=== PATIENT | male | born 1935 | race Caucasian/White ===

== ENCOUNTER → 2018-04-10 08:16 | Outpatient (CLI) | payer MEDICARE, SELFPAY ==
--- NOTE | 2018-04-10 | DI.ECHO.S_ITS ---
[facility] +---------+ : : [address] : : : : [id number] : : : : Phone: [phone] Echocardiogram Report + + :Name: MARLENE KEENAN Study Date: 04/10/2018 Height: 74 in : :[facility] Weight: 241 lb : : Gender: Male BSA: 2.4 m2 : :: 1935 Age: 83 yrs BP: 130/60 mmHg: :Reason For Study: Aortic valve regurgitation : :Ordering Physician: Dr. Estrella : :Brandon Performed By: Raissa Sosa : :Referring: Brian Lundy : + + Interpretation Summary The left ventricle is normal in size. The ejection fraction is estimated to be 55-60%. There has been no significant change in LVEF since the previous study. Assessment of diastolic parameters suggests a pseudonormalization pattern, consistent with elevated filling pressures(Changed from relaxation abnormality to pseudonormalization pattern). The right ventricle is normal size. The right ventricular systolic function is normal. There is mild to moderate mitral regurgitation. Compared to the prior echo study, there has been an increase in the severity of mitral regurgitation. The aortic valve is moderately calcified. Leaflet mobility is mild to moderately reduced. The peak aortic velocity is 2.0 m/sec. The aortic valve mean gradient is 8 mmHg. The peak aortic velocity on the previous exam was 1.4 m/sec. There is no hemodynamically significant valvular aortic stenosis. There is mild to moderate aortic regurgitation. Compared to the prior echo study, there has been no change in the severity of aortic regurgitation. The ascending aorta is moderately enlarged. Asc Aorta Diam: 4.3 cm The aortic arch is mildly enlarged. Ao Arch Diam (Prox Trans): 3.7 cm In June 28, 2017 ascending aorta diameter was about 4.6 cm and aortic arch about 3.7 cm. In May 2013, ascending aorta was about 4.3 cm and aortic arch about 3.6 cm. Procedure: A two-dimensional transthoracic echocardiogram with color flow and Doppler was performed. The study quality was technically adequate. Comparison is made with the echocardiogram of 06-28-17. The patient was in normal sinus rhythm during the exam. Left Ventricle: The left ventricle is normal in size. Left ventricular wall thickness is mildly increased. There is no thrombus. The ejection fraction is estimated to be 55-60%. There has been no significant change since the previous study. There are no focal wall motion abnormalities. Assessment of diastolic parameters suggests a pseudonormalization pattern, consistent with elevated filling pressures. Right Ventricle: The right ventricle is normal size. The right ventricular systolic function is normal. Atria: The left atrium is mildly dilated. The left atrium has mildly decreased in size since the prior echo exam. Right atrial size is normal. The interatrial septum is intact with no evidence for an atrial septal defect. Mitral Valve: The mitral valve leaflets appear mildly thickened, but open well. The mitral valve leaflets are mildly calcified. There is mild to moderate mitral annular calcification. The mitral valve chordae are thickened and/or calcified. There is mild to moderate mitral regurgitation. Compared to the prior echo study, there has been an increase in the severity of mitral regurgitation. The mitral regurgitant jet is eccentrically directed. Aortic Valve: The aortic valve is moderately calcified. The aortic valve is not well visualized. Leaflet mobility is mild to moderately reduced. The calculated aortic valve area is 2.1 cm2. The peak aortic velocity is 2.0 m/sec. The peak aortic velocity on the previous exam was 1.4 m/sec. The aortic valve mean gradient is 8 mmHg. Severity ratio is 0.52. There is no hemodynamically significant valvular aortic stenosis. There is mild to moderate aortic regurgitation. Compared to the prior echo study, there has been no change in the severity of aortic regurgitation. Tricuspid Valve: The tricuspid valve is normal in structure and function. The right ventricular systolic pressure is estimated at 24 mmHg assuming a right atrial pressure of 3 mm Hg. There is trace tricuspid regurgitation. Pulmonic Valve: The pulmonic valve is not well seen, but is grossly normal. There is trace pulmonic regurgitation. Great Vessels: The aortic root is mildly dilated. The ascending aorta is moderately enlarged. The aortic arch is mildly enlarged. The IVC is of normal diameter and collapses greater than 50% with a sniff. This suggests a low right atrial pressure of 3 mm Hg. Pericardium/ Pleura There is no pericardial effusion. There is no pleural effusion. MMode/2D Measurements & Calculations LVIDd: 4.6 cm LVOT diam: 2.3 cm LVIDs: 2.8 cm Ao root diam: 4.0 cm FS: 38.4 % Aortic Jxn: 3.5 cm EPSS: 0.55 cm asc Aorta Diam: 4.3 cm IVSd: 1.2 cm Ao Arch Diam (Prox Trans): 3.7 cm LVPWd: 0.87 cm LV fernandes. diameter/BSA (cm/m^2): 1.9 LV sys. diameter/BSA (cm/m^2): 1.2 LA dimension: 4.2 cm RA long axis: 5.2 cm LA A2 area: 23.7 cm2 RA area: 21.0 cm2 LA A4 area: 24.0 cm2 RA vol: 71.4 ml LA length (vol): 6.0 cm RA : 30.3 ml/m2 LA vol: 80.9 ml IVC diam: 1.6 cm LA vol index: 34.4 ml/m2 RVDd major: 5.1 cm RVD1 (basal): 3.7 cm RVD2 (mid): 3.6 cm Doppler Measurements & Calculations Ao V2 max: 202.7 cm/sec LVOT Max Ector: 103.7 cm/sec Ao V2 mean: 129.5 cm/sec LV V1 max P.3 mmHg Ao max P.4 mmHg LV V1 VTI: 24.6 cm Ao mean P.1 mmHg MYESHA(I,D): 2.2 cm2 Ao V2 VTI: 47.4 cm MYESHA(V,D): 2.1 cm2 sev ratio: 0.52 MYESHA indexed to BSA (cm^2/m^2): 0.92 AI P1/2t: 458.6 msec AI dec slope: 206.1 cm/sec2 MV E max ector: 97.6 cm/sec TR max ector: 230.4 cm/sec MV A max ector: 82.0 cm/sec TR max P.2 mmHg MV E/A: 1.2 PA V2 max: 69.0 cm/sec Med Peak E' Ector: 6.2 cm/sec PA V2 mean: 46.0 cm/sec E/E' med: 15.7 PA mean P.99 mmHg Lat Peak E' Ector: 7.6 cm/sec PA Accel Time: 0.17 sec E/E' lat: 12.9 E/e' average: 14.3 MV dec time: 0.22 sec MV P1/2t: 64.0 msec MR ERO: 0.18 cm2 MV P1/2t max ector: 96.3 cm/sec MR flow rate: 94.9 cm3/sec MVA(P1/2t): 3.4 cm2 MR PISA radius: 0.63 cm Reading Physician:DARREN
== END ==
PROVIDERS: PCP Family Medicine; Visit Provider Family Medicine
DX: I08.0 Rheumatic disorders of both mitral and aortic valves (principal); R53.1 Weakness
CPT/HCPCS: 93306

== ENCOUNTER 2018-06-04 14:32 | Emergency (ER) | payer MEDICARE, SELFPAY ==
[2018-06-04 14:25] VITALS: BP 127/79; PULSE 180; RESP 14; TEMP 36.7; O2SAT 98
--- NOTE | 2018-06-04 14:46 | DI.RAD.S_ITS ---
PROCEDURE: XR CHEST 1V INDICATIONS: chest pain TECHNIQUE: One view of the chest was acquired. COMPARISON: [facility], , CHEST 2 VIEW, 11/07/2015, 11:17. FINDINGS: Surgical changes and devices: None. Lungs and pleura: No pleural effusions or pneumothorax. Lungs are clear. Mediastinum: Mediastinal contours appear normal. Heart size is normal. Bones and chest wall: No suspicious bony lesions. Overlying soft tissues appear unremarkable. IMPRESSION: No acute cardiopulmonary findings. Dictated by: Kat Orta M.D. on 06/04/2018 at 15:06 Approved by: Kat Orta M.D. on 06/04/2018 at 15:06
[2018-06-04 14:53] LABS: Add Manual Diff / Slide Review NO; Basophils Percent Auto 0.9 % (0-2); Eosinophils Percent Auto 3.2 % (2-4); Hemoglobin 15.4 g/dL (13.5-17.5); Mean Corpuscular HGB Conc 34.3 % (30-36); Mean Corpuscular Hemoglobin 32.7 PG (26-34); Mean Corpuscular Volume 95.5 fL (80-100); Monocytes Percent Auto 13.4 % (3-14); Neutrophils Absolute Auto 3700 /uL (3000-5900); Neutrophils Percent Auto 53.5 % (50-75); Platelet Count 137 X10^3/uL (150-400); Red Blood Cell Count 4.71 X10^6/uL (4.5-5.9); Red Cell Distribution Width 12.9 % (11.6-14.8); White Blood Cell Count 6.9 X10^3/uL (4.5-11.0)
[2018-06-04 14:59] VITALS: BP 129/60; PULSE 74; RESP 14
[2018-06-04 15:00] LABS: INR 1.2 (0.9-1.3); Prothrombin Time 13.5 SECONDS (10.1-12.7)
[2018-06-04 15:02] LABS: PTT Partial Thromboplastin Tim 37 SECONDS (26.4-36.2)
[2018-06-04 15:04] LABS: Alanine Aminotransferase 25 IU/L (21-72); Albumin 4.5 g/dL (3.5-5.0); Albumin Globulin Ratio 1.6 (1.0-2.8); Alkaline Phosphatase 80 U/L (38-126); Aspartate Aminotransferase 19 IU/L (17-59); BUN Creatinine Ratio 16.2 (6-22); Bilirubin Total 0.8 mg/dL (0.2-1.3); Blood Urea Nitrogen 21 mg/dL (9-20); Calcium 9.5 mg/dL (8.4-10.2); Carbon Dioxide 30 mmol/L (22-32); Chloride 104 mmol/L (98-107); Creatine Kinase 42 U/L (55-170); Estimated Glomerular Filt Rate 52.9 mL/min (>60); Globulin 2.8 g/dL (1.7-4.1); Glucose 97 mg/dL (80-110); HEMOLYSIS < 15 (0-50); Lipase 80 U/L (23-300); Potassium 4.4 mmol/L (3.4-5.1); Sodium 144 mmol/L (137-145); Total Protein 7.3 g/dL (6.3-8.2)
--- NOTE | 2018-06-04 15:07 | ED_ITS ---
HPI - Arrhythmia/Palpitations General Chief Complaint: Arrhythmia/Palpitations Stated Complaint: Rapid Heart Rate Time Seen by Provider: 06/04/18 14:40 Source: patient and family Mode of arrival: ambulatory Limitations: no limitations History of Present Illness HPI narrative: Patient states that about 1 hr ago he noticed that his heart began to beat very fast. He has a history of atrial fibrillation/flutter, and has required either pharmacological or electrical cardioversion in the past. Patient denies chest pain or shortness of breath; no nausea. Patient states that he had previously been on amiodarone, but this was discontinued a couple of months ago. Patient states that he sees Dr. Gay of Cardiology, and has also seen Dr. Miller of Interventional Cardiology. He states he is scheduled to see Dr. Miller in the near future. He has previously had and a blade turpin for the same problem. Related Data Home Medications Medication Instructions Recorded Confirmed amiodarone 400 mg PO [id number] 06/04/18 06/06/18 apixaban [Eliquis] 5 mg PO BID 06/04/18 06/06/18 losartan 25 mg PO DAILY 06/04/18 06/06/18 metoprolol succinate 100 mg PO DAILY 06/04/18 06/06/18 Allergies Allergy/AdvReac Type Severity Reaction Status Date / Time simvastatin [SIMVASTATIN] AdvReac Severe MUSCLE Unverified 06/06/18 10:33 WEAKNESS Review of Systems Constitutional Denies chills, Denies fever(s), Denies lethargy and Denies weakness Eyes Denies change in vision, Denies eye discharge, Denies irritation and Denies loss of vision ENT Ears, Nose, Mouth, and Throat: Denies change in voice, Denies neck pain and Denies sore throat Cardiovascular Denies chest pain, Reports irregular heart rhythm, Denies lightheadedness, Reports palpitations, Denies dyspnea, Denies dyspnea on exertion and Denies orthopnea Respiratory Denies cough, Denies dyspnea, Denies dyspnea on exertion and Denies wheezing Gastrointestinal Gastrointestinal: Denies abdominal pain, Denies change in bowel habits, Denies diarrhea, Denies nausea and Denies vomiting Genitourinary Denies hematuria, Denies flank pain, Denies urinary incontinence and Denies urinary urgency Musculoskeletal Denies neck pain Integumentary/Breasts Denies pruritus, Denies erythema, Denies rash and Denies wounds Neurologic Denies confusion, Denies loss of vision and Denies weakness Psychiatric Denies anxiety, Denies confusion, Denies depression, Denies homicidal ideation and Denies suicidal ideation Endocrine Reports palpitations Hematologic/Lymphatic Denies easy bruising Allergic/Immunologic Denies wheezing [facility] Medical History Atrial fibrillation (Chronic) Surgical History H/O cardiac radiofrequency ablation (Chronic) Social History Smoking Status: Never smoker Exam Initial Vital Signs Initial Vital Signs: Vital Signs Temperature 98.1 F 06/04/18 14:25 Pulse Rate 180 H 06/04/18 14:25 Respiratory Rate 14 06/04/18 14:25 Blood Pressure 127/79 06/04/18 14:25 Pulse Oximetry 98 06/04/18 14:25 Const General: cooperative and well developed Nutritional Appearance: well nourished Orientation: alert, awake, oriented x3 and not confused [facility] Head: normocephalic and atraumatic Ears: external ears normal Nose: external nose normal and No nasal discharge Face and sinus: sinuses nontender, face symmetric, no sinus tenderness and No dry mucous membranes Mouth: oral mucosae normal and moist mucous membranes Teeth and gingiva: dentition normal Eyes General: appearance normal, both eyes and all related structures Eyelids: eyelids normal Conjunctivae: conjunctivae normal Sclera: sclerae normal Pupils: PERRL EOM: EOM intact bilaterally Neck Neck: normal visual inspection, trachea midline, No lymphadenopathy, No midline deformity and No JVD Lymphatic: No lymphedema Chest Chest: normal inspection of the chest Resp Effort & Inspection: normal respiratory effort, able to speak in complete sentences, no respiratory distress and no use of accessory muscles Auscultation: clear to auscultation bilaterally, no rales, no rhonchi and no wheezes Cardio Rate: tachycardic Rhythm: regular rhythm Heart Sounds: no click, no gallops, no murmurs and no rubs Pulses: normal peripheral pulses GI Inspection: non-distended Palpation: soft, no hepatosplenomegaly, No guarding, No pulsatile mass and No tender Back/Spine/Pelvis Back: No CVA tenderness Cervical Spine: cervical ROM normal and No pain with cervical ROM Thoracic/Lumbar Spine: thoracic and lumbar spine normal to inspection Skin General: no rashes or lesions noted, No jaundice and No petechiae Neuro General: alert, oriented x3, gait normal and no focal motor deficits Speech: speech normal Extrem General: full ROM, no clubbing, cyanosis or edema, no pedal edema and no calf tenderness Psych Appearance: well kempt Mental Status: mental status grossly normal Attitude: cooperative Thought Content: normal and suicidality Judgment: judgment good Course Course Narrative: Patient was evaluated by myself shortly after his arrival in the emergency department. Nursing staff did have the patient perform Valsalva maneuver and this did convert the patient's rhythm back into a normal sinus rhythm. I had initially ordered Cardizem for the patient but given that he converted, this was held. Patient was evaluated with laboratory studies and EKG. In the meantime, Dr. Gay did call the emergency department and we discussed the patient's case. He recommended that the patient be placed back on amiodarone and gave specific dosing instructions for this. He also stated his desire for patient to see Dr. Miller we have discussed the patient will indeed be seeing him shortly. I discussed the plan with the patient. He did briefly go back into atrial fibrillation, but converted spontaneously again. I have discussed the plan for the amiodarone and reiterated doctor Gay's desire for the patient to see Dr. Miller, which the patient is already planning to do. Orders Ordered: Discontinued Medications Amiodarone HCl (Cordarone) 400 mg PO NOW ONE Stop: 06/04/18 15:43 Last Admin: 06/04/18 16:06 Dose: 400 mg Diltiazem HCl (Cardizem) 10 mg IV NOW ONE Stop: 06/04/18 15:43 Last Admin: 06/04/18 16:16 Dose: Vital Signs - 8 hr 06/04/18 14:25 06/04/18 14:59 Temperature 98.1 F Pulse Rate 180 H 74 Respiratory Rate 14 14 Blood Pressure 127/79 Blood Pressure [Left Arm] 129/60 Pulse Oximetry 98 MDM - Arrhythmia/Palpitations Medical Records Attestation: I reviewed the patient's medical records. Lab Data Attestation: I reviewed the patient's lab results. Result diagrams: 06/04/18 14:45 06/04/18 14:45 Lab Results 06/04/18 06/04/18 06/04/18 Range/Units 14:45 14:45 14:45 WBC 6.9 (4.5-11.0) X10^3/uL RBC 4.71 (4.5-5.9) X10^6/uL Hgb 15.4 (13.5-17.5) g/dL Hct 45.0 (41-53) % MCV 95.5 (80-100) fL MCH 32.7 (26-34) PG MCHC 34.3 (30-36) % RDW 12.9 (11.6-14.8) % Plt Count 137 L (150-400) X10^3/uL Neut % (Auto) 53.5 (50-75) % Lymph % (Auto) 29.0 (25-40) % [place] % (Auto) 13.4 (3-14) % Eos % (Auto) 3.2 (2-4) % Baso % (Auto) 0.9 (0-2) % Neut # (Auto) 3700 (0452-6719) /uL PT 13.5 H (10.1-12.7) SECONDS INR 1.2 (0.9-1.3) APTT 37 H (26.4-36.2) SECONDS Sodium 144 (137-145) mmol/L Potassium 4.4 (3.4-5.1) mmol/L Chloride 104 (98-107) mmol/L Carbon Dioxide 30 (22-32) mmol/L BUN 21 H (9-20) mg/dL Creatinine 1.30 H (0.66-1.25) mg/dL Estimated GFR 52.9 L (>60) mL/min BUN/Creatinine Ratio 16.2 (6-22) Glucose 97 (80-110) mg/dL Calcium 9.5 (8.4-10.2) mg/dL Total Bilirubin 0.8 (0.2-1.3) mg/dL AST 19 (17-59) IU/L ALT 25 (21-72) IU/L Alkaline Phosphatase 80 (38-126) U/L Total Creatine Kinase 42 L (55-170) U/L CK-MB (CK-2) TNP CK-MB (CK-2) Rel Index TNP Troponin I < 0.012 (0.01-0.034) ng/mL Total Protein 7.3 (6.3-8.2) g/dL Albumin 4.5 (3.5-5.0) g/dL Globulin 2.8 (1.7-4.1) g/dL Albumin/Globulin Ratio 1.6 (1.0-2.8) Lipase 80 (23-300) U/L ECG Data Attestation: I personally reviewed and interpreted this ECG as follows: Interpretation: Twelve lead EKG performed on June 14, 2018 at 2:40 p.m.: Regular ventricular rhythm with a rate of 175 beats per minute QRS duration 109 milliseconds QTC interval 364 milliseconds Interpretation: Regular, narrow complex tachycardia, as interpreted by the EDMD. EKG #2: Performed June 04, 2018 at 2:49 p.m. Regular ventricular rhythm with a rate of 70 beats per minute TX interval 187 millisecond QRS duration 88 milliseconds QTC interval 378 milliseconds Normal axis Ramsay interpretation: Normal sinus rhythm; left anterior fascicular block; old OR; abnormal EKG as interpreted by ED MD. Discharge Plan Departure Patient Disposition: Home Clinical Impression: Atrial flutter with rapid ventricular response Discharge Date/Time: 06/04/18 16:15 Interventions: ED Discharge Assessment Last Done: 06/04/18 16:15 Instructions: DI for Atrial Flutter Activity Restrictions/Additional Instructions: Your case has been discussed with Dr. Gay. He states you have a history of atrial flutter, which is consistent with your heart findings today. Dr. Gay would like you to restart amiodarone, for which you will be given a prescription. He would like you to take 400 mg twice a day for 1 week, and then change to 200 mg once a day. He would like for you to follow up with Dr. Miller, the cardiac digital imaging technician, as you are scheduled to do. Prescriptions: No Action amiodarone 200 mg tablet 400 mg PO [id number] RF: 0 metoprolol succinate 100 mg tablet extended release 24 hr 100 mg PO DAILY RF: 0 losartan 25 mg tablet 25 mg PO DAILY RF: 0 apixaban [Eliquis] 5 mg tablet 5 mg PO BID RF: 0 Referrals: Marty Taylor MD [Primary Care Provider] -
[2018-06-04 15:16] LABS: Troponin I < 0.012 ng/mL (0.01-0.034)
[2018-06-04 15:40] VITALS: BP 117/97; PULSE 148; RESP 20; O2SAT 98
[2018-06-04 15:50] VITALS: BP 122/59; PULSE 68; RESP 13; O2SAT 97
[2018-06-04] MEDS: AMIODARONE 200 MG TABLET 400 MG PO (16:06)
== END 2018-06-04 16:15 | disposition home or self-care (01) ==
PROVIDERS: Emergency Provider Emergency Medicine; PCP Family Medicine
DX: I48.92 Unspecified atrial flutter (principal)
CPT/HCPCS: 36591; 71045; 80053; 82550; 83690; 84484; 85025; 85610; 85730; 93005; 99283; 99285

== ENCOUNTER 2018-06-06 10:08 | Emergency (ER) | payer MEDICARE, SELFPAY ==
[2018-06-06 10:05] VITALS: BP 126/80; PULSE 125; RESP 20; TEMP 36.5; O2SAT 98
--- NOTE | 2018-06-06 10:28 | DI.RAD.S_ITS ---
PROCEDURE: XR CHEST 1V INDICATIONS: Atrial fibrillation. TECHNIQUE: One view of the chest was acquired. COMPARISON: [facility], CR, XR CHEST 1V, 06/04/2018, 14:49. FINDINGS: Surgical changes and devices: None. Lungs and pleura: No pleural effusions or pneumothorax. Lungs are clear. Mediastinum: Mediastinal contours appear normal. Heart size is normal. Bones and chest wall: No suspicious bony lesions. Overlying soft tissues appear unremarkable. IMPRESSION: No acute cardiopulmonary disease process. Dictated by: Joya Boyce MD, PhD on 06/06/2018 at 11:16 Approved by: Joya Boyce MD, PhD on 06/06/2018 at 11:16
--- NOTE | 2018-06-06 10:31 | ED_ITS ---
HPI - Arrhythmia/Palpitations General Chief Complaint: Arrhythmia/Palpitations Stated Complaint: A-fib Time Seen by Provider: 06/06/18 10:16 Source: patient and EMS Mode of arrival: EMS Limitations: no limitations History of Present Illness HPI narrative: This is an 83-year-old gentleman who comes to the emergency department with complaint of atrial fibrillation. Patient went in about a month ago for a stress test and was noted to be in atrial fibrillation. He had a cardioversion month ago and they started him on and then increase his amiodarone dose. He was here just a couple days ago with similar symptoms also elevated which resolved and then returned within ultimately resolved. Patient has a history of a bleach in in 2012 through [facility]. He sees Dr. gramajo well. He has not been having any chest pain, no shortness of breath. No lightheadedness or dizziness today. He was feeling dizzy a couple days ago when he was here for his atrial fibrillation. He denies any nausea or vomiting , no diaphoresis. No GI or urinary symptoms. No swelling of his lower extremities. He had a AMBER about 3 weeks ago which was negative as well as this continuing to take Eliquis daily. He takes metoprolol extended-release, losartan as well as amiodarone. He has a history of stroke of the left eye. Related Data Home Medications Medication Instructions Recorded Confirmed amiodarone 400 mg PO [id number] 06/04/18 06/06/18 apixaban [Eliquis] 5 mg PO BID 06/04/18 06/06/18 losartan 25 mg PO DAILY 06/04/18 06/06/18 metoprolol succinate 100 mg PO DAILY 06/04/18 06/06/18 Allergies Allergy/AdvReac Type Severity Reaction Status Date / Time simvastatin [SIMVASTATIN] AdvReac Severe MUSCLE Unverified 06/06/18 10:33 WEAKNESS Review of Systems Review of Systems All systems reviewed & are unremarkable except as noted in HPI and below Constitutional Denies lethargy and Denies malaise Cardiovascular Denies chest pain, Denies diaphoresis, Denies syncope, Reports rapid heart rate , Denies pedal edema, Reports irregular heart rhythm, Denies leg edema, Denies lightheadedness, Denies radiating jaw, neck or arm pain, Reports palpitations, Denies dyspnea, Denies dyspnea on exertion and Denies orthopnea Respiratory Denies dyspnea and Denies dyspnea on exertion Gastrointestinal Gastrointestinal: Reports abdominal pain, Denies constipation, Denies diarrhea, Denies nausea and Denies vomiting Genitourinary Denies difficulty urinating Neurologic Denies syncope Endocrine Reports palpitations PFSH Medical History Atrial fibrillation (Chronic) Surgical History H/O cardiac radiofrequency ablation (Chronic) Social History Smoking Status: Never smoker Exam Narrative Exam Narrative: GENERAL: Alert and oriented x three, well-nourished, well- appearing male in no acute distress. HEENT: Head normocephalic, atraumatic, EOMI, pupils reactive, face symmetric, moist mucous membranes NECK: Supple, full range of motion CARDIOVASCULAR: Regular rate and rhythm without murmurs, rubs or gallops. RESPIRATORY: Breath sounds equal bilaterally, no wheezes rales or rhonchi. ABDOMEN: Soft, nontender. Normoactive bowel sounds all 4 quadrants. No guarding or rebound, rigidity, no mass EXTREMITIES: Normal range of motion, no clubbing or edema. Neurovascularly intact NEUROLOGICAL: Cranial nerves II through XII grossly intact. Moving all extremities SKIN: Warm, dry, no petechiae, no rashes or lesions. Initial Vital Signs Initial Vital Signs: Vital Signs Temperature 97.7 F 06/06/18 10:05 Pulse Rate 125 H 06/06/18 10:05 Respiratory Rate 20 06/06/18 10:05 Blood Pressure 126/80 06/06/18 10:05 Pulse Oximetry 98 06/06/18 10:05 Course Orders Ordered: ED Orders 06/06/18 10:00 Basic Metabolic Panel Stat Complete Blood Count AUTO DIFF Stat Magnesium Stat Partial Thromboplastin Time Stat Prothrombin Time INR Stat Thyroid Stimulating Hormone Stat Troponin & CK Cardiac Panel Stat 06/06/18 10:18 EKG-12 Lead Stat EKG-12 Lead Stat 06/06/18 10:28 XR chest 1V Stat Discontinued Medications Sodium Chloride (Normal Saline 0.9%) 1,000 mls @ 150 mls/hr IV CONT TRACEY Last Admin: 06/06/18 10:43 Dose: 150 mls/hr Reevaluation(s) Reevaluation #1: Patient has been asymptomatic since arrival. Continues to be in a sinus rhythm. Discussed findings he feels comfortable returning home. Time: 12:12 Consultations Consultation #1: Spoke with Dr. Lundy and he asks for patient to continue Amiodarone 400mg BID and call office to set up appointment with Dr. Miller for evaluation and possible ablation. Time: 12:11 Vital Signs - 8 hr 06/06/18 10:41 06/06/18 11:00 06/06/18 11:30 Pulse Rate 63 63 62 Respiratory Rate 18 14 19 Blood Pressure [Right Arm] 136/58 L 142/89 H 112/58 L Pulse Oximetry 98 97 98 06/06/18 12:00 Pulse Rate 60 Respiratory Rate 15 Blood Pressure [Right Arm] 129/54 L Pulse Oximetry 98 MDM - Arrhythmia/Palpitations Lab Data Attestation: I reviewed the patient's lab results. Result diagrams: 06/06/18 10:00 06/06/18 10:00 Lab Results 06/06/18 06/06/18 06/06/18 Range/Units 10:00 10:00 10:00 WBC 5.6 (4.5-11.0) X10^3/uL RBC 4.76 (4.5-5.9) X10^6/uL Hgb 15.7 (13.5-17.5) g/dL Hct 45.4 (41-53) % MCV 95.2 (80-100) fL MCH 33.1 (26-34) PG MCHC 34.7 (30-36) % RDW 13.1 (11.6-14.8) % Plt Count 136 L (150-400) X10^3/uL Neut % (Auto) 51.8 (50-75) % Lymph % (Auto) 30.1 (25-40) % Meriwether % (Auto) 13.6 (3-14) % Eos % (Auto) 4.0 (2-4) % Baso % (Auto) 0.5 (0-2) % Neut # (Auto) 2900 L (2016-9804) /uL PT 16.4 H (10.1-12.7) SECONDS INR 1.5 H (0.9-1.3) APTT 40 H D (26.4-36.2) SECONDS Sodium 143 (137-145) mmol/L Potassium 4.1 (3.4-5.1) mmol/L Chloride 104 (98-107) mmol/L Carbon Dioxide 27 (22-32) mmol/L BUN 20 (9-20) mg/dL Creatinine 1.10 (0.66-1.25) mg/dL Estimated GFR > 60.0 (>60) mL/min BUN/Creatinine Ratio 18.2 (6-22) Glucose 97 (80-110) mg/dL Calcium 9.5 (8.4-10.2) mg/dL Magnesium 2.0 (1.6-2.3) mg/dL Total Creatine Kinase 56 (55-170) U/L CK-MB (CK-2) TNP CK-MB (CK-2) Rel Index TNP Troponin I < 0.012 (0.01-0.034) ng/mL TSH (0.47-4.68) uIU/mL 06/06/18 Range/Units 10:00 WBC (4.5-11.0) X10^3/uL RBC (4.5-5.9) X10^6/uL Hgb (13.5-17.5) g/dL Hct (41-53) % MCV (80-100) fL MCH (26-34) PG MCHC (30-36) % RDW (11.6-14.8) % Plt Count (150-400) X10^3/uL Neut % (Auto) (50-75) % Lymph % (Auto) (25-40) % Meriwether % (Auto) (3-14) % Eos % (Auto) (2-4) % Baso % (Auto) (0-2) % Neut # (Auto) (1023-0989) /uL PT (10.1-12.7) SECONDS INR (0.9-1.3) APTT (26.4-36.2) SECONDS Sodium (137-145) mmol/L Potassium (3.4-5.1) mmol/L Chloride (98-107) mmol/L Carbon Dioxide (22-32) mmol/L BUN (9-20) mg/dL Creatinine (0.66-1.25) mg/dL Estimated GFR (>60) mL/min BUN/Creatinine Ratio (6-22) Glucose (80-110) mg/dL Calcium (8.4-10.2) mg/dL Magnesium (1.6-2.3) mg/dL Total Creatine Kinase (55-170) U/L CK-MB (CK-2) CK-MB (CK-2) Rel Index Troponin I (0.01-0.034) ng/mL TSH 1.08 (0.47-4.68) uIU/mL Imaging Data Chest x-ray: Radiologist's impression: [address] [address] XRay Report Signed Patient: Hussein Sheets CMR#: [id number] : 6Acct:[id number] Age/Sex: 83 / MDate of Service: 06/06/18 Loc: ED Accession Number: [id number] Procedure: XR chest 1V Ordering Provider: Carla Benton D.O. PROCEDURE: XR CHEST 1V INDICATIONS: Atrial fibrillation. TECHNIQUE: One view of the chest was acquired. COMPARISON: [facility], , XR CHEST 1V, 06/04/2018, 14:49. FINDINGS: Surgical changes and devices: None. Lungs and pleura: No pleural effusions or pneumothorax. Lungs are clear. Mediastinum: Mediastinal contours appear normal. Heart size is normal. Bones and chest wall: No suspicious bony lesions. Overlying soft tissues appear unremarkable. IMPRESSION: No acute cardiopulmonary disease process. Dictated by: Joya Boyce MD, PhD on 06/06/2018 at 11:16 Approved by: Joya Boyce MD, PhD on 06/06/2018 at 11:16 ECG Data Attestation: I personally reviewed and interpreted this ECG as follows: Interpretation: EKG 1. Shows atrial tachycardia with a rate of 122 and a QRS of 102 and a QTC of 390. No ST elevation or depression is appreciated. Left anterior fascicular block. EKG 2. Shows a sinus rhythm with a rate of 62, P are of 200, QRS of 89 and QTC of 398. Patient's shows again no ST elevation or depression appreciated. Left anterior fascicular block. MDM Narrative Medical decision making narrative: Patient cardioverted almost immediately after arrival and after 1st EKG, second EKG confirms this. Patient is asymptomatic at this time. Lab work shows no major abnormalities. He does have a director of coding and they were contacted. Discharge Plan Departure Patient Disposition: Home Clinical Impression: Atrial fibrillation Discharge Date/Time: 06/06/18 12:42 Interventions: ED Discharge Assessment Last Done: 06/06/18 12:42 Instructions: DI for Atrial Fibrillation Activity Restrictions/Additional Instructions: Call the cardiology office to set up a follow-up appointment with Dr. Miller the exhibit electrician for evaluation and possible cardiac ablation. Continue your amiodarone at 400 mg twice daily until you follow up. Return to the emergency department for recurrent symptoms particularly if they do not respond to Valsalva maneuver at home or if you're feeling lightheaded, passing out coming having chest pain or shortness of breath or other new or concerning symptoms. Prescriptions: No Action amiodarone 200 mg tablet 400 mg PO [id number] RF: 0 metoprolol succinate 100 mg tablet extended release 24 hr 100 mg PO DAILY RF: 0 losartan 25 mg tablet 25 mg PO DAILY RF: 0 apixaban [Eliquis] 5 mg tablet 5 mg PO BID RF: 0 Referrals: Marty Taylor MD [Primary Care Provider] - Hernandez Miller MD [Physician] -
[2018-06-06 10:36] LABS: Add Manual Diff / Slide Review NO; Basophils Percent Auto 0.5 % (0-2); Hematocrit 45.4 % (41-53); Hemoglobin 15.7 g/dL (13.5-17.5); Lymphocytes Percent Auto 30.1 % (25-40); Mean Corpuscular HGB Conc 34.7 % (30-36); Mean Corpuscular Hemoglobin 33.1 PG (26-34); Mean Corpuscular Volume 95.2 fL (80-100); Monocytes Percent Auto 13.6 % (3-14); Neutrophils Absolute Auto 2900 /uL (3000-5900); Neutrophils Percent Auto 51.8 % (50-75); Platelet Count 136 X10^3/uL (150-400); Red Blood Cell Count 4.76 X10^6/uL (4.5-5.9); Red Cell Distribution Width 13.1 % (11.6-14.8); White Blood Cell Count 5.6 X10^3/uL (4.5-11.0)
[2018-06-06 10:37] LABS: INR 1.5 (0.9-1.3); Prothrombin Time 16.4 SECONDS (10.1-12.7)
[2018-06-06 10:40] LABS: PTT Partial Thromboplastin Tim 40 SECONDS (26.4-36.2)
[2018-06-06 10:41] VITALS: BP 136/58; PULSE 63; RESP 18; O2SAT 98
[2018-06-06 10:41] LABS: BUN Creatinine Ratio 18.2 (6-22); Blood Urea Nitrogen 20 mg/dL (9-20); Calcium 9.5 mg/dL (8.4-10.2); Carbon Dioxide 27 mmol/L (22-32); Chloride 104 mmol/L (98-107); Creatine Kinase 56 U/L (55-170); Estimated Glomerular Filt Rate > 60.0 mL/min (>60); Glucose 97 mg/dL (80-110); HEMOLYSIS < 15 (0-50); Potassium 4.1 mmol/L (3.4-5.1); Sodium 143 mmol/L (137-145)
[2018-06-06] MEDS: SODIUM CHLORIDE 0.9% 1,000 ML 150 ML IV (10:43)
[2018-06-06 10:54] LABS: Troponin I < 0.012 ng/mL (0.01-0.034)
[2018-06-06 11:00] VITALS: BP 142/89; PULSE 63; RESP 14; O2SAT 97
[2018-06-06 11:19] LABS: Thyroid Stimulating Hormone 1.08 uIU/mL (0.47-4.68)
[2018-06-06 11:30] VITALS: BP 112/58; PULSE 62; RESP 19; O2SAT 98
[2018-06-06 12:00] VITALS: BP 129/54; PULSE 60; RESP 15; O2SAT 98
--- NOTE | 2018-06-11 20:21 | PC.NURSE ---
pt rec'd 300ml of ns on 06/06/18 ending at 1230.
== END 2018-06-06 12:42 | disposition home or self-care (01) ==
PROVIDERS: Emergency Provider Emergency Medicine; PCP Family Medicine
DX: I48.91 Unspecified atrial fibrillation (principal)
CPT/HCPCS: 71045; 80048; 82550; 83735; 84443; 84484; 85025; 85610; 85730; 93005; 96360; 96361; 99283; 99285

== ENCOUNTER → 2018-12-12 11:16 | Outpatient (CLI) | payer MEDICARE, SELFPAY ==
--- NOTE | 2018-12-12 | DI.CT.S_ITS ---
PROCEDURE: CT CHEST WO CON INDICATIONS: PNEUMONIA TECHNIQUE: Noncontrast 5 mm thick sections acquired from the pulmonary apices to the posterior costophrenic angles. 7 mm thick coronal and sagittal MIP reformats were then acquired. For radiation dose reduction, the following was used: automated exposure control, adjustment of mA and/or kV according to patient size. COMPARISON: None. FINDINGS: Image quality: Excellent. Lungs and pleura: Focal prominent consolidation can be seen involving the posterior left lower lobe, with apparent complete collapse of the left lower lobe. The lungs otherwise are unremarkable. No pneumothorax or pleural effusions are seen. The central airways are patent. Mediastinum: Heart size is normal. No pericardial effusion. No mediastinal adenopathy by size criteria. Thoracic aorta and central pulmonary arteries are normal in size. Esophagus is normal in caliber. There is a small hiatal hernia. Bones and chest wall: No suspicious bony lesions. No vertebral body compression fractures. No axillary or supraclavicular adenopathy by size criteria. Thyroid gland demonstrates no significant noncontrast abnormality. Abdomen: Visualized upper abdominal solid organs and bowel loops appear normal in the absence of contrast. IMPRESSION: Apparent complete collapse of the left lower lobe. Please consider a followup noncontrast CT in 4-6 weeks to assure resolution. Incidental note is made of: Small hiatal hernia Dictated by: Ortega Livingston M.D. on 12/12/2018 at 11:40 Approved by: Ortega Livingston M.D. on 12/12/2018 at 11:42
== END ==
PROVIDERS: PCP Family Medicine; Visit Provider Family Medicine
DX: J18.9 Pneumonia, unspecified organism (principal); J98.19 Other pulmonary collapse
CPT/HCPCS: 71250

== ENCOUNTER → 2019-01-05 14:43 | Outpatient (CLI) | payer MEDICARE, SELFPAY ==
--- NOTE | 2019-01-05 | DI.CT.S_ITS ---
PROCEDURE: CT CHEST WO CON INDICATIONS: FOLLOW UP ABNORMAL CT TECHNIQUE: Noncontrast 5 mm thick sections acquired from the pulmonary apices to the posterior costophrenic angles. 7 mm thick coronal and sagittal MIP reformats were then acquired. For radiation dose reduction, the following was used: automated exposure control, adjustment of mA and/or kV according to patient size. COMPARISON: [facility], CT, CT CHEST WO [facility], 12/12/2018, 11:36. FINDINGS: Image quality: Excellent. Lungs and pleura: Interval reexpansion of collapse in the left lower lobe. No suspicious pulmonary nodules. No acute air space opacities. No pleural effusions or pneumothorax. Central and peripheral airways are patent and normal in caliber. Mediastinum: Heart size is normal. No pericardial effusion. No mediastinal adenopathy by size criteria. Unchanged thoracic aorta, with 4.6 cm diameter of the ascending aorta. is normal in caliber. No hiatal hernia. Bones and chest wall: No suspicious bony lesions. No vertebral body compression fractures. No axillary or supraclavicular adenopathy by size criteria. Thyroid gland is unremarkable. Abdomen: Visualized upper abdominal solid organs and bowel loops appear normal in the absence of contrast. IMPRESSION: 1. Interval reexpansion of left lower lobe atelectasis. No findings suspicious for malignancy. 2. Ascending aortic aneurysm measured 4.6 cm. Dictated by: Rao Herman M.D. on 01/05/2019 at 15:46 Approved by: Rao Herman M.D. on 01/05/2019 at 15:50
== END ==
PROVIDERS: PCP Family Medicine; Visit Provider Family Medicine
DX: R93.89 Abnormal findings on diagnostic imaging of other specified body structures (principal); I71.2 Thoracic aortic aneurysm, without rupture
CPT/HCPCS: 71250

== ENCOUNTER → 2019-09-21 09:24 | Outpatient (CLI) | payer MEDICARE, SELFPAY ==
--- NOTE | 2019-09-21 | DI.RAD.S_ITS ---
PROCEDURE: XR CHEST 2V INDICATIONS: COUGH TECHNIQUE: 2 views of the chest were acquired. COMPARISON: [facility], CR, XR CHEST 1V, 06/06/2018, 11:00. [facility], CR, XR CHEST 1V, 06/04/2018, 14:49. FINDINGS: Surgical changes and devices: None. Lungs and pleura: Lungs are clear. No pleural effusions or pneumothorax. Mediastinum: Mediastinal contours are normal. Heart size is normal. Bones and chest wall: No suspicious bony abnormalities. Soft tissues appear unremarkable. IMPRESSION: Normal for age, source of current cough symptoms is not seen. Dictated by: Anupam Williamson M.D. on 09/21/2019 at 10:29 Approved by: Anupam Williamson M.D. on 09/21/2019 at 10:30
== END ==
PROVIDERS: PCP Family Medicine; Visit Provider Family Medicine
DX: R05 Cough (principal)
CPT/HCPCS: 71046

== ENCOUNTER → 2019-10-09 08:33 | Outpatient (CLI) | payer MEDICARE, SELFPAY ==
--- NOTE | 2019-10-09 | DI.MG.S_ITS ---
MALE BILATERAL DIGITAL DIAGNOSTIC MAMMOGRAM 3D/2D: 10/09/2019 CLINICAL: Right breast pain. No prior exams were available for comparison. There is gynecomastia in the right breast that correlates with clinical concern. No significant masses, calcifications, or other findings are seen in either breast. IMPRESSION: There is no mammographic evidence of malignancy. This exam was interpreted at Station ID: [id number]. NOTE: For mammograms, a report in lay terms will be sent to the patient. Approximately 15% of breast malignancies will not be visualized mammographically. In the management of a palpable breast mass, a negative mammogram must not discourage biopsy of a clinically suspicious lesion. Electronically Signed By: Kat Orta M.D. lk/:10/09/2019 09:14:02 letter sent: Clinical Evaluation ACR BI-RADS Category 2: Benign Finding(s) 3342F
== END ==
PROVIDERS: PCP Family Medicine; Referring Provider Family Medicine; Visit Provider Family Medicine
DX: N64.4 Mastodynia (principal); N62 Hypertrophy of breast
CPT/HCPCS: 77066; G0279

== ENCOUNTER → 2020-11-21 10:17 | Outpatient (CLI) | payer MEDICARE, SELFPAY ==
[2020-11-21 13:01] LABS: COVID19 -Nasal RAPID Negative (Negative)
== END ==
PROVIDERS: PCP Family Medicine; Visit Provider Surgery
DX: Z20.822 Contact with and (suspected) exposure to COVID-19 (principal)
CPT/HCPCS: 87635; C9803

== ENCOUNTER 2020-11-22 11:13 | Day surgery (SDC) | payer MEDICARE, SELFPAY ==
[2020-11-22] VITALS (11 sets, daily range): BP systolic 101–164; BP diastolic 34–71; PULSE 58–73; RESP 10–18; TEMP 36.1–36.7; O2SAT 91–97; BMI 32.3
[2020-11-22] MEDS: ACETAMINOPHEN 325 MG TABLET 975 MG PO (11:38)
[2020-11-22] MEDS: LACTATED RINGERS 1,000 ML 42 ML IV (11:39)
--- NOTE | 2020-11-22 12:01 | PM.PREOP ---
Pre-operative Note Interval Note History & Physical reviewed/Exam performed by Physician: Yes Changes to H&P: No
--- NOTE | 2020-11-22 13:00 | SUR.OPER ---
Supine on padded OR bed, head on pillow, arms secured on padded arm boards at <90 degrees abduction, legs uncrossed, safety belt at thigh, tape over blanket over lower legs.
[2020-11-22] MEDS: CEFAZOLIN 2 GM/100 ML FROZ.PIGGY IV (13:27)
[2020-11-22] MEDS: BUPIVACAINE 0.25% (PF) VIAL 30 ML INJ (13:51)
--- NOTE | 2020-11-22 15:10 | SUR.PHASEI ---
pt. sleeping oa in place, rhythm strip printed and placed in chart, occ. pvc's noted, and occ. goes into a-fib, but generally stays in nsr.
--- NOTE | 2020-11-24 11:01 | PM.OP.1 ---
Operative Date/Time/Diagnoses Date of procedure: 11/22/20 Time of procedure: 11:01 Pre-op diagnosis: Left inguinal hernia Post-op diagnosis: same Procedure & Clinicians Procedure: Open left inguinal hernia repair with mesh Same procedure as scheduled: Yes Indications: 85-year-old man with a reducible left inguinal hernia here for elective repair Surgeon: Justo Alejandro Anesthesia Type: General Operative Notes Findings: Direct floor defect, cord lipoma Specimen(s): none sent Procedure in detail: The patient was placed supine on the table and bilateral lower extremity compression devices were applied. Anesthesia was induced they were intubated with an LMA and received 2g of Ancef. A time-out was performed. They were prepped and draped in sterile fashion. The left external inguinal ring and the anterior superior iliac crest were identified and marked. 1 finger breath above the inguinal ligament the skin was infiltrated with 0.25% bupivacaine. The skin incision was made here and the subcutaneous tissues were divided with electrocautery exposing the external oblique aponeurosis which was then opened along the direction of its fibers. Using blunt dissection the internal oblique aporneurosis was from the external oblique upper leaflet to identify the iliohypogastric nerve. Using a kittner the cord was carefully dissected away from the inguinal canal adjacent to the pubic tubercle. The cord including the vas deferens, testicular bloody supply, ilioguinal and genital nerve were encircled with a Katelyn drain. A direct floor defect was identified and it was reduced into the abdomen and the internal oblique aporneuorsis was approximated to the inguinal ligament with Ethibond suture to reapproximate the floor. The cremasteric fibers surrounding the cord were divided using electrocautery adjacent to the internal ring.. The vas deferens and the testicular vessels were preserved and protected. There was no indirect hernia, there was a cord lipoma which was skeletonized off from the vas deferens and testicular blood supply. I selected a 7x 15 cm lightweight Pro Loop hernia mesh. The inferior medial aspect of the mesh was anchored to insertion of the rectus muscle to the pubic tubercle such that there was approximately 2 cm of tubercle overlap with Ethibond and then was run continuously along the inferior edge of the mesh to the shelving edge of the inguinal ligament. Interrupted 3 0 Vicryl suture was used to anchor the superior aspect of the mesh to the conjoined tendon in several places. The tails were then reapproximated loosely around the spermatic cord. The tails of the mesh were then tucked under the external oblique aponeurosis. The repair was checked for hemostasis. The wound was irrigated with sterile saline. The external oblique aponeurosis was reapproximated in a running fashion using 3 0 Vicryl. The subcutaneous tissues were reapproximated with 3 0 Vicryl skin closed with 4 0 Monocryl followed by the application of Dermabond. At the end of the operation I ensured that both testicles were within the scrotum. The sponge instrument count at the end operation was correct. The patient emerged from anesthesia was extubated and transferred to the postoperative care unit in stable condition. A total of 30 ml of of 0.25% bupivicaine was used to infiltrate the skin. Complications: none Post-operative Condition: stable Disposition: same day surgery
== END 2020-11-22 16:07 | disposition home or self-care (01) ==
PROVIDERS: PCP Family Medicine; Referring Provider Surgery; Visit Provider Surgery
PROC: (CPT 49505; principal; 2020-11-22 12:15)
DX: K40.90 Unilateral inguinal hernia, without obstruction or gangrene, not specified as recurrent (principal); D17.6 Benign lipomatous neoplasm of spermatic cord; I48.91 Unspecified atrial fibrillation; Z79.01 Long term (current) use of anticoagulants; I10 Essential (primary) hypertension
CPT/HCPCS: 49505; 82962; C1781; J0690; J1100; J1885; J2250; J2405; J2704; J3010

== ENCOUNTER → 2021-05-31 08:02 | Outpatient (CLI) | payer MEDICARE, SELFPAY ==
--- NOTE | 2021-05-31 | DI.MRI.S_ITS ---
PROCEDURE: MR STROKE Pre- and post-contrast brain MRI, non-contrast brain MR angiogram, pre- and postcontrast neck MR angiogram INDICATIONS: Unspecified visual disturbance Dizziness TECHNIQUE: Brain: Noncontrast axial T1 spin echo, axial T2 fast spin echo, sagittal and axial FLAIR, coronal T2 fast spin echo, axial gradient echo, axial diffusion and ADC through the brain. After the administration of contrast, axial 3D VIBE of the cranial vasculature and brain. Brain MRA: Non-contrast 3-D time of flight MR angiogram, with multiple tbwhyik-pvvrjmpvv-szmnvhnwxc (MIP) reformats performed. Neck MRA: Axial and sagittal TruFISP through the neck. Coronal dynamic MR angiogram during administration of contrast in the arterial and venous phases, with 3-dimenstional tzhwvzs-fhtskgeom-lrmqmmhapn (MIP) reformats constructed from subtraction images. COMPARISON: None. FINDINGS: BRAIN: CSF spaces: Ventricles are grossly unremarkable. Basal cisterns are patent. No extra-axial fluid collections. Brain: No midline shift. No intracranial bleeds or masses. Benjamin-white matter interface appears intact. No acute ischemia. No abnormal enhancement. Skull and face: Calvarium and facial bones appear intact. Orbits appear normal. Sinuses: Sinuses and mastoids are clear. HEAD MR ANGIOGRAPHY: Anterior circulation: Intracranial internal carotid arteries (ICA): Patent. Anterior cerebral arteries (ROSENDO): Left A1 segment is not well seen likely atretic. Otherwise, the remaining anterior cerebral arteries appear patent. Anterior communicating artery noted. Middle cerebral arteries (MCA): Focal occlusion of the right M1 segment, with distal reconstitution and patent appearance of the trifurcation, and sylvian fissure branches. Other: No aneurysms are seen. Posterior circulation: Visualized portions of the vertebral arteries: Dominant appearance of the right vertebral artery. 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 Basilar artery: Patent. Posterior cerebral arteries (CLINICAL SPECIALTY REP): Patent. Bilateral origin of the visual presentation manager noted. There is a patent appearance of the right P1 segment. At the origin of the left posterior communicating artery, and there is mild irregularity which could be due to tortuous configuration, prominent infundibulum (normal variant) however cannot exclude 1-2 mm aneurysm. NECK MR ANGIOGRAPHY: Carotid system: Common carotid artery (CCA) origins: Patent. Common carotid arteries (CCA): Patent. Internal carotid arteries (ICA): Patent. Posterior circulation: Vertebral artery origins: Not well seen bilaterally. Extracranial portions of both vertebral arteries: Patent. Basilar artery: Patent. Soft tissues: Visualized neck soft tissues demonstrate no suspicious abnormalities. Bones: No suspicious bony lesions. Cervical spondylosis and facet arthropathy. IMPRESSION: BRAIN MRI: No evidence of acute ischemia. BRAIN MR ANGIOGRAM: Possible small 1 mm outpouching seen at the origin of the left posterior communicating artery, which could represent a prominent infundibulum or tortuous vessel although cannot entirely exclude tiny aneurysm, technically indeterminate. As clinically warranted, recommend continued surveillance with CT angiography for further assessment and to document long-term stability, given the absence of prior relevant studies. NECK MR ANGIOGRAM: No hemodynamically significant ICA stenosis. Dictated by: Martín Calvo M.D. on 05/31/2021 at 10:07 Approved by: Martín Calvo M.D. on 05/31/2021 at 10:34
== END ==
PROVIDERS: PCP Family Medicine; Referring Provider Family Medicine; Visit Provider Family Medicine
DX: H53.9 Unspecified visual disturbance (principal); R42 Dizziness and giddiness
CPT/HCPCS: 70548; 70553

== ENCOUNTER → 2021-06-21 10:28 | Outpatient (CLI) | payer MEDICARE, SELFPAY ==
--- NOTE | 2021-07-13 16:50 | PM.CARDMON.1 ---
Computer Information Systems Professor Report Referral & Results Date Patient Seen: 06/21/21 Requesting provider: Hemant Tucker Indication: Dizziness Duration of monitoring (days): 14 Diary information: There were 9 patient triggered events and 8 patient diary entries Patient triggered events were associated with (within 45 seconds) sinus rhythm, PACs and PVCs Patient diary events were associated with sinus rhythm only Data: Minimum heart rate identified was 54 beats per minute at 04:34 on 06/27/2021 Maximum sinus heart rate was 116 beats per minute at 13:03 on 07/02/2021 Maximum overall heart rate was 197 beats per minute at 16:37 on 07/01/2021 during a run of SVT Less than 1% of identified beats were ventricular or supraventricular ectopic in origin, which would classify them as rare. There were 56 runs of SVT the fastest being the 4 beat run noted above the longest lasting 18.8 seconds at a rate of 97 beats per minute which would suggest more atrial tachycardia. 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 Very rare very brief runs of SVT were identified No correlation between patient events and any particular or singular dysrhythmia
== END ==
PROVIDERS: PCP Family Medicine; Referring Provider Family Medicine; Visit Provider Family Medicine
DX: R42 Dizziness and giddiness (principal); I48.91 Unspecified atrial fibrillation
CPT/HCPCS: 93246; 93248

== ENCOUNTER → 2021-11-01 11:53 | Outpatient (CLI) | payer MEDICARE, SELFPAY ==
--- NOTE | 2021-11-01 | DI.CT.S_ITS ---
PROCEDURE: CT ABDOMEN PELVIS WO/W CON INDICATIONS: Gross hematuria TECHNIQUE: Optional 5 mm thick noncontrast images acquired from the diaphragm to the symphysis pubis. After the administration of intravenous contrast, 5 mm thick images acquired from the diaphragm to the symphysis pubis after a 10-minute delay. 2 mm thick coronal and sagittal reformats were then performed of the kidneys and ureters. For radiation dose reduction, the following was used: automated exposure control, adjustment of mA and/or kV according to patient size. COMPARISON: None. FINDINGS: Image quality: Excellent. Lung bases: Lung bases are clear. Heart size is normal. Coronary atherosclerotic vascular calcifications are noted. Small hiatal hernia. Urinary system: Both kidneys are normal in size, without hydronephrosis or nephrolithiasis on pre-contrast images. No perinephric fat stranding. There is normal bilateral renal enhancement. Nonenhancing left renal hypodensities compatible with renal cysts. Renal calyces appear normal in morphology when filled with contrast. Opacified portions of both ureters demonstrate normal caliber. There is mild circumferential, trabeculated thickening of the urinary bladder wall likely related to chronic bladder outlet obstruction given presence of moderate prostatomegaly. No calcified bladder stones. Other solid organs: Liver is normal in size and enhancement. Gallbladder unremarkable . Biliary system is non dilated. Pancreas enhances normally. Spleen is normal in size and enhancement. No adrenal nodules. Peritoneum and bowel: Bowel loops demonstrate normal wall thickness and caliber. No free fluid or air. Extensive colonic diverticulosis without acute diverticulitis. Nodes and vessels: No retroperitoneal or mesenteric adenopathy by size criteria. Scattered atherosclerotic calcifications of the abdominal aorta and iliac vessels without aneurysmal dilatation. The inferior vena cava appears patent. Abdominal wall: No ventral hernias. Pelvis: No pathologic free pelvic fluid. No pelvic adenopathy. Fat containing left inguinal hernia. Bones: No acute vertebral body compression fractures. Multilevel spondylitic changes throughout the imaged spine. No suspicious osseous lesions. IMPRESSION: 1. No evidence for urolithiasis or obstructive uropathy. 2. Mild circumferential, trabeculated thickening of the urinary bladder wall likely related to sequela chronic outlet obstruction given presence of moderate prostatomegaly. Otherwise, no suspicious abnormalities identified to suggest a uroepithelial lesion within the lower or upper urinary collecting system. Consider further evaluation with direct visualization/urologic consultation. 3. Colonic diverticulosis without acute diverticulitis. Other chronic findings as above. Dictated by: Sergio Handy M.D. on 11/01/2021 at 15:30 Approved by: Sergio Handy M.D. on 11/01/2021 at 15:40
== END ==
PROVIDERS: PCP Family Medicine; Referring Provider Family Medicine; Visit Provider Family Medicine
DX: R31.0 Gross hematuria (principal); K57.90 Diverticulosis of intestine, part unspecified, without perforation or abscess without bleeding; I25.10 Atherosclerotic heart disease of native coronary artery without angina pectoris; K44.9 Diaphragmatic hernia without obstruction or gangrene
CPT/HCPCS: 74178; Q9967

== ENCOUNTER 2022-03-03 20:57 | Emergency (ER) | payer MEDICARE, SELFPAY ==
[2022-03-03 21:14] VITALS: BP 234/100; PULSE 89; RESP 18; TEMP 35.5; O2SAT 94; BMI 32.5
[2022-03-03] MEDS: LIDOCAINE 2% (GLYDO) 6 ML GEL TOP (21:15)
--- NOTE | 2022-03-03 21:57 | PC.NURSE ---
Pt reported that he's being treated for prostate CA with radiation, and also UTI. Pt reports only dribbling urine for 3 days and no BM. 18F coude cath placed after bladder scan showed >800ML. Pt reports severe abd pain and distention. Sharp drained 1000ML and still draining. Pt states the pain is improved and he thinks he may be able to defecate now. Pt ambulated to bathroom.
--- NOTE | 2022-03-03 22:21 | DI.RAD.S_ITS ---
PROCEDURE: XR ABDOMEN MIN 2V INDICATIONS: eval constipation TECHNIQUE: 2 views of the abdomen were acquired. COMPARISON: [facility], CT, CT ABDOMEN PELVIS WO/W CON, 11/01/2021, 11:59. FINDINGS: Surgical changes and devices: None. Bowel: No pneumoperitoneum. The bowel gas pattern is nonobstructive. Moderate amount of stool in colon. Paucity of small bowel gas. Soft tissues: No masses; visualized solid organ contours appear normal in size. No suspicious abdominal calcifications. Bones: No suspicious bony abnormalities. IMPRESSION: Non obstructive bowel gas pattern. There is a moderate amount of stool in colon. Dictated by: Christofer Ma M.D. on 03/04/2022 at 0:03 Approved by: Christofer Ma M.D. on 03/04/2022 at 0:04
[2022-03-03 22:34] LABS: Appearance Urine UA Clear; Color Urine UA Orange; Glucose Urine UA NEGATIVE (Negative); Ketones Urine UA NEGATIVE (NEGATIVE); Protein Urine UA Negative (Negative); pH Urine UA 5 (4.5-8.0)
[2022-03-03 22:35] LABS: Bilirubin Urine UA Negative (NEGATIVE); Leukocyte Esterase Urine UA NEGATIVE (NEGATIVE); Occult Blood Urine UA 3+ (Negative); Urobilinogen Urine UA Normal E.U./dL (0.2)
[2022-03-03 22:46] LABS: Bacteria Urine None Seen; Culture Indicated Urine Cult Not Indicated; RBC Urine 1-5/HPF (0-5/HPF); WBC Urine None Seen (0-5/HPF)
--- NOTE | 2022-03-04 00:41 | PC.NURSE ---
Pt has walked to the bathroom multiple times. States he's passing gas, but no BM yet.
--- NOTE | 2022-03-04 00:58 | ED_ITS ---
HPI - General Adult General Chief complaint: Urogenital-Male Stated complaint: UTI, PROSTATE Time Seen by Provider: 03/04/22 00:57 Source: patient Mode of arrival: Ambulatory History of Present Illness HPI narrative: 87-year-old gentleman with a history of prostate cancer currently undergoing radiation treatment with coarse expected to and in mid March presents with 3 days of significantly decreased urinary output and minimal stool output with increasing abdominal pain. Comes in for further evaluation. He denies fever, cough, chills, chest pain, palpitations, lower extremity edema. Related Data Home Medications Medication Instructions Recorded Confirmed apixaban 5 mg tablet 5 mg PO BID 06/04/18 10/02/21 carvedilol 6.25 mg tablet 6.25 mg PO BID 11/16/20 10/02/21 latanoprost 0.005 % eye drops 1 drp EYE-BOTH DAILY 11/16/20 10/02/21 losartan 25 mg tablet 25 mg PO BID 11/16/20 10/02/21 Previous Rx's Medication Instructions Recorded acetaminophen 325 mg capsule 650 mg PO QID PRN pain #60 caps 11/22/20 (Tylenol) docusate sodium 100 mg capsule 100 mg PO BID #30 caps 11/22/20 (Colace) Allergies Allergy/AdvReac Type Severity Reaction Status Date / Time simvastatin [SIMVASTATIN] AdvReac Severe MUSCLE Verified 10/02/21 09:43 WEAKNESS Review of Systems Review of Systems Narrative: Remainder of complete review of systems is otherwise unremarkable except for that included in the HPI. Patient History Medical History Ascending aortic aneurysm Atrial fibrillation Enlarged prostate Hx of echocardiogram Surgical History H/O cardiac radiofrequency ablation History of blepharoplasty History of knee replacement History of tonsillectomy Family History Father Heart disease Mother Breast cancer Social History marital status: household members: spouse Smoking Status: Never smoker substance use type: does not use Smoking Status: Never smoker alcohol intake frequency: a few times a month Substance Use Type: does not use Exam Initial Vital Signs Initial Vital Signs: Vital Signs Temperature 96 F L 03/03/22 21:14 Pulse Rate 89 03/03/22 21:14 Respiratory Rate 18 03/03/22 21:14 Blood Pressure 234/100 H 03/03/22 21:14 Pulse Oximetry 94 03/03/22 21:14 Oxygen Delivery Method 03/03/22 21:14 General: Healthy appearing, in no acute distress. Able to give a complete and coherent history. Well-nourished well-developed HEENT: Moist mucous membranes, normal sclera with reactive pupils, Respiratory: Lungs are clear to auscultation, no wheezing no rales no rhonchi. Full and symmetrical air movement Cardiac: Regular rate and rhythm no murmurs no bruits Abdomen: Exam is after Sharp catheter placement and 1300 cc of urine drained, Soft, nontender, good bowel tones, no flank pain Skin: Warm and dry, no rashes Neurologic: Grossly neurologically intact with no obvious asymmetries or abnormalities Extremities: No trauma, well perfused Psych: Cooperative, appropriate insight and affect Course Orders Ordered: ED Orders 03/03/22 21:35 Urinalysis and Microscopic Stat 03/03/22 22:21 XR abdomen min 2V Stat Discontinued Medications Lidocaine HCl (Lidocaine 2% (Glydo) 6 Ml Gel) 6 ml TOP NOW ONE Stop: 03/03/22 21:12 Last Admin: 03/03/22 21:15 Dose: 6 ml Documented By: [email or web address] Vital Signs Vital signs: Vital Signs - 8 hr 03/03/22 21:14 Temperature 96 F L Pulse Rate 89 Respiratory Rate 18 Blood Pressure 234/100 H Pulse Oximetry 94 Oxygen Delivery Method Room Air Medical Decision Making Lab Data Labs: Lab Results 03/03/22 Range/Units 21:35 Urine Color [place] Urine Appearance Clear Urine pH 5 (4.5-8.0) Ur Specific [place] 1.020 (1.000-1.035) Urine Protein Negative (Negative) Urine Glucose (UA) Negative (Negative) g/dL Urine Ketones Negative (NEGATIVE) Urine Occult Blood 3+ H (Negative) Urine Nitrate Not Reportable Urine Bilirubin Negative (NEGATIVE) Urine Urobilinogen Normal (0.2) E.U./dL Ur Leukocyte Esterase Negative (NEGATIVE) Urine RBC 1-5/hpf (0-5/HPF) Urine WBC None seen (0-5/HPF) Urine Bacteria None seen (None) Ur Culture Indicated? Cult not indicated Imaging Data Abdominal x-ray: Radiologist's Impression: FINDINGS:? Surgical changes and devices:? None.? ? Bowel:? No pneumoperitoneum.? The bowel gas pattern is nonobstructive.? Moderate amount of stool in colon.? Paucity of small bowel gas. ? Soft tissues:? No masses; visualized solid organ contours appear normal in size.? No suspicious abdominal calcifications.? ? Bones:? No suspicious bony abnormalities.? ? IMPRESSION:? Non obstructive bowel gas pattern.? There is a moderate amount of stool in colon. ? ? Dictated by: Christofer Ma M.D. on 03/04/2022 at 0:03 ? ? MDM Narrative Medical decision making narrative: 87-year-old gentleman chcf through radiation treatment for prostate cancer with significantly increasing urinary retention. This evening he has not been able to void at all and is more more comfortable. Sharp catheter is placed without difficulty and 1300 cc of urine returns. X-ray suggests right-sided stool which is consistent with his exam. He is discharged home with magnesium citrate and suggestions to start daily MiraLax to prevent constipation. There is no evidence of acute abdominal infection, obstruction, sepsis or reason to do additional workup or admit to the hospital. His discharged home with Sharp catheter in place and is much more comfortable. Discharge Plan Departure Patient Disposition: Home Clinical Impression: Acute urinary retention Constipation Qualifiers: Constipation type: drug induced constipation Qualified Code(s): K59.03 - Drug induced constipation Instructions: How to Care for Your Sharp Catheter -- Male, DI for Urinary Retention in Men Activity Restrictions/Additional Instructions: Thank you for coming in I believe the radiation therapy has caused enough swelling in your prostate that you are completely unable to pee. When the catheter was placed, you had 1300 cc of urine come out. We have given you a leg bag to use. I would suggest leaving the Sharp catheter in through of the remainder of your radiation therapy and for at least a week beyond that. Please discuss this with your oncologist or urologist. Between the opioids that your taking for pain, the very enlarged bladder and he radiation treatment you are also experiencing some constipation. The x-ray suggests that the majority of the stools on the right side of your colon which means that using medicine that draws water into your stool and helps pushed the stool along will be more helpful than something like a suppository or an enema. I have given you bottle of magnesium citrate. Please drink a bottle when you get home and hopefully this is going to help relieve the constipation symptoms. When you are using chronic narcotics making sure that you are taking a daily stool softener is going to be important. Diet changes such as fruit and extra water are appropriate. Using 1 capful of MiraLax/polyethylene glycol daily can also help keep your stool soft enough to comfortably pass. I wish you the best Prescriptions: No Action carvedilol 6.25 mg tablet 6.25 mg PO BID Rx Instructions: must administer with a meal/food latanoprost 0.005 % drops 1 drp EYE-BOTH DAILY apixaban 5 mg tablet 5 mg PO BID losartan 25 mg tablet 25 mg PO BID docusate sodium [Colace] 100 mg capsule 100 mg PO BID Qty: 30 0RF acetaminophen [Tylenol] 325 mg capsule 650 mg PO QID PRN (Reason: pain) Qty: 60 0RF Referrals: Hemant Tucker MD [Primary Care Provider] -
[2022-03-04] MEDS: MAGNESIUM CITRATE 300 ML SOLUTION PO (01:24)
[2022-03-04 02:06] VITALS: BP 186/86; PULSE 86; RESP 17; O2SAT 95
== END 2022-03-04 01:50 | disposition home or self-care (01) ==
PROVIDERS: Emergency Provider Emergency Medicine; PCP Family Medicine
DX: R33.8 Other retention of urine (principal); K59.03 Drug induced constipation
CPT/HCPCS: 51798; 74019; 81001; 99283; 99284

== ENCOUNTER 2022-06-13 13:10 | Inpatient (IN) | payer MEDICARE, SELFPAY ==
[2022-06-13] VITALS (23 sets, daily range): BP systolic 148–215; BP diastolic 64–98; PULSE 55–78; RESP 11–20; TEMP 35.7–36.8; O2SAT 96–99; BMI 31.8
[2022-06-13 14:54] LABS: Appearance Urine UA SL CLOUDY; Bilirubin Urine UA NEGATIVE (NEGATIVE); Color Urine UA YELLOW; Glucose Urine UA NEGATIVE (Negative); Ketones Urine UA NEGATIVE (NEGATIVE); Leukocyte Esterase Urine UA 3+ (NEGATIVE); Nitrite Urine UA POSITIVE (Negative); Occult Blood Urine UA 3+ (Negative); Protein Urine UA 1+ (Negative); Specific Gravity Urine UA <=1.005 (1.000-1.035); Urobilinogen Urine UA 0.2 E.U./dL (0.2)
[2022-06-13 15:26] LABS: Amorphous Sediment Urine 1+; Bacteria Urine Many (>30); Culture Indicated Urine Specimen Cultured; RBC Urine 10-30/HPF (0-5/HPF); WBC Urine 5-10/HPF (0-5/HPF)
--- NOTE | 2022-06-13 15:48 | ED_ITS ---
HPI - Male Genitourinary <Fabiola Chaney, [facility] - Last Filed: 06/13/22 20:14> General Chief complaint: Urogenital-Male Stated complaint: Prostate problems, Unable to urinate Time Seen by Provider: 06/13/22 15:10 History of Present Illness HPI Narrative: This is a pleasant 87-year-old male with a history of atrial fibrillation on Eliquis but currently held, patient has a history of prostate cancer and had a Sharp catheter removed this morning at 09:00, his urologist is Dr. Hal villa out of [employer], he works at [employer]. Patient had an appointment this morning, had his catheter removed and went home, was going to go to his 345 appointment this afternoon, states that he had ongoing pressure and bladder pain and came into the emergency department for evaluation. A Sharp catheter was placed and he had 600 mL of clear yellow urine. Patient denies any recent illness, denies any significant fatigue, fever, chills, sore throat, chest pain shortness of breath or other symptom. He states that his Eliquis is currently held so that he can take ibuprofen due to his bladder pain. Patient was diagnosed with acute urinary retention and constipation on 03/03/2022, his primary care provider is Dr. Tucker. Patient was found to be hypertensive initially with a systolic blood pressure of 215. His blood pressure later came down to 163/71. Patient endorses dysuria and bladder urgency over the last few days. Related Data Home Medications Medication Instructions Recorded Confirmed apixaban 5 mg tablet 5 mg PO BID 06/04/18 10/02/21 carvedilol 6.25 mg tablet 6.25 mg PO BID 11/16/20 10/02/21 latanoprost 0.005 % eye drops 1 drp EYE-BOTH DAILY 11/16/20 10/02/21 losartan 25 mg tablet 25 mg PO BID 11/16/20 10/02/21 Previous Rx's Medication Instructions Recorded acetaminophen 325 mg capsule 650 mg PO QID PRN pain #60 caps 11/22/20 (Tylenol) docusate sodium 100 mg capsule 100 mg PO BID #30 caps 11/22/20 (Colace) Allergies Allergy/AdvReac Type Severity Reaction Status Date / Time simvastatin [SIMVASTATIN] AdvReac Severe MUSCLE Verified 10/02/21 09:43 WEAKNESS Review of Systems <VERÓNICA Toscano - Last Filed: 06/13/22 20:14> Review of Systems Narrative: Review of systems is negative for acute abnormalities unless otherwise noted in HPI Patient History <VERÓNICA Toscano - Last Filed: 06/13/22 20:14> Medical History Ascending aortic aneurysm Atrial fibrillation Enlarged prostate Hx of echocardiogram Surgical History H/O cardiac radiofrequency ablation History of blepharoplasty History of knee replacement History of tonsillectomy Family History Father Heart disease Mother Breast cancer Social History marital status: household members: spouse Smoking Status: Never smoker substance use type: does not use Smoking Status: Never smoker alcohol intake frequency: a few times a month Substance Use Type: does not use Exam <VERÓNICA Toscano - Last Filed: 06/13/22 20:14> Narrative Exam Narrative: Reviewed vitals signs and nursing notes. General: cooperative, comfortable, in no acute distress, well groomed HEENT: symmetrical facial expressions, moist mucous membranes Cardiovascular: regular rate and rhythm, no peripheral edema, warm extremities Respiratory: normal effort, able to speak in complete sentences, without whe ezing, stridor, or abnormal breath sounds. No retractions or tachypnea. GI: abdomen soft, nontender to palpation, nondistended, without masses, rebound tenderness or exquisite tenderness with exam. MSK: moves all extremities, neurovascularly intact, no weakness, normal tone Skin: brisk capillary refill, without pallor or erythema Neuro: normal speech and cognition, A&O x3, ambulatory, clear speech Psych: mental status is grossly normal, congruent mood, normal affect, pleasant and cooperative Initial Vital Signs Initial Vital Signs: Vital Signs Temperature 96.3 F L 06/13/22 13:28 Pulse Rate 78 06/13/22 13:28 Respiratory Rate 20 06/13/22 13:28 Blood Pressure 215/98 H 06/13/22 13:28 Pulse Oximetry 98 06/13/22 13:28 Oxygen Delivery Method 06/13/22 13:28 <Carla Benton DO - Last Filed: 06/13/22 20:31> Initial Vital Signs Initial Vital Signs: Vital Signs Temperature 96.3 F L 06/13/22 13:28 Pulse Rate 78 06/13/22 13:28 Respiratory Rate 20 06/13/22 13:28 Blood Pressure 215/98 H 06/13/22 13:28 Pulse Oximetry 98 06/13/22 13:28 Oxygen Delivery Method 06/13/22 13:28 Course <VERÓNICA Toscano - Last Filed: 06/13/22 20:14> Course Course Narrative: Consultation with Dr. Lee from [facility] who is partners with patient's urologist who reports that patient has had postvoid residuals between 103 100 mL, prior urine culture grew out Pseudomonas which was pansensitive and staph aureus,, Dr. Mona Martinez recommends Rocephin with cephalexin for the staph aureus. Patient's urine today shows your nitrates, 3+ blood, wbc's, leukocyte esterase and many bacteria, urine culture is pending. Dr. Nesbitt is concerned for patient's altered mental status with septic presentation, patient can call to schedule follow-up appointment with his urologist after he is well for his cystoscopy, no intervention from Urology standpoint is required at this time. Orders Ordered: ED Orders 06/13/22 14:25 UA Complete [Urinalysis and Microscopic] Stat Urine Culture Stat 06/13/22 15:31 EKG-12 Lead Stat 06/13/22 16:30 COVID19 -Nasal RAPID/Pre-Proc Stat 06/13/22 16:31 BNP [NT-proBNP (BNP-Adult 18+)] Stat Blood Culture Stat CBC Auto Diff [Complete Blood Count AUTO DIFF] Stat CMP [Comprehensive Metabolic Panel] Stat CRP [C-Reactive Protein Quant] Stat Lactate (Lactic Acid) Stat Magnesium Stat Prothrombin Time INR Stat Troponin & CK Cardiac Panel Stat Discontinued Medications Cephalexin HCl (Cephalexin 250 Mg Capsule) 500 mg PO NOW ONE Stop: 06/13/22 16:21 Last Admin: 06/13/22 16:45 Dose: 500 mg Documented By: RB Ceftriaxone Sodium 2,000 mg/ (Sodium Chloride) 100 mls @ 200 mls/hr IV NOW ONE Stop: 06/13/22 15:43 Last Infusion: 06/13/22 17:35 Dose: 0 mls/hr Documented By: Admin: 06/13/22 16:44 Dose: 200 mls/hr Documented By: RB Lactated Ringer's (Lactated Ringers) 1,000 mls @ 1,000 mls/hr IV BOLUS ONE Stop: 06/13/22 17:59 Last Infusion: 06/13/22 19:15 Dose: 0 mls/hr Documented By: Admin: 06/13/22 16:58 Dose: 1,000 mls/hr Documented By: RB Ketorolac Tromethamine (Ketorolac 30 Mg/Ml Vial) 15 mg IV NOW ONE Stop: 06/13/22 17:43 Last Admin: 06/13/22 18:18 Dose: 15 mg Documented By: RB Phenazopyridine HCl (Phenazopyridine 100 Mg Tablet) 200 mg PO NOW ONE Stop: 06/13/22 17:15 Last Admin: 06/13/22 18:20 Dose: 200 mg Documented By: RB Reevaluation(s) Reevaluation #1: Orders for urine, fluids, cultures, and antibiotics are all in and pending nursing availability Reevaluation #2: Three attempts at consulting with hospitalist have been attempted, at 17:00, 1730 and 1800, no answers yet, I wish to admit the patient for likely Pseudomonas acute cystitis which has been ongoing with his urinary retention, as well as staph aureus cystitis which grew out of his last urine culture. Patient was altered, appears much better but there are no oral antibiotics for Pseudomonas infections and he would benefit from IV antibiotics at this point. Consultations Consultation #1: Consultation with Dr. Lee from [facility] who is partners with patient's urologist who reports that patient has had postvoid residuals between 103 100 mL, prior urine culture grew out Pseudomonas which was pansensitive and staph aureus,, Dr. Mona Martinez recommends Rocephin with cephalexin for the staph aureus. Patient's urine today shows your nitrates, 3+ blood, wbc's, leukocyte esterase and many bacteria, urine culture is pending. Dr. Nesbitt is concerned for patient's altered mental status with septic presentation, patient can call to schedule follow-up appointment with his urologist after he is well for his cystoscopy, no intervention from Urology standpoint is required at this time. Vital Signs Vital signs: Vital Signs - 8 hr 06/13/22 13:28 06/13/22 16:23 06/13/22 16:24 Temperature 96.3 F L Pulse Rate 78 64 Respiratory Rate 20 Blood Pressure 215/98 H 176/78 H Pulse Oximetry 98 99 Oxygen Delivery Method Room Air 06/13/22 16:24 06/13/22 16:30 06/13/22 16:30 Temperature Pulse Rate 64 60 Respiratory Rate 16 16 Blood Pressure 163/71 H Pulse Oximetry 99 99 Oxygen Delivery Method 06/13/22 17:00 06/13/22 17:01 06/13/22 17:01 Temperature Pulse Rate 59 L 61 Respiratory Rate 15 14 Blood Pressure 148/68 H Pulse Oximetry 99 97 Oxygen Delivery Method 06/13/22 17:30 06/13/22 17:31 06/13/22 17:31 Temperature Pulse Rate 61 61 Respiratory Rate 18 16 Blood Pressure 165/74 H Pulse Oximetry 96 97 Oxygen Delivery Method 06/13/22 18:00 06/13/22 18:01 06/13/22 18:01 Temperature Pulse Rate 57 L 58 L Respiratory Rate 11 L 12 Blood Pressure 156/72 H Pulse Oximetry 98 98 Oxygen Delivery Method 06/13/22 18:18 06/13/22 18:30 06/13/22 18:30 Temperature 98.3 F Pulse Rate 57 L Respiratory Rate 19 Blood Pressure 176/77 H Pulse Oximetry 99 Oxygen Delivery Method 06/13/22 19:00 06/13/22 19:01 06/13/22 19:01 Temperature Pulse Rate 55 L 55 L Respiratory Rate 16 14 Blood Pressure 163/70 H Pulse Oximetry 98 97 Oxygen Delivery Method <Carla Benton, DO - Last Filed: 06/13/22 20:31> Orders Ordered: ED Orders 06/13/22 14:25 UA Complete [Urinalysis and Microscopic] Stat Urine Culture Stat 06/13/22 15:31 EKG-12 Lead Stat 06/13/22 16:30 COVID19 -Nasal RAPID/Pre-Proc Stat 06/13/22 16:31 BNP [NT-proBNP (BNP-Adult 18+)] Stat Blood Culture Stat CBC Auto Diff [Complete Blood Count AUTO DIFF] Stat CMP [Comprehensive Metabolic Panel] Stat CRP [C-Reactive Protein Quant] Stat Lactate (Lactic Acid) Stat Magnesium Stat Prothrombin Time INR Stat Troponin & CK Cardiac Panel Stat Discontinued Medications Cephalexin HCl (Cephalexin 250 Mg Capsule) 500 mg PO NOW ONE Stop: 06/13/22 16:21 Last Admin: 06/13/22 16:45 Dose: 500 mg Documented By: RB Ceftriaxone Sodium 2,000 mg/ (Sodium Chloride) 100 mls @ 200 mls/hr IV NOW ONE Stop: 06/13/22 15:43 Last Infusion: 06/13/22 17:35 Dose: 0 mls/hr Documented By: Admin: 06/13/22 16:44 Dose: 200 mls/hr Documented By: RB Lactated Ringer's (Lactated Ringers) 1,000 mls @ 1,000 mls/hr IV BOLUS ONE Stop: 06/13/22 17:59 Last Infusion: 06/13/22 19:15 Dose: 0 mls/hr Documented By: Admin: 06/13/22 16:58 Dose: 1,000 mls/hr Documented By: RB Ketorolac Tromethamine (Ketorolac 30 Mg/Ml Vial) 15 mg IV NOW ONE Stop: 06/13/22 17:43 Last Admin: 06/13/22 18:18 Dose: 15 mg Documented By: RB Phenazopyridine HCl (Phenazopyridine 100 Mg Tablet) 200 mg PO NOW ONE Stop: 06/13/22 17:15 Last Admin: 06/13/22 18:20 Dose: 200 mg Documented By: RB Vital Signs Vital signs: Vital Signs - 8 hr 06/13/22 13:28 06/13/22 16:23 06/13/22 16:24 Temperature 96.3 F L Pulse Rate 78 64 Respiratory Rate 20 Blood Pressure 215/98 H 176/78 H Pulse Oximetry 98 99 Oxygen Delivery Method Room Air 06/13/22 16:24 06/13/22 16:30 06/13/22 16:30 Temperature Pulse Rate 64 60 Respiratory Rate 16 16 Blood Pressure 163/71 H Pulse Oximetry 99 99 Oxygen Delivery Method 06/13/22 17:00 06/13/22 17:01 06/13/22 17:01 Temperature Pulse Rate 59 L 61 Respiratory Rate 15 14 Blood Pressure 148/68 H Pulse Oximetry 99 97 Oxygen Delivery Method 06/13/22 17:30 06/13/22 17:31 06/13/22 17:31 Temperature Pulse Rate 61 61 Respiratory Rate 18 16 Blood Pressure 165/74 H Pulse Oximetry 96 97 Oxygen Delivery Method 06/13/22 18:00 06/13/22 18:01 06/13/22 18:01 Temperature Pulse Rate 57 L 58 L Respiratory Rate 11 L 12 Blood Pressure 156/72 H Pulse Oximetry 98 98 Oxygen Delivery Method 06/13/22 18:18 06/13/22 18:30 06/13/22 18:30 Temperature 98.3 F Pulse Rate 57 L Respiratory Rate 19 Blood Pressure 176/77 H Pulse Oximetry 99 Oxygen Delivery Method 06/13/22 19:00 06/13/22 19:01 06/13/22 19:01 Temperature Pulse Rate 55 L 55 L Respiratory Rate 16 14 Blood Pressure 163/70 H Pulse Oximetry 98 97 Oxygen Delivery Method MDM - Male Genitourinary <VERÓNICA Toscano - Last Filed: 06/13/22 20:14> Lab Data Result diagrams: 06/13/22 16:31 06/13/22 16:31 Labs: Lab Results 06/13/22 06/13/22 06/13/22 Range/Units 14:25 16:30 16:31 WBC 8.6 (4.5-11.0) X10^3/uL RBC 3.69 L (4.5-5.9) X10^6/uL Hgb 12.0 L (13.5-17.5) g/dL Hct 34.6 L (41-53) % MCV 93.7 (80-100) fL MCH 32.6 (26-34) PG MCHC 34.8 (30-36) % RDW 14.1 (11.6-14.8) % Plt Count 175 (150-400) X10^3/uL Neut % (Auto) 70.7 (50-75) % Lymph % (Auto) 17.4 L (25-40) % Ventura % (Auto) 8.3 (3-14) % Eos % (Auto) 3.1 (2-4) % Baso % (Auto) 0.5 (0-2) % Neut # (Auto) 6100 (3149-8073) /uL Lymph # (Auto) 1500 (7422-3804) /uL Ventura # (Auto) 700 (0-900) /uL Eos # (Auto) 300 (0-450) /uL Baso # (Auto) 0 (0-100) /uL PT (10.1-12.7) SECONDS INR (0.9-1.3) Sodium (137-145) mmol/L Potassium (3.4-5.1) mmol/L Chloride (98-107) mmol/L Carbon Dioxide (22-32) mmol/L BUN (9-20) mg/dL Creatinine (0.66-1.25) mg/dL Estimated GFR (>60) mL/min BUN/Creatinine Ratio (6-22) Glucose (80-110) mg/dL Lactate (0.7-2.1) mmol/L Calcium (8.4-10.2) mg/dL Magnesium (1.6-2.3) mg/dL Total Bilirubin (0.2-1.3) mg/dL AST (17-59) IU/L ALT (<50) IU/L Alkaline Phosphatase (38-126) U/L Total Creatine Kinase (55-170) U/L CK-MB (CK-2) CK-MB (CK-2) Rel Index Troponin I (0.01-0.034) ng/mL C-Reactive Protein (<1.0) mg/dL NT-Pro-B Natriuret Pep (<450) pg/mL Total Protein (6.3-8.2) g/dL Albumin (3.5-5.0) g/dL Globulin (1.7-4.1) g/dL Albumin/Globulin Ratio (1.0-2.8) Urine Color Yellow Urine Appearance Sl cloudy Urine pH 5.0 (4.5-8.0) Ur Specific Jackson <=1.005 (1.000-1.035) Urine Protein 1+ H (Negative) Urine Glucose (UA) Negative (Negative) g/dL Urine Ketones Negative (NEGATIVE) Urine Occult Blood 3+ H (Negative) Urine Nitrate Positive H (Negative) Urine Bilirubin Negative (NEGATIVE) Urine Urobilinogen 0.2 (0.2) E.U./dL Ur Leukocyte Esterase 3+ H (NEGATIVE) Urine RBC 10-30/hpf H (0-5/HPF) Urine WBC 5-10/hpf H (0-5/HPF) Amorphous Sediment 1+ Urine Bacteria Many (>30) H (None) Ur Culture Indicated? Specimen cultured SARS-CoV-2 (PCR) Negative (Negative) 06/13/22 06/13/22 06/13/22 Range/Units 16:31 16:31 16:31 WBC (4.5-11.0) X10^3/uL RBC (4.5-5.9) X10^6/uL Hgb (13.5-17.5) g/dL Hct (41-53) % MCV (80-100) fL MCH (26-34) PG MCHC (30-36) % RDW (11.6-14.8) % Plt Count (150-400) X10^3/uL Neut % (Auto) (50-75) % Lymph % (Auto) (25-40) % Ventura % (Auto) (3-14) % Eos % (Auto) (2-4) % Baso % (Auto) (0-2) % Neut # (Auto) (9837-3765) /uL Lymph # (Auto) (8564-9966) /uL Ventura # (Auto) (0-900) /uL Eos # (Auto) (0-450) /uL Baso # (Auto) (0-100) /uL PT 11.9 (10.1-12.7) SECONDS INR 1.0 (0.9-1.3) Sodium 138 (137-145) mmol/L Potassium 4.3 (3.4-5.1) mmol/L Chloride 104 (98-107) mmol/L Carbon Dioxide 23 (22-32) mmol/L BUN 20 (9-20) mg/dL Creatinine 0.92 (0.66-1.25) mg/dL Estimated GFR > 60 (>60) mL/min BUN/Creatinine Ratio 21.7 (6-22) Glucose 96 (80-110) mg/dL Lactate 1.4 (0.7-2.1) mmol/L Calcium 9.5 (8.4-10.2) mg/dL Magnesium 1.9 (1.6-2.3) mg/dL Total Bilirubin 0.4 (0.2-1.3) mg/dL AST 20 (17-59) IU/L ALT 13 (<50) IU/L Alkaline Phosphatase 93 (38-126) U/L Total Creatine Kinase (55-170) U/L CK-MB (CK-2) CK-MB (CK-2) Rel Index Troponin I (0.01-0.034) ng/mL C-Reactive Protein 0.6 (<1.0) mg/dL NT-Pro-B Natriuret Pep 566 H (<450) pg/mL Total Protein 6.9 (6.3-8.2) g/dL Albumin 4.2 (3.5-5.0) g/dL Globulin 2.7 (1.7-4.1) g/dL Albumin/Globulin Ratio 1.6 (1.0-2.8) Urine Color Urine Appearance Urine pH (4.5-8.0) Ur Specific Jackson (1.000-1.035) Urine Protein (Negative) Urine Glucose (UA) (Negative) g/dL Urine Ketones (NEGATIVE) Urine Occult Blood (Negative) Urine Nitrate (Negative) Urine Bilirubin (NEGATIVE) Urine Urobilinogen (0.2) E.U./dL Ur Leukocyte Esterase (NEGATIVE) Urine RBC (0-5/HPF) Urine WBC (0-5/HPF) Amorphous Sediment Urine Bacteria (None) Ur Culture Indicated? SARS-CoV-2 (PCR) (Negative) 06/13/22 Range/Units 16:31 WBC (4.5-11.0) X10^3/uL RBC (4.5-5.9) X10^6/uL Hgb (13.5-17.5) g/dL Hct (41-53) % MCV (80-100) fL MCH (26-34) PG MCHC (30-36) % RDW (11.6-14.8) % Plt Count (150-400) X10^3/uL Neut % (Auto) (50-75) % Lymph % (Auto) (25-40) % Ventura % (Auto) (3-14) % Eos % (Auto) (2-4) % Baso % (Auto) (0-2) % Neut # (Auto) (4812-9286) /uL Lymph # (Auto) (3118-6425) /uL Ventura # (Auto) (0-900) /uL Eos # (Auto) (0-450) /uL Baso # (Auto) (0-100) /uL PT (10.1-12.7) SECONDS INR (0.9-1.3) Sodium (137-145) mmol/L Potassium (3.4-5.1) mmol/L Chloride (98-107) mmol/L Carbon Dioxide (22-32) mmol/L BUN (9-20) mg/dL Creatinine (0.66-1.25) mg/dL Estimated GFR (>60) mL/min BUN/Creatinine Ratio (6-22) Glucose (80-110) mg/dL Lactate (0.7-2.1) mmol/L Calcium (8.4-10.2) mg/dL Magnesium (1.6-2.3) mg/dL Total Bilirubin (0.2-1.3) mg/dL AST (17-59) IU/L ALT (<50) IU/L Alkaline Phosphatase (38-126) U/L Total Creatine Kinase 60 (55-170) U/L CK-MB (CK-2) TNP CK-MB (CK-2) Rel Index TNP Troponin I < 0.012 (0.01-0.034) ng/mL C-Reactive Protein (<1.0) mg/dL NT-Pro-B Natriuret Pep (<450) pg/mL Total Protein (6.3-8.2) g/dL Albumin (3.5-5.0) g/dL Globulin (1.7-4.1) g/dL Albumin/Globulin Ratio (1.0-2.8) Urine Color Urine Appearance Urine pH (4.5-8.0) Ur Specific Jackson (1.000-1.035) Urine Protein (Negative) Urine Glucose (UA) (Negative) g/dL Urine Ketones (NEGATIVE) Urine Occult Blood (Negative) Urine Nitrate (Negative) Urine Bilirubin (NEGATIVE) Urine Urobilinogen (0.2) E.U./dL Ur Leukocyte Esterase (NEGATIVE) Urine RBC (0-5/HPF) Urine WBC (0-5/HPF) Amorphous Sediment Urine Bacteria (None) Ur Culture Indicated? SARS-CoV-2 (PCR) (Negative) ECG Data Interpretation: EKG independently reviewed by myself at [] reveals normal sinus rhythm at [] bpm with regular axis and intervals. No STEMI, ST segment changes, arrhythmia, or acute ischemic changes. MDM Narrative Medical decision making narrative: This is an 87-year-old male who is brought into the emergency department by a neighbor with concern for altered mentation for the last 3 days, patient is a prostate cancer patient who is seen by Dr. Phan from [facility] in [employer] and patient accidentally had a no-show appointment yesterday. Went in and had his Sharp catheter removed, he has had urinary retention issues since March of 2022 when he received his 1st Sharp catheter for acute urinary retention. During my interview with the patient, he was confused, could not remember dates, when his appointments were, he was stumbling over his words and having long pauses in between. His gaze was conjugate, he is without any weakness or focal neuro deficits other than altered mental status. His glucose was 183, patient's neighbor said that he was worried about him and so he drove him to the emergency department. I consulted with Dr. Lee from [facility] as Dr. Bill mazariegos was not available today, he is concerned about patient's septic presentation and informed me that patient's last urine culture grew out Pseudomonas and staph aureus, Pseudomonas was pansensitive and the staph aureus was as well, he recommended ceftriaxone and cephalexin to cover both and admission for urosepsis. Patient's states that patient has had bladder pressure and dysuria for the last 3 days but did not tell any of these doctors this. He denies any upper respiratory symptoms, fever or chills but was noticeably uncomfortable, afebrile, he was initially hypertensive with a systolic blood pressure of 215, this was later checked and came down to 163/71. His UA is significant for positive nitrates, leukocyte esterase, blood and WBCs, urine is cultured and is pending, blood cultures were also obtained prior to antibiotic and fluid resuscitation. Patient does not have any leukocytosis, hemoglobin is 12.0, hematocrit 34.6, lactate is 1.4. INR is 1.0, creatinine is 0.92 with a GFR over 60, lactate is 1.4 without elevation of liver enzymes or total bilirubin. No electrolyte abnormalities, troponin is negative, CRP 0.6, BNP is 566. Consultation with hospitalist for admission for these reasons, patient is a patient of Dr. Tucker and will attempt to page Dr. Tucker. Patient is anticoagulated on apixaban but not currently taking it so that he could take ibuprofen for inflamed prostate. He states that the Toradol helped him with his pain today. Consultation with Dr. Tucker for admission due to previous Pseudomonas and staph aureus urine culture at [facility]. Patient has had a catheter in and out but primarily in over the last 3 months. His Pseudomonas was pansensitive, his staph aureus was also pansensitive but his urologist recommended double covering with both Rocephin and cephalexin to treat both. Urine culture is pending. Dr. Tucker understands this background after our discussion, will accept the patient for inpatient IV antibiotics until his urine culture grows. <Carla Benton, DO - Last Filed: 06/13/22 20:31> Lab Data Labs: Lab Results 06/13/22 06/13/22 06/13/22 Range/Units 14:25 16:30 16:31 WBC 8.6 (4.5-11.0) X10^3/uL RBC 3.69 L (4.5-5.9) X10^6/uL Hgb 12.0 L (13.5-17.5) g/dL Hct 34.6 L (41-53) % MCV 93.7 (80-100) fL MCH 32.6 (26-34) PG MCHC 34.8 (30-36) % RDW 14.1 (11.6-14.8) % Plt Count 175 (150-400) X10^3/uL Neut % (Auto) 70.7 (50-75) % Lymph % (Auto) 17.4 L (25-40) % Ventura % (Auto) 8.3 (3-14) % Eos % (Auto) 3.1 (2-4) % Baso % (Auto) 0.5 (0-2) % Neut # (Auto) 6100 (7034-6513) /uL Lymph # (Auto) 1500 (5478-3987) /uL Ventura # (Auto) 700 (0-900) /uL Eos # (Auto) 300 (0-450) /uL Baso # (Auto) 0 (0-100) /uL PT (10.1-12.7) SECONDS INR (0.9-1.3) Sodium (137-145) mmol/L Potassium (3.4-5.1) mmol/L Chloride (98-107) mmol/L Carbon Dioxide (22-32) mmol/L BUN (9-20) mg/dL Creatinine (0.66-1.25) mg/dL Estimated GFR (>60) mL/min BUN/Creatinine Ratio (6-22) Glucose (80-110) mg/dL Lactate (0.7-2.1) mmol/L Calcium (8.4-10.2) mg/dL Magnesium (1.6-2.3) mg/dL Total Bilirubin (0.2-1.3) mg/dL AST (17-59) IU/L ALT (<50) IU/L Alkaline Phosphatase (38-126) U/L Total Creatine Kinase (55-170) U/L CK-MB (CK-2) CK-MB (CK-2) Rel Index Troponin I (0.01-0.034) ng/mL C-Reactive Protein (<1.0) mg/dL NT-Pro-B Natriuret Pep (<450) pg/mL Total Protein (6.3-8.2) g/dL Albumin (3.5-5.0) g/dL Globulin (1.7-4.1) g/dL Albumin/Globulin Ratio (1.0-2.8) Urine Color Yellow Urine Appearance Sl cloudy Urine pH 5.0 (4.5-8.0) Ur Specific Jackson <=1.005 (1.000-1.035) Urine Protein 1+ H (Negative) Urine Glucose (UA) Negative (Negative) g/dL Urine Ketones Negative (NEGATIVE) Urine Occult Blood 3+ H (Negative) Urine Nitrate Positive H (Negative) Urine Bilirubin Negative (NEGATIVE) Urine Urobilinogen 0.2 (0.2) E.U./dL Ur Leukocyte Esterase 3+ H (NEGATIVE) Urine RBC 10-30/hpf H (0-5/HPF) Urine WBC 5-10/hpf H (0-5/HPF) Amorphous Sediment 1+ Urine Bacteria Many (>30) H (None) Ur Culture Indicated? Specimen cultured SARS-CoV-2 (PCR) Negative (Negative) 06/13/22 06/13/22 06/13/22 Range/Units 16:31 16:31 16:31 WBC (4.5-11.0) X10^3/uL RBC (4.5-5.9) X10^6/uL Hgb (13.5-17.5) g/dL Hct (41-53) % MCV (80-100) fL MCH (26-34) PG MCHC (30-36) % RDW (11.6-14.8) % Plt Count (150-400) X10^3/uL Neut % (Auto) (50-75) % Lymph % (Auto) (25-40) % Ventura % (Auto) (3-14) % Eos % (Auto) (2-4) % Baso % (Auto) (0-2) % Neut # (Auto) (3507-8927) /uL Lymph # (Auto) (9546-7206) /uL Ventura # (Auto) (0-900) /uL Eos # (Auto) (0-450) /uL Baso # (Auto) (0-100) /uL PT 11.9 (10.1-12.7) SECONDS INR 1.0 (0.9-1.3) Sodium 138 (137-145) mmol/L Potassium 4.3 (3.4-5.1) mmol/L Chloride 104 (98-107) mmol/L Carbon Dioxide 23 (22-32) mmol/L BUN 20 (9-20) mg/dL Creatinine 0.92 (0.66-1.25) mg/dL Estimated GFR > 60 (>60) mL/min BUN/Creatinine Ratio 21.7 (6-22) Glucose 96 (80-110) mg/dL Lactate 1.4 (0.7-2.1) mmol/L Calcium 9.5 (8.4-10.2) mg/dL Magnesium 1.9 (1.6-2.3) mg/dL Total Bilirubin 0.4 (0.2-1.3) mg/dL AST 20 (17-59) IU/L ALT 13 (<50) IU/L Alkaline Phosphatase 93 (38-126) U/L Total Creatine Kinase (55-170) U/L CK-MB (CK-2) CK-MB (CK-2) Rel Index Troponin I (0.01-0.034) ng/mL C-Reactive Protein 0.6 (<1.0) mg/dL NT-Pro-B Natriuret Pep 566 H (<450) pg/mL Total Protein 6.9 (6.3-8.2) g/dL Albumin 4.2 (3.5-5.0) g/dL Globulin 2.7 (1.7-4.1) g/dL Albumin/Globulin Ratio 1.6 (1.0-2.8) Urine Color Urine Appearance Urine pH (4.5-8.0) Ur Specific Jackson (1.000-1.035) Urine Protein (Negative) Urine Glucose (UA) (Negative) g/dL Urine Ketones (NEGATIVE) Urine Occult Blood (Negative) Urine Nitrate (Negative) Urine Bilirubin (NEGATIVE) Urine Urobilinogen (0.2) E.U./dL Ur Leukocyte Esterase (NEGATIVE) Urine RBC (0-5/HPF) Urine WBC (0-5/HPF) Amorphous Sediment Urine Bacteria (None) Ur Culture Indicated? SARS-CoV-2 (PCR) (Negative) 06/13/22 Range/Units 16:31 WBC (4.5-11.0) X10^3/uL RBC (4.5-5.9) X10^6/uL Hgb (13.5-17.5) g/dL Hct (41-53) % MCV (80-100) fL MCH (26-34) PG MCHC (30-36) % RDW (11.6-14.8) % Plt Count (150-400) X10^3/uL Neut % (Auto) (50-75) % Lymph % (Auto) (25-40) % [place] % (Auto) (3-14) % Eos % (Auto) (2-4) % Baso % (Auto) (0-2) % Neut # (Auto) (5612-1750) /uL Lymph # (Auto) (7750-7913) /uL [place] # (Auto) (0-900) /uL Eos # (Auto) (0-450) /uL Baso # (Auto) (0-100) /uL PT (10.1-12.7) SECONDS INR (0.9-1.3) Sodium (137-145) mmol/L Potassium (3.4-5.1) mmol/L Chloride (98-107) mmol/L Carbon Dioxide (22-32) mmol/L BUN (9-20) mg/dL Creatinine (0.66-1.25) mg/dL Estimated GFR (>60) mL/min BUN/Creatinine Ratio (6-22) Glucose (80-110) mg/dL Lactate (0.7-2.1) mmol/L Calcium (8.4-10.2) mg/dL Magnesium (1.6-2.3) mg/dL Total Bilirubin (0.2-1.3) mg/dL AST (17-59) IU/L ALT (<50) IU/L Alkaline Phosphatase (38-126) U/L Total Creatine Kinase 60 (55-170) U/L CK-MB (CK-2) TNP CK-MB (CK-2) Rel Index TNP Troponin I < 0.012 (0.01-0.034) ng/mL C-Reactive Protein (<1.0) mg/dL NT-Pro-B Natriuret Pep (<450) pg/mL Total Protein (6.3-8.2) g/dL Albumin (3.5-5.0) g/dL Globulin (1.7-4.1) g/dL Albumin/Globulin Ratio (1.0-2.8) Urine Color Urine Appearance Urine pH (4.5-8.0) Ur Specific [place] (1.000-1.035) Urine Protein (Negative) Urine Glucose (UA) (Negative) g/dL Urine Ketones (NEGATIVE) Urine Occult Blood (Negative) Urine Nitrate (Negative) Urine Bilirubin (NEGATIVE) Urine Urobilinogen (0.2) E.U./dL Ur Leukocyte Esterase (NEGATIVE) Urine RBC (0-5/HPF) Urine WBC (0-5/HPF) Amorphous Sediment Urine Bacteria (None) Ur Culture Indicated? SARS-CoV-2 (PCR) (Negative) Discharge Plan Departure Patient Disposition: Admitted As Inpatient Admit Date/Time: 06/13/22 19:13 Admit Provider: Hemant Tucker <Carla Benton, - Last Filed: 06/13/22 20:31> Cosign ED Attending Cosignature Attestation: I was immediately available in the department for consultation. Documentation has been reviewed. Case was discussed.
[2022-06-13] MEDS: cefTRIAXone 2,000 MG in SODIUM CHLORIDE 0.9% 100 ML 200 MG IV (16:44)
[2022-06-13] MEDS: cephALEXin 250 MG CAPSULE 500 MG PO (16:45)
[2022-06-13] MEDS: LACTATED RINGERS 1,000 ML 1000 ML IV (16:58)
[2022-06-13 16:59] LABS: Add Manual Diff / Slide Review NO; Basophils Absolute Auto 0 /uL (0-100); Basophils Percent Auto 0.5 % (0-2); Eosinophils Absolute Auto 300 /uL (0-450); Eosinophils Percent Auto 3.1 % (2-4); Hematocrit 34.6 % (41-53); Lymphocytes Absolute Auto 1500 /uL (1100-4500); Lymphocytes Percent Auto 17.4 % (25-40); Mean Corpuscular HGB Conc 34.8 % (30-36); Mean Corpuscular Hemoglobin 32.6 PG (26-34); Mean Corpuscular Volume 93.7 fL (80-100); Monocytes Absolute Auto 700 /uL (0-900); Monocytes Percent Auto 8.3 % (3-14); Neutrophils Absolute Auto 6100 /uL (1500-7000); Neutrophils Percent Auto 70.7 % (50-75); Platelet Count 175 X10^3/uL (150-400); Red Blood Cell Count 3.69 X10^6/uL (4.5-5.9); Red Cell Distribution Width 14.1 % (11.6-14.8); White Blood Cell Count 8.6 X10^3/uL (4.5-11.0)
[2022-06-13 17:09] LABS: Creatine Kinase 60 U/L (55-170); Lactate (Lactic Acid) 1.4 mmol/L (0.7-2.1)
[2022-06-13 17:14] LABS: Alanine Aminotransferase 13 IU/L (<50); Albumin 4.2 g/dL (3.5-5.0); Albumin Globulin Ratio 1.6 (1.0-2.8); Alkaline Phosphatase 93 U/L (38-126); Aspartate Aminotransferase 20 IU/L (17-59); BUN Creatinine Ratio 21.7 (6-22); Bilirubin Total 0.4 mg/dL (0.2-1.3); Blood Urea Nitrogen 20 mg/dL (9-20); C-Reactive Protein Quant 0.6 mg/dL (<1.0); Calcium 9.5 mg/dL (8.4-10.2); Carbon Dioxide 23 mmol/L (22-32); Chloride 104 mmol/L (98-107); Estimated Glomerular Filt Rate > 60 mL/min (>60); Globulin 2.7 g/dL (1.7-4.1); Glucose 96 mg/dL (80-110); HEMOLYSIS < 15 (0-50); Magnesium 1.9 mg/dL (1.6-2.3); Potassium 4.3 mmol/L (3.4-5.1); Sodium 138 mmol/L (137-145); Total Protein 6.9 g/dL (6.3-8.2)
[2022-06-13 17:19] LABS: Prothrombin Time 11.9 SECONDS (10.1-12.7)
[2022-06-13 17:20] LABS: NT-proBNP (BNP-Adult 18+) 566 pg/mL (<450)
[2022-06-13 17:22] LABS: Troponin I < 0.012 ng/mL (0.01-0.034)
[2022-06-13 17:29] LABS: COVID19 -Nasal RAPID Negative (Negative)
[2022-06-13] MEDS: KETOROLAC 30 MG/ML VIAL 15 MG IV (18:18)
[2022-06-13] MEDS: PHENAZOPYRIDINE 100 MG TABLET 200 MG PO (18:20)
[2022-06-13] MEDS: LOSARTAN 25 MG TABLET PO (21:11)
[2022-06-13] MEDS: SODIUM CHLORIDE 0.9% 1,000 ML 100 ML IV (21:11)
[2022-06-13] MEDS: carvediloL 3.125 MG TABLET 6.25 MG PO (21:12)
[2022-06-14] VITALS (8 sets, daily range): BP systolic 139–153; BP diastolic 55–90; PULSE 60–64; RESP 17–18; TEMP 36.2–36.6; O2SAT 95–96
--- NOTE | 2022-06-14 03:45 | PC.NURSE ---
Pt is AxOx4, needs STA due to nugent catheter. Pt is NOORVIK and has bilateral hearing aid. VSS, Pt denies pain so scheduled Tylenon is not given. Nugent is draining well and pt slept well. No skin issues. No problem identified overnight. Will continue monitor.
[2022-06-14 06:47] LABS: Add Manual Diff / Slide Review NO; Basophils Absolute Auto 0 /uL (0-100); Basophils Percent Auto 0.5 % (0-2); Eosinophils Absolute Auto 300 /uL (0-450); Eosinophils Percent Auto 4.2 % (2-4); Hematocrit 33.5 % (41-53); Hemoglobin 11.4 g/dL (13.5-17.5); Lymphocytes Absolute Auto 1300 /uL (1100-4500); Lymphocytes Percent Auto 20.7 % (25-40); Mean Corpuscular Hemoglobin 32.4 PG (26-34); Mean Corpuscular Volume 95.4 fL (80-100); Monocytes Absolute Auto 600 /uL (0-900); Monocytes Percent Auto 9.6 % (3-14); Neutrophils Absolute Auto 4200 /uL (1500-7000); Platelet Count 153 X10^3/uL (150-400); Red Blood Cell Count 3.51 X10^6/uL (4.5-5.9); Red Cell Distribution Width 13.8 % (11.6-14.8); White Blood Cell Count 6.5 X10^3/uL (4.5-11.0)
[2022-06-14 06:53] LABS: Lactate (Lactic Acid) 1.7 mmol/L (0.7-2.1)
[2022-06-14 06:54] LABS: Alanine Aminotransferase 13 IU/L (<50); Albumin 3.7 g/dL (3.5-5.0); Albumin Globulin Ratio 1.3 (1.0-2.8); Alkaline Phosphatase 73 U/L (38-126); Aspartate Aminotransferase 17 IU/L (17-59); BUN Creatinine Ratio 19.1 (6-22); Bilirubin Total 0.6 mg/dL (0.2-1.3); Blood Urea Nitrogen 18 mg/dL (9-20); Calcium 8.8 mg/dL (8.4-10.2); Carbon Dioxide 26 mmol/L (22-32); Chloride 106 mmol/L (98-107); Estimated Glomerular Filt Rate > 60 mL/min (>60); Globulin 2.8 g/dL (1.7-4.1); Glucose 102 mg/dL (80-110); HEMOLYSIS < 15 (0-50); Potassium 4.1 mmol/L (3.4-5.1); Sodium 138 mmol/L (137-145); Total Protein 6.5 g/dL (6.3-8.2)
[2022-06-14] MEDS: carvediloL 3.125 MG TABLET 6.25 MG PO ×2 (08:14→21:10)
[2022-06-14] MEDS: LOSARTAN 25 MG TABLET PO ×2 (08:14→21:10)
[2022-06-14] MEDS: ENOXAPARIN 40 MG/0.4 ML SYRINGE SUBCUT (08:14)
[2022-06-14] MEDS: cefTRIAXone 1,000 MG in SODIUM CHLORIDE 0.9% 100 ML 200 MG IV (08:15)
--- NOTE | 2022-06-14 08:24 | PM.HP.1 ---
History of Present Illness History of Present Illness Date Patient Seen: 06/14/22 Time Patient Seen: 08:24 Chief complaint: Prostate problems, Unable to urinate Narrative: Pleasant 87-year-old male who is a patient of Dr. Irwin who presented to the ER last night with concerns for UTI with altered mental status. Patient has had history of prostate issues and catheter and catheter was removed at his urologist yesterday in [place] and then patient had confusion and inability to urinate. Patient was admitted for IV antibiotic treatment. Last urine culture showed Pseudomonas. Patient with a history of AFib on Eliquis but Eliquis is being held right now while he is being treated for prostate cancer I believe. Patient is having a little bit of shortness of breath today and has been receiving IV fluids overnight Past medical history: 1. AFib/flutter status post cardioversion 10/2012 and ablation 12/2012 2. Idiopathic hypertrophic cardiomyopathy 3. 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 Systolic heart failure 5. Aortic regurgitation 6. Hypertension 7. Hyperlipidemia 8. Degenerative joint disease 9. Hearing loss 10. Prostate cancer 11. 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 Patient has a brother who is healthy Patient has 2 daughters and a son who are reportedly healthy Health related behavior Patient does not smoke Patient does not use alcohol on a regular basis Patient is fairly inactive 12 point review of systems is negative other than above Negative for any fevers or rashes Negative for any unintentional weight loss or weight gain Negative for any cough or shortness of breath or chest pain No worsening peripheral edema No GI symptoms Wears compression stockings so lower extremity edema has been better Patient is having some bladder spasms Patient History Medical History Ascending aortic aneurysm Atrial fibrillation Enlarged prostate Hx of echocardiogram Surgical History H/O cardiac radiofrequency ablation History of blepharoplasty History of knee replacement History of tonsillectomy Family & Social History Family History Father Heart disease Mother Breast cancer Social History: household members spouse Prior Living Arrangements House Safety & Behavioral: Feels Safe in Current Yes Environment Been Physically Hurt or No Threatened By a Person Tobacco & Substance use: Smoking Status Never smoker alcohol intake current alcohol intake frequency a few times a month Substance Use Type does not use Meds Home Medications and Allergies Home Medications Medication Instructions Recorded Confirmed Type carvedilol 6.25 mg tablet 6.25 mg PO BID 11/16/20 06/13/22 History latanoprost 0.005 % eye drops 1 drp EYE-BOTH DAILY 11/16/20 06/13/22 History losartan 25 mg tablet 25 mg PO BID 11/16/20 06/13/22 History acetaminophen 325 mg capsule 650 mg PO QID PRN pain #60 caps 11/22/20 06/13/22 Rx (Tylenol) docusate sodium 100 mg capsule 100 mg PO BID #30 caps 11/22/20 06/13/22 Rx (Colace) apixaban 5 mg tablet (Eliquis) 5 mg PO BID 06/13/22 06/13/22 History finasteride 5 mg tablet 5 mg PO DAILY 06/13/22 06/13/22 History oxybutynin chloride 5 mg tablet 5 mg PO TID 06/13/22 06/13/22 History tamsulosin 0.4 mg capsule 0.4 mg PO BEDTIME 06/13/22 06/13/22 History Allergies Allergy/AdvReac Type Severity Reaction Status Date / Time simvastatin [SIMVASTATIN] AdvReac Severe MUSCLE Verified 10/02/21 09:43 WEAKNESS Review of Systems Review of Systems Narrative: confusion on admit, improved now Exam Vital Signs (past 8 hours): - 06/14/22 04:28 06/14/22 08:14 06/14/22 08:14 Temperature 97.2 F L Pulse Rate 64 63 63 Respiratory Rate 17 Blood Pressure 148/60 H 153/63 H 153/63 H Pulse Oximetry 95 Oxygen Flow Rate 0 Oxygen Delivery Method Room Air Oxygen Flow Rate 0 Narrative Exam Narrative: Afebrile vital signs are stable Patient is alert and oriented. He has some word-finding difficulty but cognitively is improved from yesterday. He knows the date place and person. He is able to give history of his recent medical treatment. 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 HEENT is unremarkable Neck: Supple without adenopathy, thyromegaly, jugular venous distention or bruits Chest: Clear to auscultation with decreased breath sounds in the bases but no wheezes rhonchi or crackles Cor: Regular rate and rhythm without ectopy but 2/6 systolic ejection murmur heard loudest at the right upper sternal border Abdomen: Positive bowel sounds, soft, nontender, nondistended, no hepatosplenomegaly Extremities trace to 1+ pitting edema pretibial Neurologic exam nonfocal Skin no rash Objective Labs Result Diagrams: 06/14/22 06:33 06/14/22 06:33 Labs: Laboratory Results - last 24 hr 06/13/22 06/13/22 06/13/22 14:25 16:30 16:31 WBC 8.6 RBC 3.69 L Hgb 12.0 L Hct 34.6 L MCV 93.7 MCH 32.6 MCHC 34.8 RDW 14.1 Plt Count 175 Neut % (Auto) 70.7 Lymph % (Auto) 17.4 L [place] % (Auto) 8.3 Eos % (Auto) 3.1 Baso % (Auto) 0.5 Neut # (Auto) 6100 Lymph # (Auto) 1500 [place] # (Auto) 700 Eos # (Auto) 300 Baso # (Auto) 0 PT INR Sodium Potassium Chloride Carbon Dioxide BUN Creatinine Estimated GFR BUN/Creatinine Ratio Glucose Lactate Calcium Magnesium Total Bilirubin AST ALT Alkaline Phosphatase Total Creatine Kinase CK-MB (CK-2) CK-MB (CK-2) Rel Index Troponin I C-Reactive Protein NT-Pro-B Natriuret Pep Total Protein Albumin Globulin Albumin/Globulin Ratio Urine Color Yellow Urine Appearance Sl cloudy Urine pH 5.0 Ur Specific [place] <=1.005 Urine Protein 1+ H Urine Glucose (UA) Negative Urine Ketones Negative Urine Occult Blood 3+ H Urine Nitrate Positive H Urine Bilirubin Negative Urine Urobilinogen 0.2 Ur Leukocyte Esterase 3+ H Urine RBC 10-30/hpf H Urine WBC 5-10/hpf H Amorphous Sediment 1+ Urine Bacteria Many (>30) H Ur Culture Indicated? Specimen cultured SARS-CoV-2 (PCR) Negative 06/13/22 06/13/22 06/13/22 16:31 16:31 16:31 WBC RBC Hgb Hct MCV MCH MCHC RDW Plt Count Neut % (Auto) Lymph % (Auto) [place] % (Auto) Eos % (Auto) Baso % (Auto) Neut # (Auto) Lymph # (Auto) [place] # (Auto) Eos # (Auto) Baso # (Auto) PT 11.9 INR 1.0 Sodium 138 Potassium 4.3 Chloride 104 Carbon Dioxide 23 BUN 20 Creatinine 0.92 Estimated GFR > 60 BUN/Creatinine Ratio 21.7 Glucose 96 Lactate 1.4 Calcium 9.5 Magnesium 1.9 Total Bilirubin 0.4 AST 20 ALT 13 Alkaline Phosphatase 93 Total Creatine Kinase CK-MB (CK-2) CK-MB (CK-2) Rel Index Troponin I C-Reactive Protein 0.6 NT-Pro-B Natriuret Pep 566 H Total Protein 6.9 Albumin 4.2 Globulin 2.7 Albumin/Globulin Ratio 1.6 Urine Color Urine Appearance Urine pH Ur Specific [place] Urine Protein Urine Glucose (UA) Urine Ketones Urine Occult Blood Urine Nitrate Urine Bilirubin Urine Urobilinogen Ur Leukocyte Esterase Urine RBC Urine WBC Amorphous Sediment Urine Bacteria Ur Culture Indicated? SARS-CoV-2 (PCR) 06/13/22 06/14/22 06/14/22 16:31 06:33 06:33 WBC 6.5 RBC 3.51 L Hgb 11.4 L Hct 33.5 L MCV 95.4 MCH 32.4 MCHC 34.0 RDW 13.8 Plt Count 153 Neut % (Auto) 65.0 Lymph % (Auto) 20.7 L [place] % (Auto) 9.6 Eos % (Auto) 4.2 H Baso % (Auto) 0.5 Neut # (Auto) 4200 Lymph # (Auto) 1300 [place] # (Auto) 600 Eos # (Auto) 300 Baso # (Auto) 0 PT INR Sodium 138 Potassium 4.1 Chloride 106 Carbon Dioxide 26 BUN 18 Creatinine 0.94 Estimated GFR > 60 BUN/Creatinine Ratio 19.1 Glucose 102 Lactate Calcium 8.8 Magnesium Total Bilirubin 0.6 AST 17 ALT 13 Alkaline Phosphatase 73 Total Creatine Kinase 60 CK-MB (CK-2) TNP CK-MB (CK-2) Rel Index TNP Troponin I < 0.012 C-Reactive Protein NT-Pro-B Natriuret Pep Total Protein 6.5 Albumin 3.7 Globulin 2.8 Albumin/Globulin Ratio 1.3 Urine Color Urine Appearance Urine pH Ur Specific [place] Urine Protein Urine Glucose (UA) Urine Ketones Urine Occult Blood Urine Nitrate Urine Bilirubin Urine Urobilinogen Ur Leukocyte Esterase Urine RBC Urine WBC Amorphous Sediment Urine Bacteria Ur Culture Indicated? SARS-CoV-2 (PCR) 06/14/22 06:33 WBC RBC Hgb Hct MCV MCH MCHC RDW Plt Count Neut % (Auto) Lymph % (Auto) [place] % (Auto) Eos % (Auto) Baso % (Auto) Neut # (Auto) Lymph # (Auto) [place] # (Auto) Eos # (Auto) Baso # (Auto) PT INR Sodium Potassium Chloride Carbon Dioxide BUN Creatinine Estimated GFR BUN/Creatinine Ratio Glucose Lactate 1.7 Calcium Magnesium Total Bilirubin AST ALT Alkaline Phosphatase Total Creatine Kinase CK-MB (CK-2) CK-MB (CK-2) Rel Index Troponin I C-Reactive Protein NT-Pro-B Natriuret Pep Total Protein Albumin Globulin Albumin/Globulin Ratio Urine Color Urine Appearance Urine pH Ur Specific [place] Urine Protein Urine Glucose (UA) Urine Ketones Urine Occult Blood Urine Nitrate Urine Bilirubin Urine Urobilinogen Ur Leukocyte Esterase Urine RBC Urine WBC Amorphous Sediment Urine Bacteria Ur Culture Indicated? SARS-CoV-2 (PCR) Assessment & Plan Assessment & Plan narrative: 87-year-old male with current prostate cancer with radiation treatment and persistent urinary retention with indwelling catheter that was removed yesterday and then patient was unable to avoid and became confused and was diagnosed with UTI with altered mental status and suspected sepsis. Patient is improved today but not back to baseline Assessment 1. UTI. This was discussed with Urology and his last culture showed Pseudomonas. We will continue the ceftriaxone. We will await urine culture and blood cultures. Assessment 2. Prostate cancer Plan: Patient is not happy with Urology and is planning to transfer to [facility]. He has oncologist in [place] as well. He still is having significant obstructive symptoms which seem to be the bigger issue. We will continue his outpatient medications for this and continue with the catheter. We will treat as UTI Assessment 3. Altered mental status suspect acute metabolic encephalopathy presumed due to infection improved today but not back to baseline Plan: Will continue to monitor and workup further if he is not resolving including possible imaging of the head etc. Assessment 4. AFib flutter currently in sinus rhythm. Holding Eliquis due to urologic problems Plan: Continue the same. Continue low-dose losartan as outpatient Assessment 5. Idiopathic hypertrophic cardiomyopathy with history of acute systolic heart failure with possible fluid overload Plan: Will stop IV fluids and monitor and give diuretic if indicated Assessment 6. GI prophylaxis Plan proton pump inhibitor Assessment 7. DVT prophylaxis Lovenox Assessment 8. Hypertension currently slightly elevated Plan continue outpatient medication Code status DNR 65 minute spent with patient in discussing with nursing meeting with patient then his family, reviewing the chart in the clinic and in the hospital and formulating a plan Time Spent With Patient Critical Care time: I spent a total of [] minutes of critical care time on this patient's care today; this time is exclusive of procedural time. Quality VTE Deep Vein Thrombosis/Pulmonary Embolism Present on Admission: No
[2022-06-14] MEDS: LATANOPROST 0.005% OPHTH 2.5 ML 1 DROPS EYE-BOTH (08:27)
--- NOTE | 2022-06-14 11:25 | PT.IIE ---
Surgical History (Last Reviewed 06/14/22 @ 08:25 by Ashlee Vargas MD) H/O cardiac radiofrequency ablation History of blepharoplasty History of knee replacement History of tonsillectomy Medical History (Last Reviewed 06/14/22 @ 08:25 by Ashlee Vargas MD) Ascending aortic aneurysm Atrial fibrillation Enlarged prostate Hx of echocardiogram Physical Therapy Inpatient Evaluation/Re-Eval M1 PT/OT-IP Prior Functional Status Start: 06/14/22 12:16 Freq: NEEDED Status: Active Protocol: Document 06/14/22 11:25 AB (Rec: 06/14/22 12:29 AB [id number]) Medical Review Prior Functional Status Medical History Reviewed Yes Communication able to make needs known Mobility and Gait pt stated that he is independent with all mobilities and ambulation without AD Social History Household Members spouse Living Arrangements House Number of Floors (Floors) Two Floors Number of Stairs To Enter/Railing? pt stays on main level of the house 4 steps B rails to enter Home Environment High Toilet,Walk in Shower Home Equipment Grab Bars Near Toilet M2 PT-IP Current Condition Start: 06/14/22 12:16 Freq: NEEDED Status: Active Protocol: Document 06/14/22 11:25 AB (Rec: 06/14/22 12:29 AB [id number]) Physical Therapy Current Condition Current Condition Evaluation Date 06/14/22 Treatment Diagnosis UTI; difficulty in walking Onset Date 06/13/22 M3 PT-IP Subjective Start: 06/14/22 12:16 Freq: NEEDED Status: Active Protocol: Document 06/14/22 11:25 AB (Rec: 06/14/22 12:29 AB [id number]) Subjective Physical Therapy Visit Type Type Initial Evaluation Visit Start Time 11:25 Visit Stop Time 12:00 Total Visit Minutes 35 Number of LOGISTICS PLANNING ENGINEER Visits 0 Physical Therapy Visit Comments Patient Comments pt is agreeable to do PT Therapy Pain Assessment Pain When Pain Assessed During Mobility Pain Present Pain Present Pain Reported Location bladder Description Spasm Pain Behaviors Guarding Pain Management Techniques Distraction,Modification of Treatment,Re-positioning M4 PT-IP Mobility and Gait Start: 06/14/22 12:16 Freq: NEEDED Status: Active Protocol: Document 06/14/22 11:25 AB (Rec: 06/14/22 12:29 AB [email or web address]) PT-Transfer Assessment Sit to and From Stand Sit to and from Stand Standby Assistance Equipment Transfer Assistive Device Gait Belt Orthotic/Prosthetic Devices or Brace: No Transfers Transfer Destination Chair Transfer Technique ambulation Transfer Ability Level of Assist Standby Assistance,1 Person Assistance,Use of Upper Extremities Comments Mobility Comments pt completed supine to sit SBA . Immediately stood up from seated position with c/o bladder spasm and stated that he has to stand. No LOB. completed ambulation in room using FWW SBA ~ 20 ft. with with previous B knee surgeries and has limited ROM affecting ambulation. Assessed ambulation without AD ~ 30 ft with initial CGA but midway only SBA. presents with waddling gait. pt sat back on chair. agreed to do stair climbing. positioned step stool and pt completed with bilateral supports SBA to CGA. repeated x 2 sets. pt sat back on chair. wanting to wash his hands for lunch and ambulated to the sink SBA and completed handwashing SBA. pt sat on EOB and prefers to sit on EOB and stated the chair is not too comfortable. call light placed next to pt. Gait Assessment Gait Gait Assistance Required: Standby Assistance,Contact Guard Assist Distance (Feet) 30 Able to Maintain Weight Bearing Status Yes During Gait Assistive Devices Assistive Device None,Gait Belt,Front Wheeled Walker Orthotic/Prosthetic Devices or Brace: No Gait Deviations General Gait Pattern Decreased Stride Length, Decreased Feet Clearance,Step- to Gait,Wide Based Gait Factors Limiting Gait Function Factors Limiting Gait Function Decreased Activity Tolerance, Decreased Strength,Limited Range of Motion,Pain,Poor Balance,Poor Safety Awareness Stair Climbing Assessment Evaluation Level of Assist On Stairs Standby Assistance,Contact Guard Assistance Devices Stair Climbing Assistive Devices Left Railing,Right Railing Technique/Endurance Stair Climbing Direction Ascend and Descend Stair Climbing Technique Step to Step Number of Steps Climbed 1 Query Text: Stair Climbing Set # Repetitions (reps) 2 PT-Balance Assessment Sitting Balance and Reactions Static Sitting Balance Ability Normal Dynamic Sitting Balance Ability Normal Standing Balance and Reactions Static Standing Balance Ability Good Dynamic Standing Balance Ability Fair Device Used without AD M5 PT-IP Objective Assessments Start: 06/14/22 12:16 Freq: NEEDED Status: Active Protocol: Document 06/14/22 11:25 AB (Rec: 06/14/22 12:29 AB [id number]) Orientation Orientation/Cognition Level of Alertness Alert Orientation Name,Place,Situation Language Function Ability No Deficits Noted,Hard of Hearing Safety Awareness Decreased Safety Awareness Memory Description No Deficits Noted Gross Range of Motion Lower Extremity ROM Assessment Bilaterally Impaired Impairments limited B knee flexion ~ 50 degrees Strength Lower Extremity Strength Assessment Left Impaired Hip 4-/5 Knee 3+/5 Muscle Tone Muscle Tone WNL Yes M6 PT-IP Treatment Start: 06/14/22 12:16 Freq: NEEDED Status: Active Protocol: Document 06/14/22 11:25 AB (Rec: 06/14/22 12:29 AB [id number]) Physical Therapy Treatment Education Education Provided Safety M7 PT-IP Assessment and Plan Start: 06/14/22 12:16 Freq: NEEDED Status: Active Protocol: Document 06/14/22 11:25 AB (Rec: 06/14/22 12:29 AB [email or web address]) PT Summary Assessment and Plan Potential Rehabilitation Potential Fair Status of Condition at Evaluation Stable Summary Impairments Pain,ROM,Strength,Balance, Coordination,Sensation,Tone, Cognition,Bed Mobility, Transfers,Gait,Activity Tolerance Assessment Summary pt needing SBA to CGA with mobility without AD. pt plans to go home with spouse to assist as needed but spouse is limited to assistance she can provide due to her own medical issues. will continue to assess progress. Goals Bed Mobility Goal Independent Transfer Goal Independent Gait Goal Independent Gait Distance 200 Other Goals up/down 4 steps B rails mod I Days to Meet Goals 3 Frequency of Treatment Frequency Of Treatment Once a Day Treatment Plan Physical Therapy Treatment Plan Bed Mobility Training,Transfer Training,Gait Training, Therapeutic Exercise,Balance Retraining,Discharge Planning, Hot or Cold Pack,Neuromuscular Re-ed,Coordination Retraining ,Manual Therapy Recommendations To Nursing Amount of Assist Needed 1 Person Assist Discharge Recommendations PT Discharge Recommendations Home with Assistance Transportation Needs at Discharge Private Vehicle
--- NOTE | 2022-06-14 11:38 | CM.DANOTE ---
Initial Discharge Assessment Case reviewed, met with patient and spouse. Introduced self and role. Payer: Medicare and [employer] PCP: Dr Hemant Tucker 87 year old male with prostate cancer admitted yesterday with bladder pain and urinary retention. Apparently he had his nugent catheter removed earlier in day at urologists's office and had not urinated since. In the ED a nugent catheter was placed and specimen obtained. Patient lives locally in his own home with spouse. He is A/O and presents as proactive in his care. He is independent in ADLs and drives. Plan: Per hospitalist, the plan is for dc home tomorrow. Follow for needs. WENDY Discharge Planning/Care Management CM Discharge Assessment Start: 06/14/22 11:36 Freq: Status: Active Protocol: Document 06/14/22 11:37 (Rec: 06/14/22 11:38 [id number]) Discharge Planning Assessment Assigned Pattern Generator Operator Tawnya Ellison RN/MICHELLEP Advance Directives? Yes Advance Directives on File No History Provided By Patient,Medical Record Prior Living Arrangements House Household Members spouse Type of transporation used prior to Drives own vehicle admit Independent with ADL's Yes Is patient alert and oriented? Yes Caregiver for Another No Discharge Plan Home Referrals Initiated None needed Whiteboard Updated in Patient Room with Yes name and ext. # of Pattern Generator Operator Review Status In Process Next Review Type Continued Stay Review
[2022-06-14] MEDS: ACETAMINOPHEN 325 MG TABLET 650 MG PO (11:59)
[2022-06-15 02:59] VITALS: BP 134/57; PULSE 60; RESP 16; TEMP 36.4; O2SAT 96
--- NOTE | 2022-06-15 04:48 | PC.NURSE ---
Pt independent in room and cooperative w/ care. Translucent discharge present around urethral opening, pt states this is normal for him. 3+ non pitting edema in bilat LE. Pt says he usually wears compression socks but hasn't the last week which caused the edema.
[2022-06-15 06:41] LABS: Add Manual Diff / Slide Review NO; Basophils Absolute Auto 0 /uL (0-100); Basophils Percent Auto 0.5 % (0-2); Eosinophils Absolute Auto 200 /uL (0-450); Eosinophils Percent Auto 4.7 % (2-4); Hematocrit 30.2 % (41-53); Hemoglobin 10.6 g/dL (13.5-17.5); Lymphocytes Absolute Auto 900 /uL (1100-4500); Lymphocytes Percent Auto 20.5 % (25-40); Mean Corpuscular HGB Conc 34.9 % (30-36); Mean Corpuscular Volume 94.3 fL (80-100); Monocytes Absolute Auto 500 /uL (0-900); Monocytes Percent Auto 11.2 % (3-14); Neutrophils Absolute Auto 2600 /uL (1500-7000); Neutrophils Percent Auto 63.1 % (50-75); Platelet Count 122 X10^3/uL (150-400); White Blood Cell Count 4.2 X10^3/uL (4.5-11.0)
[2022-06-15 06:50] LABS: Alanine Aminotransferase 10 IU/L (<50); Albumin 3.2 g/dL (3.5-5.0); Albumin Globulin Ratio 1.2 (1.0-2.8); Alkaline Phosphatase 64 U/L (38-126); Aspartate Aminotransferase 16 IU/L (17-59); BUN Creatinine Ratio 19.3 (6-22); Bilirubin Total 0.5 mg/dL (0.2-1.3); Blood Urea Nitrogen 17 mg/dL (9-20); Calcium 8.8 mg/dL (8.4-10.2); Carbon Dioxide 28 mmol/L (22-32); Chloride 105 mmol/L (98-107); Estimated Glomerular Filt Rate > 60 mL/min (>60); Globulin 2.7 g/dL (1.7-4.1); Glucose 98 mg/dL (80-110); HEMOLYSIS < 15 (0-50); Potassium 4.1 mmol/L (3.4-5.1); Sodium 138 mmol/L (137-145); Total Protein 5.9 g/dL (6.3-8.2)
[2022-06-15 07:00] VITALS: O2SAT 96
[2022-06-15 08:18] VITALS: BP 134/57; PULSE 60
[2022-06-15] MEDS: ENOXAPARIN 40 MG/0.4 ML SYRINGE SUBCUT (08:18)
[2022-06-15] MEDS: LATANOPROST 0.005% OPHTH 2.5 ML 1 DROPS EYE-BOTH (08:18)
[2022-06-15] MEDS: carvediloL 3.125 MG TABLET 6.25 MG PO (08:18)
[2022-06-15 08:19] VITALS: BP 134/57; PULSE 60
[2022-06-15] MEDS: TAMSULOSIN 0.4 MG CAPSULE PO (08:19)
[2022-06-15] MEDS: LOSARTAN 25 MG TABLET PO (08:19)
[2022-06-15] MEDS: cefTRIAXone 1,000 MG in SODIUM CHLORIDE 0.9% 100 ML 200 MG IV (08:25)
--- NOTE | 2022-06-15 08:39 | P.DS_ITS ---
History of Present Illness History of Present Illness Date Patient Seen: 06/15/22 Time Patient Seen: 08:39 Date of Onset of Symptoms: 06/11/22 Chief complaint: Prostate problems, Unable to urinate Narrative: See history and physical dictated previously Discharge Providers Provider Date of admission: 06/13/22 19:13 Discharge Date: 06/15/22 Primary care physician: Hemant Tucker MD Consults: 06/14/22 09:04 Consult to Physical Therapy Evaluate & Treat Comment: Physician Instructions: Evaluate and Treat Discharge provider: Hemant Tucker MD Summary Hospital Course Discharge Diagnosis: Metabolic encephalopathy UTI Urine retention Dehydration Altered mental status Anemia AFib flutter Hypertension Hospital Course: Altered mental status/metabolic encephalopathy. Patient was admitted and was improved after fluid and hydration. He continued to improve over the next 72 hours was normal on the time of discharge. Was felt to be secondary to his infection and dehydration. He recovered well. Totally normal neurologic exam for him and will follow up as stated. UTI. Probably secondary to his urinary retention. He would 600 cc. Previous cultures had showed Pseudomonas. Patient was placed on IV antibiotics Rocephin over the 1st 48 hours and Citrobacter was cultured and was sensitive to Bactrim. Will switch to Bactrim as outpatient. Patient doing well and will be sent khushi e. No fevers. Urinary retention. Patient had 600 cc and has been dealing with urology since some time. Will continue Sharp and patient would like to switch to ever it. Dehydration. Patient was aggressively hydrated in the emergency room and over the 1st 24 hours was taken fluid well and done well. Pry secondary infection will follow. Anemia. Probably secondary to hydration. Will be followed as an outpatient no evidence of loss. AFib flutter. Patient has been on anti-inflammatories and we will continue that apparently that is to help reduce inflammation. He has been in sinus rhythm and low risk to be off his medicine would probably be back in the next 2 weeks. Hypertension stable. Exam Vital Signs (past 8 hours): - 06/15/22 02:59 06/15/22 08:18 06/15/22 08:19 Temperature 97.5 F L Pulse Rate 60 60 60 Respiratory Rate 16 Blood Pressure 134/57 L 134/57 L 134/57 L Pulse Oximetry 96 Oxygen Flow Rate 0 Oxygen Delivery Method Room Air Oxygen Flow Rate 0 Narrative Exam Narrative: Alert male in no acute distress interactive appropriate mentally. Lungs are clear. Heart regular rate and rhythm. Neurologic exam is normal Objective Labs Result Diagrams: 06/15/22 06:27 06/15/22 06:27 Labs: Laboratory Results - last 24 hr 06/15/22 06/15/22 06:27 06:27 WBC 4.2 L RBC 3.20 L Hgb 10.6 L Hct 30.2 L MCV 94.3 MCH 33.0 MCHC 34.9 RDW 14.0 Plt Count 122 L Neut % (Auto) 63.1 Lymph % (Auto) 20.5 L [place] % (Auto) 11.2 Eos % (Auto) 4.7 H Baso % (Auto) 0.5 Neut # (Auto) 2600 Lymph # (Auto) 900 L [place] # (Auto) 500 Eos # (Auto) 200 Baso # (Auto) 0 Sodium 138 Potassium 4.1 Chloride 105 Carbon Dioxide 28 BUN 17 Creatinine 0.88 Estimated GFR > 60 BUN/Creatinine Ratio 19.3 Glucose 98 Calcium 8.8 Total Bilirubin 0.5 AST 16 L ALT 10 Alkaline Phosphatase 64 Total Protein 5.9 L Albumin 3.2 L Globulin 2.7 Albumin/Globulin Ratio 1.2 PFSH Medical History Ascending aortic aneurysm Atrial fibrillation Enlarged prostate Hx of echocardiogram Surgical History H/O cardiac radiofrequency ablation History of blepharoplasty History of knee replacement History of tonsillectomy Family History Father Heart disease Mother Breast cancer Social History marital status: household members: spouse Smoking Status: Never smoker alcohol intake: current substance use type: does not use Discharge Plan Discharge Plan Patient Disposition: Home Discharge orders & Medications Prescriptions: New sulfamethoxazole-trimethoprim 800-160 mg Tablet 1 tab PO BID Qty: 14 0RF ibuprofen 600 mg Tablet 600 mg PO TID Qty: 30 0RF Continued carvedilol 6.25 mg tablet 6.25 mg PO BID Rx Instructions: must administer with a meal/food latanoprost 0.005 % drops 1 drp EYE-BOTH DAILY losartan 25 mg tablet 25 mg PO BID docusate sodium [Colace] 100 mg capsule 100 mg PO BID Qty: 30 0RF acetaminophen [Tylenol] 325 mg capsule 650 mg PO QID PRN (Reason: pain) Qty: 60 0RF tamsulosin 0.4 mg capsule 0.4 mg PO BEDTIME Label Comments: TAKE ONE CAPSULE BY MOUTH EVERY EVENING oxybutynin chloride 5 mg tablet 5 mg PO TID Label Comments: Take 1 tablet (5 mg total) by mouth 3 (three) times daily as needed finasteride 5 mg tablet 5 mg PO DAILY Label Comments: TAKE ONE TABLET BY MOUTH ONE TIME DAILY Discontinued Eliquis 5 mg tablet 5 mg PO BID Label Comments: Take one tablet by mouth twice daily. Follow up/Referrals: Hemant Tucker MD [Primary Care Provider] - 06/20/22 (please call for appointm ent) Discharge Health Status Multidrug resistant organism: No MDRO Diet/Activity/Treatments Diet: Diet as Tolerated Diet comment: eat with ibuprofen Skin/Wound/Dressing Care Report to your healthcare provider any signs of infection, such as:: chills, fever and increased pain Discharge Data Primary Care Provider: Hemant Tucker Quality VTE Deep Vein Thrombosis/Pulmonary Embolism Present on Admission: No
[2022-06-15] MEDS: TRIMETH/SULFA 160/800 (DS) TABLET 1 TAB PO (09:00)
[2022-06-15] MEDS: IBUPROFEN 600 MG TABLET PO (09:00)
--- NOTE | 2022-06-15 10:43 | CM.DPNOTE ---
Discharge Planning Note: Likely discharge today around 11:00. Plan: Home with spouse, with nugent catheter. Outpatient urology appointment set. Tawnya Ellison RN/DCP
--- NOTE | 2022-06-15 10:55 | PT-IP ANOTE ---
Attempted to see pt at 10:45, pt awaiting d/c home and refused PT stating no further needs.
--- NOTE | 2022-06-15 11:44 | PC.NURSE ---
day shift Pt left floor at 1130 via wheel chair accompanied by spouse. Pt had all personal belongings, hearing aids, cell phone, tablet, all charging cables for all devices. Pt received paperwork and had all questions answered. Pt denied pain or nausea.
== END 2022-06-15 11:49 | disposition home or self-care (01) | DRG 689 ==
LOC: ED 15:10 → AC 19:14
PROVIDERS: Emergency Medicine; Family Medicine; Admitting Provider Family Medicine; Emergency Provider Nurse Practitioner Critical Care Medicine; PCP Family Medicine; Referring Provider Nurse Practitioner Critical Care Medicine; Visit Provider Family Medicine
DX: N39.0 Urinary tract infection, site not specified (principal); G93.41 Metabolic encephalopathy; I42.2 Other hypertrophic cardiomyopathy; I48.92 Unspecified atrial flutter; R33.9 Retention of urine, unspecified; E86.0 Dehydration; B96.89 Other specified bacterial agents as the cause of diseases classified elsewhere; I48.91 Unspecified atrial fibrillation; I10 Essential (primary) hypertension; N40.1 Benign prostatic hyperplasia with lower urinary tract symptoms; C61 Malignant neoplasm of prostate; R33.8 Other retention of urine; Z20.822 Contact with and (suspected) exposure to COVID-19; Z66 Do not resuscitate
CPT/HCPCS: 36415; 51702; 80053; 81001; 82550; 83605; 83735; 83880; 84484; 85025; 85610; 86140; 87040; 87077; 87086; 87186; 87635; 93005; 93010; 96365; 96375; 97161; 99284; C9803; J0696; J1650; J1885

== ENCOUNTER 2022-10-26 21:20 | Inpatient (IN) | payer MEDICARE, SELFPAY ==
[2022-06-13 20:28] VITALS: BMI 31.8
[2022-10-26] VITALS (9 sets, daily range): BP systolic 110–174; BP diastolic 59–74; PULSE 68–75; RESP 13–20; TEMP 36.8; O2SAT 93–98; BMI 208.6
--- NOTE | 2022-10-26 21:33 | DI.RAD.S_ITS ---
PROCEDURE: XR HIP W PEL IF DONE LT 2V INDICATIONS: pain after fall TECHNIQUE: AP pelvis with lateral view of the left hip. COMPARISON: None. FINDINGS: Bones: There is a mildly impacted subcapital fracture of the left femoral neck. Pelvic ring appears intact. No suspicious bony lesions. Soft tissues: The visualized bowel gas pattern is normal. No suspicious soft tissue calcifications. IMPRESSION: 1. Mildly impacted left femoral neck fracture. Dictated by: Chip Santos M.D. on 10/26/2022 at 22:58 Approved by: Chip Santos M.D. on 10/26/2022 at 22:58
--- NOTE | 2022-10-26 21:33 | DI.CT.S_ITS ---
PROCEDURE: CT HEAD/BRAIN WO CON INDICATIONS: head laceration after fall on thinners TECHNIQUE: Noncontrast 4.5 mm thick angled axial sections acquired from the foramen magnum to the vertex, with coronal and sagittal reformats. For radiation dose reduction, the following was used: automated exposure control, adjustment of mA and/or kV according to patient size. COMPARISON: MR, MR STROKE, 05/31/2021, 8:15. [facility], CT, HEAD WITHOUT CONTRAST, 07/06/2011, 11:47. FINDINGS: Image quality: Excellent. CSF spaces: Basal cisterns are patent. No extra-axial fluid collections. There is moderate cerebral volume loss, with resultant ventricular and sulcal prominence. Brain: No intracranial hemorrhage, mass, or mass effect. There are subcortical, periventricular and deep white matter hypodensities consistent with moderate chronic small vessel ischemic changes. The tam-white matter junction appears preserved. There is intracranial internal carotid artery atherosclerosis. Skull and face: There is left parietal scalp soft tissue swelling with a small subcutaneous scalp hematoma. Calvarium and visualized facial bones appear intact, without suspicious lesions. Sinuses: Visualized sinuses and mastoids are clear. IMPRESSION: 1. No acute intracranial abnormality. 2. Left posterior parietal scalp hematoma. 3. Moderate cerebral volume loss and chronic white matter small vessel ischemic changes. Dictated by: Chip Santos M.D. on 10/26/2022 at 22:32 Approved by: Chip Santos M.D. on 10/26/2022 at 22:33
--- NOTE | 2022-10-26 21:37 | ED.FALL ---
HPI - Fall General Chief Complaint: Fall Stated Complaint: Mechanical fall left hip Time Seen by Provider: 10/26/22 21:32 Source: patient and EMS Mode of arrival: EMS History of Present Illness HPI Narrative: Patient is a 87 year male who was brought in by EMS for evaluation of a head injury and left hip pain. He states that approximately 5 hours prior to arrival here in the emergency department he was walking out to the mailbox to get his mail. He stated that he dropped something on the ground. He turned. Is bending over. He lost his balance. Fell onto his left side. Sustained an injury to his left hip and left elbow. He also hit his head. There was no loss of consciousness. He is no neck pain. A bystander helped him up and helped him back into his house. He has taken some steps since the injury but has had progressively worsening left hip pain since then. He is on anticoagulation. Related Data Home Medications Medication Instructions Recorded Confirmed carvedilol 6.25 mg tablet 6.25 mg PO BID 11/16/20 06/13/22 latanoprost 0.005 % eye drops 1 drp EYE-BOTH DAILY 11/16/20 06/13/22 losartan 25 mg tablet 25 mg PO BID 11/16/20 06/13/22 finasteride 5 mg tablet 5 mg PO DAILY 06/13/22 06/13/22 oxybutynin chloride 5 mg tablet 5 mg PO TID 06/13/22 06/13/22 tamsulosin 0.4 mg capsule 0.4 mg PO BEDTIME 06/13/22 06/13/22 Previous Rx's Medication Instructions Recorded acetaminophen 325 mg capsule 650 mg PO QID PRN pain #60 caps 11/22/20 (Tylenol) docusate sodium 100 mg capsule 100 mg PO BID #30 caps 11/22/20 (Colace) ibuprofen 600 mg tablet 600 mg PO TID #30 tabs 06/15/22 sulfamethoxazole 800 1 tab PO BID #14 tabs 06/15/22 mg-trimethoprim 160 mg tablet Allergies Allergy/AdvReac Type Severity Reaction Status Date / Time simvastatin [SIMVASTATIN] AdvReac Severe MUSCLE Verified 10/26/22 21:30 WEAKNESS Review of Systems Constitutional Constitutional: Reports system reviewed and no additional complaints, except as documented Cardiovascular Cardiovascular: Reports system reviewed and no additional complaints, except as documented Respiratory Respiratory: Reports system reviewed and no additional complaints, except as documented Musculoskeletal Musculoskeletal: Reports system reviewed and no additional complaints, except as documented Integumentary/Breasts Skin/Breast: Reports system reviewed and no additional complaints, except as documented Neurologic Neurologic: Reports system reviewed and no additional complaints, except as documented Hematologic/Lymphatic On Anticoagulants: Yes Patient History Medical History Ascending aortic aneurysm Atrial fibrillation Enlarged prostate Hx of echocardiogram Surgical History H/O cardiac radiofrequency ablation History of blepharoplasty History of knee replacement History of tonsillectomy Family History Father Heart disease Mother Breast cancer Social History marital status: household members: spouse Smoking Status: Former smoker alcohol intake: current substance use type: does not use Smoking Status: Former smoker alcohol intake frequency: a few times a month Substance Use Type: does not use Exam Initial Vital Signs Initial Vital Signs: Vital Signs Pulse Rate 75 10/26/22 21:24 Blood Pressure 167/74 H 10/26/22 21:24 Pulse Oximetry 96 10/26/22 21:24 Const General: cooperative, comfortable and No ill appearing HENMT Head: abrasion (Left parietal region) and hematoma (Left parietal region) Face and sinus: normal facial exam Resp Effort & Inspection: normal respiratory effort Auscultation: clear to auscultation bilaterally Cardio Rate: regular rate Rhythm: regular rhythm GI Inspection: normal to inspection Palpation: soft and No tender Back/Spine/Pelvis Cervical Spine: No cervical spinal tenderness Skin Other: Skin abrasion to the left parietal region of the scalp. No active bleeding. There are no lacerations. Neuro General: patient alert, patient awake and patient oriented x3 Speech: speech normal Sensory Exam: no sensory deficits noted Extrem Other: Full range of motion of the left shoulder left elbow left wrist. Patient's left knee and left ankle unremarkable. Has tenderness to palpation of the left hemipelvis. Scores GCS [place] coma scale eye opening: Spontaneous [place] coma scale verbal response: Orientated [place] coma scale motor response: Obey commands [place] coma scale total score: 15 Nexus Score for C-Spine Focal Neurologic deficit present: No Midline spinal tenderness present: No Altered level of conciousness present: No Intoxication present: No Distracting Injury Present: No Nexus Criteria for C-spine: 0 Course Orders Ordered: ED Orders 10/26/22 21:33 CT head/brain wo con Stat XR hip w pel if done LT 2V Stat EKG-12 Lead Stat 10/26/22 23:07 COVID19 -Nasal RAPID/Pre-Proc Stat 10/26/22 23:12 Consult to Orthopedic Surgery Stat 10/26/22 23:18 Basic Metabolic Panel Stat Complete Blood Count AUTO DIFF Stat Hydromorphone HCl (Hydromorphone 0.5 Mg Inj) 0.5 mg IV Q2H PRN PRN Reason: Pain, Severe (7-10) Ondansetron HCl (Ondansetron 4 Mg/2 Ml Inj) 4 mg IV Q4HR PRN PRN Reason: Nausea And Vomiting Discontinued Medications Hydromorphone HCl (Hydromorphone 0.5 Mg Inj) 0.5 mg IV NOW ONE Stop: 10/26/22 22:50 Last Admin: 10/26/22 23:01 Dose: 0.5 mg Documented By: ITALIA Morphine Sulfate (Morphine 4 Mg/Ml Inj) 4 mg IV NOW ONE Stop: 10/26/22 22:09 Last Admin: 10/26/22 22:10 Dose: 4 mg Documented By: ITALIA Vital Signs Vital signs: Vital Signs - 8 hr 10/26/22 21:26 10/26/22 21:24 10/26/22 21:24 Temperature 98.2 F Pulse Rate 72 75 Respiratory Rate 18 Blood Pressure 167/74 H 167/74 H Pulse Oximetry 98 96 Oxygen Delivery Method Room Air 10/26/22 21:30 10/26/22 21:30 10/26/22 22:12 Temperature Pulse Rate 71 73 Respiratory Rate 13 Blood Pressure 142/63 H Pulse Oximetry 95 93 Oxygen Delivery Method 10/26/22 22:14 10/26/22 22:14 10/26/22 22:16 Temperature Pulse Rate 73 Respiratory Rate Blood Pressure 174/72 H 137/63 Pulse Oximetry 95 Oxygen Delivery Method 10/26/22 22:16 Temperature Pulse Rate 71 Respiratory Rate Blood Pressure Pulse Oximetry 94 Oxygen Delivery Method MDM - Fall Lab Data Attestation: I reviewed the patient's lab results. 10/26/22 23:18 10/26/22 23:18 Labs: Lab Results 10/26/22 10/26/22 Range/Units 23:18 23:18 WBC 11.9 H (4.5-11.0) X10^3/uL RBC 4.07 L (4.5-5.9) X10^6/uL Hgb 12.7 L (13.5-17.5) g/dL Hct 37.5 L (41-53) % MCV 92.2 (80-100) fL MCH 31.2 (26-34) PG MCHC 33.9 (30-36) % RDW 15.5 H (11.6-14.8) % Plt Count 177 (150-400) X10^3/uL Neut % (Auto) 84.7 H (50-75) % Lymph % (Auto) 8.5 L (25-40) % [place] % (Auto) 4.3 (3-14) % Eos % (Auto) 2.2 (2-4) % Baso % (Auto) 0.3 (0-2) % Neut # (Auto) 64036 H (4581-4566) /uL Lymph # (Auto) 1000 L (6473-9253) /uL [place] # (Auto) 500 (0-900) /uL Eos # (Auto) 300 (0-450) /uL Baso # (Auto) 0 (0-100) /uL Sodium 138 (137-145) mmol/L Potassium 4.2 (3.4-5.1) mmol/L Chloride 104 (98-107) mmol/L Carbon Dioxide 26 (22-32) mmol/L BUN 18 (9-20) mg/dL Creatinine 1.01 (0.66-1.25) mg/dL Estimated GFR > 60 (>60) mL/min BUN/Creatinine Ratio 17.8 (6-22) Glucose 103 (80-110) mg/dL Calcium 9.8 (8.4-10.2) mg/dL Imaging Data CT scan - head: Radiologist's Impression: PROCEDURE:? CT HEAD/BRAIN WO CON ? INDICATIONS:? head laceration after fall on thinners ? TECHNIQUE:? Noncontrast 4.5 mm thick angled axial sections acquired from the foramen magnum to the vertex, with coronal and sagittal reformats.? For radiation dose reduction, the following was used:? automated exposure control, adjustment of mA and/or kV according to patient size.? ? COMPARISON:? MR, MR STROKE, 05/31/2021, 8:15.? [facility], CT, HEAD WITHOUT CONTRAST, 07/06/2011, 11:47. ? FINDINGS:? Image quality:? Excellent.? ? CSF spaces:? Basal cisterns are patent.? No extra-axial fluid collections.? There is moderate cerebral volume loss, with resultant ventricular and sulcal prominence.? ? Brain:? No intracranial hemorrhage, mass, or mass effect.? There are subcortical, periventricular and deep white matter hypodensities consistent with moderate chronic small vessel ischemic changes.? The tam-white matter junction appears preserved.? There is intracranial internal carotid artery atherosclerosis.? ? Skull and face:? There is left parietal scalp soft tissue swelling with a small subcutaneous scalp hematoma.? Calvarium and visualized facial bones appear intact, without suspicious lesions.? ? Sinuses:? Visualized sinuses and mastoids are clear.? ? IMPRESSION:? ? 1. No acute intracranial abnormality. ? 2. Left posterior parietal scalp hematoma. ? 3. Moderate cerebral volume loss and chronic white matter small vessel ischemic changes.? Extremity x-ray #1: Radiologist's Impression: PROCEDURE:? XR HIP W PEL IF DONE LT 2V ? INDICATIONS:? pain after fall ? TECHNIQUE:? AP pelvis with lateral view of the left hip. ? COMPARISON:? None. ? FINDINGS:? ? Bones:? There is a mildly impacted subcapital fracture of the left femoral neck.? Pelvic ring appears intact.? No suspicious bony lesions.? ? Soft tissues:? The visualized bowel gas pattern is normal.? No suspicious soft tissue calcifications.? ? ? IMPRESSION:? ? 1. Mildly impacted left femoral neck fracture. ECG Data Attestation: I personally reviewed and interpreted this ECG as follows: Interpretation: Sinus rhythm Ventricular rate is 70 Left axis deviation Normal QRS ST T changes MDM Narrative Medical decision making narrative: Head CT is unremarkable. GCS of 15. Cervical spine cleared by nexus criteria. The abrasions on the left parietal region of his scalp were cleaned any new further intervention here in the emergency department. He is no pain to his left elbow. Has a superficial abrasion over this area. He does have tenderness to his left hip. X-ray shows an impacted femoral neck fracture. He reports no other injuries from the event. Discussed the case with Dr. Quezada on-call for Orthopedic surgery who will see the patient tomorrow morning after admission. Then discuss the case with Dr. Little on-call for the patient's primary doctor who will admit for further evaluation and treatment. I did discuss the injuries with the patient and his family at bedside. They were informed of the need for admission. They expressed understanding and agreement. Discharge Plan Departure Patient Disposition: Admitted As Inpatient Clinical Impression: Closed fracture of neck of left femur, Abrasion of scalp Admit Date/Time: 10/26/22 23:26 Admit Provider: Devon Little
[2022-10-26] MEDS: MORPHINE 4 MG/ML INJ IV (22:10)
[2022-10-26] MEDS: HYDROMORPHONE 0.5 MG INJ IV (23:01)
[2022-10-26 23:26] LABS: Add Manual Diff / Slide Review NO; Basophils Absolute Auto 0 /uL (0-100); Basophils Percent Auto 0.3 % (0-2); Eosinophils Absolute Auto 300 /uL (0-450); Eosinophils Percent Auto 2.2 % (2-4); Hematocrit 37.5 % (41-53); Hemoglobin 12.7 g/dL (13.5-17.5); Lymphocytes Absolute Auto 1000 /uL (1100-4500); Lymphocytes Percent Auto 8.5 % (25-40); Mean Corpuscular HGB Conc 33.9 % (30-36); Mean Corpuscular Hemoglobin 31.2 PG (26-34); Mean Corpuscular Volume 92.2 fL (80-100); Monocytes Absolute Auto 500 /uL (0-900); Monocytes Percent Auto 4.3 % (3-14); Neutrophils Absolute Auto 10100 /uL (1500-7000); Neutrophils Percent Auto 84.7 % (50-75); Platelet Count 177 X10^3/uL (150-400); Red Blood Cell Count 4.07 X10^6/uL (4.5-5.9); Red Cell Distribution Width 15.5 % (11.6-14.8); White Blood Cell Count 11.9 X10^3/uL (4.5-11.0)
[2022-10-26 23:27] LABS: BUN Creatinine Ratio 17.8 (6-22); Blood Urea Nitrogen 18 mg/dL (9-20); Calcium 9.8 mg/dL (8.4-10.2); Carbon Dioxide 26 mmol/L (22-32); Chloride 104 mmol/L (98-107); Estimated Glomerular Filt Rate > 60 mL/min (>60); Glucose 103 mg/dL (80-110); HEMOLYSIS 25 (0-50); Potassium 4.2 mmol/L (3.4-5.1); Sodium 138 mmol/L (137-145)
[2022-10-27] VITALS (26 sets, daily range): BP systolic 131–172; BP diastolic 58–72; PULSE 70–87; RESP 15–20; TEMP 36.9; O2SAT 90–96; BMI 204.0
[2022-10-27 00:12] LABS: COVID19 -Nasal RAPID Negative (Negative)
[2022-10-27] MEDS: HYDROMORPHONE 0.5 MG INJ IV ×4 (00:38→14:04)
--- NOTE | 2022-10-27 08:01 | PM.HP.1 ---
History of Present Illness History of Present Illness Date Patient Seen: 10/27/22 Time Patient Seen: 08:01 Chief complaint: Mechanical fall left hip Narrative: 87-year-old male with a history of atrial fibrillation status post ablation procedure cardiomyopathy hypertrophic cerebrovascular accident prostate cancer with with chronic indwelling Sharp catheter ascending aortic aneurysm and osteoarthritis with bilateral knee replacements presents to the emergency department with hip pain. Patient states pain began yesterday after a fall. Patient was in his house. He went out to walk to the mailbox. As he was at the mailbox he twisted to turned back into the house lost his balance and fell. Had acute hip pain and found it difficult to ambulate during the fall he also hit his head and sustained a laceration to the back of his scalp. Before his fall he said he was feeling fine had no chest pain dizziness lightheaded fevers or chills. Been in his normal state of health during that day. Was not complaining any V heart arrhythmias or palpitations. Patient to after he fell required assistance with ambulation and was brought into the emergency department. Patient presents complaining of head and hip pain. Patient in the emergency room had laboratory testing done hip x-ray which showed fracture of the hip and a CT scan of his head due to the laceration. Laceration was appropriately taken care of in the emergency department and orthopedic was consulted due to the hip fracture. I was consulted for medical management This morning patient states he is doing well having hip pain no chest pain dizziness lightheadedness. No shortness of breath he says he ambulates well at home. He is alert and oriented x3. Patient is a good historian. He says he walks a lot at home and active and still drives his car. Patient History Medical History Ascending aortic aneurysm Atrial fibrillation Enlarged prostate Hx of echocardiogram Surgical History H/O cardiac radiofrequency ablation History of blepharoplasty History of knee replacement History of tonsillectomy Family & Social History Family History Father Heart disease Mother Breast cancer Social History: household members spouse Safety & Behavioral: Feels Safe in Current Yes Environment Been Physically Hurt or No Threatened By a Person Tobacco & Substance use: Smoking Status Former smoker alcohol intake current alcohol intake frequency a few times a month Substance Use Type does not use Meds Home Medications and Allergies Home Medications Medication Instructions Recorded Confirmed Type carvedilol 6.25 mg tablet 6.25 mg PO BID 11/16/20 06/13/22 History latanoprost 0.005 % eye drops 1 drp EYE-BOTH DAILY 11/16/20 06/13/22 History losartan 25 mg tablet 25 mg PO BID 11/16/20 06/13/22 History acetaminophen 325 mg capsule 650 mg PO QID PRN pain #60 caps 11/22/20 06/13/22 Rx (Tylenol) docusate sodium 100 mg capsule 100 mg PO BID #30 caps 11/22/20 06/13/22 Rx (Colace) finasteride 5 mg tablet 5 mg PO DAILY 06/13/22 06/13/22 History oxybutynin chloride 5 mg tablet 5 mg PO TID 06/13/22 06/13/22 History tamsulosin 0.4 mg capsule 0.4 mg PO BEDTIME 06/13/22 06/13/22 History ibuprofen 600 mg tablet 600 mg PO TID #30 tabs 06/15/22 Rx sulfamethoxazole 800 1 tab PO BID #14 tabs 06/15/22 Rx mg-trimethoprim 160 mg tablet Allergies Allergy/AdvReac Type Severity Reaction Status Date / Time simvastatin [SIMVASTATIN] AdvReac Severe MUSCLE Verified 10/26/22 21:30 WEAKNESS Exam Vital Signs (past 8 hours): - 10/27/22 00:30 10/27/22 01:00 10/27/22 01:30 Pulse Rate 75 74 79 Respiratory Rate 18 18 16 Blood Pressure Pulse Oximetry 94 93 93 10/27/22 02:00 10/27/22 02:30 10/27/22 03:00 Pulse Rate 76 75 73 Respiratory Rate 16 16 18 Blood Pressure Pulse Oximetry 91 91 90 L 10/27/22 03:30 10/27/22 04:00 10/27/22 04:00 Pulse Rate 71 70 Respiratory Rate 17 18 Blood Pressure 143/63 H Pulse Oximetry 95 95 10/27/22 04:30 Pulse Rate 70 Respiratory Rate 17 Blood Pressure Pulse Oximetry Oxygen Delivery Method Room Air Narrative Exam Narrative: Gen.: Alert and oriented x3 no apparent distress. HEENT: NCAT PERRLA tympanic membranes are clear nares are patent oral mucosa is moist no tonsillar hypertrophy neck is supple without lymphadenopathy no thyroid enlargement. Cardio: S1-S2 regular rate and rhythm no murmurs appreciated. Respiratory: Lungs are clear to auscultation no wheezes or crackles normal respiratory effort. Abdomen: Soft nontender no rebound or guarding no liver spleen enlargement no appreciable hernias Extremities: Some bilateral lower extremity edema worse left than right. Pain in the left hip Neurologic: Grossly intact. Objective Labs 10/26/22 23:18 10/26/22 23:18 Labs: Laboratory Results - last 24 hr 10/26/22 10/26/22 10/26/22 23:18 23:18 23:40 WBC 11.9 H RBC 4.07 L Hgb 12.7 L Hct 37.5 L MCV 92.2 MCH 31.2 MCHC 33.9 RDW 15.5 H Plt Count 177 Neut % (Auto) 84.7 H Lymph % (Auto) 8.5 L [place] % (Auto) 4.3 Eos % (Auto) 2.2 Baso % (Auto) 0.3 Neut # (Auto) 46585 H Lymph # (Auto) 1000 L [place] # (Auto) 500 Eos # (Auto) 300 Baso # (Auto) 0 Sodium 138 Potassium 4.2 Chloride 104 Carbon Dioxide 26 BUN 18 Creatinine 1.01 Estimated GFR > 60 BUN/Creatinine Ratio 17.8 Glucose 103 Calcium 9.8 SARS-CoV-2 (PCR) Negative Assessment & Plan Assessment and plan (1) Closed fracture of neck of left femur: Status: Acute Plan Left hip fracture. Patient has sustained a left hip fracture orthopedic consultation has been obtained I have been asked to evaluate patient for medical management. X-ray was reviewed. Chest x-ray and CT scan were reviewed. Laboratory data reviewed EKG data was reviewed previous surgical history was reviewed. This time patient will be cleared medically for surgery after 48 hours his last dose of anticoagulation was yesterday morning. Earliest surgery date could be Saturday morning. He was on Eliquis and this will be stopped. EKG shows no acute findings chest x-ray is normal CT scan shows abrasion to the scalp but no intracranial pathology. He is previously tolerated surgery without complication. Will be continued on his beta-pamela angiotensin receptor pamela for cardioprotective properties during the perioperative process. He will need physical therapy and occupational therapy and potential [facility] discharge. History of atrial fibrillation atrial flutter. Patient has undergone radiofrequency ablation and cryoablation. He is currently in normal sinus rhythm he is regularly on anticoagulation this will be held he is aware of the risks of stroke because of this. Be continued on his beta-pamela and other blood pressure medication. Will restart his anticoagulation after surgery. We will continue beta-pamela for rate control. History of prostate cancer with current chronic indwelling Sharp catheter. Catheter in place today. Certainly at risk for infection because of his ongoing catheterization and recent hospitalization last year with urinary tract infection with altered mental status. I would not recommend prophylaxis but would recommend good bladder care and hygiene. Continue with finasteride and oxybutynin Idiopathic hypertrophic cardiomyopathy watch carefully fluid status has a history of systolic heart failure and fluid overload at this time appears to be euvolemic Hypertension continue current antihypertension Ascending aortic aneurysm chronic and stable Disposition and plan medically stable for surgery on Saturday can start a diet today. Time Spent With Patient Critical Care time: I spent a total of [] minutes of critical care time on this patient's care today; this time is exclusive of procedural time.
[2022-10-27 08:20] LABS: INR 1.2 (0.9-1.3); Prothrombin Time 13.9 SECONDS (10.1-12.7)
--- NOTE | 2022-10-27 09:32 | DI.CT.S_ITS ---
PROCEDURE: CT PEL WO CON INDICATIONS: left femoral neck TECHNIQUE: After the administration of oral contrast, 5 mm thick sections acquired from the iliac crests to the symphysis. 5 mm coronal and sagittal reformats were then performed. For radiation dose reduction, the following was used: automated exposure control, adjustment of mA and/or kV according to patient size. COMPARISON: None. FINDINGS: Image quality: Excellent. Peritoneum and bowel: Bowel loops demonstrate normal wall thickness and caliber. No free fluid or air. Genitourinary: Bladder wall thickness is normal. Nodes and vessels: No iliac, pelvic, or inguinal adenopathy by size criteria. Iliac vessels demonstrate normal size. Bones: Nondisplaced fracture through the proximal left femoral neck with slight impaction. Pelvic ring intact. Miscellaneous: No inguinal hernias. Atherosclerotic calcification in the abdominal aorta noted without evidence of aneurysm.. Sharp catheter in the bladder. Multiple diverticula arise from the sigmoid colon. Degenerative changes noted in the lower lumbar spine IMPRESSION: Left impacted subcapital femoral neck fracture Approved by: En Huizar M.D. on 10/27/2022 at 9:30
--- NOTE | 2022-10-27 09:34 | PM.CN ---
History of Present Illness Consult details Date Patient Seen: 10/27/22 Time Patient Seen: 09:00 Chief complaint: Mechanical fall left hip Narrative: 87-year-old gentleman who fell yesterday landing on his left side. Patient states he was going out to check the mail and when he turned back around to go back into the house tripped and fell landing on his left side and also hit his head. Patient denies any loss of consciousness. Denies any syncopal episodes. Feels like he just misstepped causing him to fall. A neighbor saw him fall and helped him into the house. He was able to ambulate with some assistance back into the house. Due to the pain and discomfort and difficulty weight-bearing on the left leg he was brought into the emergency room where x-ray showed a possible impacted femoral neck fracture. Meds Home Medications and Allergies Home Medications Medication Instructions Recorded Confirmed Type carvedilol 6.25 mg tablet 6.25 mg PO BID 11/16/20 06/13/22 History latanoprost 0.005 % eye drops 1 drp EYE-BOTH DAILY 11/16/20 06/13/22 History losartan 25 mg tablet 25 mg PO BID 11/16/20 06/13/22 History acetaminophen 325 mg capsule 650 mg PO QID PRN pain #60 caps 11/22/20 06/13/22 Rx (Tylenol) docusate sodium 100 mg capsule 100 mg PO BID #30 caps 11/22/20 06/13/22 Rx (Colace) finasteride 5 mg tablet 5 mg PO DAILY 06/13/22 06/13/22 History oxybutynin chloride 5 mg tablet 5 mg PO TID 06/13/22 06/13/22 History tamsulosin 0.4 mg capsule 0.4 mg PO BEDTIME 06/13/22 06/13/22 History ibuprofen 600 mg tablet 600 mg PO TID #30 tabs 06/15/22 Rx sulfamethoxazole 800 1 tab PO BID #14 tabs 06/15/22 Rx mg-trimethoprim 160 mg tablet Allergies Allergy/AdvReac Type Severity Reaction Status Date / Time simvastatin [SIMVASTATIN] AdvReac Severe MUSCLE Verified 10/26/22 21:30 WEAKNESS Exam Vital Signs (past 8 hours): - 10/27/22 02:00 10/27/22 02:30 10/27/22 03:00 Pulse Rate 76 75 73 Respiratory Rate 16 16 18 Blood Pressure Pulse Oximetry 91 91 90 L 10/27/22 03:30 10/27/22 04:00 10/27/22 04:00 Pulse Rate 71 70 Respiratory Rate 17 18 Blood Pressure 143/63 H Pulse Oximetry 95 95 10/27/22 04:30 Pulse Rate 70 Respiratory Rate 17 Blood Pressure Pulse Oximetry Oxygen Delivery Method Room Air Narrative Exam Narrative: Elderly gentleman that is alert and oriented x3 in no apparent distress. Does have a laceration to the scalp but no signs of any other injury involving the head or neck. Full range of motion of bilateral upper extremities. No pain or difficulty moving bilateral shoulders, elbow, wrist, and fingers. Nontender to palpation to the bilateral upper extremities. Compartments are soft. On evaluation of bilateral lower extremities no sign of any significant shortening or rotational deformity to the left leg. Does have pain with some range of motion of the left hip. Signs previous total knee replacements but no sign of any swelling or instability. Positive dorsiflexion and plantar flexion bilaterally. Nontender to palpation throughout bilateral lower extremities. Palpable pedal pulses. Compartments are soft. Objective Labs 10/26/22 23:18 10/26/22 23:18 Labs: Laboratory Results - last 24 hr 10/26/22 10/26/22 10/26/22 23:18 23:18 23:40 WBC 11.9 H RBC 4.07 L Hgb 12.7 L Hct 37.5 L MCV 92.2 MCH 31.2 MCHC 33.9 RDW 15.5 H Plt Count 177 Neut % (Auto) 84.7 H Lymph % (Auto) 8.5 L [place] % (Auto) 4.3 Eos % (Auto) 2.2 Baso % (Auto) 0.3 Neut # (Auto) 93479 H Lymph # (Auto) 1000 L [place] # (Auto) 500 Eos # (Auto) 300 Baso # (Auto) 0 PT INR Sodium 138 Potassium 4.2 Chloride 104 Carbon Dioxide 26 BUN 18 Creatinine 1.01 Estimated GFR > 60 BUN/Creatinine Ratio 17.8 Glucose 103 Calcium 9.8 SARS-CoV-2 (PCR) Negative 10/27/22 00:00 WBC RBC Hgb Hct MCV MCH MCHC RDW Plt Count Neut % (Auto) Lymph % (Auto) [place] % (Auto) Eos % (Auto) Baso % (Auto) Neut # (Auto) Lymph # (Auto) [place] # (Auto) Eos # (Auto) Baso # (Auto) PT 13.9 H INR 1.2 Sodium Potassium Chloride Carbon Dioxide BUN Creatinine Estimated GFR BUN/Creatinine Ratio Glucose Calcium SARS-CoV-2 (PCR) PFSH Medical History Ascending aortic aneurysm Atrial fibrillation Enlarged prostate Hx of echocardiogram Surgical History H/O cardiac radiofrequency ablation History of blepharoplasty History of knee replacement History of tonsillectomy Family History Father Heart disease Mother Breast cancer Social History marital status: household members: spouse Tobacco & Substance Use Smoking Status: Former smoker alcohol intake: current substance use type: does not use Assessment & Plan Assessment & Plan narrative: Patient with signs of a possible left femoral neck fracture. Would recommend a CT scan of pelvis better evaluation to see if this is something that would require surgical intervention or if can be treated nonoperatively with protected weight-bearing. If it does require surgery patient has been on a blood thinner and patient is not cleared for surgery until tomorrow. Patient can eat today and will make him NPO after midnight. Once the CT scan is done that will be reviewed and then will determine if surgical intervention is truly needed. Time Spent With Patient Critical Care time: I spent a total of [] minutes of critical care time on this patient's care today; this time is exclusive of procedural time.
[2022-10-27] MEDS: carvediloL 3.125 MG TABLET 6.25 MG PO ×2 (10:05→21:19)
[2022-10-27] MEDS: TAMSULOSIN 0.4 MG CAPSULE PO (10:06)
[2022-10-27] MEDS: LOSARTAN 25 MG TABLET PO (10:06)
[2022-10-27] MEDS: FINASTERIDE 5 MG TABLET PO (10:07)
[2022-10-27] MEDS: OXYCODONE IR 5 MG TABLET PO ×2 (10:15→21:20)
--- NOTE | 2022-10-27 10:21 | PC.NURSE ---
Patient reports slight increase in chest pain 6-03/11. Dr Benton aware. Patient diaphoretic temp down to 99.1 oral.
--- NOTE | 2022-10-27 12:51 | CM.DANOTE ---
Patient is an 87 yo male who was admitted on 10/26/22 for GLF/hip pain. Pt has Medicare and [employer] and his PCP: Dr Hemant Tucker. EMR was reviewed. Per MD, pt with hx of AFIB, CVA, prostate CA and indwelling nugent cath at baseline and admitted after GLF with hip fx. Per Ortho Consult, awaiting CT to confirm if surgical intervention needed. If pt needs surgery, will need to wait until tomorrow due to his home anticoagulation meds. SW met bedside with pt in the ED while awaiting Acute Care bed and explained role and patient confirms he lives locally in his own home with spouse. He is A/O and presents as proactive in his care. He is independent in ADLs and drives. Pt denies any hx of HH or SNF but states that his spouse was recently diagnosed with ALS about 6 months ago and has received infusion tx at [facility] that seemed quite helpful and she has another round of treatment coming up soon. Pt states spouse does not currently need a lot of assist but she no longer drives and pt assists spouse as needed. Pt denies any local family but states they have a very close group of very supportive friends. SW discussed possible options of HH vs SNF pending eventual PT/OT eval after Ortho determines in surgery needed. Pt acknowledges understanding and is hopeful to d/c home but aware it will depend on his mobility at d/c. Plan: SW to follow closely for CT scan to determine if surgical intervention needed vs conservative tx for pt's hip fx and then eventual PT/OT eval to determine HH vs SNF pending progress. OLIVIER Odom Discharge Planning/Care Management CM Discharge Assessment Start: 10/27/22 11:44 Freq: Status: Active Protocol: Document 10/27/22 12:49 BF (Rec: 10/27/22 12:49 BF [id number]) Discharge Planning Assessment Assigned Farrowing Worker OLIVIER Coello DPOA/Assigned Designee Name spouse Gabby Contact Information [phone] Advance Directives? Yes Advance Directives on File No History Provided By Patient,Medical Record Has Patient been admitted in last 30 No days? Comment last admission was in Jun 2022 last year and discharged home Prior Living Arrangements House Household Members spouse Type of transporation used prior to Drives own vehicle admit Independent with ADL's Yes Is patient alert and oriented? Yes Caregiver for Another Yes: spouse just dx with ALS 6 mo ago and doesnt drive Patient/Family Preference Residential Facility,Home with Home Health Comment SNF vs HH pending surgery and PT/OT eval Barriers to Discharge No Discharge Plan Residential Facility Transportation Arrangement Facility van if SNF vs friend POV if home Additional Comment Pending surgery tomorrow and PT/OT eval Medicare Choice List Provided Yes Medicare choice list reviewed on patient electronic tablet with Whiteboard Updated in Patient Room with Yes name and ext. # of Farrowing Worker Review Status In Process Please Provide Date Initial DC 10/27/22 Assessment Was Performed Next Review Type Continued Stay Review
[2022-10-27] MEDS: OXYCODONE IR 10 MG TABLET PO ×2 (14:04→17:19)
[2022-10-27] MEDS: ACETAMINOPHEN 325 MG TABLET 650 MG PO (21:22)
[2022-10-28] VITALS (18 sets, daily range): BP systolic 99–134; BP diastolic 44–61; PULSE 65–96; RESP 10–24; TEMP 35.8–37; O2SAT 91–97
--- NOTE | 2022-10-28 | DI.RAD.S_ITS ---
PROCEDURE: XR HIP W PEL IF DONE LT 2V INDICATIONS: LT HIP SURGERY TECHNIQUE: 2 intraoperative low resolution fluoroscopic spot films of the left hip COMPARISON: [facility], CR, XR HIP W PEL IF DONE LT 2V, 10/26/2022, 21:35. FINDINGS: Low resolution intraoperative fluoroscopic spot films show 3 cannulated screws transfixing a subcapital femoral neck fracture IMPRESSION: Fluoroscopic guidance Approved by: En Huizar M.D. on 10/28/2022 at 9:43
[2022-10-28] MEDS: ACETAMINOPHEN 325 MG TABLET 650 MG PO ×3 (03:41→21:15)
[2022-10-28] MEDS: OXYCODONE IR 5 MG TABLET PO ×2 (03:43→10:28)
[2022-10-28 06:47] LABS: Add Manual Diff / Slide Review NO; Basophils Absolute Auto 0 /uL (0-100); Basophils Percent Auto 0.4 % (0-2); Eosinophils Absolute Auto 300 /uL (0-450); Eosinophils Percent Auto 3.7 % (2-4); Hematocrit 31.9 % (41-53); Lymphocytes Absolute Auto 700 /uL (1100-4500); Lymphocytes Percent Auto 9.1 % (25-40); Mean Corpuscular HGB Conc 34.6 % (30-36); Mean Corpuscular Hemoglobin 31.6 PG (26-34); Mean Corpuscular Volume 91.4 fL (80-100); Monocytes Absolute Auto 700 /uL (0-900); Monocytes Percent Auto 9.2 % (3-14); Neutrophils Absolute Auto 5800 /uL (1500-7000); Neutrophils Percent Auto 77.6 % (50-75); Platelet Count 120 X10^3/uL (150-400); Red Blood Cell Count 3.49 X10^6/uL (4.5-5.9); Red Cell Distribution Width 15.7 % (11.6-14.8); White Blood Cell Count 7.4 X10^3/uL (4.5-11.0)
[2022-10-28 06:48] LABS: INR 1.4 (0.9-1.3); Prothrombin Time 16.1 SECONDS (10.1-12.7)
[2022-10-28 07:00] LABS: Alanine Aminotransferase 16 IU/L (<50); Albumin 3.4 g/dL (3.5-5.0); Albumin Globulin Ratio 1.2 (1.0-2.8); Alkaline Phosphatase 66 U/L (38-126); Aspartate Aminotransferase 31 IU/L (17-59); BUN Creatinine Ratio 16.7 (6-22); Blood Urea Nitrogen 16 mg/dL (9-20); Calcium 8.8 mg/dL (8.4-10.2); Carbon Dioxide 28 mmol/L (22-32); Chloride 98 mmol/L (98-107); Estimated Glomerular Filt Rate > 60 mL/min (>60); Globulin 2.9 g/dL (1.7-4.1); Glucose 107 mg/dL (80-110); HEMOLYSIS < 15 (0-50); Potassium 3.9 mmol/L (3.4-5.1); Sodium 132 mmol/L (137-145); Total Protein 6.3 g/dL (6.3-8.2)
[2022-10-28 07:04] LABS: NT-proBNP (BNP-Adult 18+) 1500 pg/mL (<450)
--- NOTE | 2022-10-28 08:31 | PM.PN.1 ---
Subjective Subjective Date Patient Seen: 10/28/22 Time Patient Seen: 08:31 Interval history: Patient seen and evaluated this morning patient is doing well. 's at bedside. Reviewed laboratory tests from yesterday some mild anemia mild hyponatremia otherwise stable. Anticoagulation has been on hold for 48 hours. Orthopedic consultation appreciated. No nursing staff concerns overnight NPO. Exam Vital Signs (past 8 hours): - 10/28/22 03:40 10/28/22 08:18 Temperature 98.6 F 97.6 F Pulse Rate 77 71 Respiratory Rate 16 16 Blood Pressure 126/57 L 112/52 L Pulse Oximetry 94 94 Oxygen Flow Rate 0 Oxygen Delivery Method Room Air Oxygen Flow Rate 0 Narrative Exam Narrative: Gen.: Alert good historian HEENT: Pupils equal round and reactive or mucosa is moist neck is supple Cardio: Regular rate and rhythm systolic murmur present Respiratory: Lungs are clear to auscultation no wheezes or crackles normal respiratory effort. Abdomen: Soft nontender no rebound or guarding no liver spleen enlargement no appreciable hernias Extremities: Lower extremity edema worse on the left than the right Neurologic: No focal neurological deficits Objective Labs 10/28/22 05:48 10/28/22 05:48 Labs: Laboratory Results - last 24 hr 10/28/22 10/28/22 10/28/22 05:48 05:48 05:48 WBC 7.4 RBC 3.49 L Hgb 11.0 L Hct 31.9 L MCV 91.4 MCH 31.6 MCHC 34.6 RDW 15.7 H Plt Count 120 L Neut % (Auto) 77.6 H Lymph % (Auto) 9.1 L [place] % (Auto) 9.2 Eos % (Auto) 3.7 Baso % (Auto) 0.4 Neut # (Auto) 5800 Lymph # (Auto) 700 L [place] # (Auto) 700 Eos # (Auto) 300 Baso # (Auto) 0 PT 16.1 H INR 1.4 H Sodium 132 L Potassium 3.9 Chloride 98 Carbon Dioxide 28 BUN 16 Creatinine 0.96 Estimated GFR > 60 BUN/Creatinine Ratio 16.7 Glucose 107 Calcium 8.8 Total Bilirubin 1.0 AST 31 ALT 16 Alkaline Phosphatase 66 NT-Pro-B Natriuret Pep 1500 H Total Protein 6.3 Albumin 3.4 L Globulin 2.9 Albumin/Globulin Ratio 1.2 [facility] History Ascending aortic aneurysm Atrial fibrillation Enlarged prostate Hx of echocardiogram Surgical History H/O cardiac radiofrequency ablation History of blepharoplasty History of knee replacement History of tonsillectomy Family History Father Heart disease Mother Breast cancer Social History marital status: household members: spouse Smoking Status: Former smoker alcohol intake: current substance use type: does not use Assessment & Plan Assessment & Plan narrative: [address] [id number] History & Physical Report Patient: Hussein Sheets MR#: [id number] : 1935 Acct:[id number] Age/Sex: 87 / M ? Date of Service: 10/26/22 Provider:?Devon Little MD History of Present Illness History of Present Illness Date Patient Seen: 10/27/22 Time Patient Seen: 08:01 Chief complaint: Mechanical fall left hip Narrative: 87-year-old male with a history of atrial fibrillation status post ablation procedure cardiomyopathy hypertrophic cerebrovascular accident prostate cancer with with chronic indwelling Sharp catheter ascending aortic aneurysm and osteoarthritis with bilateral knee replacements presents to the emergency department with hip pain.? Patient states pain began yesterday after a fall.? Patient was in his house.? He went out to walk to the mailbox.? As he was at the mailbox he twisted to turned back into the house lost his balance and fell.? Had acute hip pain and found it difficult to ambulate during the fall he also hit his head and sustained a laceration to the back of his scalp.? Before his fall he said he was feeling fine had no chest pain dizziness lightheaded fevers or chills.? Been in his normal state of health during that day.? Was not complaining any V heart arrhythmias or palpitations.? Patient to after he fell required assistance with ambulation and was brought into the emergency department.? Patient presents complaining of head and hip pain.? Patient in the emergency room had laboratory testing done hip x-ray which showed fracture of the hip and a CT scan of his head due to the laceration.? Laceration was appropriately taken care of in the emergency department and orthopedic was consulted due to the hip fracture.? I was consulted for medical management This morning patient states he is doing well having hip pain no chest pain dizziness lightheadedness.? No shortness of breath he says he ambulates well at home.? He is alert and oriented x3.? Patient is a good historian.? He says he walks a lot at home and active and still drives his car. Patient History Medical History? Ascending aortic aneurysm Atrial fibrillation Enlarged prostate Hx of echocardiogram Surgical History? H/O cardiac radiofrequency ablation History of blepharoplasty History of knee replacement History of tonsillectomy Family & Social History Family History? Father Heart diseaseMother Breast cancer Social History: household members ? spouse? Safety & Behavioral: Feels Safe in Current ? Yes ? Environment ? Been Physically Hurt or ? No? Threatened By a Person? Tobacco & Substance use: Smoking Status? Former smoker ? alcohol intake? current ? alcohol intake frequency? a few times a month ? Substance Use Type? does not use? Meds Home Medications and Allergies Home Medications ?Medication ?Instructions ?Recorded ?Confirmed ?Type carvedilol 6.25 mg tablet 6.25 mg PO BID 11/16/20 06/13/22 History latanoprost 0.005 % eye drops 1 drp EYE-BOTH DAILY 11/16/20 06/13/22 History losartan 25 mg tablet 25 mg PO BID 11/16/20 06/13/22 History acetaminophen 325 mg capsule 650 mg PO QID PRN pain #60 caps 11/22/20 06/13/22 Rx (Tylenol) ? docusate sodium 100 mg capsule 100 mg PO BID #30 caps 11/22/20 06/13/22 Rx (Colace) ? finasteride 5 mg tablet 5 mg PO DAILY 06/13/22 06/13/22 History oxybutynin chloride 5 mg tablet 5 mg PO TID 06/13/22 06/13/22 History tamsulosin 0.4 mg capsule 0.4 mg PO BEDTIME 06/13/22 06/13/22 History ibuprofen 600 mg tablet 600 mg PO TID #30 tabs 06/15/22 ? Rx sulfamethoxazole 800 1 tab PO BID #14 tabs 06/15/22 ? Rx mg-trimethoprim 160 mg tablet ? Allergies Allergy/AdvReac Type Severity Reaction Status Date / Time simvastatin [SIMVASTATIN] AdvReac Severe MUSCLE Verified 10/26/22 21:30 ? ? ? WEAKNESS ? ? Exam Vital Signs (past 8 hours): - ? 10/27/22 00:30 10/27/22 01:00 10/27/22 01:30 Pulse Rate 75 74 79 Respiratory Rate 18 18 16 Blood Pressure ? ? ? Pulse Oximetry 94 93 93 ? 10/27/22 02:00 10/27/22 02:30 10/27/22 03:00 Pulse Rate 76 75 73 Respiratory Rate 16 16 18 Blood Pressure ? ? ? Pulse Oximetry 91 91 90 L ? 10/27/22 03:30 10/27/22 04:00 10/27/22 04:00 Pulse Rate 71 ? 70 Respiratory Rate 17 ? 18 Blood Pressure ? 143/63 H ? Pulse Oximetry 95 ? 95 ? 10/27/22 04:30 Pulse Rate 70 Respiratory Rate 17 Blood Pressure ? Pulse Oximetry ? Oxygen Delivery Method? Room Air? Narrative Exam Narrative: Gen.: Alert and oriented x3 no apparent distress. HEENT: NCAT PERRLA tympanic membranes are clear nares are patent oral mucosa is moist no tonsillar hypertrophy neck is supple without lymphadenopathy no thyroid enlargement. Cardio: S1-S2 regular rate and rhythm no murmurs appreciated. Respiratory: Lungs are clear to auscultation no wheezes or crackles normal respiratory effort. Abdomen: Soft nontender no rebound or guarding no liver spleen enlargement no appreciable hernias Extremities:? Some bilateral lower extremity edema worse left than right.? Pain in the left hip Neurologic: Grossly intact. Objective Labs 10/26/22 23:18? 10/26/22 23:18? Labs: Laboratory Results - last 24 hr ? 10/26/22 10/26/22 10/26/22 ? 23:18 23:18 23:40 WBC ? ?11.9 H ? RBC ? ?4.07 L ? Hgb ? ?12.7 L ? Hct ? ?37.5 L ? MCV ? ?92.2 ? MCH ? ?31.2 ? MCHC ? ?33.9 ? RDW ? ?15.5 H ? Plt Count ? ?177 ? Neut % (Auto) ? ?84.7 H ? Lymph % (Auto) ? ?8.5 L ? [place] % (Auto) ? ?4.3 ? Eos % (Auto) ? ?2.2 ? Baso % (Auto) ? ?0.3 ? Neut # (Auto) ? ?87103 H ? Lymph # (Auto) ? ?1000 L ? [place] # (Auto) ? ?500 ? Eos # (Auto) ? ?300 ? Baso # (Auto) ? ?0 ? Sodium ?138 ? ? Potassium ?4.2 ? ? Chloride ?104 ? ? Carbon Dioxide ?26 ? ? BUN ?18 ? ? Creatinine ?1.01 ? ? Estimated GFR ?> 60 ? ? BUN/Creatinine Ratio ?17.8 ? ? Glucose ?103 ? ? Calcium ?9.8 ? ? SARS-CoV-2 (PCR) ? ? ?Negative Assessment & Plan Assessment and plan (1) Closed fracture of neck of left femur: ?Status:?Acute Plan Left hip fracture.? Surgery today. Medically optimized for surgical procedure. History of atrial fibrillation atrial flutter.? Patient has undergone radiofrequency ablation and cryoablation.? He is maintained in normal sinus rhythm anticoagulation has been held for 48 hours certainly at risk for complications because of stopping his anticoagulation and being on it preoperatively. Will reintroduce anticoagulation postoperatively when cleared by surgery. History of prostate cancer with current chronic indwelling Sharp catheter.? Catheter in place today.? Change the catheter. Monitor closely for signs and symptoms of systemic infection. Idiopathic hypertrophic cardiomyopathy watch carefully fluid status has a history of systolic heart failure and fluid overload at this time appears to be euvolemic continue with beta-pamela Hypertension continue current antihypertension continue with beta-pamela and angiotensin receptor pamela Ascending aortic aneurysm chronic and stable Disposition and plan medically optimized for surgery. Surgery today Time Spent With Patient Critical Care time: I spent a total of [] minutes of critical care time on this patient's care today; this time is exclusive of procedural time. Quality VTE Deep Vein Thrombosis/Pulmonary Embolism Present on Admission: No
[2022-10-28] MEDS: LACTATED RINGERS 1,000 ML 42 ML IV (09:00)
[2022-10-28] MEDS: carvediloL 3.125 MG TABLET 6.25 MG PO ×2 (09:01→20:28)
--- NOTE | 2022-10-28 09:07 | PM.PREOP ---
Pre-operative Note Interval Note History & Physical reviewed/Exam performed by Physician: Yes Changes to H&P: No
[2022-10-28] MEDS: CEFAZOLIN 2 GM/100 ML PREMIX 100 ML IV ×2 (09:35→18:22)
--- NOTE | 2022-10-28 09:52 | SUR.OPER ---
Supine on padded [place] table with bilateral legs secured in padded positioning boots and suspended in positioning spars, operative leg in traction per surgeon. Head on one pillow. Arm on non-operative side secured on padded armboard <90 degrees abduction. Arm on operative side padded and resting across chest then secured with tape over sheet. Padded perineal post in place per surgeon.
[2022-10-28] MEDS: BUPIVACAINE 0.5% W/ EPI (PF) 30 ML VIAL INJ (09:56)
--- NOTE | 2022-10-28 10:16 | P.OP_ITS ---
Operative Date/Time/Diagnoses Date of procedure: 10/28/22 Time of procedure: 09:00 Pre-op diagnosis: Left femoral neck fracture Post-op diagnosis: same Procedure & Clinicians Procedure: Closed reduction percutaneous pinning left femoral neck fracture Same procedure as scheduled: Yes Indications: Left femoral neck fracture Surgeon: Robert Quezada Click Yes if Unassisted: Yes Anesthesia Type: General Operative Notes Findings: Nondisplaced impacted femoral neck fracture Closure Type: primary Applied: implant(s) (3 7.3 Synthes partially threaded cannulated screws) Estimated Blood Loss (mL): 10 Procedure in detail: On date of service, patient was met in the holding area where his operative site was signed and witnessed by the OR staff. Surgeries once again discussed with the patient and any remaining questions or concerns he had were answered fully. Patient received 2 g of Ancef preoperatively. Patient was taken back to the operating theater where general anesthesia was admitted. Patient was then transferred to the fracture table. Both feet were well padded and placed into fracture boot. A well-padded perineal post was placed. The left leg was slightly elevated and internally rotated was some distraction. The right leg was placed in scissor position on a lowered position. X-ray was brought in and AP and lateral views were obtained showing maintenance of a nondisplaced femoral neck fracture. Time-out had previously been formed verifying patient's name, procedure, and operative site. The leg was then prepped and draped in the normal sterile fashion. Ten blade was used to make a small incision on the lateral aspect of thigh. Purvis elevator was then used to elevate off a small area of the muscular tissue so we could get to the shaft of the femur. Guidewire was placed up into the femoral head in a center center position. This was verified on x-ray. Once we were satisfied with the position of the guidewire 2 additional guidewires were placed using the targeting guide. These were also verified with AP and lateral views with the C- arm. Once we were satisfied with the positioning and of the 3 guidewires they were measured and the appropriate screws were placed. Final x-rays were obtained verifying screw positioning and maintenance of reduction of the femoral neck fracture. The wound was then copiously irrigated and then closed in a layered fashion. The wound was cleaned, dried, and dressed. Patient was taken to the PACU in stable condition. Complications: none Post-operative Condition: stable Disposition: Acute Care Plan for aftercare: Patient can be weight-bearing as tolerated
--- NOTE | 2022-10-28 10:25 | SUR.OPER ---
Late entry- Hearing aids to bilateral ears and wedding band (taped) to Pacu with patient. Watch removed and left in patient room
--- NOTE | 2022-10-28 10:41 | SUR.PHASEI ---
Report called to SUKHJINDER Yanes
--- NOTE | 2022-10-28 10:48 | CM.DPC ---
DCP Cont: Per Ortho, pt to have surgery on his hip fx today and will then have PT/OT orders to determine needs. Pt currently off the floor for surgical intervention right now and will likely return to floor early afternoon pending progress. Plan: SW to follow closely once pt returns to the floor after surgery and then PT/OT orders to eval d/c needs. OLIVIER Odom
--- NOTE | 2022-10-28 10:59 | SUR.PHASEI ---
Patient transferred to the floor with his hearing aids in place. Report given to Farzana. Dressing CDI. IV patent. Sharp patent and secured. Condition stable.
[2022-10-28] MEDS: OXYCODONE IR 10 MG TABLET PO ×2 (12:05→20:26)
[2022-10-28] MEDS: TAMSULOSIN 0.4 MG CAPSULE PO (12:45)
[2022-10-28] MEDS: FINASTERIDE 5 MG TABLET PO (12:45)
[2022-10-28] MEDS: LACTATED RINGERS 1,000 ML 125 ML IV ×2 (12:53→21:14)
--- NOTE | 2022-10-28 13:51 | PC.NURSE ---
Addendum entered by Farzana George R.N. 10/28/22 18:36: Patient just up to have a bowel movement and only passed gas. He is now back to bed and resting comfortably. Addendum entered by Farzana George R.N. 10/28/22 16:01: Patient up with physical therapy. He ambulated to the bathroom and did well. Back in bed and patient is napping. He denies pain and is resting comfortably. Original Note: Patient states that he fell off of a curb at his house when going outside. He is alert and oriented x4. Patient had a few screws put in his hip. Dressing to hip is cdi, patient given 5mg of oxycodone and helpful for discomfort. His blood pressure was low with dyastolic in the 40s. Patient is on a 1L of o2 to keep sats up above 92% when napping. He has lr at 125cc/hr infusing and his and friend are in the room. He voices no complaints at this time.
[2022-10-28] MEDS: OXYBUTYNIN 5 MG TABLET PO ×2 (16:12→21:15)
--- NOTE | 2022-10-28 16:21 | PT.IIE ---
Current Diagnoses Fracture of unspecified part of neck of left femur, initial encounter for closed fracture (10/26/22) Surgery Performed Operation Date: 10/28/22 09:45 Actual Procedures p ORIF Hip/Cannulated Screws(Left) - Robert Quezada MD Surgical History (Last Reviewed 10/27/22 @ 09:35 by Robert Quezada MD) H/O cardiac radiofrequency ablation History of blepharoplasty History of knee replacement History of tonsillectomy Medical History (Last Reviewed 10/27/22 @ 09:35 by Robert Quezada MD) Ascending aortic aneurysm Atrial fibrillation Enlarged prostate Hx of echocardiogram Physical Therapy Inpatient Evaluation/Re-Eval M1 PT/OT-IP Prior Functional Status Start: 10/28/22 12:39 Freq: NEEDED Status: Active Protocol: Document 10/28/22 15:30 AMB (Rec: 10/28/22 16:21 AMB [id number]) Medical Review Prior Functional Status Mobility and Gait Pt was ambulating in the community without assistive device. 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 She uses a walker/w/c combo and still lives at home. They have a friend from [employer] staying with them for the next couple days. Social History Household Members spouse Living Arrangements House Number of Floors (Floors) Two Floors Number of Stairs To Enter/Railing? no stairs to enter, does have a flight of stairs, but has a stair lift Employment Status Retired Additional Social History Comment Pt's has walkers but he will need to get one for himself, pt is aware of [facility] and thinks he would like to get one there. M2 PT-IP Current Condition Start: 10/28/22 12:39 Freq: NEEDED Status: Active Protocol: Document 10/28/22 15:30 AMB (Rec: 10/28/22 16:21 AMB [id number]) Physical Therapy Current Condition Current Condition Evaluation Date 10/28/22 Treatment Diagnosis L femoral neck fx s/p closed reduction percutaneous pinning Onset Date 10/27/22 M3 PT-IP Subjective Start: 10/28/22 12:39 Freq: NEEDED Status: Active Protocol: Document 10/28/22 15:30 AMB (Rec: 10/28/22 16:21 AMB [id number]) Subjective Physical Therapy Visit Type Type Initial Evaluation Visit Start Time 14:00 Visit Stop Time 14:45 Total Visit Minutes 45 Physical Therapy Visit Comments Patient Comments Pt wants to go home when medically stable Therapy Pain Assessment Pain When Pain Assessed At Rest Location Left Hip Intensity 2 Scale Used Numeric (0 - 10) M4 PT-IP Mobility and Gait Start: 10/28/22 12:39 Freq: NEEDED Status: Active Protocol: Document 10/28/22 15:30 AMB (Rec: 10/28/22 16:21 AMB [id number]) PT-Bed Mobility Assessment Rolling Type of Rolling Roll to Left Level of Assist Minimal Assistance Supine to Sit Supine to Sit Minimal Assistance Scooting Scooting to Edge of Bed Contact Guard Assistance PT-Transfer Assessment Sit to and From Stand Sit to and from Stand Minimal Assistance Equipment Transfer Assistive Device Bed Rail,Front Wheeled Walker Transfers Transfer Destination Bed,Toilet Transfer Technique Stand Step Pivot Transfer Ability Level of Assist Contact Guard Assistance Comments Mobility Comments Hussein was lying in bed with and family friend in the room. Needed Cristino for bed mobility. Did have quad lag. Cued to put more weight through the right leg for comfort with sit to stand. Supine blood pressure 113/49. Sitting blood pressure 110/48 . Gait Assessment Gait Gait Assistance Required: Contact Guard Assist Distance (Feet) 15 Able to Maintain Weight Bearing Status Yes During Gait Assistive Devices Assistive Device Gait Belt,Front Wheeled Walker Gait Deviations General Gait Pattern Antalgic,Decreased Stride Length,Wide Based Gait Factors Limiting Gait Function Factors Limiting Gait Function Decreased Activity Tolerance, Decreased Strength,Pain Comments Gait Comments Hussein was able to ambulate in his room with FWW and CGA. Left pt with WAITER/WAITRESS INFORMAL as he needed to have a bowel movement but he did walk to the toilet with CGA and FWW. M5 PT-IP Objective Assessments Start: 10/28/22 12:39 Freq: NEEDED Status: Active Protocol: Document 10/28/22 15:30 AMB (Rec: 10/28/22 16:21 AMB [id number]) Orientation Orientation/Cognition Level of Alertness Alert Strength Upper Extremity Strength Assessment Within Functional Limits Lower Extremity Strength Assessment Left Impaired Hip 2 Knee 3 Ankle 4 Sensation Assessment Sensation Light Touch Intact M6 PT-IP Treatment Start: 10/28/22 12:39 Freq: NEEDED Status: Active Protocol: Document 10/28/22 15:30 AMB (Rec: 10/28/22 16:21 AMB [id number]) Physical Therapy Treatment Exercises Exercises Ankle Pumps Education Education Provided Weight Bearing Status,Safety M7 PT-IP Assessment and Plan Start: 10/28/22 12:39 Freq: NEEDED Status: Active Protocol: Document 10/28/22 15:30 AMB (Rec: 10/28/22 16:21 AMB [id number]) PT Summary Assessment and Plan Potential Rehabilitation Potential Good Status of Condition at Evaluation Stable Summary Impairments Pain,Strength,Bed Mobility, Transfers,Gait Assessment Summary Hussein fractured his L femoral neck in a ground level fall at his mailbox. He had the hip pinned this morning he is WBAT. He was able to perform bed mobility with Cristino and once up more CGA for gait in his room with a FWW. 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 They do have a friend who can stay a few days, but she is really taking care of his more than able to care for him. Pt will likely be able to return home with home health, would recommend they look into home aides to help his in the oysterman while he is healing. If he continues to need physical assistance for bed mobility he would need to go to SNF but hopefully will improve over the next couple of days to the point he can go home. Goals Bed Mobility Goal Standby Assistance Transfer Goal Standby Assistance Gait Goal Standby Assistance,Front Wheel Walker Gait Distance 100 Days to Meet Goals 7 Frequency of Treatment Frequency Of Treatment Twice a Day Treatment Plan Physical Therapy Treatment Plan Bed Mobility Training,Transfer Training,Gait Training, Therapeutic Exercise,Balance Retraining Weight Bearing Status Weight Bearing Status Weight Bear as Tolerated Recommendations To Nursing Amount of Assist Needed 1 Person Assist Discharge Recommendations PT Discharge Recommendations Home with Assistance,Home Health Equipment Needed for Home Before FWW- discussed with pt they [facility] Needs at Discharge Private Vehicle
[2022-10-28] MEDS: DOCUSATE 100 MG CAPSULE PO (20:30)
[2022-10-28] MEDS: MAG HYDROX/ALUM/SIMETH 30 ML UDC PO (21:14)
[2022-10-28] MEDS: LOSARTAN 25 MG TABLET PO (21:21)
[2022-10-29] MEDS: CEFAZOLIN 2 GM/100 ML PREMIX 100 ML IV (02:15)
[2022-10-29 05:26] VITALS: BP 128/56; PULSE 61; RESP 18; TEMP 35.8; O2SAT 96
[2022-10-29 06:18] LABS: Hematocrit 32.2 % (41-53); Mean Corpuscular HGB Conc 34.2 % (30-36); Mean Corpuscular Hemoglobin 31.2 PG (26-34); Mean Corpuscular Volume 91.4 fL (80-100); Platelet Count 121 X10^3/uL (150-400); Red Blood Cell Count 3.52 X10^6/uL (4.5-5.9); Red Cell Distribution Width 15.4 % (11.6-14.8); White Blood Cell Count 7.6 X10^3/uL (4.5-11.0)
[2022-10-29 06:47] LABS: BUN Creatinine Ratio 21.7 (6-22); Blood Urea Nitrogen 18 mg/dL (9-20); Calcium 9.2 mg/dL (8.4-10.2); Carbon Dioxide 26 mmol/L (22-32); Chloride 103 mmol/L (98-107); Estimated Glomerular Filt Rate > 60 mL/min (>60); Glucose 134 mg/dL (80-110); HEMOLYSIS < 15 (0-50); Potassium 4.3 mmol/L (3.4-5.1); Sodium 137 mmol/L (137-145)
--- NOTE | 2022-10-29 08:39 | PM.PN.1 ---
Subjective Subjective Date Patient Seen: 10/29/22 Time Patient Seen: 08:40 Interval history: Patient seen in follow-up of hip fracture. Overall doing well. Pain was well controlled. No other changes. Exam Vital Signs (past 8 hours): - 10/29/22 05:26 Temperature 96.4 F L Pulse Rate 61 Respiratory Rate 18 Blood Pressure 128/56 L Pulse Oximetry 96 Oxygen Flow Rate 0 Oxygen Delivery Method Room Air Oxygen Flow Rate 0 Narrative Exam Narrative: Alert male in no acute distress Lungs are clear heart regular rate and rhythm Objective Labs 10/29/22 05:59 10/29/22 05:59 Labs: Laboratory Results - last 24 hr 10/29/22 10/29/22 05:59 05:59 WBC 7.6 RBC 3.52 L Hgb 11.0 L Hct 32.2 L MCV 91.4 MCH 31.2 MCHC 34.2 RDW 15.4 H Plt Count 121 L Sodium 137 Potassium 4.3 Chloride 103 Carbon Dioxide 26 BUN 18 Creatinine 0.83 Estimated GFR > 60 BUN/Creatinine Ratio 21.7 Glucose 134 H Calcium 9.2 PFSH Medical History Ascending aortic aneurysm Atrial fibrillation Enlarged prostate Hx of echocardiogram Surgical History H/O cardiac radiofrequency ablation History of blepharoplasty History of knee replacement History of tonsillectomy Family History Father Heart disease Mother Breast cancer Social History marital status: household members: spouse Smoking Status: Former smoker alcohol intake: current substance use type: does not use Assessment & Plan Assessment & Plan narrative: Atrial fibrillation. Will discontinue ibuprofen and restart anticoagulation as long as okay with orthopedist. No other changes. Seems to be stable. History of prostate cancer with indwelling chronic Sharp. Stable. Urology is currently working on. No other change. No evidence of infection History of left hip fracture. As per orthopedist. Idiopathic hyper trophic cardiomyopathy. Stable at this time. No evidence of failure. Hypertension. Well controlled. Disposition. Overall doing well. Patient is going to need help at home plan is to go home. Will set up home health given 1 more day to strengthen and get set up at home and discharge tomorrow. Time Spent With Patient Critical Care time: I spent a total of [] minutes of critical care time on this patient's care today; this time is exclusive of procedural time. Quality VTE Deep Vein Thrombosis/Pulmonary Embolism Present on Admission: No
--- NOTE | 2022-10-29 09:35 | PC.NURSE ---
Assess- Patient is sitting up at the side of the bed. He is visiting with his and her friend. Dressing to l.hip is cdi, patient cms wnl and ppx1. He is in good spirits, he is heplocked and was into see patient, he will discharge home tomorrow. We will start his eloquis today as soon as we talk to ortho.
[2022-10-29] MEDS: OXYBUTYNIN 5 MG TABLET PO ×3 (09:42→20:32)
[2022-10-29] MEDS: DOCUSATE 100 MG CAPSULE PO (09:42)
[2022-10-29] MEDS: FINASTERIDE 5 MG TABLET PO (09:42)
[2022-10-29 09:44] VITALS: BP 118/52; PULSE 60; RESP 17; TEMP 36.5; O2SAT 95
[2022-10-29] MEDS: ACETAMINOPHEN 325 MG TABLET 650 MG PO ×3 (09:44→21:44)
--- NOTE | 2022-10-29 10:48 | PT.IPTN ---
Current Diagnoses Fracture of unspecified part of neck of left femur, initial encounter for closed fracture (10/26/22) Surgery Performed Operation Date: 10/28/22 09:45 Actual Procedures p ORIF Hip/Cannulated Screws(Left) - Robert Quezada MD Physical Therapy Treatment Note M2 PT-IP Current Condition Start: 10/28/22 12:39 Freq: NEEDED Status: Active Protocol: Document 10/28/22 15:30 AMB (Rec: 10/28/22 16:21 AMB [id number]) Physical Therapy Current Condition Current Condition Evaluation Date 10/28/22 Treatment Diagnosis L femoral neck fx s/p closed reduction percutaneous pinning Onset Date 10/27/22 M3 PT-IP Subjective Start: 10/28/22 12:39 Freq: NEEDED Status: Active Protocol: Document 10/29/22 10:48 AW (Rec: 10/29/22 12:09 AW [id number]) Subjective Physical Therapy Visit Type Type Treatment Note Visit Start Time 10:25 Visit Stop Time 10:48 Total Visit Minutes 23 Notes Pt's spouse was present througout Number of PUBLIC HEALTH TEACHER Visits 0 Physical Therapy Visit Comments Patient Comments Pt is willing to participate with PT Patient Goals Return home - preferably with caregiver support for his . Therapy Pain Assessment Pain When Pain Assessed During Weight Bearing Pain Present Pain Present Pain Reported Location Left Hip Intensity 5 Scale Used Numeric (0 - 10) M4 PT-IP Mobility and Gait Start: 10/28/22 12:39 Freq: NEEDED Status: Active Protocol: Document 10/29/22 10:48 AW (Rec: 10/29/22 12:09 AW [id number]) PT-Transfer Assessment Sit to and From Stand Sit to and from Stand Contact Guard Assistance Equipment Transfer Assistive Device Gait Belt,Front Wheeled Walker Orthotic/Prosthetic Devices or Brace: No Transfers Transfer Destination Bed Transfer Technique Stand Step Pivot Transfer Ability Level of Assist Contact Guard Assistance Comments Mobility Comments Hussein was walking around the bed with IRON MOLDER HELPER as PT arrived. He was willing to continue walking with PT. He ambulated ~75 feet with FWW SBA. PT cued pt for equal step length but he was unable to coordinate. Even so, he did not need more than SBA. On return to the room, he sat EOB, reaching awkwardly for the bed with LUE while maintaining contact with the walker using RUE. He stood again CGA, needing extra time, and returned to sitting EOB. Pt was left sitting up and visiting with his spouse. Gait Assessment Gait Gait Assistance Required: Standby Assistance Distance (Feet) 75 Able to Maintain Weight Bearing Status Yes During Gait Assistive Devices Assistive Device Gait Belt,Front Wheeled Walker Gait Deviations General Gait Pattern Antalgic,Decreased Stride Length,Step-to Gait,Wide Based Gait Factors Limiting Gait Function Factors Limiting Gait Function Decreased Activity Tolerance, Decreased Strength,Pain Comments Gait Comments Pt tends to walk with step-to pattern and heavy UE weightbearing. He will need a walker to go home. M5 PT-IP Objective Assessments Start: 10/28/22 12:39 Freq: NEEDED Status: Active Protocol: Document 10/28/22 15:30 AMB (Rec: 10/28/22 16:21 AMB [id number]) Orientation Orientation/Cognition Level of Alertness Alert Strength Upper Extremity Strength Assessment Within Functional Limits Lower Extremity Strength Assessment Left Impaired Hip 2 Knee 3 Ankle 4 Sensation Assessment Sensation Light Touch Intact M6 PT-IP Treatment Start: 10/28/22 12:39 Freq: NEEDED Status: Active Protocol: Document 10/29/22 10:48 AW (Rec: 10/29/22 12:09 AW [id number]) Physical Therapy Treatment Exercises Exercises Ankle Pumps,Gluteal Sets,Quad Sets Education Education Provided Weight Bearing Status,Safety M7 PT-IP Assessment and Plan Start: 10/28/22 12:39 Freq: NEEDED Status: Active Protocol: Document 10/29/22 10:48 AW (Rec: 10/29/22 12:09 AW [id number]) PT Summary Assessment and Plan Summary Impairments Pain,Strength,Bed Mobility, Transfers,Gait Progress Towards Goals Progressing Toward Goals Assessment Summary Hussein improved his gait distance to 75' with FWW SBA. He is still needing CGA support for transfers but is making good progress. He is highly motivated and should be able to return home when stable. Main barrier is that his spouse has ALS and he is primary caregiver. They will need caregiver support at home for pt to return safely. In addition, pt will need PT to progress his strength, improve his mobility independence, and assess his home environment for safety. Goals Bed Mobility Goal Standby Assistance Transfer Goal Standby Assistance Gait Goal Standby Assistance,Front Wheel Walker Gait Distance 100 Days to Meet Goals 7 Frequency of Treatment Frequency Of Treatment Twice a Day Treatment Plan Physical Therapy Treatment Plan Bed Mobility Training,Transfer Training,Gait Training, Therapeutic Exercise,Balance Retraining Other Recommendations and Next Treatment assess bed mobility. standing Focus ther ex with FWW Weight Bearing Status Weight Bearing Status Weight Bear as Tolerated Recommendations To Nursing Amount of Assist Needed 1 Person Assist Discharge Recommendations PT Discharge Recommendations Home with Assistance,Home Health Equipment Needed for Home Before FWW- discussed with pt they Discharge will get one from [employer] Transportation Needs at Discharge Private Vehicle
--- NOTE | 2022-10-29 14:22 | CM.DPC ---
DCP HH Planning Per MD, pt tolerated surgery well and worked with PT and pt likely may be stable for d/c home with HH tomorrow Tu pending progress. Per PT, recommending home with assist and HH. SW met bedside with pt, spouse, and supportive local friend and explained role again and discussed recommendation of HH. Pt and spouse very agreeable with HH and no hx of HH and reviewed HH Choice list via paper and ipad and no preference other than one that can start the day after discharge. SW also provided the Senior Resource Guidebook and earmarked CG agencies to review and other resources as spouse has ALS and currently mostly independent but has difficult days and they may need increased assist at home at some point. Pt confirms they have LTC insurance and SW encouraged them to contact their LTC plan and also CG agencies to determine what coverage they have for in-home help as they will likely need it in the future. Pt and spouse very appreciative. SW called [facility], they can open two days after d/c on . Jessica GREENE, left msg. [facility], have an opening day after d/c on Sat and can accept pt and saved Sat slot. SW faxed clinicals to review along with F2F and HH orders. Discharge summary just needs to be faxed at d/c. Plan: SW to follow for plan of d/c to home likely tomorrow with new [facility] referral made. SW to fax d/c summary to [facility] at discharge and local friend to provide transport home. Oumou Rowley, AIR SHOVEL OPERATOR
--- NOTE | 2022-10-29 14:28 | PT.IPTN ---
Current Diagnoses Fracture of unspecified part of neck of left femur, initial encounter for closed fracture (10/26/22) Surgery Performed Operation Date: 10/28/22 09:45 Actual Procedures p ORIF Hip/Cannulated Screws(Left) - Robert Quezada MD Physical Therapy Treatment Note M2 PT-IP Current Condition Start: 10/28/22 12:39 Freq: NEEDED Status: Active Protocol: Document 10/28/22 15:30 AMB (Rec: 10/28/22 16:21 AMB [id number]) Physical Therapy Current Condition Current Condition Evaluation Date 10/28/22 Treatment Diagnosis L femoral neck fx s/p closed reduction percutaneous pinning Onset Date 10/27/22 M3 PT-IP Subjective Start: 10/28/22 12:39 Freq: NEEDED Status: Active Protocol: Document 10/29/22 14:28 AW (Rec: 10/29/22 14:47 AW [id number]) Subjective Physical Therapy Visit Type Type Treatment Note Visit Start Time 14:03 Visit Stop Time 14:28 Total Visit Minutes 25 Number of CODING COMPLIANCE MANAGER Visits 0 Physical Therapy Visit Comments Patient Comments Pt is willing to participate with PT Therapy Pain Assessment Pain When Pain Assessed During Weight Bearing Pain Present Pain Present Pain Reported Location Left Hip Intensity 4 Scale Used Numeric (0 - 10) M4 PT-IP Mobility and Gait Start: 10/28/22 12:39 Freq: NEEDED Status: Active Protocol: Document 10/29/22 14:28 AW (Rec: 10/29/22 14:47 AW [id number]) PT-Bed Mobility Assessment Sit to Supine Sit to Supine Minimal Assistance,1 Person Assistance PT-Transfer Assessment Sit to and From Stand Sit to and from Stand Standby Assistance Equipment Transfer Assistive Device Gait Belt,Front Wheeled Walker Orthotic/Prosthetic Devices or Brace: No Transfers Transfer Destination Bed Transfer Technique Stand Step Pivot Transfer Ability Level of Assist Standby Assistance Comments Mobility Comments Hussein was sitting EOB as PT arrived. He stood SBA and used FWW to walk in the halls a total of 80 feet. Gait pattern is step-to and pt tends to lift the walker in between strides and then heavily bear weight on UE's during LE advancement. Gait was slow overall and pt took frequent standing rest breaks - not necessarily due to pain but rather due to distractibility. Pt had no LOB and was generally steady. On return to the room, he refused the bed, stating he wanted to lie down for a while. He transitioned to supine with min A to elevate his legs. Pt was left with call light in reach. Gait Assessment Gait Gait Assistance Required: Standby Assistance Distance (Feet) 80 Able to Maintain Weight Bearing Status Yes During Gait Assistive Devices Assistive Device Gait Belt,Front Wheeled Walker Gait Deviations General Gait Pattern Antalgic,Decreased Stride Length,Step-to Gait,Wide Based Gait Factors Limiting Gait Function Factors Limiting Gait Function Decreased Activity Tolerance, Decreased Strength,Pain Comments Gait Comments See mobility comments for details. 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 Educated pt to continue using FWW to maintain WBAT safely. M5 PT-IP Objective Assessments Start: 10/28/22 12:39 Freq: NEEDED Status: Active Protocol: Document 10/28/22 15:30 AMB (Rec: 10/28/22 16:21 AMB [id number]) Orientation Orientation/Cognition Level of Alertness Alert Strength Upper Extremity Strength Assessment Within Functional Limits Lower Extremity Strength Assessment Left Impaired Hip 2 Knee 3 Ankle 4 Sensation Assessment Sensation Light Touch Intact M6 PT-IP Treatment Start: 10/28/22 12:39 Freq: NEEDED Status: Active Protocol: Document 10/29/22 14:28 AW (Rec: 10/29/22 14:47 AW [id number]) Physical Therapy Treatment Education Education Provided Weight Bearing Status,Safety Other Treatments Other Treatment Performed Discussed need for FWW with DCP who agreed to place order in case pt unable to procure one before discharge. M7 PT-IP Assessment and Plan Start: 10/28/22 12:39 Freq: NEEDED Status: Active Protocol: Document 10/29/22 14:28 AW (Rec: 10/29/22 14:47 AW [id number]) PT Summary Assessment and Plan Summary Impairments Pain,Strength,Bed Mobility, Transfers,Gait Progress Towards Goals Progressing Toward Goals Assessment Summary Hussein is highly motivated to participate with therapy and return home. He improved his transfers to SBA with FWW this PM. His spouse will need caregiver support at home but no other barriers to return home are identified. Pt understands he will need a FWW to return home. PT will continue to work with pt to progress gait distance and quality. Goals Bed Mobility Goal Standby Assistance Transfer Goal Standby Assistance Gait Goal Standby Assistance,Front Wheel Walker Gait Distance 100 Days to Meet Goals 7 Frequency of Treatment Frequency Of Treatment Twice a Day Treatment Plan Physical Therapy Treatment Plan Bed Mobility Training,Transfer Training,Gait Training, Therapeutic Exercise,Balance Retraining Other Recommendations and Next Treatment review bed mobility, progress Focus gait Weight Bearing Status Weight Bearing Status Weight Bear as Tolerated Recommendations To Nursing Amount of Assist Needed Standby Assistance,1 Person Assist Discharge Recommendations PT Discharge Recommendations Home with Assistance,Home Health Equipment Needed for Home Before FWW - may need one from Discharge hospital supply Transportation Needs at Discharge Private Vehicle
[2022-10-29 17:00] VITALS: BP 129/43; PULSE 71; RESP 17; TEMP 36.7; O2SAT 98
--- NOTE | 2022-10-29 18:03 | PC.NURSE ---
stated that he would like patient to start his eloquis today but to ask ortho. Called Rick Barajas, and left a message with him regarding patient and this medication. He did not call back thus far. Will follow up in the am. Patient is in bed now and resting comfortably with ice.
[2022-10-29 20:00] VITALS: BP 131/53; PULSE 63; RESP 20; TEMP 37.1; O2SAT 95
[2022-10-29 20:31] VITALS: BP 131/53
[2022-10-29] MEDS: LATANOPROST 0.005% OPHTH 2.5 ML 1 DROPS EYE-BOTH (20:32)
[2022-10-29] MEDS: TAMSULOSIN 0.4 MG CAPSULE PO (20:33)
[2022-10-29] MEDS: OXYCODONE IR 10 MG TABLET PO (23:47)
[2022-10-30] VITALS: BP 114/50; PULSE 68; TEMP 36.9; O2SAT 94
[2022-10-30 04:00] VITALS: BP 117/57; PULSE 62; RESP 16; TEMP 36.6; O2SAT 96
[2022-10-30 08:00] VITALS: BP 112/49; PULSE 74; RESP 17; TEMP 36.2; O2SAT 97
[2022-10-30] MEDS: ACETAMINOPHEN 325 MG TABLET 650 MG PO ×2 (08:25→14:08)
[2022-10-30] MEDS: APIXABAN 5 MG TABLET PO (08:25)
[2022-10-30 08:26] VITALS: BP 112/49
[2022-10-30] MEDS: DOCUSATE 100 MG CAPSULE PO (08:26)
[2022-10-30] MEDS: OXYBUTYNIN 5 MG TABLET PO ×2 (08:26→14:08)
--- NOTE | 2022-10-30 08:31 | PM.DS.1 ---
History of Present Illness History of Present Illness Date Patient Seen: 10/30/22 Time Patient Seen: 08:31 Date of Onset of Symptoms: 10/27/22 Chief complaint: Mechanical fall left hip Narrative: 87-year-old male with a history of atrial fibrillation status post ablation procedure cardiomyopathy hypertrophic cerebrovascular accident prostate cancer with with chronic indwelling Sharp catheter ascending aortic aneurysm and osteoarthritis with bilateral knee replacements presents to the emergency department with hip pain.? Patient states pain began yesterday after a fall.? Patient was in his house.? He went out to walk to the mailbox.? As he was at the mailbox he twisted to turned back into the house lost his balance and fell.? Had acute hip pain and found it difficult to ambulate during the fall he also hit his head and sustained a laceration to the back of his scalp.? Before his fall he said he was feeling fine had no chest pain dizziness lightheaded fevers or chills.? Been in his normal state of health during that day.? Was not complaining any V heart arrhythmias or palpitations.? Patient to after he fell required assistance with ambulation and was brought into the emergency department.? Patient presents complaining of head and hip pain.? Patient in the emergency room had laboratory testing done hip x-ray which showed fracture of the hip and a CT scan of his head due to the laceration.? Laceration was appropriately taken care of in the emergency department and orthopedic was consulted due to the hip fracture.? I was consulted for medical management This morning patient states he is doing well having hip pain no chest pain dizziness lightheadedness.? No shortness of breath he says he ambulates well at home.? He is alert and oriented x3.? Patient is a good historian.? He says he walks a lot at home and active and still drives his car. Discharge Providers Provider Date of admission: 10/26/22 23:26 Discharge Date: 10/30/22 Primary care physician: Hemant Tucker MD Consults: 10/28/22 10:08 Consult to Discharge Planning Routine Comment: Consult to Physical Therapy Evaluate & Treat Comment: Physician Instructions: Evaluate and Treat 10/29/22 08:38 Consult to Home Health Routine Comment: Reason For Exam: hip fracture 10/29/22 08:39 Consult to Home Health Routine Comment: Reason For Exam: hip fracture 10/29/22 12:10 Consult to Home Health Routine Comment: Reason For Exam: FWW for home use Discharge provider: Hemant Tucker MD Summary Hospital Course Discharge Diagnosis: Left femoral neck fracture Atrial fibrillation prostate cancer idiopathic hypertrophic cardiomyopathy Hypertension Hospital Course: Left femoral neck fracture. Patient was admitted and taken to surgery. Repaired by orthopedist. No complications. Hematocrit stayed stable. Pain control is excellent. Patient will be discharged as per orthopedic protocol to home and follow-up as Orthopedics team appropriate Atrial fibrillation. Eliquis was discontinued during 1st 2 days and 2 days after surgery was restarted and did well. No evidence of atrial fibrillation complications. Hypertension. Patient had some lower blood pressures. And was held usual blood pressure medicine for a while but stable otherwise and be discharged on usual medicines. History of cardiomyopathy. Stable. Greater than 35 minutes spent with discharge nurse patient orders dictation Status at Discharge Cognitive/behavioral status at discharge: oriented Functional status at discharge: uses cane/walker Overall status at discharge: patient is progressing back to baseline Exam Vital Signs (past 8 hours): - 10/30/22 04:00 10/30/22 08:26 10/30/22 08:26 Temperature 97.8 F Pulse Rate 62 Respiratory Rate 16 Blood Pressure 117/57 L 112/49 L 112/49 L Pulse Oximetry 96 Oxygen Flow Rate 0 Oxygen Delivery Method Room Air Oxygen Flow Rate 0 Narrative Exam Narrative: Alert male no acute distress Lungs are clear heart regular rate and rhythm extremities incision appears clean Objective Labs 10/29/22 05:59 10/29/22 05:59 PFSH Medical History Ascending aortic aneurysm Atrial fibrillation Enlarged prostate Hx of echocardiogram Surgical History H/O cardiac radiofrequency ablation History of blepharoplasty History of knee replacement History of tonsillectomy Family History Father Heart disease Mother Breast cancer Social History marital status: household members: spouse Smoking Status: Former smoker alcohol intake: current substance use type: does not use Discharge Assessment & Plan Assessment and Plan Assessment: Status post left hip fracture. Care as per orthopedist follow-up with me in 2 weeks Plan of Treatment: Discharge home Discharge Plan Discharge Plan Patient Disposition: Home Discharge orders & Medications Prescriptions: New Eliquis 5 mg Tablet 5 mg PO BID Qty: 30 0RF Continued carvedilol 6.25 mg tablet 6.25 mg PO BID Rx Instructions: must administer with a meal/food latanoprost 0.005 % drops 1 drp EYE-BOTH DAILY losartan 25 mg tablet 25 mg PO BID docusate sodium [Colace] 100 mg capsule 100 mg PO BID Qty: 30 0RF acetaminophen [Tylenol] 325 mg capsule 650 mg PO QID PRN (Reason: pain) Qty: 60 0RF tamsulosin 0.4 mg capsule 0.4 mg PO BEDTIME Label Comments: TAKE ONE CAPSULE BY MOUTH EVERY EVENING oxybutynin chloride 5 mg tablet 5 mg PO TID Label Comments: Take 1 tablet (5 mg total) by mouth 3 (three) times daily as needed finasteride 5 mg tablet 5 mg PO DAILY Label Comments: TAKE ONE TABLET BY MOUTH ONE TIME DAILY Discontinued ibuprofen 600 mg Tablet 600 mg PO TID Qty: 30 0RF Follow up/Referrals: Hemant Tucker MD [Primary Care Provider] - 11/13/22 3:45 pm (Appt:11/13 @ 3:45 w/Dr Tucker please set up appointment with ortho as per their protocol) Discharge Health Status Multidrug resistant organism: No MDRO Diet/Activity/Treatments Diet: Diet as Tolerated Activity: as per orthopedics Skin/Wound/Dressing Care Report to your healthcare provider any signs of infection, such as:: chills, fever Dressing: as per ortho Visit Report/Discharge Packet Stand Alone Forms: Patient Portal/API, Stroke Signs & Symptoms Discharge Data Primary Care Provider: Hemant Tucker Quality VTE Deep Vein Thrombosis/Pulmonary Embolism Present on Admission: No
--- NOTE | 2022-10-30 09:13 | PT.IPTN ---
Current Diagnoses Fracture of unspecified part of neck of left femur, initial encounter for closed fracture (10/26/22) Surgery Performed Operation Date: 10/28/22 09:45 Actual Procedures p ORIF Hip/Cannulated Screws(Left) - Robert Quezada MD Physical Therapy Treatment Note M2 PT-IP Current Condition Start: 10/28/22 12:39 Freq: NEEDED Status: Active Protocol: Document 10/28/22 15:30 AMB (Rec: 10/28/22 16:21 AMB [id number]) Physical Therapy Current Condition Current Condition Evaluation Date 10/28/22 Treatment Diagnosis L femoral neck fx s/p closed reduction percutaneous pinning Onset Date 10/27/22 M3 PT-IP Subjective Start: 10/28/22 12:39 Freq: NEEDED Status: Active Protocol: Document 10/30/22 09:13 DLM (Rec: 10/30/22 11:54 DLM [id number]) Subjective Physical Therapy Visit Type Type Treatment Note Visit Start Time 08:30 Visit Stop Time 09:13 Total Visit Minutes 43 Number of [employer] Visits 0 Physical Therapy Visit Comments Patient Comments He feels ready to go home today. He reports he has friends and family lined up to help his at home. He reports he will need a FWW for home use since his family has not been able to get [facility]. Patient Goals discharge home Therapy Pain Assessment Pain When Pain Assessed During Mobility Pain Present Pain Present Pain Reported Location Left Hip Intensity 3 Scale Used Numeric (0 - 10) Description Aching,With Movement Pain Management Techniques Re-positioning,Timing of Activity with Medications M4 PT-IP Mobility and Gait Start: 10/28/22 12:39 Freq: NEEDED Status: Active Protocol: Document 10/30/22 09:13 DLM (Rec: 10/30/22 11:54 DLM [id number]) PT-Bed Mobility Assessment Supine to Sit Supine to Sit Independent Sit to Supine Sit to Supine Independent Scooting Scooting to Edge of Bed Independent Scooting Up and Down in Bed Independent PT-Transfer Assessment Sit to and From Stand Sit to and from Stand Independent,Use of Upper Extremities Equipment Transfer Assistive Device Gait Belt,Front Wheeled Walker Transfers Transfer Destination Bed,Chair,Toilet Transfer Technique Stand Step Pivot Transfer Ability Level of Assist Independent,Use of Upper Extremities Comments Mobility Comments Pt up to recliner and up to toilet this visit Gait Assessment Gait Gait Assistance Required: Independent Distance (Feet) 150 Able to Maintain Weight Bearing Status Yes During Gait Assistive Devices Assistive Device Gait Belt,Front Wheeled Walker Factors Limiting Gait Function Factors Limiting Gait Function Decreased Activity Tolerance, Decreased Strength,Limited Range of Motion,Pain,Poor Balance Comments Gait Comments He demonstrates safe use of FWW, he is now scooting FWW along the floor, still needs significant UE support on FWW to manage pain with weight bearing on left LE Stair Climbing Assessment Comments Stair Climbing Comments no stairs he has to use at home, can use stair lift to get to second floor PT-Balance Assessment Sitting Balance and Reactions Static Sitting Balance Ability Normal Dynamic Sitting Balance Ability Normal Standing Balance and Reactions Static Standing Balance Ability Good Dynamic Standing Balance Ability Good Device Used FWW M5 PT-IP Objective Assessments Start: 10/28/22 12:39 Freq: NEEDED Status: Active Protocol: Document 10/28/22 15:30 AMB (Rec: 10/28/22 16:21 AMB [id number]) Orientation Orientation/Cognition Level of Alertness Alert Strength Upper Extremity Strength Assessment Within Functional Limits Lower Extremity Strength Assessment Left Impaired Hip 2 Knee 3 Ankle 4 Sensation Assessment Sensation Light Touch Intact M6 PT-IP Treatment Start: 10/28/22 12:39 Freq: NEEDED Status: Active Protocol: Document 10/30/22 09:13 DLM (Rec: 10/30/22 11:54 DLM [id number]) Physical Therapy Treatment Exercises Exercises Ankle Pumps,Gluteal Sets,Quad Sets,Heel Slides,Supine Hip Abduction,Short Arc Quads, Seated Knee Flexion/Extension Education Education Provided Weight Bearing Status,Post-Op Packet,Safety Equipment Issued Equipment Type and Company FWW with 5 in wheels provided from [employer], set-up and adjustments made M7 PT-IP Assessment and Plan Start: 10/28/22 12:39 Freq: NEEDED Status: Active Protocol: Document 10/30/22 09:13 DLM (Rec: 10/30/22 11:54 DLM [id number]) PT Summary Assessment and Plan Summary Impairments Pain,Strength,Bed Mobility, Transfers,Gait Progress Towards Goals Safe For Discharge Assessment Summary Hussein is progressing well after ORIF left femur. He demonstrates safe use of FWW for gait. He is now able to get in/out of bed on his own. FWW provided from [facility] for home use per pt request. He demonstrates safe mobility/gait to discharge home when he is cleared medically. Goal met.His Nurse was notified that he is cleared by physical therapy for discharge home. Goals Bed Mobility Goal Standby Assistance Transfer Goal Standby Assistance Gait Goal Standby Assistance,Front Wheel Walker Gait Distance 100 Days to Meet Goals 7 Weight Bearing Status Weight Bearing Status Weight Bear as Tolerated Recommendations To Nursing Amount of Assist Needed Standby Assistance Discharge Recommendations PT Discharge Recommendations Home with Assistance,Home Health Equipment Needed for Home Before FWW from [facility] Discharge provided for home use Transportation Needs at Discharge Private Vehicle
[2022-10-30] MEDS: OXYCODONE IR 10 MG TABLET PO ×2 (10:42→15:33)
[2022-10-30 11:49] VITALS: BP 121/48; PULSE 67; RESP 17; TEMP 36.2; O2SAT 96
== END 2022-10-30 17:04 | disposition home health service (06) | DRG 481 ==
LOC: ED 23:10 → AC 23:27
PROVIDERS: Orthopaedic Surgery; Admitting Provider Family Medicine; Emergency Provider Emergency Medicine; PCP Family Medicine; Referring Provider Emergency Medicine; Visit Provider Family Medicine
PROC: 0QS734Z Reposition Left Upper Femur with Internal Fixation Device, Percutaneous Approach (ICD-10-PCS; principal; 2022-10-28 09:45)
DX: S72.002A Fracture of unspecified part of neck of left femur, initial encounter for closed fracture (principal); E87.1 Hypo-osmolality and hyponatremia; I10 Essential (primary) hypertension; I71.21 Aneurysm of the ascending aorta, without rupture; N40.0 Benign prostatic hyperplasia without lower urinary tract symptoms; S00.01XA Abrasion of scalp, initial encounter; W18.30XA Fall on same level, unspecified, initial encounter; Z86.79 Personal history of other diseases of the circulatory system; Z20.822 Contact with and (suspected) exposure to COVID-19; Z79.01 Long term (current) use of anticoagulants; Z87.891 Personal history of nicotine dependence; Z85.46 Personal history of malignant neoplasm of prostate
CPT/HCPCS: 36415; 70450; 72192; 73502; 76000; 80048; 80053; 83880; 85025; 85027; 85610; 87635; 93005; 96374; 96375; 97110; 97116; 97161; 97530; 99284; C9803; J0690; J1100; J1170; J2270; J2405; J2704; J3010

== ENCOUNTER → 2022-11-07 16:15 | Outpatient (CLI) | payer MEDICARE, SELFPAY ==
[2022-10-27 13:47] VITALS: BMI 204.0
--- NOTE | 2022-11-07 16:17 | DI.US.S_ITS ---
PROCEDURE: US PERIPH VENOUS LOW EXTREM LT INDICATIONS: SWELLING. HIP SURGERY 10/28/22. TECHNIQUE: Real-time imaging, as well as color and pulse Doppler interrogation, were performed of the lower extremity deep veins from the inguinal ligament to the popliteal fossa. COMPARISON: None. FINDINGS: The common femoral, femoral and popliteal veins are normally compressible, and free of intraluminal thrombus. Color and pulse Doppler demonstrate normal phasic intraluminal flow. There is normal augmentation response to distal compression maneuver. IMPRESSION: No deep venous thrombosis. Dictated by: India Cuenca M.D. on 11/07/2022 at 17:23 Approved by: India Cuenca M.D. on 11/07/2022 at 17:23
== END ==
PROVIDERS: PCP Family Medicine; Referring Provider Physician Assistant Medical; Visit Provider Physician Assistant Medical
DX: M79.89 Other specified soft tissue disorders (principal)
CPT/HCPCS: 93971

== ENCOUNTER → 2022-12-06 10:12 | Outpatient (RCR) | payer MEDICARE, SELFPAY ==
[2022-10-27 13:47] VITALS: BMI 204.0
--- NOTE | 2022-12-06 10:47 | PT-OP ANOTE ---
Pt came to [facility] and PT discussed w/pt his phone call w/ortho [place] last night. 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 He was told not to do PT until he hears back from testing. Educated pt that we will not do eval d/t this as MD does not want him at PT. Pt educated to call to reschedule once ortho clears him to start PT. Hold PT until then.
== END ==
LOC: PHYS 10:12
PROVIDERS: Family Provider Family Medicine; PCP Family Medicine; Referring Provider Family Medicine; Visit Provider Family Medicine
DX: S72.002D Fracture of unspecified part of neck of left femur, subsequent encounter for closed fracture with routine healing (principal); M25.562 Pain in left knee

== ENCOUNTER 2023-01-16 16:17 | Emergency (ER) | payer MEDICARE, SELFPAY ==
[2022-10-27 13:47] VITALS: BMI 204.0
[2023-01-16 16:22] VITALS: BP 207/91; PULSE 79; RESP 17; TEMP 36.7; O2SAT 97; BMI 29.5
--- NOTE | 2023-01-16 16:33 | ED_ITS ---
HPI - Male Genitourinary <Fabiola Chaney, [facility] - Last Filed: 01/16/23 19:10> General Chief complaint: Urogenital-Male Stated complaint: Urinary Retention Time Seen by Provider: 01/16/23 16:23 Source: patient Mode of arrival: Wheelchair History of Present Illness HPI Narrative: This is a 87-year-old gentleman who presents emergency department with history of prostate surgery 1 week ago, was scheduled to take his urinary catheter out today, states that the catheter came out at 10:30 in he had some blood in the tubing, states that he was not able to void afterwards. Comes in by ambulance now with severe pain in his suprapubic region concerning for bladder distention and urinary retention due to obstruction. Patient is anticoagulated on Eliquis for history of atrial fibrillation, left femur fracture and reports his pain a 12/10, can not communicate about any other history items at this moment due to his discomfort. He denies nausea, vomiting or chills. Had a stool softener suppository thinking this could be causing him to be unable to void and he was still unable to void or have a bowel movement after this. He states he has been taking MiraLax at home, stool softeners, but it has been only 24 hours since he had his last bowel movement. He denies any groin paresthesia, denies any low back pain, flank pain, nausea or chills. Related Data Home Medications Medication Instructions Recorded Confirmed carvedilol 6.25 mg tablet 6.25 mg PO BID 11/16/20 10/27/22 latanoprost 0.005 % eye drops 1 drp EYE-BOTH DAILY 11/16/20 10/27/22 losartan 25 mg tablet 25 mg PO BID 11/16/20 10/27/22 finasteride 5 mg tablet 5 mg PO DAILY 06/13/22 10/27/22 oxybutynin chloride 5 mg tablet 5 mg PO TID 06/13/22 10/27/22 tamsulosin 0.4 mg capsule 0.4 mg PO BEDTIME 06/13/22 10/27/22 Previous Rx's Medication Instructions Recorded acetaminophen 325 mg capsule 650 mg PO QID PRN pain #60 caps 11/22/20 (Tylenol) docusate sodium 100 mg capsule 100 mg PO BID #30 caps 11/22/20 (Colace) acetaminophen 325 mg tablet 650 mg PO Q6H #120 tabs 10/30/22 apixaban 5 mg tablet (Eliquis) 5 mg PO BID #30 tabs 10/30/22 oxycodone 10 mg tablet 5 mg PO Q4-6H PRN Pain, Severe 10/30/22 (7-10) #40 tabs bisacodyl 10 mg rectal suppository 10 mg ND DAILY PRN constipation 01/16/23 #12 ea hydrocodone 5 mg-acetaminophen 325 1 tab PO BID PRN pain #14 tabs 01/16/23 mg tablet methocarbamol 500 mg tablet 500 mg PO BEDTIME PRN Muscle 01/16/23 spasms #20 tabs nitrofurantoin macrocrystal 100 mg 100 mg PO BID 7 days #14 caps 01/16/23 capsule Allergies Allergy/AdvReac Type Severity Reaction Status Date / Time simvastatin [SIMVASTATIN] AdvReac Severe MUSCLE Verified 10/26/22 21:30 WEAKNESS Review of Systems <VERÓNICA Toscano - Last Filed: 01/16/23 19:10> Review of Systems ROS Unobtainable: All systems reviewed & are unremarkable except as noted in HPI and below Patient History <VERÓNICA Toscano - Last Filed: 01/16/23 19:10> Medical History Ascending aortic aneurysm Atrial fibrillation Enlarged prostate Hx of echocardiogram Surgical History H/O cardiac radiofrequency ablation History of blepharoplasty History of knee replacement History of tonsillectomy Family History Father Heart disease Mother Breast cancer Social History marital status: household members: spouse Smoking Status: Former smoker alcohol intake: current substance use type: does not use Smoking Status: Former smoker alcohol intake frequency: a few times a month Substance Use Type: does not use Exam <VERÓNICA Toscano - Last Filed: 01/16/23 19:10> Narrative Exam Narrative: Reviewed vitals signs and nursing notes. General: Pleasant, currently distress lying on gurney from the ambulance complaining of pain related to bladder distention, well groomed, afebrile HEENT: symmetrical facial expressions, moist mucous membranes, neck is supple CV: regular rate and rhythm, warm extremities, hypertensive initially without symptoms Respiratory: normal work of breathing, without tachypnea or hypoxia. GI: abdomen soft, nondistended, without CVA tenderness bilaterally., suprapubic fullness and tenderness initially, urinary catheter placed, clear yellow urine is draining, small amount of blood at the meatus Patient is having left leg spasms in his upper thigh, states he has a recent femur neck fracture MSK: moves all extremities, no weakness, normal tone, ambulatory without deficit Skin: brisk capillary refill, without rash or wound Neuro: clear speech and normal cognition, A&O x3, GCS 15, no focal motor or sensation deficits Initial Vital Signs Initial Vital Signs: Vital Signs Temperature 98.0 F 01/16/23 16:22 Pulse Rate 79 01/16/23 16:22 Respiratory Rate 17 01/16/23 16:22 Blood Pressure 207/91 H 01/16/23 16:22 Pulse Oximetry 97 01/16/23 16:22 Oxygen Delivery Method Room Air 01/16/23 16:22 <Ishmael Beltran DO - Last Filed: 01/16/23 18:28> Initial Vital Signs Initial Vital Signs: Vital Signs Temperature 98.0 F 01/16/23 16:22 Pulse Rate 79 01/16/23 16:22 Respiratory Rate 17 01/16/23 16:22 Blood Pressure 207/91 H 01/16/23 16:22 Pulse Oximetry 97 01/16/23 16:22 Oxygen Delivery Method Room Air 01/16/23 16:22 Course <VERÓNICA Toscano - Last Filed: 01/16/23 19:10> Orders Ordered: ED Orders 01/16/23 16:43 UA Complete [Urinalysis and Microscopic] Stat Urine Culture Stat Discontinued Medications Hydrocodone Bitart/Acetaminophen (Hydrocodone/Acet 5/325 Tablet) 1 tab PO NOW ONE Stop: 01/16/23 16:42 Last Admin: 01/16/23 17:50 Dose: 1 tab Documented By: LENIN Diazepam (Diazepam 10 Mg/2 Ml Syringe) 2 mg IV NOW ONE Stop: 01/16/23 16:50 Last Admin: 01/16/23 17:03 Dose: 2 mg Documented By: LENIN Hydromorphone HCl (Hydromorphone 0.5 Mg Inj) 0.3 mg IV NOW ONE Stop: 01/16/23 16:42 Last Admin: 01/16/23 17:03 Dose: 0.3 mg Documented By: LENIN Ceftriaxone Sodium 1,000 mg/ (Sodium Chloride) 100 mls @ 200 mls/hr IV NOW ONE Stop: 01/16/23 17:05 Last Infusion: 01/16/23 18:14 Dose: 0 mls/hr Documented By: Admin: 01/16/23 17:38 Dose: 200 mls/hr Documented By: LENIN Lidocaine HCl (Lidocaine 2% (Glydo) 6 Ml Gel) 6 ml TOP NOW ONE Stop: 01/16/23 16:24 Last Admin: 01/16/23 17:03 Dose: 6 ml Documented By: LENIN Methocarbamol (Methocarbamol 500 Mg Tablet) 500 mg PO NOW ONE Stop: 01/16/23 17:45 Last Admin: 01/16/23 17:50 Dose: 500 mg Documented By: LENIN Polyethylene Glycol (Polyethylene Glycol 3350 17 Gm Powd.Pack) 17 gm PO NOW ONE Stop: 01/16/23 16:50 Last Admin: 01/16/23 17:14 Dose: 17 gm Documented By: LENIN Vital Signs Vital signs: Vital Signs - 8 hr 01/16/23 16:22 01/16/23 17:09 01/16/23 17:09 Temperature 98.0 F Pulse Rate 79 67 Respiratory Rate 17 Blood Pressure 207/91 H 138/63 Pulse Oximetry 97 95 Oxygen Delivery Method Room Air 01/16/23 17:30 01/16/23 17:30 01/16/23 18:00 Temperature Pulse Rate 63 Respiratory Rate Blood Pressure 127/60 145/65 H Pulse Oximetry 99 Oxygen Delivery Method 01/16/23 18:00 01/16/23 18:30 01/16/23 18:30 Temperature Pulse Rate 64 68 Respiratory Rate Blood Pressure 131/63 Pulse Oximetry 98 98 Oxygen Delivery Method <Ishmael Beltran DO - Last Filed: 01/16/23 18:28> Orders Ordered: ED Orders 01/16/23 16:43 UA Complete [Urinalysis and Microscopic] Stat Urine Culture Stat Discontinued Medications Hydrocodone Bitart/Acetaminophen (Hydrocodone/Acet 5/325 Tablet) 1 tab PO NOW ONE Stop: 01/16/23 16:42 Last Admin: 01/16/23 17:50 Dose: 1 tab Documented By: LENIN Diazepam (Diazepam 10 Mg/2 Ml Syringe) 2 mg IV NOW ONE Stop: 01/16/23 16:50 Last Admin: 01/16/23 17:03 Dose: 2 mg Documented By: LENIN Hydromorphone HCl (Hydromorphone 0.5 Mg Inj) 0.3 mg IV NOW ONE Stop: 01/16/23 16:42 Last Admin: 01/16/23 17:03 Dose: 0.3 mg Documented By: LENIN Ceftriaxone Sodium 1,000 mg/ (Sodium Chloride) 100 mls @ 200 mls/hr IV NOW ONE Stop: 01/16/23 17:05 Last Infusion: 01/16/23 18:14 Dose: 0 mls/hr Documented By: Admin: 01/16/23 17:38 Dose: 200 mls/hr Documented By: LENIN Lidocaine HCl (Lidocaine 2% (Glydo) 6 Ml Gel) 6 ml TOP NOW ONE Stop: 01/16/23 16:24 Last Admin: 01/16/23 17:03 Dose: 6 ml Documented By: LENIN Methocarbamol (Methocarbamol 500 Mg Tablet) 500 mg PO NOW ONE Stop: 01/16/23 17:45 Last Admin: 01/16/23 17:50 Dose: 500 mg Documented By: LENIN Polyethylene Glycol (Polyethylene Glycol 3350 17 Gm Powd.Pack) 17 gm PO NOW ONE Stop: 01/16/23 16:50 Last Admin: 01/16/23 17:14 Dose: 17 gm Documented By: LENIN Vital Signs Vital signs: Vital Signs - 8 hr 01/16/23 16:22 01/16/23 17:09 01/16/23 17:09 Temperature 98.0 F Pulse Rate 79 67 Respiratory Rate 17 Blood Pressure 207/91 H 138/63 Pulse Oximetry 97 95 Oxygen Delivery Method Room Air 01/16/23 17:30 01/16/23 17:30 01/16/23 18:00 Temperature Pulse Rate 63 Respiratory Rate Blood Pressure 127/60 145/65 H Pulse Oximetry 99 Oxygen Delivery Method 01/16/23 18:00 01/16/23 18:30 01/16/23 18:30 Temperature Pulse Rate 64 68 Respiratory Rate Blood Pressure 131/63 Pulse Oximetry 98 98 Oxygen Delivery Method MDM - Male Genitourinary <NIKOLAS ToscanoP - Last Filed: 01/16/23 19:10> Lab Data Labs: Lab Results 01/16/23 Range/Units 16:43 Urine Color Yellow Urine Appearance Clear Urine pH 6.0 (4.5-8.0) Ur Specific [place] <=1.005 (1.000-1.035) Urine Protein Trace H (Negative) Urine Glucose (UA) Negative (Negative) g/dL Urine Ketones Negative (NEGATIVE) Urine Occult Blood 3+ H (Negative) Urine Nitrate Positive H (Negative) Urine Bilirubin Negative (NEGATIVE) Urine Urobilinogen 0.2 (0.2) E.U./dL Ur Leukocyte Esterase 1+ H (NEGATIVE) Urine RBC 5-10/hpf H (0-5/HPF) Urine WBC 5-10/hpf H (0-5/HPF) Ur Squamous Epith Cells None seen (0-5/HPF) Urine Bacteria Moderate (10-30) H (None) Ur Culture Indicated? Specimen cultured Urine Dip Bedside Urine Glucose Negative Bedside Urine Bilirubin - Negative Bedside Urine Ketone - Negative Urine Specific [place] 1.010 Bedside Urine Occult Blood +++ Bedside Urine pH 6.0 Bedside Urine Protein +/- 15 Bedside Urine Urobilinogen - Negative Bedside Urine Nitrite - Negative Bedside Urine Leukocytes - Negative Esterase [facility] Narrative Medical decision making narrative: Chief Complaint: Urinary retention Independent historian: Patient and EMS Multiple etiologies for patient's symptoms considered including, but not limited to: Blood clot, BPH, malignancy, prostatitis, colitis, pyelonephritis, acute cystitis, constipation induced urinary retention, intra-abdominal mass, urolithiasis, cauda equina. I have reviewed the patient's vital signs and nursing notes as well as prior records if available. I have independently reviewed the patient's vital signs and nursing notes as well as prior records if available. Consultations: Patient will follow up with his urologist Dr. Forrester from [place], he was cc'd this note. Course of care: Patient 600 mL of urine output via Sharp catheter, other output measured in catheter was irrigation drainage. Patient's initial UA shows nitrites, WBCs, blood, leukocyte esterase and he was given 1 g of ceftriaxone IV. He is p.o. tolerant, his pain was improved with 0.3 mg of hydromorphone, he has a recent history of femoral neck fracture in his left leg and is having muscle spasms in his left thigh complaining of pain here so he was given 2 mg of IV Valium, this gave him good relief but wore off quickly, later in his visit he was given methocarbamol and hydrocodone which achieved denies pain tolerance for him which he was comfortable to ambulate out of the department afterwards. A Sharp catheter was placed, a 3 way so that irrigation could be completed due to reported blood clots in the previous Sharp catheter. No blood clots in tubing or urine output, urine is draining freely, initial sediment and was irrigated but has been draining and patient feels marked relief at this point. I prescribed for him nitrofurantoin b.i.d. x7 days and MiraLax for constipation, he was also given bisacodyl suppositories to help him have a bowel movement as needed. He is encouraged to stay on his regular medications for his BPH and Eliquis of course. He follow-up with his urologist tomorrow and let him know of this course and he was cc on this note. Social considerations that may affect disposition: none Questions are addressed and there is agreement with the plan and for follow-up. I consulted with the ED attending physician Dr. Beltran as needed for higher level of care considerations and they were available for discussion and recommendations regarding plan of care and diagnostic testing. Patient is appropriate for outpatient management. <Ishmael Beltran, DO - Last Filed: 01/16/23 18:28> Lab Data Labs: Lab Results 01/16/23 Range/Units 16:43 Urine Color Yellow Urine Appearance Clear Urine pH 6.0 (4.5-8.0) Ur Specific [place] <=1.005 (1.000-1.035) Urine Protein Trace H (Negative) Urine Glucose (UA) Negative (Negative) g/dL Urine Ketones Negative (NEGATIVE) Urine Occult Blood 3+ H (Negative) Urine Nitrate Positive H (Negative) Urine Bilirubin Negative (NEGATIVE) Urine Urobilinogen 0.2 (0.2) E.U./dL Ur Leukocyte Esterase 1+ H (NEGATIVE) Urine RBC 5-10/hpf H (0-5/HPF) Urine WBC 5-10/hpf H (0-5/HPF) Ur Squamous Epith Cells None seen (0-5/HPF) Urine Bacteria Moderate (10-30) H (None) Ur Culture Indicated? Specimen cultured Urine Dip Bedside Urine Glucose Negative Bedside Urine Bilirubin - Negative Bedside Urine Ketone - Negative Urine Specific [place] 1.010 Bedside Urine Occult Blood +++ Bedside Urine pH 6.0 Bedside Urine Protein +/- 15 Bedside Urine Urobilinogen - Negative Bedside Urine Nitrite - Negative Bedside Urine Leukocytes - Negative Esterase Discharge Plan Departure Patient Disposition: Home Clinical Impression: Acute urinary retention, Acute UTI Instructions: DI for Urinary Retention in Men Activity Restrictions/Additional Instructions: *You have been diagnosed with urinary retention likely related to your prostate however your urine showed signs of infection so start taking this new antibiotic after you get home. Today he received ceftriaxone, this is a 1 time dose medication that will hopefully get the bacteria down so that you start feeling better from bladder spasms standpoint. I think your constipation has made this worse for you, sorry for this. Please use MiraLax morning and night for the next few days until you have bowel movement. Okay to use suppositories daily until you have this bowel movement as well this can help your stool be soft enough to pass. Please come back if you develop a fever, vomiting, worsening pain or your having bleeding in your Shapr catheter. Okay to use topical lidocaine jelly at the urethral meatus to help with your pain control. I am sorry for your symptoms, it was a pleasure to meet you, I hope that you start feeling better soon, please stay on your blood thinner and did not change any of those medications. I have given you pain pills to use every 4-6 hours as needed, please ensure your using MiraLax daily while taking these. Muscle relaxers every 6-8 hours as needed for muscle spasms, okay to take just before bed to help you sleep as well. Please schedule follow-up with Dr. Forrester in 1 week or less, I have sent him a copy of this note today. Please stay on your Flomax and other medications as indicated and do not make any changes unless instructed to by your other providers. *What to do: *Please continue to take your regular medications as directed. [ x] New medication prescriptions sent to your pharmacy: [[facility] ] [ ] New medication written as a paper prescription [ ] No new medications given *Please call and schedule follow up with your primary care provider in 2-3 days, at least for an update. Let them know you were seen in the Emergency Department for the above problem. We will electronically transmit a record of today's note if your PCP or specialist is in our system. *If you do not have a primary care provider please contact [phone] to establish care with one of the [facility] primary care providers. *Return to the Emergency Department for worsening symptoms, inability to keep liquids down, fever greater than 101F, chills, or other concerning symptom. Prescriptions: New nitrofurantoin macrocrystal 100 mg capsule 100 mg PO BID 7 Days Qty: 14 0RF Rx Instructions: must administer with a meal/food methocarbamol 500 mg tablet 500 mg PO BEDTIME PRN (Reason: Muscle spasms) Qty: 20 0RF Rx Instructions: May take 2-3 times per day as needed for muscle spasms for your leg, this will make you very sleepy so please use caution. hydrocodone-acetaminophen 5-325 mg tablet 1 tab PO BID PRN (Reason: pain) Qty: 14 0RF bisacodyl 10 mg suppository 10 mg ND DAILY PRN (Reason: constipation) Qty: 12 0RF No Action carvedilol 6.25 mg tablet 6.25 mg PO BID Rx Instructions: must administer with a meal/food latanoprost 0.005 % drops 1 drp EYE-BOTH DAILY losartan 25 mg tablet 25 mg PO BID docusate sodium [Colace] 100 mg capsule 100 mg PO BID Qty: 30 0RF acetaminophen [Tylenol] 325 mg capsule 650 mg PO QID PRN (Reason: pain) Qty: 60 0RF tamsulosin 0.4 mg capsule 0.4 mg PO BEDTIME Patient Comments: TAKE ONE CAPSULE BY MOUTH EVERY EVENING oxybutynin chloride 5 mg tablet 5 mg PO TID Patient Comments: Take 1 tablet (5 mg total) by mouth 3 (three) times daily as needed finasteride 5 mg tablet 5 mg PO DAILY Patient Comments: TAKE ONE TABLET BY MOUTH ONE TIME DAILY Eliquis 5 mg Tablet 5 mg PO BID Qty: 30 0RF acetaminophen 325 mg Tablet 650 mg PO Q6H Qty: 120 0RF oxycodone 10 mg Tablet 5 mg PO Q4-6H PRN (Reason: Pain, Severe (7-10)) Qty: 40 0RF Referrals: Ted Forrester MD [Non-Staff] - Hemant Tucker MD [Primary Care Provider] - Stand Alone Forms: Patient Portal/API <Ishmael Beltran DO - Last Filed: 01/16/23 18:28> Cosign ED Attending Cosignature Attestation: Dr Beltran Co-Sign Statement: I was available for consultation during this patient's emergency department visit. This chart is signed by myself for administrative purposes only. I did not have direct contact with this patient during this visit. They were seen independently by the APC.
[2023-01-16 16:51] LABS: Appearance Urine UA CLEAR; Bilirubin Urine UA NEGATIVE (NEGATIVE); Color Urine UA YELLOW; Glucose Urine UA NEGATIVE (Negative); Ketones Urine UA NEGATIVE (NEGATIVE); Leukocyte Esterase Urine UA 1+ (NEGATIVE); Nitrite Urine UA POSITIVE (Negative); Occult Blood Urine UA 3+ (Negative); Protein Urine UA TRACE (Negative); Specific Gravity Urine UA <=1.005 (1.000-1.035); Urobilinogen Urine UA 0.2 E.U./dL (0.2)
[2023-01-16 17:03] LABS: RBC Urine 5-10/HPF (0-5/HPF); Squamous Epithelial Cell Urine None Seen (0-5/HPF); WBC Urine 5-10/HPF (0-5/HPF)
[2023-01-16] MEDS: HYDROMORPHONE 0.5 MG INJ 0.3 MG IV (17:03)
[2023-01-16] MEDS: LIDOCAINE 2% (GLYDO) 6 ML GEL TOP (17:03)
[2023-01-16] MEDS: diazePAM 10 MG/2 ML SYRINGE 2 MG IV (17:03)
[2023-01-16 17:04] LABS: Bacteria Urine Moderate (10-30); Culture Indicated Urine Specimen Cultured
[2023-01-16 17:09] VITALS: BP 138/63; PULSE 67; O2SAT 95
[2023-01-16] MEDS: polyethylene glycoL 3350 17 GM POWD.PACK PO (17:14)
[2023-01-16 17:30] VITALS: BP 127/60; PULSE 63; O2SAT 99
[2023-01-16] MEDS: cefTRIAXone 1,000 MG in SODIUM CHLORIDE 0.9% 100 ML 200 MG IV (17:38)
[2023-01-16] MEDS: HYDROCODONE/ACET 5/325 TABLET 1 TAB PO (17:50)
[2023-01-16] MEDS: methocarbamoL 500 MG TABLET PO (17:50)
[2023-01-16 18:00] VITALS: BP 145/65; PULSE 64; O2SAT 98
[2023-01-16 18:30] VITALS: BP 131/63; PULSE 68; O2SAT 98
== END 2023-01-16 18:48 | disposition home or self-care (01) ==
PROVIDERS: Emergency Provider Nurse Practitioner Critical Care Medicine; Family Provider Family Medicine; PCP Family Medicine
DX: N39.0 Urinary tract infection, site not specified (principal); R33.8 Other retention of urine
CPT/HCPCS: 81001; 81003; 87077; 87086; 87186; 96365; 96375; 99284; J0696; J1170; J3360

== ENCOUNTER 2023-01-31 10:56 | Emergency (ER) | payer MEDICARE, SELFPAY ==
[2022-10-27 13:47] VITALS: BMI 204.0
--- NOTE | 2023-01-31 11:08 | DI.US.S_ITS ---
PROCEDURE: US RENAL COMPLETE INDICATIONS: had bladder lift, UTIs, incontinence TECHNIQUE: Real-time scanning was performed of the kidneys, with image documentation. COMPARISON: None. FINDINGS: Kidneys: Kidneys are normal in size. Right kidney measures 9.2 cm long; left kidney measures 3.4 cm long. Right renal cortical thickness is 2 cm; left renal cortical thickness is 1.4 cm. Renal cortical echotexture is mildly increased. No hydronephrosis or nephrolithiasis. No suspicious solid mass lesions. No complex renal cystic lesions which require follow-up. Miscellaneous: No free pelvic fluid. IMPRESSION: Slightly increased renal parenchymal echogenicity, which may indicate acute or chronic kidney disease. Dictated by: Evan Evangelista M.D. on 01/31/2023 at 14:26 Approved by: Evan Evangelista M.D. on 01/31/2023 at 14:28
[2023-01-31 11:11] VITALS: BP 191/84; PULSE 68; RESP 18; TEMP 36.9; O2SAT 98; BMI 30.4
[2023-01-31 11:46] LABS: Add Manual Diff / Slide Review NO; Basophils Absolute Auto 0 /uL (0-100); Basophils Percent Auto 0.9 % (0-2); Eosinophils Absolute Auto 200 /uL (0-450); Eosinophils Percent Auto 5.1 % (2-4); Hematocrit 31.8 % (41-53); Hemoglobin 10.9 g/dL (13.5-17.5); Lymphocytes Absolute Auto 1100 /uL (1100-4500); Lymphocytes Percent Auto 22.6 % (25-40); Mean Corpuscular HGB Conc 34.3 % (30-36); Mean Corpuscular Hemoglobin 30.7 PG (26-34); Mean Corpuscular Volume 89.4 fL (80-100); Monocytes Absolute Auto 500 /uL (0-900); Monocytes Percent Auto 9.8 % (3-14); Neutrophils Absolute Auto 3000 /uL (1500-7000); Neutrophils Percent Auto 61.6 % (50-75); Platelet Count 176 X10^3/uL (150-400); Red Blood Cell Count 3.56 X10^6/uL (4.5-5.9); Red Cell Distribution Width 15.3 % (11.6-14.8); White Blood Cell Count 4.8 X10^3/uL (4.5-11.0)
[2023-01-31 11:56] LABS: Appearance Urine UA CLEAR; Bilirubin Urine UA NEGATIVE (NEGATIVE); Color Urine UA YELLOW; Glucose Urine UA NEGATIVE (Negative); Ketones Urine UA NEGATIVE (NEGATIVE); Leukocyte Esterase Urine UA NEGATIVE (NEGATIVE); Nitrite Urine UA NEGATIVE (Negative); Occult Blood Urine UA NEGATIVE (Negative); Protein Urine UA NEGATIVE (Negative); Urobilinogen Urine UA 0.2 E.U./dL (0.2); pH Urine UA 6.5 (4.5-8.0)
[2023-01-31 11:56] LABS: Alanine Aminotransferase 18 IU/L (<50); Albumin 4.1 g/dL (3.5-5.0); Albumin Globulin Ratio 1.4 (1.0-2.8); Alkaline Phosphatase 71 U/L (38-126); Aspartate Aminotransferase 19 IU/L (17-59); BUN Creatinine Ratio 22.1 (6-22); Bilirubin Total 0.5 mg/dL (0.2-1.3); Blood Urea Nitrogen 17 mg/dL (9-20); Carbon Dioxide 29 mmol/L (22-32); Chloride 102 mmol/L (98-107); Estimated Glomerular Filt Rate > 60 mL/min (>60); Glucose 103 mg/dL (80-110); HEMOLYSIS < 15 (0-50); Lipase 106 U/L (23-300); Sodium 138 mmol/L (137-145); Total Protein 7.1 g/dL (6.3-8.2)
[2023-01-31 12:05] LABS: Bacteria Urine None Seen; Culture Indicated Urine Cult Not Indicated; RBC Urine None Seen (0-5/HPF); Urine Comments Microscopic Normal; WBC Urine None Seen (0-5/HPF)
[2023-01-31 15:19] VITALS: BP 151/71; PULSE 71; O2SAT 99
[2023-01-31 15:20] VITALS: RESP 12; O2SAT 99
--- NOTE | 2023-01-31 15:27 | ED.MALEGU ---
HPI - Male Genitourinary General Chief complaint: Urogenital-Male Stated complaint: Needs catheter, Urine problems Time Seen by Provider: 01/31/23 11:06 Source: patient Mode of arrival: EMS Limitations: no limitations History of Present Illness HPI Narrative: This is an 87-year-old male who presents with urinary catheter issues. Patient states he had a urinary catheter placed March 05 last summer, he had multiple voiding trials which were also unsuccessful, he had a UroLift done 3 weeks ago with urology in [place]. Patient states afterwards had catheter removed developed urinary retention possibly hematuria and was had a Sharp catheter placed with irrigation. Patient was diagnosed with a UTI started antibiotics. Sharp was removed yesterday, patient has had urinary incontinence since then. He states that is different. He tried to reach his Urology team but the power was out and he could not reach them. He spoke with Dr. Tucker who sent him to the ER for urine sample and catheter placement. Patient denies fevers or chills, no cold cough or congestion, no abdominal back or flank pain. He states he just has a dribble of urine that continues to come out. Patient denies any diarrhea constipation. No dysuria urgency or frequency sensation. Patient is still taking the antibiotics that were prescribed he states they were changed based on his most recent urine culture which showed resistance. Related Data Home Medications Medication Instructions Recorded Confirmed carvedilol 6.25 mg tablet 6.25 mg PO BID 11/16/20 10/27/22 latanoprost 0.005 % eye drops 1 drp EYE-BOTH DAILY 11/16/20 10/27/22 losartan 25 mg tablet 25 mg PO BID 11/16/20 10/27/22 finasteride 5 mg tablet 5 mg PO DAILY 06/13/22 10/27/22 oxybutynin chloride 5 mg tablet 5 mg PO TID 06/13/22 10/27/22 tamsulosin 0.4 mg capsule 0.4 mg PO BEDTIME 06/13/22 10/27/22 Previous Rx's Medication Instructions Recorded acetaminophen 325 mg capsule 650 mg PO QID PRN pain #60 caps 11/22/20 (Tylenol) docusate sodium 100 mg capsule 100 mg PO BID #30 caps 11/22/20 (Colace) acetaminophen 325 mg tablet 650 mg PO Q6H #120 tabs 10/30/22 apixaban 5 mg tablet (Eliquis) 5 mg PO BID #30 tabs 10/30/22 oxycodone 10 mg tablet 5 mg PO Q4-6H PRN Pain, Severe 10/30/22 (7-10) #40 tabs bisacodyl 10 mg rectal suppository 10 mg [place] DAILY PRN constipation 01/16/23 #12 ea hydrocodone 5 mg-acetaminophen 325 1 tab PO BID PRN pain #14 tabs 01/16/23 mg tablet methocarbamol 500 mg tablet 500 mg PO BEDTIME PRN Muscle 01/16/23 spasms #20 tabs amoxicillin 875 mg-potassium 1 tab PO Q12H #20 tabs 01/19/23 clavulanate 125 mg tablet Allergies Allergy/AdvReac Type Severity Reaction Status Date / Time simvastatin [SIMVASTATIN] AdvReac Severe MUSCLE Verified 01/31/23 11:11 WEAKNESS Review of Systems Review of Systems ROS Unobtainable: All systems reviewed & are unremarkable except as noted in HPI and below Patient History Medical History Ascending aortic aneurysm Atrial fibrillation Enlarged prostate Hx of echocardiogram Surgical History H/O cardiac radiofrequency ablation History of blepharoplasty History of knee replacement History of tonsillectomy Family History Father Heart disease Mother Breast cancer Social History marital status: household members: spouse Smoking Status: Former smoker alcohol intake: current substance use type: does not use Smoking Status: Former smoker alcohol intake frequency: a few times a month Substance Use Type: does not use Exam Narrative Exam Narrative: GENERAL: Alert and oriented x three, well-appearing elderly male in mild distress. HEENT: Head normocephalic, atraumatic, EOMI, pupils reactive, face symmetric, moist mucous membranes NECK: Supple, full range of motion CARDIOVASCULAR: Regular rate and rhythm without murmurs, rubs or gallops. RESPIRATORY: Breath sounds equal bilaterally, no wheezes rales or rhonchi. ABDOMEN: Soft, nontender. Normoactive bowel sounds all 4 quadrants. No guarding or rebound, rigidity, no mass : No CVA tenderness, Sharp catheter in place placed by nursing. Draining yellow urine. EXTREMITIES: Normal range of motion, no clubbing or edema. Neurovascularly intact NEUROLOGICAL: Cranial nerves II through XII grossly intact. Moving all extremities SKIN: Warm, dry, no petechiae, no rashes or lesions. Initial Vital Signs Initial Vital Signs: Vital Signs Temperature 98.4 F 01/31/23 11:11 Pulse Rate 68 01/31/23 11:11 Respiratory Rate 18 01/31/23 11:11 Blood Pressure 191/84 H 01/31/23 11:11 Pulse Oximetry 98 01/31/23 11:11 Oxygen Delivery Method Room Air 01/31/23 11:11 Course Orders Ordered: ED Orders 01/31/23 11:00 Urine Culture Stat 01/31/23 11:08 US renal complete Stat 01/31/23 11:32 CBC Auto Diff [Complete Blood Count AUTO DIFF] Stat CMP [Comprehensive Metabolic Panel] Stat Lipase Stat 01/31/23 11:46 UA Complete [Urinalysis and Microscopic] Stat Vital Signs Vital signs: Vital Signs - 8 hr 01/31/23 11:11 01/31/23 15:19 01/31/23 15:20 Temperature 98.4 F Pulse Rate 68 71 Respiratory Rate 18 12 Blood Pressure 191/84 H 151/71 H Pulse Oximetry 98 99 99 Oxygen Delivery Method Room Air Room Air Room Air MDM - Male Genitourinary Lab Data 01/31/23 11:32 01/31/23 11:32 Labs: Lab Results 01/31/23 01/31/23 01/31/23 Range/Units 11:32 11:32 11:46 WBC 4.8 (4.5-11.0) X10^3/uL RBC 3.56 L (4.5-5.9) X10^6/uL Hgb 10.9 L (13.5-17.5) g/dL Hct 31.8 L (41-53) % MCV 89.4 (80-100) fL MCH 30.7 (26-34) PG MCHC 34.3 (30-36) % RDW 15.3 H (11.6-14.8) % Plt Count 176 (150-400) X10^3/uL Neut % (Auto) 61.6 (50-75) % Lymph % (Auto) 22.6 L (25-40) % [place] % (Auto) 9.8 (3-14) % Eos % (Auto) 5.1 H (2-4) % Baso % (Auto) 0.9 (0-2) % Neut # (Auto) 3000 (7524-7647) /uL Lymph # (Auto) 1100 (9479-0485) /uL [place] # (Auto) 500 (0-900) /uL Eos # (Auto) 200 (0-450) /uL Baso # (Auto) 0 (0-100) /uL Sodium 138 (137-145) mmol/L Potassium 4.0 (3.4-5.1) mmol/L Chloride 102 (98-107) mmol/L Carbon Dioxide 29 (22-32) mmol/L BUN 17 (9-20) mg/dL Creatinine 0.77 (0.66-1.25) mg/dL Estimated GFR > 60 (>60) mL/min BUN/Creatinine Ratio 22.1 H (6-22) Glucose 103 (80-110) mg/dL Calcium 10.0 (8.4-10.2) mg/dL Total Bilirubin 0.5 (0.2-1.3) mg/dL AST 19 (17-59) IU/L ALT 18 (<50) IU/L Alkaline Phosphatase 71 (38-126) U/L Total Protein 7.1 (6.3-8.2) g/dL Albumin 4.1 (3.5-5.0) g/dL Globulin 3.0 (1.7-4.1) g/dL Albumin/Globulin Ratio 1.4 (1.0-2.8) Lipase 106 (23-300) U/L Urine Color Yellow Urine Appearance Clear Urine pH 6.5 (4.5-8.0) Ur Specific [place] 1.010 (1.000-1.035) Urine Protein Negative (Negative) Urine Glucose (UA) Negative (Negative) g/dL Urine Ketones Negative (NEGATIVE) Urine Occult Blood Negative (Negative) Urine Nitrate Negative (Negative) Urine Bilirubin Negative (NEGATIVE) Urine Urobilinogen 0.2 (0.2) E.U./dL Ur Leukocyte Esterase Negative (NEGATIVE) Urine RBC None seen (0-5/HPF) Urine WBC None seen (0-5/HPF) Urine Bacteria None seen (None) Ur Culture Indicated? Cult not indicated Micro UA Comment Microscopic normal MDM Narrative Medical decision making narrative: 87-year-old male presents with complaint of urinary incontinence which is new he is had chronic urinary retention, had a UroLift and developed retention afterwards again. Patient does have Urology follow-up. Today's CBC, CMP including renal function were negative. Urine does not show infection today encouraged him to finish his antibiotic course. We will send today's urine to make sure culture is negative. He is got follow-up on February 03 and 3 days with his Urology team. All questions answered. Patient did have ultrasound showed possible acute versus chronic renal disease. Copies patient's labs, imaging and urine is included. Discharge Plan Departure Patient Disposition: Home Clinical Impression: Urinary incontinence Activity Restrictions/Additional Instructions: Follow-up with your urology team in [place]. Please complete your current course of antibiotics. Your labs are overall reassuring. Your ultrasound showed some slightly increased renal echogenicity this could indicate some chronic kidney disease but may also be related to her recent procedure, discussed with your urologist. Please return for fevers, new or worsening abdominal back or flank pain, hematuria or blockage of your catheter, vomiting or other new or concerning changes. Prescriptions: No Action carvedilol 6.25 mg tablet 6.25 mg PO BID Rx Instructions: must administer with a meal/food latanoprost 0.005 % drops 1 drp EYE-BOTH DAILY methocarbamol 500 mg tablet 500 mg PO BEDTIME PRN (Reason: Muscle spasms) Qty: 20 0RF Rx Instructions: May take 2-3 times per day as needed for muscle spasms for your leg, this will make you very sleepy so please use caution. hydrocodone-acetaminophen 5-325 mg tablet 1 tab PO BID PRN (Reason: pain) Qty: 14 0RF bisacodyl 10 mg suppository 10 mg [place] DAILY PRN (Reason: constipation) Qty: 12 0RF amoxicillin-pot clavulanate 875-125 mg tablet 1 tab PO Q12H Qty: 20 0RF losartan 25 mg tablet 25 mg PO BID docusate sodium [Colace] 100 mg capsule 100 mg PO BID Qty: 30 0RF acetaminophen [Tylenol] 325 mg capsule 650 mg PO QID PRN (Reason: pain) Qty: 60 0RF tamsulosin 0.4 mg capsule 0.4 mg PO BEDTIME Patient Comments: TAKE ONE CAPSULE BY MOUTH EVERY EVENING oxybutynin chloride 5 mg tablet 5 mg PO TID Patient Comments: Take 1 tablet (5 mg total) by mouth 3 (three) times daily as needed finasteride 5 mg tablet 5 mg PO DAILY Patient Comments: TAKE ONE TABLET BY MOUTH ONE TIME DAILY Eliquis 5 mg Tablet 5 mg PO BID Qty: 30 0RF acetaminophen 325 mg Tablet 650 mg PO Q6H Qty: 120 0RF oxycodone 10 mg Tablet 5 mg PO Q4-6H PRN (Reason: Pain, Severe (7-10)) Qty: 40 0RF Referrals: Hemant Tucker MD [Primary Care Provider] - Stand Alone Forms: Patient Portal/API
--- NOTE | 2023-01-31 16:34 | PC.NURSE ---
nugent bag emptied. changed to a leg bag. large bag given to pt to go home with. Pt reports he has has a cath since last march and declines additional education regarding changing bags. helped into and wheeled to outside vehicle
== END 2023-01-31 15:50 | disposition home or self-care (01) ==
PROVIDERS: Emergency Provider Emergency Medicine; Family Provider Family Medicine; PCP Family Medicine
DX: R32 Unspecified urinary incontinence (principal)
CPT/HCPCS: 36415; 51702; 76770; 80053; 81001; 83690; 85025; 87086; 99283; 99284

== ENCOUNTER 2023-02-26 22:00 | Emergency (ER) | payer MEDICARE, SELFPAY ==
[2022-10-27 13:47] VITALS: BMI 204.0
[2023-02-26 21:57] VITALS: PULSE 83; O2SAT 97
[2023-02-26 22:00] VITALS: BP 158/69; PULSE 82; O2SAT 96
[2023-02-26 22:05] VITALS: BP 158/69; PULSE 82; RESP 22; TEMP 37; O2SAT 96; BMI 30.4
[2023-02-26 22:24] VITALS: BP 156/74
[2023-02-26 22:31] VITALS: BP 176/79; PULSE 84; O2SAT 99
--- NOTE | 2023-02-26 23:54 | ED_ITS ---
HPI - Male Genitourinary General Chief complaint: Urogenital-Male Stated complaint: Cath plugged Time Seen by Provider: 02/26/23 22:22 Source: patient and EMS Mode of arrival: EMS History of Present Illness HPI Narrative: 88-year-old male with ongoing urinary issues frequently requiring urinary catheter since the 05 of March last year. He recently had a urologic procedure and actually removed his catheter earlier this morning but over the course of the day developed increasing difficulty with producing urine and subsequently developed suprapubic tenderness. He denies any nausea or vomiting. He has no fever or chills. His pain is worse when he moves and improves with rest. He states he has had frequent urinary tract infections and his most recent course of antibiotics was about 5 weeks ago Related Data Home Medications Medication Instructions Recorded Confirmed carvedilol 6.25 mg tablet 6.25 mg PO BID 11/16/20 10/27/22 latanoprost 0.005 % eye drops 1 drp EYE-BOTH DAILY 11/16/20 10/27/22 losartan 25 mg tablet 25 mg PO BID 11/16/20 10/27/22 finasteride 5 mg tablet 5 mg PO DAILY 06/13/22 10/27/22 oxybutynin chloride 5 mg tablet 5 mg PO TID 06/13/22 10/27/22 tamsulosin 0.4 mg capsule 0.4 mg PO BEDTIME 06/13/22 10/27/22 Previous Rx's Medication Instructions Recorded acetaminophen 325 mg capsule 650 mg PO QID PRN pain #60 caps 11/22/20 (Tylenol) docusate sodium 100 mg capsule 100 mg PO BID #30 caps 11/22/20 (Colace) acetaminophen 325 mg tablet 650 mg PO Q6H #120 tabs 10/30/22 apixaban 5 mg tablet (Eliquis) 5 mg PO BID #30 tabs 10/30/22 oxycodone 10 mg tablet 5 mg PO Q4-6H PRN Pain, Severe 10/30/22 (7-10) #40 tabs bisacodyl 10 mg rectal suppository 10 mg ND DAILY PRN constipation 01/16/23 #12 ea hydrocodone 5 mg-acetaminophen 325 1 tab PO BID PRN pain #14 tabs 01/16/23 mg tablet methocarbamol 500 mg tablet 500 mg PO BEDTIME PRN Muscle 01/16/23 spasms #20 tabs amoxicillin 875 mg-potassium 1 tab PO Q12H #20 tabs 01/19/23 clavulanate 125 mg tablet Allergies Allergy/AdvReac Type Severity Reaction Status Date / Time simvastatin [SIMVASTATIN] AdvReac Severe MUSCLE Verified 01/31/23 11:11 WEAKNESS Review of Systems Review of Systems Narrative: GENERAL: Denies chills, fatigue, malaise, fever, sweats. HEENT: Denies sinus pain, ear pain, sore throat, difficulty swallowing, dizziness. RESPIRATORY: Denies dyspnea, cough, wheezing, hemoptysis, sputum. CARDIOVASCULAR: Denies chest pain, palpitations, orthopnea, edema, GASTROINTESTINAL: See HPI : See HPI MUSCULOSKELETAL: denies weakness, joint pain, or bony pain SKIN: Denies rash, skin lesions, or other NEUROLOGIC: Denies weakness, headache, numbness, change in speech, confusion, seizures, incoordination. PSYCHIATRIC: No concerning psychosocial issues. 12 point review of systems is negative except for those stated above Patient History Medical History Ascending aortic aneurysm Atrial fibrillation Enlarged prostate Hx of echocardiogram Surgical History H/O cardiac radiofrequency ablation History of blepharoplasty History of knee replacement History of tonsillectomy Family History Father Heart disease Mother Breast cancer Social History marital status: household members: spouse Smoking Status: Former smoker alcohol intake: current substance use type: does not use Smoking Status: Former smoker alcohol intake frequency: a few times a month Substance Use Type: does not use Exam Narrative Exam Narrative: GEN: AOx3 and in mild distress EYES: Pupils are equal, round, and reactive to light and accommodation. Extraoccular muscles are intact bilaterally. There is no subconjunctival hemorrhage or exudate. CHEST: Lungs are clear to auscultation bilaterally and free of wheezes, rales, or rhonchi. Heart rate is regular rhythm, there are no murmurs, clicks, rubs, or gallops. There is no chest wall tenderness. ABD: Abdomen is soft and nontender. There is no guarding or rebound. Bowel sounds are normal in all 4 quadrants. There is no mass or organomegaly. EXT: Full painless ROM of all extremities with no loss of sensation or strength. SKIN: Warm, pink, and dry. No erythema or rash Initial Vital Signs Initial Vital Signs: Vital Signs Pulse Rate 83 02/26/23 21:57 Pulse Oximetry 97 02/26/23 21:57 Oxygen Delivery Method Room Air 02/26/23 21:57 Course Orders Ordered: ED Orders 02/26/23 22:45 Urine Culture Stat 02/27/23 00:00 UA Complete [Urinalysis and Microscopic] Stat Reevaluation(s) Reevaluation #1: Patient had bladder scan performed by nursing which noticed nearly 300 cc of urine in the bladder after attempt to void. At this point Sharp catheter was placed by nursing patient then experienced a rapid and complete resolution of symptoms. Vital Signs Vital signs: Vital Signs - 8 hr 02/26/23 22:05 02/26/23 21:57 02/26/23 22:00 Temperature 98.6 F Pulse Rate 82 83 Respiratory Rate 22 Blood Pressure 158/69 H 158/69 H Pulse Oximetry 96 97 Oxygen Delivery Method Room Air Room Air 02/26/23 22:00 02/26/23 22:24 02/26/23 22:31 Temperature Pulse Rate 82 Respiratory Rate Blood Pressure 156/74 H 176/79 H Pulse Oximetry 96 Oxygen Delivery Method Room Air 02/26/23 22:31 02/27/23 00:11 Temperature Pulse Rate 84 71 Respiratory Rate 20 Blood Pressure 131/63 Pulse Oximetry 99 97 Oxygen Delivery Method Room Air Room Air MDM - Male Genitourinary Lab Data Labs: Lab Results 02/26/23 Range/Units 22:45 Urine Color Yellow Urine Appearance Clear Urine pH 5.0 (4.5-8.0) Ur Specific [place] 1.015 (1.000-1.035) Urine Protein Negative (Negative) Urine Glucose (UA) Negative (Negative) g/dL Urine Ketones Negative (NEGATIVE) Urine Occult Blood Trace-intact (Negative) Urine Nitrate Negative (Negative) Urine Bilirubin Negative (NEGATIVE) Urine Urobilinogen 0.2 (0.2) E.U./dL Ur Leukocyte Esterase Trace H (NEGATIVE) Urine RBC 1-5/hpf (0-5/HPF) Urine WBC 1-5/hpf (0-5/HPF) Ur Squamous Epith Cells 1-5 /hpf (0-5/HPF) Urine Bacteria Few (2-10) H (None) Ur Culture Indicated? Specimen cultured MDM Narrative Medical decision making narrative: [88] year old patient presents with difficulty urinating and suprapubic tenderness Multiple etiologies for patient's symptoms considered including, but not limited to: [Urinary retention versus urinary tract infection versus other] Prior Charts reviewed in our EMR Primary Historian: patient Labs reviewed and interpreted by myself: Urine with no obvious infection Imaging reviewed: Bedside bladder scan Patient's history and physical exam are very reassuring. He developed urinary retention again after removing his catheter at home. He had at least 300 cc postvoid residual and a rapid and complete resolution symptoms with placement of Sharp catheter by nursing. He is otherwise well and without any other complaints. Urine shows no sign of infection. Patient is appropriate for discharge and no further workup is necessary at this time Findings and discharge diagnosis discussed with patient/family followed by verbalization of understanding Return precautions discussed with patient/family whom verbalize understanding of diagnosis and plan Discharge Plan Departure Patient Disposition: Home Clinical Impression: Acute retention of urine Instructions: DI for Urinary Retention in Men Activity Restrictions/Additional Instructions: *You have been diagnosed with [urinary retention] *What to do: *Please continue to take your regular medications as directed. [ ] New medication prescriptions sent to your pharmacy: [ ] [ ] New medication written as a paper prescription [ ] No new medications given *Please follow up with your primary care provider in 2-3 days, call for an appointment. Let them know you were seen in the Emergency Department and that we ask that you be seen in follow up. We will electronically transmit a record of today's note if your PCP is in our system *Return to Emergency Department if you should have any new, worsening or concerning symptoms, such as [fever greater than 101 F, shaking chills, worsening pain, persistent vomiting or other bothersome symptoms] Prescriptions: No Action carvedilol 6.25 mg tablet 6.25 mg PO BID Rx Instructions: must administer with a meal/food latanoprost 0.005 % drops 1 drp EYE-BOTH DAILY methocarbamol 500 mg tablet 500 mg PO BEDTIME PRN (Reason: Muscle spasms) Qty: 20 0RF Rx Instructions: May take 2-3 times per day as needed for muscle spasms for your leg, this will make you very sleepy so please use caution. hydrocodone-acetaminophen 5-325 mg tablet 1 tab PO BID PRN (Reason: pain) Qty: 14 0RF bisacodyl 10 mg suppository 10 mg ND DAILY PRN (Reason: constipation) Qty: 12 0RF amoxicillin-pot clavulanate 875-125 mg tablet 1 tab PO Q12H Qty: 20 0RF losartan 25 mg tablet 25 mg PO BID docusate sodium [Colace] 100 mg capsule 100 mg PO BID Qty: 30 0RF acetaminophen [Tylenol] 325 mg capsule 650 mg PO QID PRN (Reason: pain) Qty: 60 0RF tamsulosin 0.4 mg capsule 0.4 mg PO BEDTIME Patient Comments: TAKE ONE CAPSULE BY MOUTH EVERY EVENING oxybutynin chloride 5 mg tablet 5 mg PO TID Patient Comments: Take 1 tablet (5 mg total) by mouth 3 (three) times daily as needed finasteride 5 mg tablet 5 mg PO DAILY Patient Comments: TAKE ONE TABLET BY MOUTH ONE TIME DAILY Eliquis 5 mg Tablet 5 mg PO BID Qty: 30 0RF acetaminophen 325 mg Tablet 650 mg PO Q6H Qty: 120 0RF oxycodone 10 mg Tablet 5 mg PO Q4-6H PRN (Reason: Pain, Severe (7-10)) Qty: 40 0RF Referrals: Hemant Tucker MD [Primary Care Provider] - Stand Alone Forms: Patient Portal/API
[2023-02-27 00:11] VITALS: BP 131/63; PULSE 71; RESP 20; O2SAT 97
[2023-02-27 00:23] LABS: Appearance Urine UA CLEAR; Bilirubin Urine UA NEGATIVE (NEGATIVE); Color Urine UA YELLOW; Glucose Urine UA NEGATIVE (Negative); Ketones Urine UA NEGATIVE (NEGATIVE); Leukocyte Esterase Urine UA TRACE (NEGATIVE); Nitrite Urine UA NEGATIVE (Negative); Occult Blood Urine UA TRACE-INTACT (Negative); Protein Urine UA NEGATIVE (Negative); Specific Gravity Urine UA 1.015 (1.000-1.035); Urobilinogen Urine UA 0.2 E.U./dL (0.2)
[2023-02-27 00:28] LABS: Bacteria Urine Few (2-10); RBC Urine 1-5/HPF (0-5/HPF); Squamous Epithelial Cell Urine 1-5 /HPF (0-5/HPF); WBC Urine 1-5/HPF (0-5/HPF)
[2023-02-27 00:29] LABS: Culture Indicated Urine Specimen Cultured
== END 2023-02-27 00:20 | disposition home or self-care (01) ==
PROVIDERS: Emergency Provider Emergency Medicine; Family Provider Family Medicine; PCP Family Medicine
DX: R33.9 Retention of urine, unspecified (principal)
CPT/HCPCS: 51702; 51798; 81001; 87077; 87086; 99282; 99283

== ENCOUNTER 2023-04-29 08:49 | Emergency (ER) | payer MEDICARE, SELFPAY ==
[2022-10-27 13:47] VITALS: BMI 204.0
[2023-04-29 09:12] VITALS: BP 185/83; PULSE 78; RESP 16; TEMP 36.4; O2SAT 97; BMI 30.4
--- NOTE | 2023-04-29 09:26 | ED_ITS ---
HPI - General Adult General Chief complaint: Urogenital-Male Stated complaint: T-5 cath removed/UTI/ no longer voiding Time Seen by Provider: 04/29/23 09:20 Source: patient Mode of arrival: Ambulatory Limitations: no limitations History of Present Illness HPI narrative: Patient has a history of prostate cancer. Had a Sharp catheter in place for approximately 14 months. He is had multiple procedures. The catheter was removed 5 days ago. Since that time he has been having some problems urinating and then really over the past 24 hours has been unable to urinate. Had subjective fevers at home. States he feels like he has a urinary tract infection. Does have lower abdominal pain. Related Data Home Medications Medication Instructions Recorded Confirmed carvedilol 6.25 mg tablet 6.25 mg PO BID 11/16/20 10/27/22 latanoprost 0.005 % eye drops 1 drp EYE-BOTH DAILY 11/16/20 10/27/22 losartan 25 mg tablet 25 mg PO BID 11/16/20 10/27/22 finasteride 5 mg tablet 5 mg PO DAILY 06/13/22 10/27/22 oxybutynin chloride 5 mg tablet 5 mg PO TID 06/13/22 10/27/22 tamsulosin 0.4 mg capsule 0.4 mg PO BEDTIME 06/13/22 10/27/22 Previous Rx's Medication Instructions Recorded acetaminophen 325 mg capsule 650 mg PO QID PRN pain #60 caps 11/22/20 (Tylenol) docusate sodium 100 mg capsule 100 mg PO BID #30 caps 11/22/20 (Colace) acetaminophen 325 mg tablet 650 mg PO Q6H #120 tabs 10/30/22 apixaban 5 mg tablet (Eliquis) 5 mg PO BID #30 tabs 10/30/22 oxycodone 10 mg tablet 5 mg PO Q4-6H PRN Pain, Severe 10/30/22 (7-10) #40 tabs bisacodyl 10 mg rectal suppository 10 mg NH DAILY PRN constipation 01/16/23 #12 ea hydrocodone 5 mg-acetaminophen 325 1 tab PO BID PRN pain #14 tabs 01/16/23 mg tablet methocarbamol 500 mg tablet 500 mg PO BEDTIME PRN Muscle 01/16/23 spasms #20 tabs amoxicillin 875 mg-potassium 1 tab PO Q12H #20 tabs 01/19/23 clavulanate 125 mg tablet levofloxacin 750 mg tablet 750 mg PO DAILY 5 days #5 tabs 04/29/23 Allergies Allergy/AdvReac Type Severity Reaction Status Date / Time simvastatin [SIMVASTATIN] AdvReac Severe MUSCLE Verified 01/31/23 11:11 WEAKNESS Review of Systems Constitutional Constitutional: Reports system reviewed and no additional complaints, except as documented Gastrointestinal Gastrointestinal: Reports system reviewed and no additional complaints, except as documented Genitourinary Genitourinary: Reports system reviewed and no additional complaints, except as documented Integumentary/Breasts Skin/Breast: Reports system reviewed and no additional complaints, except as documented Patient History Medical History Ascending aortic aneurysm Atrial fibrillation Enlarged prostate Hx of echocardiogram Surgical History H/O cardiac radiofrequency ablation History of blepharoplasty History of knee replacement History of tonsillectomy Family History Father Heart disease Mother Breast cancer Social History marital status: household members: spouse Smoking Status: Former smoker alcohol intake: current substance use type: does not use Smoking Status: Former smoker alcohol intake frequency: a few times a month Substance Use Type: does not use Exam Initial Vital Signs Initial Vital Signs: Vital Signs Temperature 97.5 F L 04/29/23 09:12 Pulse Rate 78 04/29/23 09:12 Respiratory Rate 16 04/29/23 09:12 Blood Pressure 185/83 H 04/29/23 09:12 Pulse Oximetry 97 04/29/23 09:12 Oxygen Delivery Method Room Air 04/29/23 09:12 Const General: cooperative and No ill appearing HENMT Head: normal to inspection and normocephalic GI Inspection: normal to inspection Palpation: soft and tender (Lower abdomen) Skin General: no rashes or lesions noted Neuro General: patient alert and patient awake Course Orders Ordered: ED Orders 04/29/23 09:46 Urinalysis and Microscopic Stat Urine Culture Stat Discontinued Medications Lidocaine HCl (Lidocaine 2% (Glydo) 6 Ml Gel) 6 ml TOP NOW ONE Stop: 04/29/23 09:26 Vital Signs Vital signs: Vital Signs - 8 hr 04/29/23 09:12 Temperature 97.5 F L Pulse Rate 78 Respiratory Rate 16 Blood Pressure 185/83 H Pulse Oximetry 97 Oxygen Delivery Method Room Air Medical Decision Making Medical Records Medical records reviewed: Yes I reviewed the patient's medical records. Lab Data Lab results reviewed: Yes I reviewed the patient's lab results. Labs: Lab Results 04/29/23 Range/Units 09:46 Urine Color Yellow Urine Appearance Sl cloudy Urine pH 5.0 (4.5-8.0) Ur Specific [place] <=1.005 (1.000-1.035) Urine Protein Negative (Negative) Urine Glucose (UA) Negative (Negative) g/dL Urine Ketones Negative (NEGATIVE) Urine Occult Blood 3+ H (Negative) Urine Nitrate Positive H (Negative) Urine Bilirubin Negative (NEGATIVE) Urine Urobilinogen 0.2 (0.2) E.U./dL Ur Leukocyte Esterase 1+ H (NEGATIVE) Urine RBC 5-10/hpf H (0-5/HPF) Urine WBC 1-5/hpf (0-5/HPF) Ur Squamous Epith Cells None seen (0-5/HPF) Urine Bacteria Many (>30) H (None) Ur Culture Indicated? Specimen cultured MDM Narrative Medical decision making narrative: Patient was retaining urine. A Sharp catheter was placed with return of approximately 1 L. He states he feels much better. He is afebrile not tachycardic. He does have nitrite positive urine. Review of his medical record shows that he has had a couple different bacteria in the past. He has had a E coli that was resistant to quite a few antibiotics however his last urine culture is positive for pantoea for which he was given Levaquin and this did seem to improve his symptoms. A urine culture was pending today. We will use Levaquin once again. Will have him follow-up with his urologist Discharge Plan Departure Patient Disposition: Home Clinical Impression: Acute UTI, Acute on chronic urinary retention Instructions: How to Care for Your Sharp Catheter -- Male, DI for Urinary Tract Infection (UTI), DI for Urinary Retention in Men Activity Restrictions/Additional Instructions: A urine culture was pending at the time of her discharge today and we will contact you if we need to change any antibiotics. I do recommend you contact your urologist for a follow-up. Return to the emergency department for new symptoms. Prescriptions: New levofloxacin 750 mg tablet 750 mg PO DAILY 5 Days Qty: 5 0RF No Action carvedilol 6.25 mg tablet 6.25 mg PO BID Rx Instructions: must administer with a meal/food latanoprost 0.005 % drops 1 drp EYE-BOTH DAILY methocarbamol 500 mg tablet 500 mg PO BEDTIME PRN (Reason: Muscle spasms) Qty: 20 0RF Rx Instructions: May take 2-3 times per day as needed for muscle spasms for your leg, this will make you very sleepy so please use caution. hydrocodone-acetaminophen 5-325 mg tablet 1 tab PO BID PRN (Reason: pain) Qty: 14 0RF bisacodyl 10 mg suppository 10 mg NH DAILY PRN (Reason: constipation) Qty: 12 0RF amoxicillin-pot clavulanate 875-125 mg tablet 1 tab PO Q12H Qty: 20 0RF losartan 25 mg tablet 25 mg PO BID docusate sodium [Colace] 100 mg capsule 100 mg PO BID Qty: 30 0RF acetaminophen [Tylenol] 325 mg capsule 650 mg PO QID PRN (Reason: pain) Qty: 60 0RF tamsulosin 0.4 mg capsule 0.4 mg PO BEDTIME Patient Comments: TAKE ONE CAPSULE BY MOUTH EVERY EVENING oxybutynin chloride 5 mg tablet 5 mg PO TID Patient Comments: Take 1 tablet (5 mg total) by mouth 3 (three) times daily as needed finasteride 5 mg tablet 5 mg PO DAILY Patient Comments: TAKE ONE TABLET BY MOUTH ONE TIME DAILY Eliquis 5 mg Tablet 5 mg PO BID Qty: 30 0RF acetaminophen 325 mg Tablet 650 mg PO Q6H Qty: 120 0RF oxycodone 10 mg Tablet 5 mg PO Q4-6H PRN (Reason: Pain, Severe (7-10)) Qty: 40 0RF Referrals: Hemant Tucker MD [Primary Care Provider] - Stand Alone Forms: Patient Portal/API
[2023-04-29 09:30] VITALS: PULSE 72; O2SAT 98
[2023-04-29 09:54] LABS: Appearance Urine UA SL CLOUDY; Bilirubin Urine UA NEGATIVE (NEGATIVE); Color Urine UA YELLOW; Glucose Urine UA NEGATIVE (Negative); Ketones Urine UA NEGATIVE (NEGATIVE); Leukocyte Esterase Urine UA 1+ (NEGATIVE); Nitrite Urine UA POSITIVE (Negative); Occult Blood Urine UA 3+ (Negative); Protein Urine UA NEGATIVE (Negative); Specific Gravity Urine UA <=1.005 (1.000-1.035); Urobilinogen Urine UA 0.2 E.U./dL (0.2)
[2023-04-29 09:59] LABS: Bacteria Urine Many (>30); Culture Indicated Urine Specimen Cultured; RBC Urine 5-10/HPF (0-5/HPF); Squamous Epithelial Cell Urine None Seen (0-5/HPF); WBC Urine 1-5/HPF (0-5/HPF)
[2023-04-29 10:28] VITALS: PULSE 64; O2SAT 93
[2023-04-29 10:30] VITALS: BP 149/65; PULSE 64; RESP 14; O2SAT 98
== END 2023-04-29 10:35 | disposition home or self-care (01) ==
PROVIDERS: Emergency Provider Emergency Medicine; Family Provider Family Medicine; PCP Family Medicine
DX: N39.0 Urinary tract infection, site not specified (principal); R33.8 Other retention of urine
CPT/HCPCS: 51702; 81001; 87077; 87086; 87186; 99283

== ENCOUNTER → 2023-05-02 13:07 | Outpatient (CLI) | payer MEDICARE, SELFPAY ==
[2022-10-27 13:47] VITALS: BMI 204.0
== END ==
PROVIDERS: Family Provider Family Medicine; PCP Family Medicine; Referring Provider Family Medicine; Visit Provider Family Medicine
DX: M79.641 Pain in right hand (principal)
CPT/HCPCS: 95885; 95886; 95912

== ENCOUNTER → 2023-07-11 14:24 | Outpatient (CLI) | payer MEDICARE, SELFPAY ==
[2022-10-27 13:47] VITALS: BMI 204.0
[2023-05-10 08:38] VITALS: BMI 204.0
== END ==
PROVIDERS: Family Provider Family Medicine; PCP Family Medicine; Referring Provider Family Medicine; Visit Provider Family Medicine
DX: R20.2 Paresthesia of skin (principal)
CPT/HCPCS: 95886; 95910

== ENCOUNTER → 2023-07-15 14:42 | Outpatient (CLI) | payer MEDICARE, SELFPAY ==
[2023-05-10 08:38] VITALS: BMI 204.0
== END ==
PROVIDERS: Family Provider Family Medicine; PCP Family Medicine; Visit Provider Urology
DX: N39.0 Urinary tract infection, site not specified (principal)
CPT/HCPCS: 87086

== ENCOUNTER → 2023-07-15 15:52 | Outpatient (CLI) | payer MEDICARE, SELFPAY ==
[2023-05-10 08:38] VITALS: BMI 204.0
[2023-07-15 18:26] LABS: Prostate Specific Antigen 0.136 ng/mL (0.10-4.00)
== END ==
PROVIDERS: Family Provider Family Medicine; PCP Family Medicine; Referring Provider Urology; Visit Provider Urology
DX: C61 Malignant neoplasm of prostate (principal); N39.0 Urinary tract infection, site not specified; N39.44 Nocturnal enuresis; Z79.818 Long term (current) use of other agents affecting estrogen receptors and estrogen levels; Z98.890 Other specified postprocedural states; Z92.3 Personal history of irradiation; Z87.442 Personal history of urinary calculi
CPT/HCPCS: 36415; 51798; 81002; 84153; 87077; 87086; 87186; 99215

== ENCOUNTER → 2023-07-19 08:03 | Outpatient (CLI) | payer MEDICARE, SELFPAY ==
[2023-05-10 08:38] VITALS: BMI 204.0
--- NOTE | 2023-07-19 | DI.MRI.S_ITS ---
PROCEDURE: MR LUMBAR SPINE WO CON INDICATIONS: Radiculopathy, lumbar region TECHNIQUE: Noncontrast sagittal T1 spin echo and T2 fast echo, sagittal STIR, and T2 fast spin echo through the lumbar spine. In cases with scoliosis, additional coronal T2 fast spin echo may be performed. COMPARISON: [facility], MR, L-SPINE WITHOUT CONTRAST, 08/15/2009, 15:35. FINDINGS: Image quality: Excellent. Alignment and Curvature: Straightening of the normal lumbar lordosis. Minimal anterolisthesis of L4 on L5. Bone Marrow: Multilevel Modic type 2 degenerative endplate changes, most pronounced L2-L3. Marrow is of normal overall signal. No acute vertebral body compression fractures. Spinal Cord: Conus medullaris terminates at the L1-L2 level. Visualized cord demonstrates normal signal and size. Paraspinous Soft Tissues: No paravertebral masses. T12-L1: Disc desiccation and mild disc bulge. No central canal or neural foraminal stenosis. L1-L2: Disc desiccation and height loss with a posterior disc bulge. Facet arthropathy and thickening of ligamentum flavum. Mild epidural lipomatosis. No central canal stenosis. Mild right neural foraminal stenosis. No left neural foraminal stenosis. L2-L3: Disc desiccation height loss. Posterior disc bulge. Facet arthropathy and thickening of the ligamentum flavum. Mild spinal canal stenosis is similar to prior. Mild bilateral neural foraminal stenosis is similar to prior. L3-L4: Disc desiccation height loss. Posterior disc bulge. Facet arthropathy and thickening of ligamentum flavum. Epidural lipomatosis. Mild central canal stenosis is similar to prior. Moderate bilateral neural foraminal stenosis is similar to prior. L4-L5: Disc desiccation and height loss. Posterior disc bulge. Facet arthropathy and thickened ligamentum flavum. Mild spinal canal stenosis is mildly progressed compared to prior. Moderate to severe bilateral neural foraminal stenosis is stable. L5-S1: Disc desiccation height loss. Posterior disc bulge. Facet arthropathy. No central canal stenosis. Mild bilateral neural foraminal stenosis is mildly progressed compared to prior. IMPRESSION: 1. Multilevel degenerative changes of the lumbar spine as described above. There is worsening of disc height loss and degenerative endplate changes when compared to prior. 2. There is mild progression of spinal canal stenosis at L4-5, with mild spinal canal stenosis. Mild progression of neural foraminal stenosis at L5-S1 with mild bilateral neural foraminal stenosis. 3. Degenerative changes at other levels are not significantly changed compared to prior, as described above. Stable moderate to severe bilateral neural foraminal stenosis at L4-5. Dictated by: Ted Feliciano M.D. on 07/19/2023 at 10:40 Approved by: Ted Feliciano M.D. on 07/19/2023 at 10:47
== END ==
PROVIDERS: Family Provider Family Medicine; PCP Family Medicine; Referring Provider Family Medicine; Visit Provider Family Medicine
DX: M47.26 Other spondylosis with radiculopathy, lumbar region (principal); M47.27 Other spondylosis with radiculopathy, lumbosacral region; M48.061 Spinal stenosis, lumbar region without neurogenic claudication; M48.07 Spinal stenosis, lumbosacral region
CPT/HCPCS: 72148

== ENCOUNTER → 2023-07-24 10:15 | Outpatient (CLI) | payer MEDICARE, SELFPAY ==
[2023-05-10 08:38] VITALS: BMI 204.0
--- NOTE | 2023-07-24 10:16 | DI.RAD.S_ITS ---
Bone Density Report Name: MARLENE KEENAN Age: 88 Sex: Male Ethnicity: White Date of : 1935 Indication: screening for osteoporosis; prior fracture; Referring Provider: ISRAEL FULLER Study: Bone densitometry was performed. Exam Date: July 24, 2023 Accession number: [id number] Bone Density: Region BMD T-score Z-score Classification AP Spine(L2, L3) 1.438 3.5 4.4 Normal Femoral Neck (Right) 0.740 -1.0 0.3 Normal Total Hip (Right) 0.953 0.1 0.7 Normal Total Forearm (Left) 0.759 3.3 Normal 1/3 Forearm (Left) 0.847 2.5 Normal UD Forearm (Left) 0.594 2.6 Normal World Health Organization criteria for BMD impression classify patients as: Normal (T-score at or above -1.0), Osteopenia (T-score between -1.0 and -2.5), or Osteoporosis (T-score at or below -2.5). 10-year Fracture Risk: FRAX not reported because: All T-scores for Spine Total, Hip Total, Femoral Neck at or above -1.0 Prior hip or vertebral fracture Impression: The patient has normal bone mass. The patient has risk factors, including: previous fracture. Discussion: INCREASED RISK OF FRACTURE DUE TO HISTORY OF LOW TRAUMA FRACTURE. The patient's previous fracture puts the patient at high risk of a future fracture. In untreated patients, the risk of osteoporotic fracture increases approximately two-fold for each 1.0 SD decrease in T-score. Low bone density is not the only risk factor for fracture; also consider factors such as patient's age, frailty or poor health, risk of falling, risk of injury, previous osteoporotic fracture, family history of osteoporosis, cigarette smoking, low body weight, etc. Not everyone with a low trauma fracture has osteoporosis; osteomalacia and other metabolic bone disorders should also be considered. Patients who have osteoporosis should be evaluated for specific diseases and conditions (secondary causes) that may cause or contribute to bone loss and fracture risk. National Osteoporosis Foundation (NOF) recommends pharmacologic intervention for patients with a prior low trauma hip or vertebral fracture regardless of BMD T-score. The patient should follow a healthful lifestyle (good nutrition with adequate calcium and vitamin D, and appropriate weight-bearing exercise). Follow-Up: Consider a repeat BMD and Vertebral Fracture Assessment (VFA) exam in 2 years or sooner if medically necessary, to reassess this patient's status. Reported by: CARL IQBAL M.D. on 07/24/2023 10:54:00 AM.
== END ==
PROVIDERS: Family Provider Family Medicine; PCP Family Medicine; Referring Provider Urology; Visit Provider Urology
DX: C61 Malignant neoplasm of prostate (principal); Z79.818 Long term (current) use of other agents affecting estrogen receptors and estrogen levels
CPT/HCPCS: 77080; 77081

== ENCOUNTER → 2023-09-30 14:07 | Outpatient (ROUT) | payer MEDICARE, SELFPAY ==
[2023-09-05 12:15] VITALS: BMI 204.0
[2023-09-30 14:14] LABS: Add Manual Diff / Slide Review NO; Basophils Absolute Auto 0 /uL (0-100); Basophils Percent Auto 0.6 % (0-2); Eosinophils Absolute Auto 300 /uL (0-450); Eosinophils Percent Auto 4.6 % (2-4); Hematocrit 34.5 % (41-53); Hemoglobin 11.8 g/dL (13.5-17.5); Lymphocytes Absolute Auto 1500 /uL (1100-4500); Lymphocytes Percent Auto 23.3 % (25-40); Mean Corpuscular HGB Conc 34.3 % (30-36); Mean Corpuscular Volume 93.4 fL (80-100); Monocytes Absolute Auto 700 /uL (0-900); Monocytes Percent Auto 10.2 % (3-14); Neutrophils Absolute Auto 3900 /uL (1500-7000); Neutrophils Percent Auto 61.3 % (50-75); Platelet Count 164 X10^3/uL (150-400); Red Blood Cell Count 3.69 X10^6/uL (4.5-5.9); Red Cell Distribution Width 16.2 % (11.6-14.8); White Blood Cell Count 6.4 X10^3/uL (4.5-11.0)
== END ==
PROVIDERS: Family Provider Family Medicine; PCP Family Medicine; Visit Provider Family Medicine
DX: K62.5 Hemorrhage of anus and rectum (principal)
CPT/HCPCS: 85025

== ENCOUNTER → 2023-10-02 11:27 | Outpatient (CLI) | payer MEDICARE, SELFPAY ==
[2023-10-01 08:38] VITALS: BMI 204.0
[2023-10-02 12:12] LABS: Appearance Urine UA CLEAR; Bilirubin Urine UA NEGATIVE (NEGATIVE); Color Urine UA YELLOW; Glucose Urine UA NEGATIVE (Negative); Ketones Urine UA NEGATIVE (NEGATIVE); Leukocyte Esterase Urine UA 1+ (NEGATIVE); Nitrite Urine UA NEGATIVE (Negative); Occult Blood Urine UA TRACE-INTACT (Negative); Protein Urine UA NEGATIVE (Negative); Specific Gravity Urine UA 1.025 (1.000-1.035); Urobilinogen Urine UA 0.2 E.U./dL (0.2)
[2023-10-02 12:14] LABS: Urine Volume 10mL (spun)
[2023-10-02 12:16] LABS: RBC Urine 0-1/HPF (0-5/HPF)
[2023-10-02 12:17] LABS: Bacteria Urine None Seen; Culture Indicated Urine Specimen Cultured; Squamous Epithelial Cell Urine 0-1 /HPF (0-5/HPF); WBC Urine 5-10/HPF (0-5/HPF)
[2023-10-31 09:23] LABS: Misc. to WA State Lab SCANNED
== END ==
PROVIDERS: Family Provider Family Medicine; PCP Family Medicine; Referring Provider Urology; Visit Provider Urology
DX: N39.0 Urinary tract infection, site not specified (principal)
CPT/HCPCS: 81001; 87077; 87086

== ENCOUNTER → 2023-11-01 13:04 | Outpatient (CLI) | payer MEDICARE, SELFPAY ==
[2023-10-01 08:38] VITALS: BMI 204.0
--- NOTE | 2023-11-01 13:06 | DI.RAD.S_ITS ---
PROCEDURE: XR LUMBAR SPINE MIN 4V INDICATIONS: BACK PAIN TECHNIQUE: 5 views of the lumbar spine were acquired, including bilateral oblique views. COMPARISON: [facility], , L-SPINE 4V PLUS BENDING, 08/22/2009, 10:45. FINDINGS: Bones: 5 nonrib-bearing vertebrae are present. There is normal bony alignment. No vertebral body compression fractures. No suspicious bony lesions. Note is again made of moderately severe to severe degenerative disc disease and facet osteoarthritis from L 2 3 through L5-S1. This has moderately worsened from the comparison study from August 2009. A previously present slight grade 1 anterolisthesis of L4 on L5 is again seen. Spinal and foraminal stenosis likely has worsened significantly from the prior study at L3-4, L4-5 and L5-S1. Soft tissues: Overlying bowel gas pattern is normal. No suspicious soft tissue calcifications. Oblique images: No pars defects. IMPRESSION: No acute bony abnormality. Worsening degenerative disc disease and facet osteoarthritis over the lower 4 disc spaces of the lumbosacral spine. No compression fracture found. No worsening in mild grade 1 anterolisthesis of L4 on L5. Dictated by: Anupam Williamson M.D. on 11/01/2023 at 14:15 Approved by: Anupam Williamson M.D. on 11/01/2023 at 14:17
== END ==
LOC: RAD 13:06
PROVIDERS: Family Provider Family Medicine; PCP Family Medicine; Referring Provider Physical Medicine & Rehabilitation; Visit Provider Physical Medicine & Rehabilitation
DX: M51.36 Other intervertebral disc degeneration, lumbar region (principal); M51.37 Other intervertebral disc degeneration, lumbosacral region; M47.816 Spondylosis without myelopathy or radiculopathy, lumbar region; M47.817 Spondylosis without myelopathy or radiculopathy, lumbosacral region; M48.061 Spinal stenosis, lumbar region without neurogenic claudication; M48.07 Spinal stenosis, lumbosacral region; M54.9 Dorsalgia, unspecified
CPT/HCPCS: 72110

== ENCOUNTER 2023-11-26 12:08 | Outpatient (CLI) | payer MEDICARE, SELFPAY ==
[2023-10-01 08:38] VITALS: BMI 204.0
[2023-11-26] VITALS (7 sets, daily range): BP systolic 110–137; BP diastolic 55–66; PULSE 58–73; RESP 14–16; TEMP 36.2; O2SAT 96–98
--- NOTE | 2023-11-26 13:00 | DI.RAD.S_ITS ---
PROCEDURE: PAIN L/S TRANSFORAMINAL INJECT INDICATIONS: SPONDYLOSIS COMPARISON: None. FINDINGS: Fluoroscopic spot filming was performed to verify placement of spinal needles at the L4-5 level(s), as labeled on the films. Appropriate location(s) of the needle tip(s) was confirmed by injection of iodinated contrast. IMPRESSION: L4-5 contrast and needle placement. Dictated by: India Cuenca M.D. on 11/26/2023 at 17:00 Approved by: India Cuenca M.D. on 11/26/2023 at 17:00
--- NOTE | 2023-11-26 13:26 | PC.NURSE ---
Patient had outpatient carpel tunnel surgery with Dr Quezada on 11/21/23. Denies any s/sx of infection. aware and ok to proceed with injection
[2023-11-26] MEDS: MIDAZOLAM 2 MG/2 ML VIAL IV (13:36)
[2023-11-26] MEDS: iopamidoL 15 ML VIAL 3 ML INJ (13:41)
[2023-11-26] MEDS: BUPIVACAINE 0.25% (PF) VIAL 2 ML INJ (13:42)
[2023-11-26] MEDS: BETAMETHASONE 30 MG/5 ML MDV 6 MG INJ (13:42)
[2023-11-26] MEDS: DEXAMETHASONE 10 MG/ML VIAL INJ (13:42)
--- NOTE | 2023-11-26 13:51 | P.PCN_ITS ---
Date/Time/Diagnoses Date of procedure: 11/26/23 Time of procedure: 13:51 Pre-procedure diagnosis: 1. FORAMINAL STENOSIS WITH LE SYMPTOMS Post-procedure diagnosis: same Procedure Notes Procedure: 1. FLUOROSCOPICALLY GUIDED CONTRAST CONTROLLED TRANSFORAMINAL EPIDURAL STEROID INJECTION - LEFT L4/5 Indications: Hussein is referred by Dr. Tucker for treatment of Foraminal Stenosis with Left LE Symptoms Physician: Hemant Brar Total Fluoroscopy time (seconds): 15 Total sedation minutes: 10 Complications: none Procedure in detail & Post-procedure care: FINDINGS Foraminal Nerve Root Compression secondary to disc disease and facet hypertrophy DESCRIPTION OF PROCEDURE Following review of allergy and review of potential side effects and complications, including, but not necessarily limited to, infection, allergic reaction, local tissue breakdown, stroke, temporary or permanent nerve injury, paralysis, and possible , the patient indicated that the patient understood and agreed to proceed. An informed consent document was signed by the patient, witnessed by a nurse, and placed in the patient's chart. Additionally, other treatment options including medications, modalities, and physical therapy were reviewed with the patient. After review of previous anaesthesic history and IV conscious sedation the patient was deemed safe to proceed with today?s procedure with IV conscious sedation as ASA class II designation. Safety time-out was performed to confirm patient ID, procedure to be performed and site of procedure. IV sedation was accomplished with a combination of 2mg of Versed administered by the RN after DO order, titrated to patient comfort during the course of the procedure while the patient remained responsive to all verbal commands In the prone position following sterile prep and drape of the lumbar region, the left L4/5 posterior neuroforamen was identified fluoroscopically. The skin was anesthetized via a 25-gauge 1.5-inch needle with 1% lidocaine solution. At this point, a 25-gauge 3.5-inch spinal needle was atraumatically introduced and advanced under fluoroscopic guidance through the posterior left L4/5 neuroforamen to approximately the anterior aspect of the canal. Depth was confirmed on lateral view. Following negative aspiration, injection of approximately 1.5 cc of Isovue 200 under live fluoroscopy in the AP view confirmed excellent flow along the nerve root, into the epidural space without vascular or intrathecal uptake observed Radiological data, including multiple fluoroscopic views of the lumbosacral spine, reveal a spinal needle at the left L4/5 posterior neuroforamen. Subsequent views show flow of contrast material flowing superiorly and inferiorly along the nerve root confirming epidural flow. Subsequently, a test dose of 1.5 cc of 1% lidocaine solution was administered and patient was observed for two minutes for signs or symptoms of complications, including abdominal pain, shortness of breath, bilateral upper or lower extremity weakness, nausea and vomiting, prior to steroid injection. At this point, a total of 2cc or 10mg of dexamethasone and 6mg of betamethasone was injected without incident. The procedure tolerated the procedure well without signs or symptoms of complications prior to transfer to the recovery area continued monitoring without incident. The patient was then transferred to the recovery area where they were observed for an appropriate time after the injection. The patient reported a VAS score of 7 prior to the procedure and a post- procedure VAS of 0. POST OP INSTRUCTIONS The patient was provided a Pain Log to continue to record their response to the target-specific procedure prior to follow-up visit with their referring physician. Additionally, specific post-injection care instructions and a contact number to our office were provided if concerns arise regarding possible complications associated with the procedure are suspected.
== END 2023-11-26 14:20 | disposition home or self-care (01) ==
PROVIDERS: Family Provider Family Medicine; PCP Family Medicine; Referring Provider Physical Medicine & Rehabilitation; Visit Provider Physical Medicine & Rehabilitation
DX: M48.061 Spinal stenosis, lumbar region without neurogenic claudication (principal); M51.16 Intervertebral disc disorders with radiculopathy, lumbar region; M47.26 Other spondylosis with radiculopathy, lumbar region; C61 Malignant neoplasm of prostate; Z79.818 Long term (current) use of other agents affecting estrogen receptors and estrogen levels
CPT/HCPCS: 36415; 64483; 84153; 99152; J0702; J1100; J2250; J3490

== ENCOUNTER → 2023-11-26 14:25 | Outpatient (CLI) | payer MEDICARE, SELFPAY ==
[2023-10-01 08:38] VITALS: BMI 204.0
[2023-11-26 15:45] LABS: Prostate Specific Antigen 0.128 ng/mL (0.10-4.00)
== END ==
LOC: LAB 14:26
PROVIDERS: Family Provider Family Medicine; PCP Family Medicine; Referring Provider Urology; Visit Provider Urology
DX: C61 Malignant neoplasm of prostate (principal); Z79.818 Long term (current) use of other agents affecting estrogen receptors and estrogen levels
CPT/HCPCS: 36415; 84153

== ENCOUNTER → 2023-12-27 08:21 | Outpatient (CLI) | payer MEDICARE, SELFPAY ==
[2023-10-01 08:38] VITALS: BMI 204.0
[2023-12-27 10:38] LABS: Appearance Urine UA CLEAR; Bilirubin Urine UA NEGATIVE (NEGATIVE); Color Urine UA YELLOW; Glucose Urine UA NEGATIVE (Negative); Ketones Urine UA NEGATIVE (NEGATIVE); Leukocyte Esterase Urine UA 2+ (NEGATIVE); Nitrite Urine UA NEGATIVE (Negative); Occult Blood Urine UA NEGATIVE (Negative); Protein Urine UA NEGATIVE (Negative); Specific Gravity Urine UA 1.025 (1.000-1.035); Urobilinogen Urine UA 0.2 E.U./dL (0.2)
[2023-12-27 10:46] LABS: Bacteria Urine Occasional (0-1); Culture Indicated Urine Specimen Cultured; RBC Urine None Seen (0-5/HPF); Squamous Epithelial Cell Urine 0-1 /HPF (0-5/HPF); Urine Volume 10mL (spun); WBC Urine 30-100/HPF (0-5/HPF)
== END ==
PROVIDERS: Family Provider Family Medicine; PCP Family Medicine; Referring Provider Urology; Visit Provider Urology
DX: R35.0 Frequency of micturition (principal)
CPT/HCPCS: 81001; 87086

== ENCOUNTER → 2024-02-21 10:15 | Outpatient (CLI) | payer MEDICARE, SELFPAY ==
[2023-10-01 08:38] VITALS: BMI 204.0
[2024-02-21 12:29] LABS: Prostate Specific Antigen 0.303 ng/mL (0.10-4.00)
== END ==
LOC: LAB 10:21
PROVIDERS: Family Provider Family Medicine; PCP Family Medicine; Referring Provider Urology; Visit Provider Urology
DX: C61 Malignant neoplasm of prostate (principal)
CPT/HCPCS: 36415; 84153

== ENCOUNTER 2024-03-03 14:41 | Outpatient (CLI) | payer MEDICARE, SELFPAY ==
[2023-10-01 08:38] VITALS: BMI 204.0
[2024-03-03] VITALS (8 sets, daily range): BP systolic 111–152; BP diastolic 56–68; PULSE 64–75; RESP 14–20; TEMP 36.2; O2SAT 95–98
--- NOTE | 2024-03-03 15:15 | DI.RAD.S_ITS ---
PROCEDURE: PAIN L/S TRANSFORAMINAL INJECT INDICATIONS: Left L5-S1 transforaminal SAY COMPARISON: [facility], , PAIN L/S TRANSFORAMINAL INJECT, 11/26/2023, 13:36. FINDINGS: Fluoroscopic spot filming was performed to verify placement of spinal needles at the L5-S1 level(s), as labeled on the films. Appropriate location(s) of the needle tip(s) was confirmed by injection of iodinated contrast. IMPRESSION: Contrast and needle placement overlying L5-S1. Dictated by: India Cuenca M.D. on 03/03/2024 at 16:34 Approved by: India Cuenca M.D. on 03/03/2024 at 16:35
[2024-03-03] MEDS: MIDAZOLAM 2 MG/2 ML VIAL IV (15:27)
[2024-03-03] MEDS: BUPIVACAINE 0.25% (PF) VIAL 2 ML INJ (15:31)
[2024-03-03] MEDS: DEXAMETHASONE 10 MG/ML VIAL INJ (15:32)
[2024-03-03] MEDS: iopamidoL 15 ML VIAL 3 ML INJ (15:32)
[2024-03-03] MEDS: BETAMETHASONE 30 MG/5 ML MDV 6 MG INJ (15:32)
--- NOTE | 2024-03-03 15:34 | PC.NURSE ---
Patient states I have been on an antibiotic for the last week and have 2 days left. Unsure what abx he is taking. States that he had symptoms of frequency and burning with urination, currently has no symptoms at this time. Uses a external cath at night time. Dr Brar aware.
--- NOTE | 2024-03-03 15:45 | P.PCN_ITS ---
Date/Time/Diagnoses Date of procedure: 03/03/24 Time of procedure: 15:46 Pre-procedure diagnosis: 1. FORAMINAL STENOSIS WITH LE SYMPTOMS Post-procedure diagnosis: same Procedure Notes Procedure: 1. FLUOROSCOPICALLY GUIDED CONTRAST CONTROLLED TRANSFORAMINAL EPIDURAL STEROID INJECTION - Left L5/S1 Indications: Hussein is referred by Dr. Tucker for treatment of Foraminal Stenosis with Left LE Symptoms Physician: Hemant Brar Total Fluoroscopy time (seconds): 7 Total sedation minutes: 11 Complications: none Procedure in detail & Post-procedure care: FINDINGS Foraminal Nerve Root Compression secondary to disc disease and facet hypertrophy DESCRIPTION OF PROCEDURE Following review of allergy and review of potential side effects and complications, including, but not necessarily limited to, infection, allergic reaction, local tissue breakdown, stroke, temporary or permanent nerve injury, paralysis, and possible , the patient indicated that the patient understood and agreed to proceed. An informed consent document was signed by the patient, witnessed by a nurse, and placed in the patient's chart. Additionally, other treatment options including medications, modalities, and physical therapy were reviewed with the patient. After review of previous anaesthesic history and IV conscious sedation the patient was deemed safe to proceed with today?s procedure with IV conscious sedation as ASA class II designation. Safety time-out was performed to confirm patient ID, procedure to be performed and site of procedure. IV sedation was accomplished with a combination of 2mg of Versed was administered by the RN after DO order, titrated to patient comfort during the course of the procedure while the patient remained responsive to all verbal commands In the prone position following sterile prep and drape of the lumbar region, the Left L5/S1 posterior neuroforamen was identified fluoroscopically. The skin was anesthetized via a 25-gauge 1.5-inch needle with 1% lidocaine solution. At this point, a 25-gauge 3.5-inch spinal needle was atraumatically introduced and advanced under fluoroscopic guidance through the posterior Left L5/S1 neuroforamen to approximately the anterior aspect of the canal. Depth was confirmed on lateral view. Following negative aspiration, injection of approximately 1.5 cc of Isovue 200 under live fluoroscopy in the AP view confirmed excellent flow along the nerve root, into the epidural space without vascular or intrathecal uptake observed Radiological data, including multiple fluoroscopic views of the lumbosacral spine, reveal a spinal needle at the Left L5/S1 posterior neuroforamen. Subsequent views show flow of contrast material flowing superiorly and inferiorly along the nerve root confirming epidural flow. Subsequently, a test dose of 1.5 cc of 1% lidocaine solution was administered and patient was observed for two minutes for signs or symptoms of complications, including abdominal pain, shortness of breath, bilateral upper or lower extremity weakness, nausea and vomiting, prior to steroid injection. At this point, a total of 2cc or 10mg of dexamethasone and 6mg of betamethasone was injected without incident. The procedure tolerated the procedure well without signs or symptoms of complications prior to transfer to the recovery area continued monitoring without incident. The patient was then transferred to the recovery area where they were observed for an appropriate time after the injection. The patient reported a VAS score of 7 prior to the procedure and a post-procedure VAS of 0. POST OP INSTRUCTIONS The patient was provided a Pain Log to continue to record their response to the target-specific procedure prior to follow-up visit with their referring physi shira. Additionally, specific post-injection care instructions and a contact number to our office were provided if concerns arise regarding possible complications associated with the procedure are suspected.
== END 2024-03-03 16:22 | disposition home or self-care (01) ==
PROVIDERS: Family Provider Family Medicine; PCP Family Medicine; Referring Provider Physical Medicine & Rehabilitation; Visit Provider Physical Medicine & Rehabilitation
DX: M48.07 Spinal stenosis, lumbosacral region (principal); M51.17 Intervertebral disc disorders with radiculopathy, lumbosacral region; M47.27 Other spondylosis with radiculopathy, lumbosacral region
CPT/HCPCS: 64483; 99152; J0702; J1100; J2250; J3490

== ENCOUNTER → 2024-03-18 08:20 | Outpatient (CLI) | payer MEDICARE, SELFPAY ==
[2023-10-01 08:38] VITALS: BMI 204.0
[2024-03-18 08:40] LABS: Appearance Urine UA SL CLOUDY; Bilirubin Urine UA NEGATIVE (NEGATIVE); Color Urine UA YELLOW; Glucose Urine UA NEGATIVE (Negative); Ketones Urine UA NEGATIVE (NEGATIVE); Leukocyte Esterase Urine UA 2+ (NEGATIVE); Nitrite Urine UA NEGATIVE (Negative); Occult Blood Urine UA TRACE-INTACT (Negative); Protein Urine UA 1+ (Negative); Specific Gravity Urine UA >=1.030 (1.000-1.035); Urobilinogen Urine UA 0.2 E.U./dL (0.2); pH Urine UA 5.5 (4.5-8.0)
[2024-03-18 08:49] LABS: Bacteria Urine Occasional (0-1); RBC Urine 0-1/HPF (0-5/HPF); Squamous Epithelial Cell Urine 0-1 /HPF (0-5/HPF); Urine Volume 10mL (spun); WBC Urine 30-100/HPF (0-5/HPF)
[2024-03-18 08:50] LABS: Culture Indicated Urine Specimen Cultured
[2024-04-03 09:23] LABS: Misc. to WA State Lab SEE SCANNED RESULTS
== END ==
PROVIDERS: Family Provider Family Medicine; PCP Family Medicine; Visit Provider Urology
DX: C61 Malignant neoplasm of prostate (principal); N39.0 Urinary tract infection, site not specified; N39.44 Nocturnal enuresis; Z78.9 Other specified health status; Z98.890 Other specified postprocedural states; Z79.818 Long term (current) use of other agents affecting estrogen receptors and estrogen levels; Z92.3 Personal history of irradiation; Z87.442 Personal history of urinary calculi
CPT/HCPCS: 81001; 81002; 87086; 99213

== ENCOUNTER 2024-04-08 09:45 | Outpatient (RCR) | payer MEDICARE, SELFPAY ==
[2023-10-01 08:38] VITALS: BMI 204.0
--- NOTE | 2024-01-16 16:39 | PT.OIE ---
Current Diagnoses Low back pain, unspecified (01/16/24) Pain in left leg (01/16/24) Difficulty in walking, not elsewhere classified (01/16/24) Weakness (01/16/24) Past Medical History (Last Updated 11/06/23 @ 08:53 by Hemant Brar DO) Androgen deprivation therapy Ascending aortic aneurysm Atrial fibrillation CHF (congestive heart failure) Enlarged prostate History of kidney stones History of radiation therapy Hx of echocardiogram Lumbar radiculopathy Nocturnal enuresis Prostate cancer Spondylolisthesis at L4-L5 level Past Surgical History (Last Reviewed 11/06/23 @ 08:34 by Hemant Brar DO) H/O cardiac radiofrequency ablation H/O hernia repair H/O prostate biopsy History of blepharoplasty History of circumcision History of knee replacement History of prostate surgery History of tonsillectomy Visit Care Team Role Provider Type Hemant Tucker MD Attending Provider Physician Family Provider Primary Care Provider Referring Provider Specialty: [facility] Practice Address: [address] [place] [address], [facility] Email: [email or web address] Initial Evaluation PT-OP-A Visit Information Start: 01/12/24 08:26 Freq: Status: Active Protocol: Document 01/16/24 08:15 SAK (Rec: 01/16/24 09:06 [facility] [id number]) Out-Patient Physical Therapy Visit Information Visit Information Visit Type Initial Evaluation Visit Start Time 08:15 Visit Stop Time 09:10 Visit Number 1 Evaluation Information Evaluation Date 01/16/24 Precautions Precautions history: atrial fibrillation status post ablation procedure , cardiomyopathy, cerebrovascular accident, prostate cancer, aortic aneurysm PT-OP-B Current Condition Start: 01/12/24 08:26 Freq: Status: Active Protocol: Document 01/16/24 08:15 SAK (Rec: 01/16/24 09:06 SAK [id number]) Current Condition History of Current Condition Onset Date 1 year Current Complaints left hip pain History of Current Condition fell and broke neck of left femur, s/p ORIF with 3 screws. Had PT with some improvement , PT stopped due to prostate cancer. At this time has persistent pain low back and lateral left LE. Dr. 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 He states it has been hard to determine whether hip or nerve compression is the issue. has ALS; patient does all cooking but has caregivers 7 days per week. Not sleeping well due to pain. Uses quad cane but I know I still limp . Has My Single Pointer exercise machine but hasn't been able to use for a long time. Pain increases with walking, pressure on hip with sitting, tends to sit with lean to the right, dec temporarily with Tylenol, Icy Hot. At times requires use of walker. N/T arnie feet. Has stair lift initially bought for and now he uses all the time. No pain supine with legs elevated. Hasn't used heat or ice recently. Also reports history of arnie TKA with poor outcome of ROM due to quick scarring. Prior Treatments and Tests cortisone injection lumbar spine 2 months ago. Future Testing and Treatments Planned Plans to go see Dr. Brar. Treatment Goals Patient/Caregiver Goals decrease pain walk more easily , preferably without the cane Prior Functional Status Baseline Function- ADL's Independent Baseline Function- Mobility Independent Baseline Function- Gait indep Current Functional Impairments (Reported) Functional Limitations- ADL's indep but painful Functional Limitations- Mobility/Gait indep short distances, unable to go for walks anymore. Uses stair lift Personal Factors Other Personal Factors That May Effect in end stages of ALS Therapy/Recovery PT-OP-C Subjective Start: 01/12/24 08:26 Freq: Status: Active Protocol: Document 01/16/24 08:15 [facility] (Rec: 01/16/24 09:06 [facility] [id number]) Patient Questionnaires Lower Extremity Functional Scale LEFS Score 46 OP-PT Pain Assessment Location Left Hip Pain Location Details see pain chart; LB and left lateral hip Intensity 8 Scale Used Numeric (0 - 10) Description Aching,Burning,Shooting,Tender Frequency Constant Pain Aggravating Factors Activity,Walking PT-OP-D Balance Start: 01/12/24 08:26 Freq: Status: Active Protocol: Document 01/16/24 08:15 [facility] (Rec: 01/16/24 16:39 [facility] [id number]) Balance Tests Other Other Balance Tests Performed unable to assess due to pain PT-OP-F Manual Assessment Start: 01/12/24 08:26 Freq: Status: Active Protocol: Document 01/16/24 08:15 SAK (Rec: 01/16/24 16:39 SAK [id number]) Manual Assessments Joint Mobility Assessment Joint Mobility Assessment decreased joint mobility left hip with c/o pain PT-OP-G Mobility & Gait Start: 01/12/24 08:26 Freq: Status: Active Protocol: Document 01/16/24 08:15 SAK (Rec: 01/16/24 15:33 [facility] [id number]) OP Mobility Evaluation Bed Mobility Rolling painful but indep Supine to and from Sit painful but ind Transfers Sit to Stand requires use of UE's, dec use left LE OP Gait Assessment Gait Gait Assistance Required: Independent Distance (Feet) 50 Assistive Devices Assistive Device Small Based Quad Cane Orthotic/Prosthetic Devices or Brace: No Gait Deviations General Gait Pattern Antalgic,Decreased Stride Length,Decreased Feet Clearance Factors Limiting Gait Function Factors Limiting Gait Function Pain Comments Gait Comments patient reports wears heel lift left. PT-OP-J Posture/Palpation/Skin Start: 01/12/24 08:26 Freq: Status: Active Protocol: Document 01/16/24 08:15 [facility] (Rec: 01/16/24 15:33 [facility] [id number]) Posture Evaluation Position Standing T-Spine Posture Increased Kyphosis L-Spine Posture Flattened Weight Distribution Weight Shifted Right Palpation Assessment Location l/s Palpation Location left L45 Palpation Findings Tenderness gr trochanter Palpation Findings Tenderness PT-OP-K Range of Motion Start: 01/12/24 08:26 Freq: Status: Active Protocol: Document 01/16/24 08:15 [facility]AK (Rec: 01/16/24 15:33 [facility] [id number]) Lumbar Spine Range of Motion Lumbar Spine Active Comments mod decrease in all motions due to c/o pain, worst with left sidebending with radiation into left LE Hip Goniometric Range of Motion Hip Left Flexion w/Knee Flexed 90 Straight Leg Raise 55 Extension 0 Internal Rotation 10 External Rotation 15 Right Flexion w/Knee Flexed 90 Straight Leg Raise 65 Extension 0 Abduction 30 Internal Rotation 15 External Rotation 20 Knee Goniometric Range of Motion Knee arnie Knee ROM WFL No Flexion Active (degrees) 90 Extension Active (degrees) 0 Knee ROM Limitations Knee ROM Limitations Soft Tissue Tightness,Bony Restriction,Pain Ankle and Foot Goniometric Range of Motion Ankle and Foot ARNIE Dorsiflexion with Knee Flexed 5 Dorsiflexion with Knee Extended 0 Ankle and Foot ROM Limitations ROM Limitations Soft Tissue Tightness,Swelling PT-OP-L Special Tests Start: 01/12/24 08:26 Freq: Status: Active Protocol: Document 01/16/24 08:15 [facility] (Rec: 01/16/24 16:39 [facility] [id number]) Special Tests Lumbar Spine Special Tests Compression Test Results inc pain PT-OP-M Strength Start: 01/12/24 08:26 Freq: Status: Active Protocol: Document 01/16/24 08:15 [facility] (Rec: 01/16/24 16:39 [facility] [id number]) Hip Strength Hip Manual Muscle Testing Left Flexion (L2) 3- Fair- Extension (S1) 3- Fair- Abduction 4- Good- Adduction 4- Good- External Rotation 3+ Fair+ Internal Rotation 3+ Fair+ Right Flexion (L2) 3+ Fair+ Extension (S1) 3- Fair- Abduction 4- Good- Adduction 4 Good External Rotation 3+ Fair+ Internal Rotation 4- Good- Knee Strength Knee Manual Muscle Testing Left Flexion (S2) 4 Good Extension (L3) 4 Good Right Flexion (S2) 5 Normal Extension (L3) 5 Normal Ankle/Foot Strength Ankle and Foot Manual Muscle Testing Left Dorsiflexion (L4) 4 Good Plantarflexion (S1) 4 Good Right Dorsiflexion (L4) 4+ Good+ Plantarflexion (S1) 4+ Good+ PT-OP-Q Treatments Start: 01/12/24 08:26 Freq: Status: Active Protocol: Document 01/16/24 08:15 [facility] (Rec: 01/16/24 16:39 [facility] [id number]) Therapeutic Exercises Supine Exercises pillow squeeze Supine Exercise Name next session ankle pumps Supine Exercise Name next session quad set Supine Exercise Name next session gluteal set Supine Exercise Name next session abdominal corseting Supine Exercise Name next session Self-Care/Home Management Treatment Education Patient Education Home Exercise Program,Pain Management Other Education issued written HO for HEP, encouraged trial ice, importance of dec limp as able PT-OP-R Modalities Start: 01/12/24 08:26 Freq: Status: Active Protocol: Document 01/16/24 08:15 [facility] (Rec: 01/16/24 16:39 [facility] [id number]) Hot Pack/Cold Pack Treatment Hot Pack Location left hip Patient Position Hooklying Patient Tolerance Good PT-OP-T Assessment and Plan Start: 01/12/24 08:26 Freq: Status: Active Protocol: Document 01/16/24 08:15 [facility] (Rec: 01/16/24 16:39 [facility] [id number]) Physical Therapy Assessment Rehab Potential Rehabilitation Potential Good Evaluation Complexity Number of Personal Factors/Comorbidities 1-2 Number of Body Systems Impaired 3 Clinical Presentation at Evaluation Evolving Impairments Impairments Activity Tolerance,Gait,ROM, Strength Goals Three Impairment strength and ROM impairment Short Term Goal (STG) Patient to be instsructed in progressive individualized home exercise program to address ROM and strength impairments in core and left LE. STG Duration 03/01/24 Mcc Goal (LTG) Patient will be independent and compliant with HEP and demonstrate improvement in ROM to WFL and strength to at least 4+/5 all hip muscle groups to allow him to return to prior level of function LTG Duration 04/17/24 Two Impairment gait dysfunction Impairment antalgic gait, requires use of cane Short Term Goal (STG) Patient will be able to ambulate on level surfaces with least restrictive device with minimal to no limp STG Duration 03/01/24 Mcc Goal (LTG) Patient will be able to walk for 30 minutes without an increase in pain and with minimal to no limp using least restrictive device LTG Duration 04/17/24 One Impairment activity tolerance Impairment lower extremity functional scale 46% Short Term Goal (STG) Improve LEFS score to at least 56% as measure of improved activity tolerance and function STG Duration 03/01/24 Mcc Goal (LTG) Improve LEFS score to at least 70% as measure of improved activity tolerance, function, and quality of life. LTG Duration 04/17/24 Assessment Summary Assessment Patient presents to PT with function-limiting pain left hip and lateral leg as well as central low back pain which likely occurred as a result of his antalgic gait following femoral neck fracture and ORIF . REcovery complicated by prostate cancer. Patient also has cardiac history and a history of CVA. Feel he would benefit from PT to decrease his pain, improve his ROM and strength, and normalize his gait pattern to decrease abnormal stressors on his hip and low back. POC was discussed and patient was in agreement. Physical Therapy Plan Frequency and Duration Frequency of Treatment 2x/Week Duration of treatment (weeks) 12 Plan of Care Start Date 01/16/24 Plan of Care End Date 04/17/24 Therapeutic Interventions Therapeutic Interventions Gait Training,Home Exercise Program,Manual Therapy, Neuromuscular Re-education, Patient/Caregiver Education, Self-Care/Home Management,Soft Tissue Mobilization,Taping, Therapeutic Activities, Therapeutic Exercises Modalities Cold Pack/Ice Massage,Electric Stimulation,Hot Packs, Infrared Therapy,Iontophoresis ,Ultrasound Next Visit Focus/Plan Next Note Type Treatment Note Next Visit Plan Start with recumbant elliptical for gentle ROM and strengthening LE's, review HEP . Gait training with cane, walker to determine best device for patient gait at this time. Consider KT tape. Modalities and manual therapy PRN.
--- NOTE | 2024-01-16 16:39 | PT.OPPOC ---
Physical, Occupational & Speech Therapy At [facility] Current Diagnoses Low back pain, unspecified (01/16/24) Pain in left leg (01/16/24) Difficulty in walking, not elsewhere classified (01/16/24) Weakness (01/16/24) Visit Care Team Role Provider Type Hemant Tucker MD Attending Provider Physician Family Provider Primary Care Provider Referring Provider Specialty: Family Practice Address: [address] [place] [address], [facility] [place] [place], [facility] Email: [email or web address] Plan Of Care PT-OP-T Assessment and Plan Start: 01/12/24 08:26 Freq: Status: Active Protocol: Document 01/16/24 08:15 SAK (Rec: 01/16/24 16:39 SAK [id number]) Physical Therapy Assessment Rehab Potential Rehabilitation Potential Good Evaluation Complexity Number of Personal Factors/Comorbidities 1-2 Number of Body Systems Impaired 3 Clinical Presentation at Evaluation Evolving Impairments Impairments Activity Tolerance,Gait,ROM, Strength Goals Three Impairment strength and ROM impairment Short Term Goal (STG) Patient to be instsructed in progressive individualized home exercise program to address ROM and strength impairments in core and left LE. STG Duration 03/01/24 Contract Loader Goal (LTG) Patient will be independent and compliant with HEP and demonstrate improvement in ROM to WFL and strength to at least 4+/5 all hip muscle groups to allow him to return to prior level of function LTG Duration 04/17/24 Two Impairment gait dysfunction Impairment antalgic gait, requires use of cane Short Term Goal (STG) Patient will be able to ambulate on level surfaces with least restrictive device with minimal to no limp STG Duration 03/01/24 Correction Goal (LTG) Patient will be able to walk for 30 minutes without an increase in pain and with minimal to no limp using least restrictive device LTG Duration 04/17/24 One Impairment activity tolerance Impairment lower extremity functional scale 46% Short Term Goal (STG) Improve LEFS score to at least 56% as measure of improved activity tolerance and function STG Duration 03/01/24 Contract Loader Goal (LTG) Improve LEFS score to at least 70% as measure of improved activity tolerance, function, and quality of life. LTG Duration 04/17/24 Assessment Summary Assessment Patient presents to PT with function-limiting pain left hip and lateral leg as well as central low back pain which likely occurred as a result of his antalgic gait following femoral neck fracture and ORIF . REcovery complicated by prostate cancer. Patient also has cardiac history and a history of CVA. Feel he would benefit from PT to decrease his pain, improve his ROM and strength, and normalize his gait pattern to decrease abnormal stressors on his hip and low back. POC was discussed and patient was in agreement. Physical Therapy Plan Frequency and Duration Frequency of Treatment 2x/Week Duration of treatment (weeks) 12 Plan of Care Start Date 01/16/24 Plan of Care End Date 04/17/24 Therapeutic Interventions Therapeutic Interventions Gait Training,Home Exercise Program,Manual Therapy, Neuromuscular Re-education, Patient/Caregiver Education, Self-Care/Home Management,Soft Tissue Mobilization,Taping, Therapeutic Activities, Therapeutic Exercises Modalities Cold Pack/Ice Massage,Electric Stimulation,Hot Packs, Infrared Therapy,Iontophoresis ,Ultrasound Next Visit Focus/Plan Next Note Type Treatment Note Next Visit Plan Start with recumbant elliptical for gentle ROM and strengthening LE's, review HEP . Gait training with cane, walker to determine best device for patient gait at this time. Consider KT tape. Modalities and manual therapy PRN. Plan of Care Dates Plan of Care Start Date 01/16/24 Plan of Care End Date 04/17/24 Electronically Signed by: Maria L Combs, PT 01/16/24 [id number] If you are in agreement with this Plan of Care, please return a signed and dated copy. I have reviewed this Plan of Care and certify that the skilled therapy services above are required to meet the patient?s needs. Physician Signature Date Printed Name and Credentials Clinical Instructor Signature Printed Name and Credentials
--- NOTE | 2024-01-21 11:18 | PT.OTN ---
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 Had PT with some improvement , PT stopped due to prostate cancer. At this time has persistent pain low back and lateral left LE. Dr. 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 He states it has been hard to determine whether hip or nerve compression is the issue. has ALS; patient does all cooking but has caregivers 7 days per week. Not sleeping well due to pain. Uses quad cane but I know I still limp . Has [employer] exercise machine but hasn't been able to use for a long time. Pain increases with walking, pressure on hip with sitting, tends to sit with lean to the right, dec temporarily with Tylenol, Icy Hot. At times requires use of walker. N/T arnie feet. Has stair lift initially bought for and now he uses all the time. No pain supine with legs elevated. Hasn't used heat or ice recently. Also reports history of arnie TKA with poor outcome of ROM due to quick scarring. Prior Treatments and Tests cortisone injection lumbar spine 2 months ago. Future Testing and Treatments Planned Plans to go see Dr. Brar. Treatment Goals Patient/Caregiver Goals decrease pain walk more easily , preferably without the cane Prior Functional Status Baseline Function- ADL's Independent Baseline Function- Mobility Independent Baseline Function- Gait indep Current Functional Impairments (Reported) Functional Limitations- ADL's indep but painful Functional Limitations- Mobility/Gait indep short distances, unable to go for walks anymore. Uses stair lift Personal Factors Other Personal Factors That May Effect in end stages of ALS Therapy/Recovery PT-OP-C Subjective Start: 01/12/24 08:26 Freq: Status: Active Protocol: Document 01/21/24 10:38 SP (Rec: 01/21/24 11:21 SP [id number]) OP-PT Subjective Patient Comments Patient Comments Pt reports ice pack helped initially for swelling but finds using MHP helps with pain control and circulation. He believes the injection in L leg is still helping for pain during mobility. PT-OP-D Balance Start: 01/12/24 08:26 Freq: Status: Active Protocol: Document 01/16/24 08:15 SAK (Rec: 01/16/24 16:39 SAK [id number]) Balance Tests Other Other Balance Tests Performed unable to assess due to pain PT-OP-F Manual Assessment Start: 01/12/24 08:26 Freq: Status: Active Protocol: Document 01/16/24 08:15 SAK (Rec: 01/16/24 16:39 SAK [id number]) Manual Assessments Joint Mobility Assessment Joint Mobility Assessment decreased joint mobility left hip with c/o pain PT-OP-G Mobility & Gait Start: 01/12/24 08:26 Freq: Status: Active Protocol: Document 01/16/24 08:15 SAK (Rec: 01/16/24 15:33 SAK [id number]) OP Mobility Evaluation Bed Mobility Rolling painful but indep Supine to and from Sit painful but ind Transfers Sit to Stand requires use of UE's, dec use left LE OP Gait Assessment Gait Gait Assistance Required: Independent Distance (Feet) 50 Assistive Devices Assistive Device Small Based Quad Cane Orthotic/Prosthetic Devices or Brace: No Gait Deviations General Gait Pattern Antalgic,Decreased Stride Length,Decreased Feet Clearance Factors Limiting Gait Function Factors Limiting Gait Function Pain Comments Gait Comments patient reports wears heel lift left. PT-OP-J Posture/Palpation/Skin Start: 01/12/24 08:26 Freq: Status: Active Protocol: Document 01/16/24 08:15 SAK (Rec: 01/16/24 15:33 [facility] [id number]) Posture Evaluation Position Standing T-Spine Posture Increased Kyphosis L-Spine Posture Flattened Weight Distribution Weight Shifted Right Palpation Assessment Location l/s Palpation Location left L45 Palpation Findings Tenderness gr trochanter Palpation Findings Tenderness PT-OP-K Range of Motion Start: 01/12/24 08:26 Freq: Status: Active Protocol: Document 01/16/24 08:15 SAK (Rec: 01/16/24 15:33 [facility] [id number]) Lumbar Spine Range of Motion Lumbar Spine Active Comments mod decrease in all motions due to c/o pain, worst with left sidebending with radiation into left LE Hip Goniometric Range of Motion Hip Left Flexion w/Knee Flexed 90 Straight Leg Raise 55 Extension 0 Internal Rotation 10 External Rotation 15 Right Flexion w/Knee Flexed 90 Straight Leg Raise 65 Extension 0 Abduction 30 Internal Rotation 15 External Rotation 20 Knee Goniometric Range of Motion Knee arnie Knee ROM WFL No Flexion Active (degrees) 90 Extension Active (degrees) 0 Knee ROM Limitations Knee ROM Limitations Soft Tissue Tightness,Bony Restriction,Pain Ankle and Foot Goniometric Range of Motion Ankle and Foot ARNIE Dorsiflexion with Knee Flexed 5 Dorsiflexion with Knee Extended 0 Ankle and Foot ROM Limitations ROM Limitations Soft Tissue Tightness,Swelling PT-OP-L Special Tests Start: 01/12/24 08:26 Freq: Status: Active Protocol: Document 01/16/24 08:15 SAK (Rec: 01/16/24 16:39 [facility] [id number]) Special Tests Lumbar Spine Special Tests Compression Test Results inc pain PT-OP-M Strength Start: 01/12/24 08:26 Freq: Status: Active Protocol: Document 01/16/24 08:15 SAK (Rec: 01/16/24 16:39 [facility] [id number]) Hip Strength Hip Manual Muscle Testing Left Flexion (L2) 3- Fair- Extension (S1) 3- Fair- Abduction 4- Good- Adduction 4- Good- External Rotation 3+ Fair+ Internal Rotation 3+ Fair+ Right Flexion (L2) 3+ Fair+ Extension (S1) 3- Fair- Abduction 4- Good- Adduction 4 Good External Rotation 3+ Fair+ Internal Rotation 4- Good- Knee Strength Knee Manual Muscle Testing Left Flexion (S2) 4 Good Extension (L3) 4 Good Right Flexion (S2) 5 Normal Extension (L3) 5 Normal Ankle/Foot Strength Ankle and Foot Manual Muscle Testing Left Dorsiflexion (L4) 4 Good Plantarflexion (S1) 4 Good Right Dorsiflexion (L4) 4+ Good+ Plantarflexion (S1) 4+ Good+ PT-OP-Q Treatments Start: 01/12/24 08:26 Freq: Status: Active Protocol: Document 01/21/24 10:38 SP (Rec: 01/21/24 11:21 SP [id number]) Cardio Equipment Recumbent Elliptical ([employer]) Duration (Minutes) 6 Resistance 1 Seat Position see 10 Other LEs only AROM tolerance Gym Equipment Shuttle Recovery heel raises/ DF stretch Details future tx unilateral squat Details future tx Bilateral Squats Details future tx Therapeutic Exercises Supine Exercises TA KFO Supine Exercise Name added to HEP Side bilateral Reps/Minutes 10 Comments pnfree range L more limiting, cued TA level pelvis pillow squeeze Supine Exercise Name added to HEP Side bilateral Equipment Used small ball Reps/Minutes 10 Sh x10 ankle pumps Supine Exercise Name ankle ABCs for ROM multidirectional & circulation : added to HEP Side bilateral Equipment Used LEs elevated on wedge Reps/Minutes A-Z Comments good form, pnfree- tiring as well quad set Supine Exercise Name added to HEP Side bilateral Equipment Used pillow under thighs Reps/Minutes 10 SH Comments pillow under thighs support limited L knee but improve HS/ calf stretch gluteal set Supine Exercise Name added to HEP Side bilateral Reps/Minutes 10 SH x10 Comments good response, limited L knee but not hurt abdominal corseting Supine Exercise Name occ cues for belly draw in and bracing Reps/Minutes 5 SH between exercises Sitting Exercises STS Sitting Exercise Name added to HEP Reps/Minutes 5 reps 3x/day Comments need use of 1 hand, cued scoot fwd, feet back what knee range has Self-Care/Home Management Treatment Education Patient Education Home Exercise Program,Pain Management Other Education Ed for floating heels inbed and loose sheet for decrease PF and calf tightness. Added ankle ABCs for circulation and ROM pre mobility. PT-OP-R Modalities Start: 01/12/24 08:26 Freq: Status: Active Protocol: Document 01/16/24 08:15 [facility] (Rec: 01/16/24 16:39 SAK [id number]) Hot Pack/Cold Pack Treatment Hot Pack Location left hip Patient Position Hooklying Patient Tolerance Good PT-OP-T Assessment and Plan Start: 01/12/24 08:26 Freq: Status: Active Protocol: Document 01/21/24 10:38 SP (Rec: 01/21/24 11:21 SP [id number]) Physical Therapy Assessment Goals Three Impairment strength and ROM impairment Short Term Goal (STG) Patient to be instsructed in progressive individualized home exercise program to address ROM and strength impairments in core and left LE. STG Duration 03/01/24 Nursing Home Goal (LTG) Patient will be independent and compliant with HEP and demonstrate improvement in ROM to WFL and strength to at least 4+/5 all hip muscle groups to allow him to return to prior level of function LTG Duration 04/17/24 Two Impairment gait dysfunction Impairment antalgic gait, requires use of cane Short Term Goal (STG) Patient will be able to ambulate on level surfaces with least restrictive device with minimal to no limp STG Duration 03/01/24 Nursing Home Goal (LTG) Patient will be able to walk for 30 minutes without an increase in pain and with minimal to no limp using least restrictive device LTG Duration 04/17/24 One Impairment activity tolerance Impairment lower extremity functional scale 46% Short Term Goal (STG) Improve LEFS score to at least 56% as measure of improved activity tolerance and function STG Duration 03/01/24 Nursing Home Goal (LTG) Improve LEFS score to at least 70% as measure of improved activity tolerance, function, and quality of life. LTG Duration 04/17/24 Assessment Summary Assessment Pt responded well to baseline muscle isometrics for knee and hip engagement to allow carryover support standing and walking with education such. Improved ankle mobility with initiated ABCs for ROM and circulation support with continued education for elevation and modality with good carryover does 1-2x/day. Cues for hip hinge and what need for support with 1 UE STS up 3x/day for functional strengthening. Pt stated felt good activity end tx, provided HOs for assist reminder home. Noted less UE WB pressure on SPC in RUE leaving. Physical Therapy Plan Frequency and Duration Frequency of Treatment 2x/Week Duration of treatment (weeks) 12 Plan of Care Start Date 01/16/24 Plan of Care End Date 04/17/24 Therapeutic Interventions Therapeutic Interventions Gait Training,Home Exercise Program,Manual Therapy, Neuromuscular Re-education, Patient/Caregiver Education, Self-Care/Home Management,Soft Tissue Mobilization,Taping, Therapeutic Activities, Therapeutic Exercises Modalities Cold Pack/Ice Massage,Electric Stimulation,Hot Packs, Infrared Therapy,Iontophoresis ,Ultrasound Next Visit Focus/Plan Next Note Type Treatment Note Next Visit Plan Continue warm up recumbant elliptical for gentle ROM and strengthening LE's. Review HEP , continue TA corset. Next: Gait training with cane, walker to determine best device for patient gait at this time. Consider KT tape. Modalities and manual therapy PRN.
--- NOTE | 2024-01-24 11:18 | PT.OTN ---
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 Had PT with some improvement , PT stopped due to prostate cancer. At this time has persistent pain low back and lateral left LE. Dr. 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 He states it has been hard to determine whether hip or nerve compression is the issue. has ALS; patient does all cooking but has caregivers 7 days per week. Not sleeping well due to pain. Uses quad cane but I know I still limp . Has [employer] exercise machine but hasn't been able to use for a long time. Pain increases with walking, pressure on hip with sitting, tends to sit with lean to the right, dec temporarily with Tylenol, Icy Hot. At times requires use of walker. N/T arnie feet. Has stair lift initially bought for and now he uses all the time. No pain supine with legs elevated. Hasn't used heat or ice recently. Also reports history of arnie TKA with poor outcome of ROM due to quick scarring. Prior Treatments and Tests cortisone injection lumbar spine 2 months ago. Future Testing and Treatments Planned Plans to go see Dr. Brar. Treatment Goals Patient/Caregiver Goals decrease pain walk more easily , preferably without the cane Prior Functional Status Baseline Function- ADL's Independent Baseline Function- Mobility Independent Baseline Function- Gait indep Current Functional Impairments (Reported) Functional Limitations- ADL's indep but painful Functional Limitations- Mobility/Gait indep short distances, unable to go for walks anymore. Uses stair lift Personal Factors Other Personal Factors That May Effect in end stages of ALS Therapy/Recovery PT-OP-C Subjective Start: 01/12/24 08:26 Freq: Status: Active Protocol: Document 01/24/24 10:36 SP (Rec: 01/24/24 11:20 SP [id number]) OP-PT Subjective Patient Comments Patient Comments Pt reports was little stiff after last tx but compliant with HEP and said don't run out of ink during ankle ABCs. :) PT-OP-D Balance Start: 01/12/24 08:26 Freq: Status: Active Protocol: Document 01/16/24 08:15 SAK (Rec: 01/16/24 16:39 SAK [id number]) Balance Tests Other Other Balance Tests Performed unable to assess due to pain PT-OP-F Manual Assessment Start: 01/12/24 08:26 Freq: Status: Active Protocol: Document 01/16/24 08:15 SAK (Rec: 01/16/24 16:39 SAK [id number]) Manual Assessments Joint Mobility Assessment Joint Mobility Assessment decreased joint mobility left hip with c/o pain PT-OP-G Mobility & Gait Start: 01/12/24 08:26 Freq: Status: Active Protocol: Document 01/16/24 08:15 SAK (Rec: 01/16/24 15:33 SAK [id number]) OP Mobility Evaluation Bed Mobility Rolling painful but indep Supine to and from Sit painful but ind Transfers Sit to Stand requires use of UE's, dec use left LE OP Gait Assessment Gait Gait Assistance Required: Independent Distance (Feet) 50 Assistive Devices Assistive Device Small Based Quad Cane Orthotic/Prosthetic Devices or Brace: No Gait Deviations General Gait Pattern Antalgic,Decreased Stride Length,Decreased Feet Clearance Factors Limiting Gait Function Factors Limiting Gait Function Pain Comments Gait Comments patient reports wears heel lift left. PT-OP-J Posture/Palpation/Skin Start: 01/12/24 08:26 Freq: Status: Active Protocol: Document 01/16/24 08:15 SAK (Rec: 01/16/24 15:33 SAK [id number]) Posture Evaluation Position Standing T-Spine Posture Increased Kyphosis L-Spine Posture Flattened Weight Distribution Weight Shifted Right Palpation Assessment Location l/s Palpation Location left L45 Palpation Findings Tenderness gr trochanter Palpation Findings Tenderness PT-OP-K Range of Motion Start: 01/12/24 08:26 Freq: Status: Active Protocol: Document 01/16/24 08:15 SAK (Rec: 01/16/24 15:33 SAK [id number]) Lumbar Spine Range of Motion Lumbar Spine Active Comments mod decrease in all motions due to c/o pain, worst with left sidebending with radiation into left LE Hip Goniometric Range of Motion Hip Left Flexion w/Knee Flexed 90 Straight Leg Raise 55 Extension 0 Internal Rotation 10 External Rotation 15 Right Flexion w/Knee Flexed 90 Straight Leg Raise 65 Extension 0 Abduction 30 Internal Rotation 15 External Rotation 20 Knee Goniometric Range of Motion Knee arnie Knee ROM WFL No Flexion Active (degrees) 90 Extension Active (degrees) 0 Knee ROM Limitations Knee ROM Limitations Soft Tissue Tightness,Bony Restriction,Pain Ankle and Foot Goniometric Range of Motion Ankle and Foot ARNIE Dorsiflexion with Knee Flexed 5 Dorsiflexion with Knee Extended 0 Ankle and Foot ROM Limitations ROM Limitations Soft Tissue Tightness,Swelling PT-OP-L Special Tests Start: 01/12/24 08:26 Freq: Status: Active Protocol: Document 01/16/24 08:15 SAK (Rec: 01/16/24 16:39 [facility] [id number]) Special Tests Lumbar Spine Special Tests Compression Test Results inc pain PT-OP-M Strength Start: 01/12/24 08:26 Freq: Status: Active Protocol: Document 01/16/24 08:15 SAK (Rec: 01/16/24 16:39 SAK [id number]) Hip Strength Hip Manual Muscle Testing Left Flexion (L2) 3- Fair- Extension (S1) 3- Fair- Abduction 4- Good- Adduction 4- Good- External Rotation 3+ Fair+ Internal Rotation 3+ Fair+ Right Flexion (L2) 3+ Fair+ Extension (S1) 3- Fair- Abduction 4- Good- Adduction 4 Good External Rotation 3+ Fair+ Internal Rotation 4- Good- Knee Strength Knee Manual Muscle Testing Left Flexion (S2) 4 Good Extension (L3) 4 Good Right Flexion (S2) 5 Normal Extension (L3) 5 Normal Ankle/Foot Strength Ankle and Foot Manual Muscle Testing Left Dorsiflexion (L4) 4 Good Plantarflexion (S1) 4 Good Right Dorsiflexion (L4) 4+ Good+ Plantarflexion (S1) 4+ Good+ PT-OP-Q Treatments Start: 01/12/24 08:26 Freq: Status: Active Protocol: Document 01/24/24 10:36 SP (Rec: 01/24/24 11:20 SP [id number]) Cardio Equipment Recumbent Elliptical ([employer]) Duration (Minutes) 8 Resistance 1>3 Seat Position see 10 Other LEs only Gym Equipment Shuttle Recovery unilateral squat Details slow eccentric control range tolerated, not lock knee Resistance 37# (1 [employer]) Reps/Time 2 x15 alternating each LE Bilateral Squats Details knees // with feet see inside ankles Resistance 50# (2 [employer]) Reps/Time 2x15 reps- range able (less flexion L) Therapeutic Exercises Supine Exercises hip abd Supine Exercise Name added toHEP Side bilateral Resistance AROM Equipment Used opp LE bent Reps/Minutes x10 each side TA KFO Supine Exercise Name REVDIEW HEP Side bilateral Reps/Minutes 10 Comments pnfree range L more limiting, cued TA level pelvis Sitting Exercises STS Sitting Exercise Name reviewed Reps/Minutes 5 reps Comments need use of 1 (2 OK) hand, cued scoot fwd, feet back what knee range has Standing Exercises step taps Standing Exercise Name for AROM Side bilateral Resistance AROM Equipment Used L HR, R QC Reps/Minutes x15 Comments cued hip/knee flexion up/down alternating Gait Training Gait Activity SPC Device Used QC Comments good patterning in RUE with LLE, cued x1 place all 4 feet at time, taller posture, increase DF stride. IMproved end tx post manual and ther ex . STAIRS Description 6 L HR, R SPC asc Manual Therapy Treatment Soft Tissue Mobilization L hip Body Location piriformis, TFL Mobilization Type Rolling,Strumming Intensity/Depth MOd Body Position R SL Comments improved muscle releases. IMproved KFO and able add hip abd PT-OP-R Modalities Start: 01/12/24 08:26 Freq: Status: Active Protocol: Document 01/16/24 08:15 SAK (Rec: 01/16/24 16:39 SAK [id number]) Hot Pack/Cold Pack Treatment Hot Pack Location left hip Patient Position Hooklying Patient Tolerance Good PT-OP-T Assessment and Plan Start: 01/12/24 08:26 Freq: Status: Active Protocol: Document 01/24/24 10:36 SP (Rec: 01/24/24 11:20 SP [id number]) Physical Therapy Assessment Goals Three Impairment strength and ROM impairment Short Term Goal (STG) Patient to be instsructed in progressive individualized home exercise program to address ROM and strength impairments in core and left LE. STG Duration 03/01/24 Long-Term Goal (LTG) Patient will be independent and compliant with HEP and demonstrate improvement in ROM to WFL and strength to at least 4+/5 all hip muscle groups to allow him to return to prior level of function LTG Duration 04/17/24 Two Impairment gait dysfunction Impairment antalgic gait, requires use of cane Short Term Goal (STG) Patient will be able to ambulate on level surfaces with least restrictive device with minimal to no limp STG Duration 03/01/24 Long-Term Goal (LTG) Patient will be able to walk for 30 minutes without an increase in pain and with minimal to no limp using least restrictive device LTG Duration 04/17/24 One Impairment activity tolerance Impairment lower extremity functional scale 46% Short Term Goal (STG) Improve LEFS score to at least 56% as measure of improved activity tolerance and function STG Duration 03/01/24 Long-Term Goal (LTG) Improve LEFS score to at least 70% as measure of improved activity tolerance, function, and quality of life. LTG Duration 04/17/24 Assessment Summary Assessment Pt tolerated tx focus on ROM biodex, standing knee/hip flexion step taps /c UE supported for self confidence for eventually return to stair mgt and hip abd supine for femural mobility in bed improved KFO. Pt requested assess use of shuttle recovery for eventually return to [facility] at home. DIscussed continue in PT at this time until increased hip and knee ROM. Support needed to get BLEs on/off platform dueto lack of ROM, tight hip flexor and decreased knee flexion, improved on biodex. Physical Therapy Plan Frequency and Duration Frequency of Treatment 2x/Week Duration of treatment (weeks) 12 Plan of Care Start Date 01/16/24 Plan of Care End Date 04/17/24 Therapeutic Interventions Therapeutic Interventions Gait Training,Home Exercise Program,Manual Therapy, Neuromuscular Re-education, Patient/Caregiver Education, Self-Care/Home Management,Soft Tissue Mobilization,Taping, Therapeutic Activities, Therapeutic Exercises Modalities Cold Pack/Ice Massage,Electric Stimulation,Hot Packs, Infrared Therapy,Iontophoresis ,Ultrasound Next Visit Focus/Plan Next Note Type Treatment Note Next Visit Plan Continue warm up recumbant elliptical for gentle ROM and strengthening LE's, shuttle recovery, standing step taps AROM, try hurdles next. Review HEP, continue TA corset. Continue Gait training with cane. Consider KT tape. Modalities and manual therapy PRN.
--- NOTE | 2024-01-31 12:06 | PT.OTN ---
Current Diagnoses Low back pain, unspecified (01/31/24) Pain in left leg (01/31/24) Difficulty in walking, not elsewhere classified (01/31/24) Weakness (01/31/24) Physical Therapy Treatment Note PT-OP-A Visit Information Start: 01/12/24 08:26 Freq: Status: Active Protocol: Document 01/31/24 11:20 SP (Rec: 01/31/24 12:17 SP [id number]) Out-Patient Physical Therapy Visit Information Visit Information Visit Type Treatment Note Visit Start Time 11:20 Visit Stop Time 12:06 Visit Number 4 Number of BASKET HAND BRAIDER Visits 3 Evaluation Information Evaluation Date 01/16/24 Precautions Precautions history: atrial fibrillation status post ablation procedure , cardiomyopathy, cerebrovascular accident, prostate cancer, aortic aneurysm PT-OP-B Current Condition Start: 01/12/24 08:26 Freq: Status: Active Protocol: Document 01/16/24 08:15 SAK (Rec: 01/16/24 09:06 SAK [id number]) Current Condition History of Current Condition Onset Date 1 year Current Complaints left hip pain History of Current Condition fell and broke neck of left femur, s/p ORIF with 3 screws. Had PT with some improvement , PT stopped due to prostate cancer. At this time has persistent pain low back and lateral left LE. Dr. 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 He states it has been hard to determine whether hip or nerve compression is the issue. has ALS; patient does all cooking but has caregivers 7 days per week. Not sleeping well due to pain. Uses quad cane but I know I still limp . Has kinkoner exercise machine but hasn't been able to use for a long time. Pain increases with walking, pressure on hip with sitting, tends to sit with lean to the right, dec temporarily with Tylenol, Icy Hot. At times requires use of walker. N/T arnie feet. Has stair lift initially bought for and now he uses all the time. No pain supine with legs elevated. Hasn't used heat or ice recently. Also reports history of arnie TKA with poor outcome of ROM due to quick scarring. Prior Treatments and Tests cortisone injection lumbar spine 2 months ago. Future Testing and Treatments Planned Plans to go see Dr. Brar. Treatment Goals Patient/Caregiver Goals decrease pain walk more easily , preferably without the cane Prior Functional Status Baseline Function- ADL's Independent Baseline Function- Mobility Independent Baseline Function- Gait indep Current Functional Impairments (Reported) Functional Limitations- ADL's indep but painful Functional Limitations- Mobility/Gait indep short distances, unable to go for walks anymore. Uses stair lift Personal Factors Other Personal Factors That May Effect in end stages of ALS Therapy/Recovery PT-OP-C Subjective Start: 01/12/24 08:26 Freq: Status: Active Protocol: Document 01/31/24 11:20 SP (Rec: 01/31/24 12:17 SP [id number]) OP-PT Subjective Patient Comments Patient Comments Pt reports very stiff today. Missed last appt due to caregiver hadn't shown to assist while gone. He trialed his reformer since last tx and used 1 band but found to close getting legs on , pretty sore arrival thinks might have used L hip to much . Pt reports tried walking up 14 stairs since last tx and was very tired once at top. He has follow up appt with ortho 3rd week January. PT-OP-D Balance Start: 01/12/24 08:26 Freq: Status: Active Protocol: Document 01/16/24 08:15 SAK (Rec: 01/16/24 16:39 [facility] [id number]) Balance Tests Other Other Balance Tests Performed unable to assess due to pain PT-OP-F Manual Assessment Start: 01/12/24 08:26 Freq: Status: Active Protocol: Document 01/16/24 08:15 SAK (Rec: 01/16/24 16:39 [facility] [id number]) Manual Assessments Joint Mobility Assessment Joint Mobility Assessment decreased joint mobility left hip with c/o pain PT-OP-G Mobility & Gait Start: 01/12/24 08:26 Freq: Status: Active Protocol: Document 01/16/24 08:15 SAK (Rec: 01/16/24 15:33 [facility] [id number]) OP Mobility Evaluation Bed Mobility Rolling painful but indep Supine to and from Sit painful but ind Transfers Sit to Stand requires use of UE's, dec use left LE OP Gait Assessment Gait Gait Assistance Required: Independent Distance (Feet) 50 Assistive Devices Assistive Device Small Based Quad Cane Orthotic/Prosthetic Devices or Brace: No Gait Deviations General Gait Pattern Antalgic,Decreased Stride Length,Decreased Feet Clearance Factors Limiting Gait Function Factors Limiting Gait Function Pain Comments Gait Comments patient reports wears heel lift left. PT-OP-J Posture/Palpation/Skin Start: 01/12/24 08:26 Freq: Status: Active Protocol: Document 01/16/24 08:15 SAK (Rec: 01/16/24 15:33 [facility] [id number]) Posture Evaluation Position Standing T-Spine Posture Increased Kyphosis L-Spine Posture Flattened Weight Distribution Weight Shifted Right Palpation Assessment Location l/s Palpation Location left L45 Palpation Findings Tenderness gr trochanter Palpation Findings Tenderness PT-OP-K Range of Motion Start: 01/12/24 08:26 Freq: Status: Active Protocol: Document 01/16/24 08:15 SAK (Rec: 01/16/24 15:33 [facility] [id number]) Lumbar Spine Range of Motion Lumbar Spine Active Comments mod decrease in all motions due to c/o pain, worst with left sidebending with radiation into left LE Hip Goniometric Range of Motion Hip Left Flexion w/Knee Flexed 90 Straight Leg Raise 55 Extension 0 Internal Rotation 10 External Rotation 15 Right Flexion w/Knee Flexed 90 Straight Leg Raise 65 Extension 0 Abduction 30 Internal Rotation 15 External Rotation 20 Knee Goniometric Range of Motion Knee arnie Knee ROM WFL No Flexion Active (degrees) 90 Extension Active (degrees) 0 Knee ROM Limitations Knee ROM Limitations Soft Tissue Tightness,Bony Restriction,Pain Ankle and Foot Goniometric Range of Motion Ankle and Foot ARNIE Dorsiflexion with Knee Flexed 5 Dorsiflexion with Knee Extended 0 Ankle and Foot ROM Limitations ROM Limitations Soft Tissue Tightness,Swelling PT-OP-L Special Tests Start: 01/12/24 08:26 Freq: Status: Active Protocol: Document 01/16/24 08:15 SAK (Rec: 01/16/24 16:39 [facility] [id number]) Special Tests Lumbar Spine Special Tests Compression Test Results inc pain PT-OP-M Strength Start: 01/12/24 08:26 Freq: Status: Active Protocol: Document 01/16/24 08:15 SAK (Rec: 01/16/24 16:39 [facility] [id number]) Hip Strength Hip Manual Muscle Testing Left Flexion (L2) 3- Fair- Extension (S1) 3- Fair- Abduction 4- Good- Adduction 4- Good- External Rotation 3+ Fair+ Internal Rotation 3+ Fair+ Right Flexion (L2) 3+ Fair+ Extension (S1) 3- Fair- Abduction 4- Good- Adduction 4 Good External Rotation 3+ Fair+ Internal Rotation 4- Good- Knee Strength Knee Manual Muscle Testing Left Flexion (S2) 4 Good Extension (L3) 4 Good Right Flexion (S2) 5 Normal Extension (L3) 5 Normal Ankle/Foot Strength Ankle and Foot Manual Muscle Testing Left Dorsiflexion (L4) 4 Good Plantarflexion (S1) 4 Good Right Dorsiflexion (L4) 4+ Good+ Plantarflexion (S1) 4+ Good+ PT-OP-Q Treatments Start: 01/12/24 08:26 Freq: Status: Active Protocol: Document 01/31/24 11:20 SP (Rec: 01/31/24 12:17 SP [id number]) Cardio Equipment Recumbent Elliptical ([employer]) Duration (Minutes) 8 Resistance 3 Seat Position see 9 Other LEs only Gym Equipment Shuttle Balance blue Details future Therapeutic Exercises Supine Exercises TA KFO Supine Exercise Name reviewed HEP Side bilateral Reps/Minutes 10 Comments pnfree range L more limiting, cued TA level pelvis Sitting Exercises STS Sitting Exercise Name reviewed Reps/Minutes 5 reps Comments need use of 1 (2 OK) hand, cued scoot fwd, feet back what knee range has Standing Exercises ankle/knee mobility Standing Exercise Name trialed Side bilateral Resistance L>R foot on 2nd step, rail support Reps/Minutes 5 reps Comments cued wt shift into foot onstep - hip/knee/ankle ROM- good stretch HS, hip fl step ups Side bilateral Resistance R HR Reps/Minutes 8 reps each LE Comments SBA- alternating, challenging L hip step taps Standing Exercise Name for AROM Side bilateral Resistance AROM Equipment Used L HR, R QC Reps/Minutes x15 Comments cued hip/knee flexion up/down alternating Manual Therapy Treatment Soft Tissue Mobilization L hip Body Location L piriformis, glut max, TFL Mobilization Type Rolling,Strumming Intensity/Depth MOd Body Position R SL Comments improved muscle releases. IMproved KFO Neuro Re-Education Treatment Balance Activities hurdles Details future Self-Care/Home Management Treatment Education Patient Education Home Exercise Program,Pain Management,Safety Other Education Disucussed hold off full flight stairs and Reformer until progress in PT and increased L hip ROM. Continue supine and seated ex given. Proper use of full 4 pt QC in RUe during gait, tends to use 1-2 points and be unsteady support. PT-OP-R Modalities Start: 01/12/24 08:26 Freq: Status: Active Protocol: Document 01/31/24 11:20 SP (Rec: 01/31/24 12:17 SP [id number]) Electric Stimulation Electric Stimulation L hip Body Location ant/post greater trochanter Intensity 30 Ramp 2.0 Patient Position Sidelying Combined With Heat/Cold Hot Pack Comments good feedback, L hip muscle more relaxed and pain reduction once in standing but still some at lateral joint. PT-OP-T Assessment and Plan Start: 01/12/24 08:26 Freq: Status: Active Protocol: Document 01/31/24 11:20 SP (Rec: 01/31/24 12:17 SP [id number]) Physical Therapy Assessment Goals Three Impairment strength and ROM impairment Short Term Goal (STG) Patient to be instsructed in progressive individualized home exercise program to address ROM and strength impairments in core and left LE. STG Duration 03/01/24 Usp Goal (LTG) Patient will be independent and compliant with HEP and demonstrate improvement in ROM to WFL and strength to at least 4+/5 all hip muscle groups to allow him to return to prior level of function LTG Duration 04/17/24 Two Impairment gait dysfunction Impairment antalgic gait, requires use of cane Short Term Goal (STG) Patient will be able to ambulate on level surfaces with least restrictive device with minimal to no limp STG Duration 03/01/24 Satellite Technician Goal (LTG) Patient will be able to walk for 30 minutes without an increase in pain and with minimal to no limp using least restrictive device LTG Duration 04/17/24 One Impairment activity tolerance Impairment lower extremity functional scale 46% Short Term Goal (STG) Improve LEFS score to at least 56% as measure of improved activity tolerance and function STG Duration 03/01/24 Satellite Technician Goal (LTG) Improve LEFS score to at least 70% as measure of improved activity tolerance, function, and quality of life. LTG Duration 04/17/24 Assessment Summary Assessment Pt sensitive over greater trochanter, lessened muscular tension with Manual STMs, estim and MHP. Discussed hold off on Reformer and continue HEP TA KFO, hip abd more consistantly before return to reformer. DIscussed think did to many resisted activities at once: reformer, 14 stairs and L hip could be residual. Pt improved LLE hip flexion during hip advancement at end of appt. Physical Therapy Plan Frequency and Duration Frequency of Treatment 2x/Week Duration of treatment (weeks) 12 Plan of Care Start Date 01/16/24 Plan of Care End Date 04/17/24 Therapeutic Interventions Therapeutic Interventions Gait Training,Home Exercise Program,Manual Therapy, Neuromuscular Re-education, Patient/Caregiver Education, Self-Care/Home Management,Soft Tissue Mobilization,Taping, Therapeutic Activities, Therapeutic Exercises Modalities Cold Pack/Ice Massage,Electric Stimulation,Hot Packs, Infrared Therapy,Iontophoresis ,Ultrasound Next Visit Focus/Plan Next Note Type Treatment Note Next Visit Plan Check response to manual, HEP home. Updated 1 appt to see PT in 2 weeks. POC: Continue warm up recumbant elliptical for gentle ROM and strengthening LE's, shuttle recovery, standing step taps AROM, try hurdles next. Review HEP, continue TA corset. Continue Gait training with cane. Consider KT tape. Modalities and manual therapy PRN.
--- NOTE | 2024-02-05 08:20 | PT.OTN ---
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 Had PT with some improvement , PT stopped due to prostate cancer. At this time has persistent pain low back and lateral left LE. Dr. 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 He states it has been hard to determine whether hip or nerve compression is the issue. has ALS; patient does all cooking but has caregivers 7 days per week. Not sleeping well due to pain. Uses quad cane but I know I still limp . Has [employer] exercise machine but hasn't been able to use for a long time. Pain increases with walking, pressure on hip with sitting, tends to sit with lean to the right, dec temporarily with Tylenol, Icy Hot. At times requires use of walker. N/T arnie feet. Has stair lift initially bought for and now he uses all the time. No pain supine with legs elevated. Hasn't used heat or ice recently. Also reports history of arnie TKA with poor outcome of ROM due to quick scarring. Prior Treatments and Tests cortisone injection lumbar spine 2 months ago. Future Testing and Treatments Planned Plans to go see Dr. Brar. Treatment Goals Patient/Caregiver Goals decrease pain walk more easily , preferably without the cane Prior Functional Status Baseline Function- ADL's Independent Baseline Function- Mobility Independent Baseline Function- Gait indep Current Functional Impairments (Reported) Functional Limitations- ADL's indep but painful Functional Limitations- Mobility/Gait indep short distances, unable to go for walks anymore. Uses stair lift Personal Factors Other Personal Factors That May Effect in end stages of ALS Therapy/Recovery PT-OP-C Subjective Start: 01/12/24 08:26 Freq: Status: Active Protocol: Document 02/05/24 07:32 SP (Rec: 02/05/24 08:21 SP [id number]) OP-PT Subjective Patient Comments Patient Comments Pt reports his L hip felt better after tx and trying incorporated reformer home, unable to adduction stretch due to hip ER limited. He arrives is really sore L hip arrival and wonder if needed to be reseen by ortho or 2nd opinion when see Dr Amaro home visiting today. Wants to know if L hip is proper healing since his hip surgery. Pt reports the step ups have helped with lifing foot walking, is holding off as recommended on full flight due to not having strength and endurance. PT-OP-D Balance Start: 01/12/24 08:26 Freq: Status: Active Protocol: Document 01/16/24 08:15 SAK (Rec: 01/16/24 16:39 SAK [id number]) Balance Tests Other Other Balance Tests Performed unable to assess due to pain PT-OP-F Manual Assessment Start: 01/12/24 08:26 Freq: Status: Active Protocol: Document 01/16/24 08:15 SAK (Rec: 01/16/24 16:39 SAK [id number]) Manual Assessments Joint Mobility Assessment Joint Mobility Assessment decreased joint mobility left hip with c/o pain PT-OP-G Mobility & Gait Start: 01/12/24 08:26 Freq: Status: Active Protocol: Document 01/16/24 08:15 SAK (Rec: 01/16/24 15:33 SAK [id number]) OP Mobility Evaluation Bed Mobility Rolling painful but indep Supine to and from Sit painful but ind Transfers Sit to Stand requires use of UE's, dec use left LE OP Gait Assessment Gait Gait Assistance Required: Independent Distance (Feet) 50 Assistive Devices Assistive Device Small Based Quad Cane Orthotic/Prosthetic Devices or Brace: No Gait Deviations General Gait Pattern Antalgic,Decreased Stride Length,Decreased Feet Clearance Factors Limiting Gait Function Factors Limiting Gait Function Pain Comments Gait Comments patient reports wears heel lift left. PT-OP-J Posture/Palpation/Skin Start: 01/12/24 08:26 Freq: Status: Active Protocol: Document 01/16/24 08:15 [facility] (Rec: 01/16/24 15:33 [facility] [id number]) Posture Evaluation Position Standing T-Spine Posture Increased Kyphosis L-Spine Posture Flattened Weight Distribution Weight Shifted Right Palpation Assessment Location l/s Palpation Location left L45 Palpation Findings Tenderness gr trochanter Palpation Findings Tenderness PT-OP-K Range of Motion Start: 01/12/24 08:26 Freq: Status: Active Protocol: Document 01/16/24 08:15 SAK (Rec: 01/16/24 15:33 [facility] [id number]) Lumbar Spine Range of Motion Lumbar Spine Active Comments mod decrease in all motions due to c/o pain, worst with left sidebending with radiation into left LE Hip Goniometric Range of Motion Hip Left Flexion w/Knee Flexed 90 Straight Leg Raise 55 Extension 0 Internal Rotation 10 External Rotation 15 Right Flexion w/Knee Flexed 90 Straight Leg Raise 65 Extension 0 Abduction 30 Internal Rotation 15 External Rotation 20 Knee Goniometric Range of Motion Knee arnie Knee ROM WFL No Flexion Active (degrees) 90 Extension Active (degrees) 0 Knee ROM Limitations Knee ROM Limitations Soft Tissue Tightness,Bony Restriction,Pain Ankle and Foot Goniometric Range of Motion Ankle and Foot ARNIE Dorsiflexion with Knee Flexed 5 Dorsiflexion with Knee Extended 0 Ankle and Foot ROM Limitations ROM Limitations Soft Tissue Tightness,Swelling PT-OP-L Special Tests Start: 01/12/24 08:26 Freq: Status: Active Protocol: Document 01/16/24 08:15 SAK (Rec: 01/16/24 16:39 [facility] [id number]) Special Tests Lumbar Spine Special Tests Compression Test Results inc pain PT-OP-M Strength Start: 01/12/24 08:26 Freq: Status: Active Protocol: Document 01/16/24 08:15 SAK (Rec: 01/16/24 16:39 [facility] [id number]) Hip Strength Hip Manual Muscle Testing Left Flexion (L2) 3- Fair- Extension (S1) 3- Fair- Abduction 4- Good- Adduction 4- Good- External Rotation 3+ Fair+ Internal Rotation 3+ Fair+ Right Flexion (L2) 3+ Fair+ Extension (S1) 3- Fair- Abduction 4- Good- Adduction 4 Good External Rotation 3+ Fair+ Internal Rotation 4- Good- Knee Strength Knee Manual Muscle Testing Left Flexion (S2) 4 Good Extension (L3) 4 Good Right Flexion (S2) 5 Normal Extension (L3) 5 Normal Ankle/Foot Strength Ankle and Foot Manual Muscle Testing Left Dorsiflexion (L4) 4 Good Plantarflexion (S1) 4 Good Right Dorsiflexion (L4) 4+ Good+ Plantarflexion (S1) 4+ Good+ PT-OP-Q Treatments Start: 01/12/24 08:26 Freq: Status: Active Protocol: Document 02/05/24 07:32 SP (Rec: 02/05/24 08:21 SP [id number]) Cardio Equipment Recumbent Stepper (Sci-Fit) Duration (Minutes) 6 Resistance 3.5 Seat Position 12 Other LEs Only Gym Equipment Shuttle Recovery unilateral squat Details L slow eccentric control range tolerated, not lock knee Resistance 37# (1 navy) Reps/Time 2x15 Bilateral Squats Details knees // with feet see inside ankles Resistance 50#>62# (2 navy) Reps/Time 2x15 reps (feet higher allow hip flexion, ximena knee) Therapeutic Exercises Supine Exercises stretching Supine Exercise Name HS (fwd,med,lat rot), adductor (limted range ximena) initiated for self review Side left Equipment Used strap, opposite leg bent Reps/Minutes 20SH each position Comments ed use on bed vs reformer- not flexible return use band on reformer TA KFO Supine Exercise Name reviewed HEP- for hip ER ROM Side bilateral Reps/Minutes 10 Comments pnfree range L post manual, cued TA draw in and level pelvis abdominal corseting Supine Exercise Name occ cues for belly draw in and bracing Reps/Minutes prep 5 SH x10 Comments prep then /c mobility draw in during KFO exercise, reduction ab protrusion Sitting Exercises STS Sitting Exercise Name reviewed Reps/Minutes 5 reps Comments need use of 1 (2 OK) hand, cued scoot fwd, feet back what knee range has Other Exercises STMs Other Exercise Name L distal glut max & TFL Side left Equipment Used tennis ball wall rolling Comments good feedback decrease muscular tension Gait Training Gait Activity SPC Device Used QC in RUE Distance/Duration 100 ft x2 Comments good patterning in RUE with LLE, cued x1 place all 4 feet at time, taller posture, increase DF stride. IMproved end tx post manual and ther ex . Manual Therapy Treatment Soft Tissue Mobilization L hip Body Location L piriformis, glut max, TFL Mobilization Type Rolling,Strumming Intensity/Depth MOd Body Position R SL Comments improved muscle releases. IMproved KFO Joint Mobilizations L hip Grade II Body Position Supine Comments anteromedial glide with MWM hip ER /c strap- improved abd KFO PT-OP-R Modalities Start: 01/12/24 08:26 Freq: Status: Active Protocol: Document 01/31/24 11:20 SP (Rec: 01/31/24 12:17 SP [id number]) Electric Stimulation Electric Stimulation L hip Body Location ant/post greater trochanter Intensity 30 Ramp 2.0 Patient Position Sidelying Combined With Heat/Cold Hot Pack Comments good feedback, L hip muscle more relaxed and pain reduction once in standing but still some at lateral joint. PT-OP-T Assessment and Plan Start: 01/12/24 08:26 Freq: Status: Active Protocol: Document 02/05/24 07:32 SP (Rec: 02/05/24 08:21 SP [id number]) Physical Therapy Assessment Goals Three Impairment strength and ROM impairment Short Term Goal (STG) Patient to be instsructed in progressive individualized home exercise program to address ROM and strength impairments in core and left LE. STG Duration 03/01/24 Operations Supervisor Goal (LTG) Patient will be independent and compliant with HEP and demonstrate improvement in ROM to WFL and strength to at least 4+/5 all hip muscle groups to allow him to return to prior level of function LTG Duration 04/17/24 Two Impairment gait dysfunction Impairment antalgic gait, requires use of cane Short Term Goal (STG) Patient will be able to ambulate on level surfaces with least restrictive device with minimal to no limp STG Duration 03/01/24 Operations Supervisor Goal (LTG) Patient will be able to walk for 30 minutes without an increase in pain and with minimal to no limp using least restrictive device LTG Duration 04/17/24 One Impairment activity tolerance Impairment lower extremity functional scale 46% Short Term Goal (STG) Improve LEFS score to at least 56% as measure of improved activity tolerance and function STG Duration 03/01/24 Mcc Goal (LTG) Improve LEFS score to at least 70% as measure of improved activity tolerance, function, and quality of life. LTG Duration 04/17/24 Assessment Summary Assessment Pt initially sensitive over L greater trochanter, lessened muscular tension post manual to L hip with ability to increase segmental L Hip ER KFO and noted increase L hip flexion and knee flexion foot clearance leaving. Ed feet higher up on shuttle platform to decreased knee bend limitation and increase hip flexion ROM and inclusion resistance for hip strengthening, is performing on reformer home. Physical Therapy Plan Frequency and Duration Frequency of Treatment 2x/Week Duration of treatment (weeks) 12 Plan of Care Start Date 01/16/24 Plan of Care End Date 04/17/24 Therapeutic Interventions Therapeutic Interventions Gait Training,Home Exercise Program,Manual Therapy, Neuromuscular Re-education, Patient/Caregiver Education, Self-Care/Home Management,Soft Tissue Mobilization,Taping, Therapeutic Activities, Therapeutic Exercises Modalities Cold Pack/Ice Massage,Electric Stimulation,Hot Packs, Infrared Therapy,Iontophoresis ,Ultrasound Next Visit Focus/Plan Next Note Type Treatment Note Next Visit Plan Review HEP including L hip ROM , continue TA corset. Check incorporated self STMs. POC: Continue warm up recumbant elliptical for gentle ROM and strengthening LE's, shuttle recovery, standing step taps AROM, try hurdles next. Continue Gait training with cane. Consider KT tape. Modalities and manual therapy PRN.
--- NOTE | 2024-02-12 16:31 | PT.OTN ---
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 Had PT with some improvement , PT stopped due to prostate cancer. At this time has persistent pain low back and lateral left LE. Dr. 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 He states it has been hard to determine whether hip or nerve compression is the issue. has ALS; patient does all cooking but has caregivers 7 days per week. Not sleeping well due to pain. Uses quad cane but I know I still limp . Has [employer] exercise machine but hasn't been able to use for a long time. Pain increases with walking, pressure on hip with sitting, tends to sit with lean to the right, dec temporarily with Tylenol, Icy Hot. At times requires use of walker. N/T arnie feet. Has stair lift initially bought for and now he uses all the time. No pain supine with legs elevated. Hasn't used heat or ice recently. Also reports history of arnie TKA with poor outcome of ROM due to quick scarring. Prior Treatments and Tests cortisone injection lumbar spine 2 months ago. Future Testing and Treatments Planned Plans to go see Dr. Brar. Treatment Goals Patient/Caregiver Goals decrease pain walk more easily , preferably without the cane Prior Functional Status Baseline Function- ADL's Independent Baseline Function- Mobility Independent Baseline Function- Gait indep Current Functional Impairments (Reported) Functional Limitations- ADL's indep but painful Functional Limitations- Mobility/Gait indep short distances, unable to go for walks anymore. Uses stair lift Personal Factors Other Personal Factors That May Effect in end stages of ALS Therapy/Recovery PT-OP-C Subjective Start: 01/12/24 08:26 Freq: Status: Active Protocol: Document 02/12/24 10:35 SAK (Rec: 02/12/24 11:20 SAK [id number]) OP-PT Subjective Patient Comments Patient Comments Liked use of tennis ball on hip against the wall, though hurt like crazy the next day. States it helps him identify things that are problems Pain persists, having MRI for back and hip ordered. Going back to see Dr Shawna Brar. Feels he is getting stronger but pain persists and is very debilitating. PT-OP-D Balance Start: 01/12/24 08:26 Freq: Status: Active Protocol: Document 01/16/24 08:15 SAK (Rec: 01/16/24 16:39 [facility] [id number]) Balance Tests Other Other Balance Tests Performed unable to assess due to pain PT-OP-F Manual Assessment Start: 01/12/24 08:26 Freq: Status: Active Protocol: Document 01/16/24 08:15 SAK (Rec: 01/16/24 16:39 [facility] [id number]) Manual Assessments Joint Mobility Assessment Joint Mobility Assessment decreased joint mobility left hip with c/o pain PT-OP-G Mobility & Gait Start: 01/12/24 08:26 Freq: Status: Active Protocol: Document 01/16/24 08:15 SAK (Rec: 01/16/24 15:33 SAK [id number]) OP Mobility Evaluation Bed Mobility Rolling painful but indep Supine to and from Sit painful but ind Transfers Sit to Stand requires use of UE's, dec use left LE OP Gait Assessment Gait Gait Assistance Required: Independent Distance (Feet) 50 Assistive Devices Assistive Device Small Based Quad Cane Orthotic/Prosthetic Devices or Brace: No Gait Deviations General Gait Pattern Antalgic,Decreased Stride Length,Decreased Feet Clearance Factors Limiting Gait Function Factors Limiting Gait Function Pain Comments Gait Comments patient reports wears heel lift left. PT-OP-J Posture/Palpation/Skin Start: 01/12/24 08:26 Freq: Status: Active Protocol: Document 01/16/24 08:15 SAK (Rec: 01/16/24 15:33 [facility] [id number]) Posture Evaluation Position Standing T-Spine Posture Increased Kyphosis L-Spine Posture Flattened Weight Distribution Weight Shifted Right Palpation Assessment Location l/s Palpation Location left L45 Palpation Findings Tenderness gr trochanter Palpation Findings Tenderness PT-OP-K Range of Motion Start: 01/12/24 08:26 Freq: Status: Active Protocol: Document 01/16/24 08:15 SAK (Rec: 01/16/24 15:33 [facility] [id number]) Lumbar Spine Range of Motion Lumbar Spine Active Comments mod decrease in all motions due to c/o pain, worst with left sidebending with radiation into left LE Hip Goniometric Range of Motion Hip Left Flexion w/Knee Flexed 90 Straight Leg Raise 55 Extension 0 Internal Rotation 10 External Rotation 15 Right Flexion w/Knee Flexed 90 Straight Leg Raise 65 Extension 0 Abduction 30 Internal Rotation 15 External Rotation 20 Knee Goniometric Range of Motion Knee arnie Knee ROM WFL No Flexion Active (degrees) 90 Extension Active (degrees) 0 Knee ROM Limitations Knee ROM Limitations Soft Tissue Tightness,Bony Restriction,Pain Ankle and Foot Goniometric Range of Motion Ankle and Foot ARNIE Dorsiflexion with Knee Flexed 5 Dorsiflexion with Knee Extended 0 Ankle and Foot ROM Limitations ROM Limitations Soft Tissue Tightness,Swelling PT-OP-L Special Tests Start: 01/12/24 08:26 Freq: Status: Active Protocol: Document 01/16/24 08:15 [facility] (Rec: 01/16/24 16:39 [facility] [id number]) Special Tests Lumbar Spine Special Tests Compression Test Results inc pain PT-OP-M Strength Start: 01/12/24 08:26 Freq: Status: Active Protocol: Document 01/16/24 08:15 SAK (Rec: 01/16/24 16:39 [facility] [id number]) Hip Strength Hip Manual Muscle Testing Left Flexion (L2) 3- Fair- Extension (S1) 3- Fair- Abduction 4- Good- Adduction 4- Good- External Rotation 3+ Fair+ Internal Rotation 3+ Fair+ Right Flexion (L2) 3+ Fair+ Extension (S1) 3- Fair- Abduction 4- Good- Adduction 4 Good External Rotation 3+ Fair+ Internal Rotation 4- Good- Knee Strength Knee Manual Muscle Testing Left Flexion (S2) 4 Good Extension (L3) 4 Good Right Flexion (S2) 5 Normal Extension (L3) 5 Normal Ankle/Foot Strength Ankle and Foot Manual Muscle Testing Left Dorsiflexion (L4) 4 Good Plantarflexion (S1) 4 Good Right Dorsiflexion (L4) 4+ Good+ Plantarflexion (S1) 4+ Good+ PT-OP-Q Treatments Start: 01/12/24 08:26 Freq: Status: Active Protocol: Document 02/12/24 10:35 SAK (Rec: 02/12/24 11:20 [facility] [id number]) Cardio Equipment Recumbent Stepper (Sci-Fit) Duration (Minutes) 7 Resistance 3.5 Seat Position 12 Other LEs Only Gym Equipment Shuttle Recovery unilateral squat Details L slow eccentric control range tolerated, not lock knee Resistance 37# (1 navy) Reps/Time 2x15 Bilateral Squats Details knees // with feet see inside ankles Resistance 50#>62# (2 navy) Reps/Time 2x15 reps (feet higher allow hip flexion, ximena knee) Therapeutic Exercises Supine Exercises ball squeeze Comments next session abdominal corseting Supine Exercise Name occ cues for belly draw in and bracing Reps/Minutes prep 5 SH x10 Comments prep then /c mobility draw in during KFO exercise, reduction ab protrusion Sidelying Exercises clamshell Comments consider next session Standing Exercises hip ext Side left Reps/Minutes 10x hip ab Side left Reps/Minutes 10x Other Exercises STMs Other Exercise Name reviewe Manual Therapy Treatment Soft Tissue Mobilization L hip Body Location L piriformis, glut max, TFL Mobilization Type Rolling,Strumming Intensity/Depth MOd Body Position R SL Comments dec pain after treatment PT-OP-R Modalities Start: 01/12/24 08:26 Freq: Status: Active Protocol: Document 02/12/24 10:35 SAK (Rec: 02/13/24 16:29 [facility] [id number]) Hot Pack/Cold Pack Treatment Hot Pack Location left hip Patient Position Sidelying Patient Tolerance Good PT-OP-T Assessment and Plan Start: 01/12/24 08:26 Freq: Status: Active Protocol: Document 02/12/24 10:35 [facility] (Rec: 02/12/24 11:20 [facility] [id number]) Physical Therapy Assessment Goals Three Impairment strength and ROM impairment Short Term Goal (STG) Patient to be instsructed in progressive individualized home exercise program to address ROM and strength impairments in core and left LE. STG Duration 03/01/24 Care Home Goal (LTG) Patient will be independent and compliant with HEP and demonstrate improvement in ROM to WFL and strength to at least 4+/5 all hip muscle groups to allow him to return to prior level of function LTG Duration 04/17/24 Two Impairment gait dysfunction Impairment antalgic gait, requires use of cane Short Term Goal (STG) Patient will be able to ambulate on level surfaces with least restrictive device with minimal to no limp STG Duration 03/01/24 Care Home Goal (LTG) Patient will be able to walk for 30 minutes without an increase in pain and with minimal to no limp using least restrictive device LTG Duration 04/17/24 One Impairment activity tolerance Impairment lower extremity functional scale 46% Short Term Goal (STG) Improve LEFS score to at least 56% as measure of improved activity tolerance and function STG Duration 03/01/24 Senior Data Architect Goal (LTG) Improve LEFS score to at least 70% as measure of improved activity tolerance, function, and quality of life. LTG Duration 04/17/24 Assessment Summary Assessment Pain persisting, trial ultrasound left hip, continue manual treatment and trial moist heat to end. Patient gait antalgic, having MRI ordered. Will benefit from continued ther ex, manual therapy, modalities PRN, patient education HEP. Physical Therapy Plan Frequency and Duration Frequency of Treatment 2x/Week Duration of treatment (weeks) 12 Plan of Care Start Date 01/16/24 Plan of Care End Date 04/17/24 Therapeutic Interventions Therapeutic Interventions Gait Training,Home Exercise Program,Manual Therapy, Neuromuscular Re-education, Patient/Caregiver Education, Self-Care/Home Management,Soft Tissue Mobilization,Taping, Therapeutic Activities, Therapeutic Exercises Modalities Cold Pack/Ice Massage,Electric Stimulation,Hot Packs, Infrared Therapy,Iontophoresis ,Ultrasound Next Visit Focus/Plan Next Note Type Treatment Note Next Visit Plan Assess respnse to today's treatment. POC: Continue warm up recumbant elliptical for gentle ROM and strengthening LE's, shuttle recovery, standing step taps AROM, try hurdles next. Continue Gait training with cane. Consider KT tape. Modalities and manual therapy PRN.
--- NOTE | 2024-02-18 17:12 | PT.OTN ---
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 Fractured hip s/p ORIF. PT-OP-B Current Condition Start: 01/12/24 08:26 Freq: Status: Active Protocol: Document 01/16/24 08:15 SAK (Rec: 01/16/24 09:06 [facility] [id number]) Current Condition History of Current Condition Onset Date 1 year Current Complaints left hip pain History of Current Condition fell and broke neck of left femur, s/p ORIF with 3 screws. Had PT with some improvement , PT stopped due to prostate cancer. At this time has persistent pain low back and lateral left LE. Dr. 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 He states it has been hard to determine whether hip or nerve compression is the issue. has ALS; patient does all cooking but has caregivers 7 days per week. Not sleeping well due to pain. Uses quad cane but I know I still limp . Has Reformer exercise machine but hasn't been able to use for a long time. Pain increases with walking, pressure on hip with sitting, tends to sit with lean to the right, dec temporarily with Tylenol, Icy Hot. At times requires use of walker. N/T arnie feet. Has stair lift initially bought for and now he uses all the time. No pain supine with legs elevated. Hasn't used heat or ice recently. Also reports history of arnie TKA with poor outcome of ROM due to quick scarring. Prior Treatments and Tests cortisone injection lumbar spine 2 months ago. Future Testing and Treatments Planned Plans to go see Dr. Brar. Treatment Goals Patient/Caregiver Goals decrease pain walk more easily , preferably without the cane Prior Functional Status Baseline Function- ADL's Independent Baseline Function- Mobility Independent Baseline Function- Gait indep Current Functional Impairments (Reported) Functional Limitations- ADL's indep but painful Functional Limitations- Mobility/Gait indep short distances, unable to go for walks anymore. Uses stair lift Personal Factors Other Personal Factors That May Effect in end stages of ALS Therapy/Recovery PT-OP-C Subjective Start: 01/12/24 08:26 Freq: Status: Active Protocol: Document 02/18/24 09:45 SAK (Rec: 02/18/24 10:32 [facility] [id number]) OP-PT Subjective Patient Comments Patient Comments No MRI yet. Had appt with Dr. Brar, looked at x-rays. States Dr. Brar told him his hip wasn't repaired correctly , now needs DAMION. Is going to go for a second opinion, Dr. Win Calvo in [place]. Dr. Brar is going to contact 2 other surgeons at [facility]. Timing of doing a DAMION is not good with not doing well with ALS. Needs to be able to assist his during the night hours. Going to do another injection of hip. Has stopped using the tennis ball PT-OP-D Balance Start: 01/12/24 08:26 Freq: Status: Active Protocol: Document 01/16/24 08:15 SAK (Rec: 01/16/24 16:39 [facility] [id number]) Balance Tests Other Other Balance Tests Performed unable to assess due to pain PT-OP-F Manual Assessment Start: 01/12/24 08:26 Freq: Status: Active Protocol: Document 01/16/24 08:15 SAK (Rec: 01/16/24 16:39 [facility] [id number]) Manual Assessments Joint Mobility Assessment Joint Mobility Assessment decreased joint mobility left hip with c/o pain PT-OP-G Mobility & Gait Start: 01/12/24 08:26 Freq: Status: Active Protocol: Document 01/16/24 08:15 SAK (Rec: 01/16/24 15:33 [facility] [id number]) OP Mobility Evaluation Bed Mobility Rolling painful but indep Supine to and from Sit painful but ind Transfers Sit to Stand requires use of UE's, dec use left LE OP Gait Assessment Gait Gait Assistance Required: Independent Distance (Feet) 50 Assistive Devices Assistive Device Small Based Quad Cane Orthotic/Prosthetic Devices or Brace: No Gait Deviations General Gait Pattern Antalgic,Decreased Stride Length,Decreased Feet Clearance Factors Limiting Gait Function Factors Limiting Gait Function Pain Comments Gait Comments patient reports wears heel lift left. PT-OP-J Posture/Palpation/Skin Start: 01/12/24 08:26 Freq: Status: Active Protocol: Document 01/16/24 08:15 SAK (Rec: 01/16/24 15:33 [facility] [id number]) Posture Evaluation Position Standing T-Spine Posture Increased Kyphosis L-Spine Posture Flattened Weight Distribution Weight Shifted Right Palpation Assessment Location l/s Palpation Location left L45 Palpation Findings Tenderness gr trochanter Palpation Findings Tenderness PT-OP-K Range of Motion Start: 01/12/24 08:26 Freq: Status: Active Protocol: Document 01/16/24 08:15 SAK (Rec: 01/16/24 15:33 [facility] [id number]) Lumbar Spine Range of Motion Lumbar Spine Active Comments mod decrease in all motions due to c/o pain, worst with left sidebending with radiation into left LE Hip Goniometric Range of Motion Hip Left Flexion w/Knee Flexed 90 Straight Leg Raise 55 Extension 0 Internal Rotation 10 External Rotation 15 Right Flexion w/Knee Flexed 90 Straight Leg Raise 65 Extension 0 Abduction 30 Internal Rotation 15 External Rotation 20 Knee Goniometric Range of Motion Knee arnie Knee ROM WFL No Flexion Active (degrees) 90 Extension Active (degrees) 0 Knee ROM Limitations Knee ROM Limitations Soft Tissue Tightness,Bony Restriction,Pain Ankle and Foot Goniometric Range of Motion Ankle and Foot ARNIE Dorsiflexion with Knee Flexed 5 Dorsiflexion with Knee Extended 0 Ankle and Foot ROM Limitations ROM Limitations Soft Tissue Tightness,Swelling PT-OP-L Special Tests Start: 01/12/24 08:26 Freq: Status: Active Protocol: Document 01/16/24 08:15 SAK (Rec: 01/16/24 16:39 [facility] [id number]) Special Tests Lumbar Spine Special Tests Compression Test Results inc pain PT-OP-M Strength Start: 01/12/24 08:26 Freq: Status: Active Protocol: Document 01/16/24 08:15 SAK (Rec: 01/16/24 16:39 [facility] [id number]) Hip Strength Hip Manual Muscle Testing Left Flexion (L2) 3- Fair- Extension (S1) 3- Fair- Abduction 4- Good- Adduction 4- Good- External Rotation 3+ Fair+ Internal Rotation 3+ Fair+ Right Flexion (L2) 3+ Fair+ Extension (S1) 3- Fair- Abduction 4- Good- Adduction 4 Good External Rotation 3+ Fair+ Internal Rotation 4- Good- Knee Strength Knee Manual Muscle Testing Left Flexion (S2) 4 Good Extension (L3) 4 Good Right Flexion (S2) 5 Normal Extension (L3) 5 Normal Ankle/Foot Strength Ankle and Foot Manual Muscle Testing Left Dorsiflexion (L4) 4 Good Plantarflexion (S1) 4 Good Right Dorsiflexion (L4) 4+ Good+ Plantarflexion (S1) 4+ Good+ PT-OP-Q Treatments Start: 01/12/24 08:26 Freq: Status: Active Protocol: Document 02/18/24 09:45 [facility] (Rec: 02/18/24 10:32 [facility] [id number]) Cardio Equipment Recumbent Stepper (Sci-Fit) Duration (Minutes) 8 Resistance 3.5 Seat Position 12 Other LEs Only Gym Equipment Shuttle Recovery unilateral squat Details L slow eccentric control range tolerated, not lock knee Resistance 37# (1 navy) Reps/Time 2x15 Bilateral Squats Details knees // with feet see inside ankles Resistance 50#>62# (2 navy) Reps/Time 2x15 reps (feet higher allow hip flexion, ximena knee) Therapeutic Exercises Supine Exercises bridge Equipment Used foam roller under knees Reps/Minutes 10x Comments consider legs on bolster next session due to HS cramping today ball squeeze Comments in sitting today abdominal corseting Supine Exercise Name occ cues for belly draw in and bracing Reps/Minutes prep 5 SH x10 Comments prep then /c mobility draw in during KFO exercise, reduction ab protrusion Sitting Exercises clam Resistance L4 TB Reps/Minutes 10x5 Comments cues for small movement, longer hold ball squeeze Resistance ball Reps/Minutes 10x5 STS Reps/Minutes 5x Standing Exercises hip ext Side left Reps/Minutes 10x hip ab Side left Reps/Minutes 10x Manual Therapy Treatment Soft Tissue Mobilization L hip Body Location L piriformis, glut max, TFL Mobilization Type Rolling,Strumming Intensity/Depth MOd Body Position R SL Comments dec pain after treatment PT-OP-R Modalities Start: 01/12/24 08:26 Freq: Status: Active Protocol: Document 02/18/24 09:45 [facility] (Rec: 02/18/24 17:12 [facility] [id number]) Hot Pack/Cold Pack Treatment Hot Pack Location left hip Patient Position Sidelying Patient Tolerance Good PT-OP-T Assessment and Plan Start: 01/12/24 08:26 Freq: Status: Active Protocol: Document 02/18/24 09:45 [facility] (Rec: 02/18/24 10:32 [facility] [id number]) Physical Therapy Assessment Goals Three Impairment strength and ROM impairment Short Term Goal (STG) Patient to be instsructed in progressive individualized home exercise program to address ROM and strength impairments in core and left LE. STG Duration 03/01/24 [facility] Goal (LTG) Patient will be independent and compliant with HEP and demonstrate improvement in ROM to WFL and strength to at least 4+/5 all hip muscle groups to allow him to return to prior level of function LTG Duration 04/17/24 Two Impairment gait dysfunction Impairment antalgic gait, requires use of cane Short Term Goal (STG) Patient will be able to ambulate on level surfaces with least restrictive device with minimal to no limp STG Duration 03/01/24 [facility] Goal (LTG) Patient will be able to walk for 30 minutes without an increase in pain and with minimal to no limp using least restrictive device LTG Duration 04/17/24 One Impairment activity tolerance Impairment lower extremity functional scale 46% Short Term Goal (STG) Improve LEFS score to at least 56% as measure of improved activity tolerance and function STG Duration 03/01/24 Account Adjuster Goal (LTG) Improve LEFS score to at least 70% as measure of improved activity tolerance, function, and quality of life. LTG Duration 04/17/24 Assessment Summary Assessment Appointment with doctor Brar revealed probably need for DAMION. Discussed continue PT at this time for strengthening, possibly emphasis on isometrics depending on tolerance for pre-op prep. Complicating factor is patient 's on hospice with ALS in final months. Physical Therapy Plan Frequency and Duration Frequency of Treatment 2x/Week Duration of treatment (weeks) 12 Plan of Care Start Date 01/16/24 Plan of Care End Date 04/17/24 Therapeutic Interventions Therapeutic Interventions Gait Training,Home Exercise Program,Manual Therapy, Neuromuscular Re-education, Patient/Caregiver Education, Self-Care/Home Management,Soft Tissue Mobilization,Taping, Therapeutic Activities, Therapeutic Exercises Modalities Cold Pack/Ice Massage,Electric Stimulation,Hot Packs, Infrared Therapy,Iontophoresis ,Ultrasound Next Visit Focus/Plan Next Note Type Treatment Note Next Visit Plan Continue PT with emphasis on hip strengthening in preparation for anticipated DAMION. Update written HEP. Supine hip abd, heel slides.
--- NOTE | 2024-03-04 11:13 | PT.OTN ---
Current Diagnoses Low back pain, unspecified (03/04/24) Pain in left leg (03/04/24) Difficulty in walking, not elsewhere classified (03/04/24) Weakness (03/04/24) Physical Therapy Treatment Note PT-OP-A Visit Information Start: 01/12/24 08:26 Freq: Status: Active Protocol: Document 03/04/24 10:33 SP (Rec: 03/04/24 11:23 SP [id number]) Out-Patient Physical Therapy Visit Information Visit Information Visit Type Treatment Note Visit Note 04/11 after eval. 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 Fractured hip s/p ORIF. PT-OP-B Current Condition Start: 01/12/24 08:26 Freq: Status: Active Protocol: Document 01/16/24 08:15 SAK (Rec: 01/16/24 09:06 SAK [id number]) Current Condition History of Current Condition Onset Date 1 year Current Complaints left hip pain History of Current Condition fell and broke neck of left femur, s/p ORIF with 3 screws. Had PT with some improvement , PT stopped due to prostate cancer. At this time has persistent pain low back and lateral left LE. Dr. Brar performed cortisone injection into lower lumbar spine due to bulging disc 2 months ago, has alleved some of the burning in his feet which he feels late night and spring former machine, but numbness arnie feet seems to be progressing. He states it has been hard to determine whether hip or nerve compression is the issue. has ALS; patient does all cooking but has caregivers 7 days per week. Not sleeping well due to pain. Uses quad cane but I know I still limp . Has Reformer exercise machine but hasn't been able to use for a long time. Pain increases with walking, pressure on hip with sitting, tends to sit with lean to the right, dec temporarily with Tylenol, Icy Hot. At times requires use of walker. N/T arnie feet. Has stair lift initially bought for and now he uses all the time. No pain supine with legs elevated. Hasn't used heat or ice recently. Also reports history of arnie TKA with poor outcome of ROM due to quick scarring. Prior Treatments and Tests cortisone injection lumbar spine 2 months ago. Future Testing and Treatments Planned Plans to go see Dr. Brar. Treatment Goals Patient/Caregiver Goals decrease pain walk more easily , preferably without the cane Prior Functional Status Baseline Function- ADL's Independent Baseline Function- Mobility Independent Baseline Function- Gait indep Current Functional Impairments (Reported) Functional Limitations- ADL's indep but painful Functional Limitations- Mobility/Gait indep short distances, unable to go for walks anymore. Uses stair lift Personal Factors Other Personal Factors That May Effect in end stages of ALS Therapy/Recovery PT-OP-C Subjective Start: 01/12/24 08:26 Freq: Status: Active Protocol: Document 03/04/24 10:33 SP (Rec: 03/04/24 11:23 SP [id number]) OP-PT Subjective Patient Comments Patient Comments Pt reports the injection in back and not having any pain since. ALso hae a Lupin shot for Ca prevention support last Sat, takes 2 weeks adjust with symptoms: hot flashes/ sore breast/tiring endurance. Has 3 appts set up end March regarding hip surgery opinions . (Zonia put in referral: [facility] [place]), then decide where will go. Is back to using reformer leg press hip/knee flexion only. Pt reports no abdominal bubble anymore, can reach for lamp and it doesn't pop out anymore , abs stronger. PT-OP-D Balance Start: 01/12/24 08:26 Freq: Status: Active Protocol: Document 01/16/24 08:15 SAK (Rec: 01/16/24 16:39 [facility] [id number]) Balance Tests Other Other Balance Tests Performed unable to assess due to pain PT-OP-F Manual Assessment Start: 01/12/24 08:26 Freq: Status: Active Protocol: Document 01/16/24 08:15 SAK (Rec: 01/16/24 16:39 SAK [id number]) Manual Assessments Joint Mobility Assessment Joint Mobility Assessment decreased joint mobility left hip with c/o pain PT-OP-G Mobility & Gait Start: 01/12/24 08:26 Freq: Status: Active Protocol: Document 01/16/24 08:15 SAK (Rec: 01/16/24 15:33 SAK [id number]) OP Mobility Evaluation Bed Mobility Rolling painful but indep Supine to and from Sit painful but ind Transfers Sit to Stand requires use of UE's, dec use left LE OP Gait Assessment Gait Gait Assistance Required: Independent Distance (Feet) 50 Assistive Devices Assistive Device Small Based Quad Cane Orthotic/Prosthetic Devices or Brace: No Gait Deviations General Gait Pattern Antalgic,Decreased Stride Length,Decreased Feet Clearance Factors Limiting Gait Function Factors Limiting Gait Function Pain Comments Gait Comments patient reports wears heel lift left. PT-OP-J Posture/Palpation/Skin Start: 01/12/24 08:26 Freq: Status: Active Protocol: Document 01/16/24 08:15 [facility] (Rec: 01/16/24 15:33 [facility] [id number]) Posture Evaluation Position Standing T-Spine Posture Increased Kyphosis L-Spine Posture Flattened Weight Distribution Weight Shifted Right Palpation Assessment Location l/s Palpation Location left L45 Palpation Findings Tenderness gr trochanter Palpation Findings Tenderness PT-OP-K Range of Motion Start: 01/12/24 08:26 Freq: Status: Active Protocol: Document 01/16/24 08:15 [facility] (Rec: 01/16/24 15:33 [facility] [id number]) Lumbar Spine Range of Motion Lumbar Spine Active Comments mod decrease in all motions due to c/o pain, worst with left sidebending with radiation into left LE Hip Goniometric Range of Motion Hip Left Flexion w/Knee Flexed 90 Straight Leg Raise 55 Extension 0 Internal Rotation 10 External Rotation 15 Right Flexion w/Knee Flexed 90 Straight Leg Raise 65 Extension 0 Abduction 30 Internal Rotation 15 External Rotation 20 Knee Goniometric Range of Motion Knee arnie Knee ROM WFL No Flexion Active (degrees) 90 Extension Active (degrees) 0 Knee ROM Limitations Knee ROM Limitations Soft Tissue Tightness,Bony Restriction,Pain Ankle and Foot Goniometric Range of Motion Ankle and Foot ARNIE Dorsiflexion with Knee Flexed 5 Dorsiflexion with Knee Extended 0 Ankle and Foot ROM Limitations ROM Limitations Soft Tissue Tightness,Swelling PT-OP-L Special Tests Start: 01/12/24 08:26 Freq: Status: Active Protocol: Document 01/16/24 08:15 SAK (Rec: 01/16/24 16:39 [facility] [id number]) Special Tests Lumbar Spine Special Tests Compression Test Results inc pain PT-OP-M Strength Start: 01/12/24 08:26 Freq: Status: Active Protocol: Document 01/16/24 08:15 SAK (Rec: 01/16/24 16:39 SAK [id number]) Hip Strength Hip Manual Muscle Testing Left Flexion (L2) 3- Fair- Extension (S1) 3- Fair- Abduction 4- Good- Adduction 4- Good- External Rotation 3+ Fair+ Internal Rotation 3+ Fair+ Right Flexion (L2) 3+ Fair+ Extension (S1) 3- Fair- Abduction 4- Good- Adduction 4 Good External Rotation 3+ Fair+ Internal Rotation 4- Good- Knee Strength Knee Manual Muscle Testing Left Flexion (S2) 4 Good Extension (L3) 4 Good Right Flexion (S2) 5 Normal Extension (L3) 5 Normal Ankle/Foot Strength Ankle and Foot Manual Muscle Testing Left Dorsiflexion (L4) 4 Good Plantarflexion (S1) 4 Good Right Dorsiflexion (L4) 4+ Good+ Plantarflexion (S1) 4+ Good+ PT-OP-Q Treatments Start: 01/12/24 08:26 Freq: Status: Active Protocol: Document 03/04/24 10:33 SP (Rec: 03/04/24 11:23 SP [id number]) Gym Equipment Shuttle Recovery unilateral squat Details L slow eccentric control range tolerated, not lock knee Resistance 37# (1 navy) Reps/Time 2x15 Bilateral Squats Details knees // with feet see inside ankles Resistance 50#>62# (2 [employer]) Reps/Time 2x20 reps (feet higher allow hip flexion, ximena knee) Therapeutic Exercises Supine Exercises bridge Equipment Used lrg foam roller under knees Reps/Minutes x20 Comments good glut fac lift ball squeeze Supine Exercise Name hooklying Reps/Minutes 10 SH x10 Comments good TA draw in, slow contract /release hip abd Supine Exercise Name reviewed for future post op Side bilateral Resistance AROM Equipment Used opp LE bent Reps/Minutes x10 each side Comments cued TA level pelvis, kick out to side but close to table abdominal corseting Supine Exercise Name occ cues for belly draw in and bracing Reps/Minutes prep 5 SH x10 Comments prep then /c mobility draw in during KFO exercise, reduction ab protrusion Standing Exercises mini squats Standing Exercise Name trialed in PT- (vs STS at this time knee limited range STS) Side bilateral Equipment Used contact rail Reps/Minutes x8 reps Comments cued hip hinge buttock back hover toilet hip ext Standing Exercise Name HEP reviewed Side left Resistance AROM> 2# leg wt Reps/Minutes 10x2 Comments cued tall /c knee straight hip ab Standing Exercise Name HEP reviewed Side left Resistance AROM>2# leg wt Reps/Minutes 10x 2 Comments cued tall /c knee straight Neuro Re-Education Treatment Balance Activities hurdles Details receiprocal stepping fwd, lateral Equipment 1-2 UE rail support Reps/Duration 10 ft x2 laps each Comments cued hip flex, KTC, challenge trail LE without hip circumduction due to lack knee flexion PT-OP-R Modalities Start: 01/12/24 08:26 Freq: Status: Active Protocol: Document 02/18/24 09:45 SAK (Rec: 02/18/24 17:12 SAK [id number]) Hot Pack/Cold Pack Treatment Hot Pack Location left hip Patient Position Sidelying Patient Tolerance Good PT-OP-T Assessment and Plan Start: 01/12/24 08:26 Freq: Status: Active Protocol: Document 03/04/24 10:33 SP (Rec: 03/04/24 11:23 SP [id number]) Physical Therapy Assessment Goals Three Impairment strength and ROM impairment Short Term Goal (STG) Patient to be instsructed in progressive individualized home exercise program to address ROM and strength impairments in core and left LE. STG Duration 03/01/24 Usp Goal (LTG) Patient will be independent and compliant with HEP and demonstrate improvement in ROM to WFL and strength to at least 4+/5 all hip muscle groups to allow him to return to prior level of function LTG Duration 04/17/24 Two Impairment gait dysfunction Impairment antalgic gait, requires use of cane Short Term Goal (STG) Patient will be able to ambulate on level surfaces with least restrictive device with minimal to no limp STG Duration 03/01/24 Usp Goal (LTG) Patient will be able to walk for 30 minutes without an increase in pain and with minimal to no limp using least restrictive device LTG Duration 04/17/24 One Impairment activity tolerance Impairment lower extremity functional scale 46% Short Term Goal (STG) Improve LEFS score to at least 56% as measure of improved activity tolerance and function STG Duration 03/01/24 Electronics Scale Tester Goal (LTG) Improve LEFS score to at least 70% as measure of improved activity tolerance, function, and quality of life. LTG Duration 04/17/24 Assessment Summary Assessment Pt good response to ther ex today, L quad and hip abd muscle tiring. Cued tall hip flexion during hurdles with reduction of circumduction for increase ROM, reduction 1 UE support when could fwd for more core and hip flexor strengthening. Pt reported feels alot looser end tx and more erect walking. Physical Therapy Plan Frequency and Duration Frequency of Treatment 2x/Week Duration of treatment (weeks) 12 Plan of Care Start Date 01/16/24 Plan of Care End Date 04/17/24 Therapeutic Interventions Therapeutic Interventions Gait Training,Home Exercise Program,Manual Therapy, Neuromuscular Re-education, Patient/Caregiver Education, Self-Care/Home Management,Soft Tissue Mobilization,Taping, Therapeutic Activities, Therapeutic Exercises Modalities Cold Pack/Ice Massage,Electric Stimulation,Hot Packs, Infrared Therapy,Iontophoresis ,Ultrasound Next Visit Focus/Plan Next Note Type Treatment Note Next Visit Plan 10th visit PN 7. Check mini squat and add to HEP, hip strength and hurdles. POC: Continue PT with emphasis on hip strengthening in preparation for anticipated DAMION. Update written HEP. Supine hip abd, heel slides.
--- NOTE | 2024-03-09 07:47 | PT-OP ANOTE ---
pt cancelled via text Connect prior to this am appt, no time given nor reason appt cancelled. Did not call pt this early am for reasoning.
--- NOTE | 2024-03-10 16:00 | PT.OPPOC ---
Physical, Occupational & Speech Therapy At [facility] Current Diagnoses Low back pain, unspecified (03/10/24) Pain in left leg (03/10/24) Difficulty in walking, not elsewhere classified (03/10/24) Weakness (03/10/24) Visit Care Team Role Provider Type Hemant Tucker MD Attending Provider Physician Family Provider Primary Care Provider Referring Provider Specialty: Family Practice Address: [address] [place] [address], [facility] [place], [facility] Email: [email or web address] Plan Of Care PT-OP-T Assessment and Plan Start: 01/12/24 08:26 Freq: Status: Active Protocol: Document 03/10/24 08:17 SAK (Rec: 03/10/24 09:02 SAK [id number]) Physical Therapy Assessment Goals Three Impairment strength and ROM impairment Short Term Goal (STG) Patient to be instsructed in progressive individualized home exercise program to address ROM and strength impairments in core and left LE. 03/09/24: goal met, ongoing progression and modification STG Duration goal met [employer]og Machine Operator Goal (LTG) Patient will be independent and compliant with HEP and demonstrate improvement in ROM to WFL and strength to at least 4+/5 all hip muscle groups to allow him to return to prior level of function LTG Duration 04/17/24 Two Impairment gait dysfunction Impairment antalgic gait, requires use of cane Short Term Goal (STG) Patient will be able to ambulate on level surfaces with least restrictive device with minimal to no limp 03/10/24: no change in limp, uses SPC. Don't anticipate change in this due to need for DAMION STG Duration goal abandoned Shelter Goal (LTG) Patient will be able to walk for 30 minutes without an increase in pain and with minimal to no limp using least restrictive device LTG Duration goal abandoned. One Impairment activity tolerance Impairment lower extremity functional scale 46% Short Term Goal (STG) Improve LEFS score to at least 56% as measure of improved activity tolerance and function 03/09/24: patient didn't complete back side of form today. STG Duration 03/01/24 Shelter Goal (LTG) Improve LEFS score to at least 70% as measure of improved activity tolerance, function, and quality of life. LTG Duration 04/17/24 Assessment Summary Assessment Patient anticipating DAMION. Progressed to shuttle balance, added heel and toe raises with eccentric lowering. Would benefit from a few more appointments with skilled PT to progress his ther ex, gait, and balance in prep for DAMION. Patient in agreement. Physical Therapy Plan Frequency and Duration Frequency of Treatment 2x/Week Duration of treatment (weeks) 12 Plan of Care Start Date 01/16/24 Plan of Care End Date 04/17/24 Therapeutic Interventions Therapeutic Interventions Gait Training,Home Exercise Program,Manual Therapy, Neuromuscular Re-education, Patient/Caregiver Education, Self-Care/Home Management,Soft Tissue Mobilization,Taping, Therapeutic Activities, Therapeutic Exercises Modalities Cold Pack/Ice Massage,Electric Stimulation,Hot Packs, Infrared Therapy,Iontophoresis ,Ultrasound Next Visit Focus/Plan Next Note Type Treatment Note Next Visit Plan Continue strengthening, gait, and neuro re-ed in prep for patient DAMION surgery. Plan of Care Dates Plan of Care Start Date 01/16/24 Plan of Care End Date 04/17/24 Electronically Signed by: Maria L Combs, PT 03/11/24 2596 If you are in agreement with this Plan of Care, please return a signed and dated copy. I have reviewed this Plan of Care and certify that the skilled therapy services above are required to meet the patient?s needs. Physician Signature Date Printed Name and Credentials Clinical Instructor Signature Printed Name and Credentials
--- NOTE | 2024-03-10 16:00 | PT.OTN ---
Current Diagnoses Low back pain, unspecified (03/10/24) Pain in left leg (03/10/24) Difficulty in walking, not elsewhere classified (03/10/24) Weakness (03/10/24) Physical Therapy Treatment Note PT-OP-A Visit Information Start: 01/12/24 08:26 Freq: Status: Active Protocol: Document 03/10/24 08:17 [facility] (Rec: 03/10/24 09:02 [facility] [id number]) Out-Patient Physical Therapy Visit Information Visit Information Visit Type Initial Evaluation Visit Note 05/12 after eval S: Saw hip specialist, definitely needs DAMION, in process of scheduling; repair was faulty, screws were backing out, no circulation to ball of femur. Still plans to get a second opinion Pt. 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 Fractured hip s/p ORIF. PT-OP-B Current Condition Start: 01/12/24 08:26 Freq: Status: Active Protocol: Document 03/10/24 08:17 [facility] (Rec: 03/10/24 09:02 [facility] [id number]) Current Condition History of Current Condition Onset Date 1 year Current Complaints left hip pain History of Current Condition fell and broke neck of left femur, s/p ORIF with 3 screws. Had PT with some improvement , PT stopped due to prostate cancer. At this time has persistent pain low back and lateral left LE. Dr. 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 He states it has been hard to determine whether hip or nerve compression is the issue. has ALS; patient does all cooking but has caregivers 7 days per week. Not sleeping well due to pain. Uses quad cane but I know I still limp . Has Reformer exercise machine but hasn't been able to use for a long time. Pain increases with walking, pressure on hip with sitting, tends to sit with lean to the right, dec temporarily with Tylenol, Icy Hot. At times requires use of walker. N/T arnie feet. Has stair lift initially bought for and now he uses all the time. No pain supine with legs elevated. Hasn't used heat or ice recently. Also reports history of arnie TKA with poor outcome of ROM due to quick scarring. Prior Treatments and Tests cortisone injection lumbar spine 2 months ago. Future Testing and Treatments Planned Plans to go see Dr. Brar. PT-OP-C Subjective Start: 01/12/24 08:26 Freq: Status: Active Protocol: Document 03/04/24 10:33 [facility] (Rec: 03/04/24 11:23 [facility] [id number]) OP-PT Subjective Patient Comments Patient Comments Pt reports the injection in back and not having any pain since. ALso hae a Lupin shot for Ca prevention support last Sat, takes 2 weeks adjust with symptoms: hot flashes/ sore breast/tiring endurance. Has 3 appts set up end March regarding hip surgery opinions . (Zonia put in referral: [facility] [place]), then decide where will go. Is back to using reformer leg press hip/knee flexion only. Pt reports no abdominal bubble anymore, can reach for lamp and it doesn't pop out anymore , abs stronger. PT-OP-D Balance Start: 01/12/24 08:26 Freq: Status: Active Protocol: Document 01/16/24 08:15 [facility] (Rec: 01/16/24 16:39 [facility] [id number]) Balance Tests Other Other Balance Tests Performed unable to assess due to pain PT-OP-F Manual Assessment Start: 01/12/24 08:26 Freq: Status: Active Protocol: Document 01/16/24 08:15 [facility] (Rec: 01/16/24 16:39 [facility] [id number]) Manual Assessments Joint Mobility Assessment Joint Mobility Assessment decreased joint mobility left hip with c/o pain PT-OP-G Mobility & Gait Start: 01/12/24 08:26 Freq: Status: Active Protocol: Document 01/16/24 08:15 [facility] (Rec: 01/16/24 15:33 [facility] [id number]) OP Mobility Evaluation Bed Mobility Rolling painful but indep Supine to and from Sit painful but ind Transfers Sit to Stand requires use of UE's, dec use left LE OP Gait Assessment Gait Gait Assistance Required: Independent Distance (Feet) 50 Assistive Devices Assistive Device Small Based Quad Cane Orthotic/Prosthetic Devices or Brace: No Gait Deviations General Gait Pattern Antalgic,Decreased Stride Length,Decreased Feet Clearance Factors Limiting Gait Function Factors Limiting Gait Function Pain Comments Gait Comments patient reports wears heel lift left. PT-OP-J Posture/Palpation/Skin Start: 01/12/24 08:26 Freq: Status: Active Protocol: Document 01/16/24 08:15 [facility] (Rec: 01/16/24 15:33 [facility] [id number]) Posture Evaluation Position Standing T-Spine Posture Increased Kyphosis L-Spine Posture Flattened Weight Distribution Weight Shifted Right Palpation Assessment Location l/s Palpation Location left L45 Palpation Findings Tenderness gr trochanter Palpation Findings Tenderness PT-OP-K Range of Motion Start: 01/12/24 08:26 Freq: Status: Active Protocol: Document 01/16/24 08:15 [facility] (Rec: 01/16/24 15:33 [facility] [id number]) Lumbar Spine Range of Motion Lumbar Spine Active Comments mod decrease in all motions due to c/o pain, worst with left sidebending with radiation into left LE Hip Goniometric Range of Motion Hip Left Flexion w/Knee Flexed 90 Straight Leg Raise 55 Extension 0 Internal Rotation 10 External Rotation 15 Right Flexion w/Knee Flexed 90 Straight Leg Raise 65 Extension 0 Abduction 30 Internal Rotation 15 External Rotation 20 Knee Goniometric Range of Motion Knee arnie Knee ROM WFL No Flexion Active (degrees) 90 Extension Active (degrees) 0 Knee ROM Limitations Knee ROM Limitations Soft Tissue Tightness,Bony Restriction,Pain Ankle and Foot Goniometric Range of Motion Ankle and Foot ARNIE Dorsiflexion with Knee Flexed 5 Dorsiflexion with Knee Extended 0 Ankle and Foot ROM Limitations ROM Limitations Soft Tissue Tightness,Swelling PT-OP-L Special Tests Start: 01/12/24 08:26 Freq: Status: Active Protocol: Document 01/16/24 08:15 [facility] (Rec: 01/16/24 16:39 [facility] [id number]) Special Tests Lumbar Spine Special Tests Compression Test Results inc pain PT-OP-M Strength Start: 01/12/24 08:26 Freq: Status: Active Protocol: Document 01/16/24 08:15 [facility] (Rec: 01/16/24 16:39 [facility] [id number]) Hip Strength Hip Manual Muscle Testing Left Flexion (L2) 3- Fair- Extension (S1) 3- Fair- Abduction 4- Good- Adduction 4- Good- External Rotation 3+ Fair+ Internal Rotation 3+ Fair+ Right Flexion (L2) 3+ Fair+ Extension (S1) 3- Fair- Abduction 4- Good- Adduction 4 Good External Rotation 3+ Fair+ Internal Rotation 4- Good- Knee Strength Knee Manual Muscle Testing Left Flexion (S2) 4 Good Extension (L3) 4 Good Right Flexion (S2) 5 Normal Extension (L3) 5 Normal Ankle/Foot Strength Ankle and Foot Manual Muscle Testing Left Dorsiflexion (L4) 4 Good Plantarflexion (S1) 4 Good Right Dorsiflexion (L4) 4+ Good+ Plantarflexion (S1) 4+ Good+ PT-OP-Q Treatments Start: 01/12/24 08:26 Freq: Status: Active Protocol: Document 03/10/24 08:17 [facility] (Rec: 03/10/24 09:02 [facility] [id number]) Cardio Equipment Recumbent Stepper (Sci-Fit) Duration (Minutes) 5 Resistance 3.5 Seat Position 14 Other LEs Only Gym Equipment Shuttle Balance red Details bal and wt shift fwd,side Reps/Duration 10min Comments mod to min UE support Therapeutic Exercises Standing Exercises heel raise, toe raise Standing Exercise Name with eccentric lowering Reps/Minutes 10x ea mini squats Side bilateral Equipment Used contact rail Reps/Minutes x10 reps Comments cued hip hinge buttock back hover toilet Neuro Re-Education Treatment Balance Activities foam stand Details EO, EC, head turns Equipment black foam Comments no to min UE support, transitioned to shuttle balance hurdles Details receiprocal stepping fwd, lateral Equipment 1-2 UE rail support Reps/Duration 10 ft x2 laps each Comments cued hip flex, KTC, challenge trail LE without hip circumduction due to lack knee flexion PT-OP-R Modalities Start: 01/12/24 08:26 Freq: Status: Active Protocol: Document 02/18/24 09:45 [facility] (Rec: 02/18/24 17:12 [facility] [id number]) Hot Pack/Cold Pack Treatment Hot Pack Location left hip Patient Position Sidelying Patient Tolerance Good PT-OP-T Assessment and Plan Start: 01/12/24 08:26 Freq: Status: Active Protocol: Document 03/10/24 08:17 [facility] (Rec: 03/10/24 09:02 [facility] [id number]) Physical Therapy Assessment Goals Three Impairment strength and ROM impairment Short Term Goal (STG) Patient to be instsructed in progressive individualized home exercise program to address ROM and strength impairments in core and left LE. 03/09/24: goal met, ongoing progression and modification STG Duration goal met Long-Term Goal (LTG) Patient will be independent and compliant with HEP and demonstrate improvement in ROM to WFL and strength to at least 4+/5 all hip muscle groups to allow him to return to prior level of function LTG Duration 04/17/24 Two Impairment gait dysfunction Impairment antalgic gait, requires use of cane Short Term Goal (STG) Patient will be able to ambulate on level surfaces with least restrictive device with minimal to no limp 03/10/24: no change in limp, uses SPC. Don't anticipate change in this due to need for DAMION STG Duration goal abandoned Long-Term Goal (LTG) Patient will be able to walk for 30 minutes without an increase in pain and with minimal to no limp using least restrictive device LTG Duration goal abandoned. One Impairment activity tolerance Impairment lower extremity functional scale 46% Short Term Goal (STG) Improve LEFS score to at least 56% as measure of improved activity tolerance and function 03/09/24: patient didn't complete back side of form today. STG Duration 03/01/24 Long-Term Goal (LTG) Improve LEFS score to at least 70% as measure of improved activity tolerance, function, and quality of life. LTG Duration 04/17/24 Assessment Summary Assessment Patient anticipating DAMION. Progressed to shuttle balance, added heel and toe raises with eccentric lowering. Would benefit from a few more appointments with skilled PT to progress his ther ex, gait, and balance in prep for DAMION. Patient in agreement. Physical Therapy Plan Frequency and Duration Frequency of Treatment 2x/Week Duration of treatment (weeks) 12 Plan of Care Start Date 01/16/24 Plan of Care End Date 04/17/24 Therapeutic Interventions Therapeutic Interventions Gait Training,Home Exercise Program,Manual Therapy, Neuromuscular Re-education, Patient/Caregiver Education, Self-Care/Home Management,Soft Tissue Mobilization,Taping, Therapeutic Activities, Therapeutic Exercises Modalities Cold Pack/Ice Massage,Electric Stimulation,Hot Packs, Infrared Therapy,Iontophoresis ,Ultrasound Next Visit Focus/Plan Next Note Type Treatment Note Next Visit Plan Continue strengthening, gait, and neuro re-ed in prep for patient DAMION surgery.
--- NOTE | 2024-03-11 13:11 | PT.OTN ---
Current Diagnoses Low back pain, unspecified (03/10/24) Pain in left leg (03/10/24) Difficulty in walking, not elsewhere classified (03/10/24) Weakness (03/10/24) Physical Therapy Treatment Note PT-OP-A Visit Information Start: 01/12/24 08:26 Freq: Status: Active Protocol: Document 03/10/24 08:17 [facility] (Rec: 03/10/24 09:02 [facility] [id number]) Out-Patient Physical Therapy Visit Information Visit Information Visit Type Initial Evaluation Visit Note 05/12 after eval S: Saw hip specialist, definitely needs DAMION, in process of scheduling; repair was faulty, screws were backing out, no circulation to ball of femur. Still plans to get a second opinion Pt. 10 min late Visit Start Time 08:25 Visit Stop Time 09:00 Visit Number 9 Number of RECEIVABLE EXECUTIVE Visits 0 Evaluation Information Evaluation Date 01/16/24 Precautions Precautions history: arnie TKA with excess scarring and limited ROM, atrial fibrillation status post ablation procedure, cardiomyopathy, cerebrovascular accident, prostate cancer, aortic aneurysm. Fractured hip s/p ORIF. PT-OP-B Current Condition Start: 01/12/24 08:26 Freq: Status: Active Protocol: Document 03/10/24 08:17 [facility] (Rec: 03/10/24 09:02 [facility] [id number]) Current Condition History of Current Condition Onset Date 1 year Current Complaints left hip pain History of Current Condition fell and broke neck of left femur, s/p ORIF with 3 screws. Had PT with some improvement , PT stopped due to prostate cancer. At this time has persistent pain low back and lateral left LE. Dr. 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 He states it has been hard to determine whether hip or nerve compression is the issue. has ALS; patient does all cooking but has caregivers 7 days per week. Not sleeping well due to pain. Uses quad cane but I know I still limp . Has Reformer exercise machine but hasn't been able to use for a long time. Pain increases with walking, pressure on hip with sitting, tends to sit with lean to the right, dec temporarily with Tylenol, Icy Hot. At times requires use of walker. N/T arnie feet. Has stair lift initially bought for and now he uses all the time. No pain supine with legs elevated. Hasn't used heat or ice recently. Also reports history of arnie TKA with poor outcome of ROM due to quick scarring. Prior Treatments and Tests cortisone injection lumbar spine 2 months ago. Future Testing and Treatments Planned Plans to go see Dr. Brar. PT-OP-C Subjective Start: 01/12/24 08:26 Freq: Status: Active Protocol: Document 03/04/24 10:33 [facility] (Rec: 03/04/24 11:23 [facility] [id number]) OP-PT Subjective Patient Comments Patient Comments Pt reports the injection in back and not having any pain since. ALso hae a Lupin shot for Ca prevention support last Sat, takes 2 weeks adjust with symptoms: hot flashes/ sore breast/tiring endurance. Has 3 appts set up end March regarding hip surgery opinions . (Zonia put in referral: [facility] [place]), then decide where will go. Is back to using reformer leg press hip/knee flexion only. Pt reports no abdominal bubble anymore, can reach for lamp and it doesn't pop out anymore , abs stronger. PT-OP-D Balance Start: 01/12/24 08:26 Freq: Status: Active Protocol: Document 01/16/24 08:15 [facility] (Rec: 01/16/24 16:39 [facility] [id number]) Balance Tests Other Other Balance Tests Performed unable to assess due to pain PT-OP-F Manual Assessment Start: 01/12/24 08:26 Freq: Status: Active Protocol: Document 01/16/24 08:15 [facility] (Rec: 01/16/24 16:39 [facility] [id number]) Manual Assessments Joint Mobility Assessment Joint Mobility Assessment decreased joint mobility left hip with c/o pain PT-OP-G Mobility & Gait Start: 01/12/24 08:26 Freq: Status: Active Protocol: Document 01/16/24 08:15 [facility] (Rec: 01/16/24 15:33 [facility] [id number]) OP Mobility Evaluation Bed Mobility Rolling painful but indep Supine to and from Sit painful but ind Transfers Sit to Stand requires use of UE's, dec use left LE OP Gait Assessment Gait Gait Assistance Required: Independent Distance (Feet) 50 Assistive Devices Assistive Device Small Based Quad Cane Orthotic/Prosthetic Devices or Brace: No Gait Deviations General Gait Pattern Antalgic,Decreased Stride Length,Decreased Feet Clearance Factors Limiting Gait Function Factors Limiting Gait Function Pain Comments Gait Comments patient reports wears heel lift left. PT-OP-J Posture/Palpation/Skin Start: 01/12/24 08:26 Freq: Status: Active Protocol: Document 01/16/24 08:15 [facility] (Rec: 01/16/24 15:33 [facility] [id number]) Posture Evaluation Position Standing T-Spine Posture Increased Kyphosis L-Spine Posture Flattened Weight Distribution Weight Shifted Right Palpation Assessment Location l/s Palpation Location left L45 Palpation Findings Tenderness gr trochanter Palpation Findings Tenderness PT-OP-K Range of Motion Start: 01/12/24 08:26 Freq: Status: Active Protocol: Document 01/16/24 08:15 [facility] (Rec: 01/16/24 15:33 [facility] [id number]) Lumbar Spine Range of Motion Lumbar Spine Active Comments mod decrease in all motions due to c/o pain, worst with left sidebending with radiation into left LE Hip Goniometric Range of Motion Hip Left Flexion w/Knee Flexed 90 Straight Leg Raise 55 Extension 0 Internal Rotation 10 External Rotation 15 Right Flexion w/Knee Flexed 90 Straight Leg Raise 65 Extension 0 Abduction 30 Internal Rotation 15 External Rotation 20 Knee Goniometric Range of Motion Knee arnie Knee ROM WFL No Flexion Active (degrees) 90 Extension Active (degrees) 0 Knee ROM Limitations Knee ROM Limitations Soft Tissue Tightness,Bony Restriction,Pain Ankle and Foot Goniometric Range of Motion Ankle and Foot ARNIE Dorsiflexion with Knee Flexed 5 Dorsiflexion with Knee Extended 0 Ankle and Foot ROM Limitations ROM Limitations Soft Tissue Tightness,Swelling PT-OP-L Special Tests Start: 01/12/24 08:26 Freq: Status: Active Protocol: Document 01/16/24 08:15 [facility] (Rec: 01/16/24 16:39 [facility] [id number]) Special Tests Lumbar Spine Special Tests Compression Test Results inc pain PT-OP-M Strength Start: 01/12/24 08:26 Freq: Status: Active Protocol: Document 01/16/24 08:15 [facility] (Rec: 01/16/24 16:39 [facility] [id number]) Hip Strength Hip Manual Muscle Testing Left Flexion (L2) 3- Fair- Extension (S1) 3- Fair- Abduction 4- Good- Adduction 4- Good- External Rotation 3+ Fair+ Internal Rotation 3+ Fair+ Right Flexion (L2) 3+ Fair+ Extension (S1) 3- Fair- Abduction 4- Good- Adduction 4 Good External Rotation 3+ Fair+ Internal Rotation 4- Good- Knee Strength Knee Manual Muscle Testing Left Flexion (S2) 4 Good Extension (L3) 4 Good Right Flexion (S2) 5 Normal Extension (L3) 5 Normal Ankle/Foot Strength Ankle and Foot Manual Muscle Testing Left Dorsiflexion (L4) 4 Good Plantarflexion (S1) 4 Good Right Dorsiflexion (L4) 4+ Good+ Plantarflexion (S1) 4+ Good+ PT-OP-Q Treatments Start: 01/12/24 08:26 Freq: Status: Active Protocol: Document 03/10/24 08:17 [facility] (Rec: 03/10/24 09:02 [facility] [id number]) Cardio Equipment Recumbent Stepper (Sci-Fit) Duration (Minutes) 5 Resistance 3.5 Seat Position 14 Other LEs Only Gym Equipment Shuttle Balance red Details bal and wt shift fwd,side Reps/Duration 10min Comments mod to min UE support Therapeutic Exercises Standing Exercises heel raise, toe raise Standing Exercise Name with eccentric lowering Reps/Minutes 10x ea mini squats Side bilateral Equipment Used contact rail Reps/Minutes x10 reps Comments cued hip hinge buttock back hover toilet Neuro Re-Education Treatment Balance Activities foam stand Details EO, EC, head turns Equipment black foam Comments no to min UE support, transitioned to shuttle balance hurdles Details receiprocal stepping fwd, lateral Equipment 1-2 UE rail support Reps/Duration 10 ft x2 laps each Comments cued hip flex, KTC, challenge trail LE without hip circumduction due to lack knee flexion PT-OP-R Modalities Start: 01/12/24 08:26 Freq: Status: Active Protocol: Document 02/18/24 09:45 [facility] (Rec: 02/18/24 17:12 [facility] [id number]) Hot Pack/Cold Pack Treatment Hot Pack Location left hip Patient Position Sidelying Patient Tolerance Good PT-OP-T Assessment and Plan Start: 01/12/24 08:26 Freq: Status: Active Protocol: Document 03/10/24 08:17 [facility] (Rec: 03/10/24 09:02 [facility] [id number]) Physical Therapy Assessment Goals Three Impairment strength and ROM impairment Short Term Goal (STG) Patient to be instsructed in progressive individualized home exercise program to address ROM and strength impairments in core and left LE. 03/09/24: goal met, ongoing progression and modification STG Duration goal met [facility] Goal (LTG) Patient will be independent and compliant with HEP and demonstrate improvement in ROM to WFL and strength to at least 4+/5 all hip muscle groups to allow him to return to prior level of function LTG Duration 04/17/24 Two Impairment gait dysfunction Impairment antalgic gait, requires use of cane Short Term Goal (STG) Patient will be able to ambulate on level surfaces with least restrictive device with minimal to no limp 03/10/24: no change in limp, uses SPC. Don't anticipate change in this due to need for DAMION STG Duration goal abandoned [facility]pc Goal (LTG) Patient will be able to walk for 30 minutes without an increase in pain and with minimal to no limp using least restrictive device LTG Duration goal abandoned. One Impairment activity tolerance Impairment lower extremity functional scale 46% Short Term Goal (STG) Improve LEFS score to at least 56% as measure of improved activity tolerance and function 03/09/24: patient didn't complete back side of form today. STG Duration 03/01/24 [facility] Goal (LTG) Improve LEFS score to at least 70% as measure of improved activity tolerance, function, and quality of life. LTG Duration 04/17/24 Assessment Summary Assessment Patient anticipating DAMION. Progressed to shuttle balance, added heel and toe raises with eccentric lowering. Would benefit from a few more appointments with skilled PT to progress his ther ex, gait, and balance in prep for DAMION. Patient in agreement. Physical Therapy Plan Frequency and Duration Frequency of Treatment 2x/Week Duration of treatment (weeks) 12 Plan of Care Start Date 01/16/24 Plan of Care End Date 04/17/24 Therapeutic Interventions Therapeutic Interventions Gait Training,Home Exercise Program,Manual Therapy, Neuromuscular Re-education, Patient/Caregiver Education, Self-Care/Home Management,Soft Tissue Mobilization,Taping, Therapeutic Activities, Therapeutic Exercises Modalities Cold Pack/Ice Massage,Electric Stimulation,Hot Packs, Infrared Therapy,Iontophoresis ,Ultrasound Next Visit Focus/Plan Next Note Type Treatment Note Next Visit Plan Continue strengthening, gait, and neuro re-ed in prep for patient DAMION surgery.
--- NOTE | 2024-03-17 09:02 | PT.OTN ---
Current Diagnoses Low back pain, unspecified (03/17/24) Pain in left leg (03/17/24) Difficulty in walking, not elsewhere classified (03/17/24) Weakness (03/17/24) Physical Therapy Treatment Note PT-OP-A Visit Information Start: 01/12/24 08:26 Freq: Status: Active Protocol: Document 03/17/24 08:13 SAK (Rec: 03/17/24 09:02 SAK [id number]) Out-Patient Physical Therapy Visit Information Visit Information Visit Type Treatment Note Visit Start Time 08:14 Visit Number 10 Evaluation Information Evaluation Date 01/16/24 Precautions Precautions history: arnie TKA with excess scarring and limited ROM, atrial fibrillation status post ablation procedure, cardiomyopathy, cerebrovascular accident, prostate cancer, aortic aneurysm. Fractured hip s/p ORIF. PT-OP-B Current Condition Start: 01/12/24 08:26 Freq: Status: Active Protocol: Document 03/17/24 08:13 SAK (Rec: 03/17/24 09:02 SAK [id number]) Current Condition History of Current Condition Onset Date 1 year Current Complaints left hip pain History of Current Condition fell and broke neck of left femur, s/p ORIF with 3 screws. Had PT with some improvement , PT stopped due to prostate cancer. At this time has persistent pain low back and lateral left LE. Dr. 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 He states it has been hard to determine whether hip or nerve compression is the issue. has ALS; patient does all cooking but has caregivers 7 days per week. Not sleeping well due to pain. Uses quad cane but I know I still limp . Has Reformer exercise machine but hasn't been able to use for a long time. Pain increases with walking, pressure on hip with sitting, tends to sit with lean to the right, dec temporarily with Tylenol, Icy Hot. At times requires use of walker. N/T arnie feet. Has stair lift initially bought for and now he uses all the time. No pain supine with legs elevated. Hasn't used heat or ice recently. Also reports history of arnie TKA with poor outcome of ROM due to quick scarring. Prior Treatments and Tests cortisone injection lumbar spine 2 months ago. Future Testing and Treatments Planned Plans to go see Dr. Brar. PT-OP-C Subjective Start: 01/12/24 08:26 Freq: Status: Active Protocol: Document 03/17/24 08:13 SAK (Rec: 03/17/24 09:02 [facility] [id number]) OP-PT Subjective Patient Comments Patient Comments Had 2nd opinion with orthopedist, also recommended DAMION. Screws backing out and were too long to begin with per both surgeons consulted. Patient to have Echo first before surgery approved. Not sure who he will have do the surgery. PT-OP-D Balance Start: 01/12/24 08:26 Freq: Status: Active Protocol: Document 01/16/24 08:15 SAK (Rec: 01/16/24 16:39 [facility] [id number]) Balance Tests Other Other Balance Tests Performed unable to assess due to pain PT-OP-F Manual Assessment Start: 01/12/24 08:26 Freq: Status: Active Protocol: Document 01/16/24 08:15 SAK (Rec: 01/16/24 16:39 [facility] [id number]) Manual Assessments Joint Mobility Assessment Joint Mobility Assessment decreased joint mobility left hip with c/o pain PT-OP-G Mobility & Gait Start: 01/12/24 08:26 Freq: Status: Active Protocol: Document 01/16/24 08:15 SAK (Rec: 01/16/24 15:33 [facility] [id number]) OP Mobility Evaluation Bed Mobility Rolling painful but indep Supine to and from Sit painful but ind Transfers Sit to Stand requires use of UE's, dec use left LE OP Gait Assessment Gait Gait Assistance Required: Independent Distance (Feet) 50 Assistive Devices Assistive Device Small Based Quad Cane Orthotic/Prosthetic Devices or Brace: No Gait Deviations General Gait Pattern Antalgic,Decreased Stride Length,Decreased Feet Clearance Factors Limiting Gait Function Factors Limiting Gait Function Pain Comments Gait Comments patient reports wears heel lift left. PT-OP-J Posture/Palpation/Skin Start: 01/12/24 08:26 Freq: Status: Active Protocol: Document 01/16/24 08:15 SAK (Rec: 01/16/24 15:33 [facility] [id number]) Posture Evaluation Position Standing T-Spine Posture Increased Kyphosis L-Spine Posture Flattened Weight Distribution Weight Shifted Right Palpation Assessment Location l/s Palpation Location left L45 Palpation Findings Tenderness gr trochanter Palpation Findings Tenderness PT-OP-K Range of Motion Start: 01/12/24 08:26 Freq: Status: Active Protocol: Document 01/16/24 08:15 SAK (Rec: 01/16/24 15:33 [facility] [id number]) Lumbar Spine Range of Motion Lumbar Spine Active Comments mod decrease in all motions due to c/o pain, worst with left sidebending with radiation into left LE Hip Goniometric Range of Motion Hip Left Flexion w/Knee Flexed 90 Straight Leg Raise 55 Extension 0 Internal Rotation 10 External Rotation 15 Right Flexion w/Knee Flexed 90 Straight Leg Raise 65 Extension 0 Abduction 30 Internal Rotation 15 External Rotation 20 Knee Goniometric Range of Motion Knee arnie Knee ROM WFL No Flexion Active (degrees) 90 Extension Active (degrees) 0 Knee ROM Limitations Knee ROM Limitations Soft Tissue Tightness,Bony Restriction,Pain Ankle and Foot Goniometric Range of Motion Ankle and Foot ARNIE Dorsiflexion with Knee Flexed 5 Dorsiflexion with Knee Extended 0 Ankle and Foot ROM Limitations ROM Limitations Soft Tissue Tightness,Swelling PT-OP-L Special Tests Start: 01/12/24 08:26 Freq: Status: Active Protocol: Document 01/16/24 08:15 [facility] (Rec: 01/16/24 16:39 [facility] [id number]) Special Tests Lumbar Spine Special Tests Compression Test Results inc pain PT-OP-M Strength Start: 01/12/24 08:26 Freq: Status: Active Protocol: Document 01/16/24 08:15 [facility] (Rec: 01/16/24 16:39 [facility] [id number]) Hip Strength Hip Manual Muscle Testing Left Flexion (L2) 3- Fair- Extension (S1) 3- Fair- Abduction 4- Good- Adduction 4- Good- External Rotation 3+ Fair+ Internal Rotation 3+ Fair+ Right Flexion (L2) 3+ Fair+ Extension (S1) 3- Fair- Abduction 4- Good- Adduction 4 Good External Rotation 3+ Fair+ Internal Rotation 4- Good- Knee Strength Knee Manual Muscle Testing Left Flexion (S2) 4 Good Extension (L3) 4 Good Right Flexion (S2) 5 Normal Extension (L3) 5 Normal Ankle/Foot Strength Ankle and Foot Manual Muscle Testing Left Dorsiflexion (L4) 4 Good Plantarflexion (S1) 4 Good Right Dorsiflexion (L4) 4+ Good+ Plantarflexion (S1) 4+ Good+ PT-OP-Q Treatments Start: 01/12/24 08:26 Freq: Status: Active Protocol: Document 03/17/24 08:13 [facility] (Rec: 03/17/24 09:02 [facility] [id number]) Cardio Equipment Recumbent Stepper (Sci-Fit) Duration (Minutes) 5 Resistance 3.5 Seat Position 14 Other LEs Only Gym Equipment Shuttle Balance red Details bal and wt shift fwd,side Reps/Duration 10min Comments mod to min UE support Therapeutic Exercises Supine Exercises clam Side left Reps/Minutes 10x SLR Equipment Used foam roller under opp knee Reps/Minutes 10x SAQ Reps/Minutes 10x5 bridge Equipment Used lrg foam roller under knees Reps/Minutes x20 Comments good glut fac lift TA KFO Side bilateral Reps/Minutes 10 Comments pnfree range L post manual, cued TA draw in and level pelvis pillow squeeze Supine Exercise Name added to HEP Side bilateral Equipment Used small ball Reps/Minutes 10 Sh x10 Sidelying Exercises clamshell Reps/Minutes 10x Standing Exercises hip flex Reps/Minutes 10x HC stretch Equipment Used JAMES Reps/Minutes 2x30 heel raise, toe raise Standing Exercise Name with eccentric lowering Reps/Minutes 10x ea mini squats Side bilateral Equipment Used contact rail Reps/Minutes x10 reps Comments cued hip hinge buttock back hover toilet hip ext Side left Resistance AROM> 2# leg wt Reps/Minutes 10x2 Comments cued tall /c knee straight hip ab Side left Resistance AROM>2# leg wt Reps/Minutes 10x 2 Comments cued tall /c knee straight Neuro Re-Education Treatment Balance Activities foam stand Details EO, EC, head turns Equipment black foam Comments no to min UE support, transitioned to shuttle balance PT-OP-R Modalities Start: 01/12/24 08:26 Freq: Status: Active Protocol: Document 02/18/24 09:45 [facility] (Rec: 02/18/24 17:12 [facility] [id number]) Hot Pack/Cold Pack Treatment Hot Pack Location left hip Patient Position Sidelying Patient Tolerance Good PT-OP-T Assessment and Plan Start: 01/12/24 08:26 Freq: Status: Active Protocol: Document 03/17/24 08:13 [facility] (Rec: 03/17/24 09:02 SAK [id number]) Physical Therapy Assessment Goals Three Impairment strength and ROM impairment Short Term Goal (STG) Patient to be instsructed in progressive individualized home exercise program to address ROM and strength impairments in core and left LE. 03/09/24: goal met, ongoing progression and modification STG Duration goal met Plate Setter Goal (LTG) Patient will be independent and compliant with HEP and demonstrate improvement in ROM to WFL and strength to at least 4+/5 all hip muscle groups to allow him to return to prior level of function LTG Duration 04/17/24 Two Impairment gait dysfunction Impairment antalgic gait, requires use of cane Short Term Goal (STG) Patient will be able to ambulate on level surfaces with least restrictive device with minimal to no limp 03/10/24: no change in limp, uses SPC. Don't anticipate change in this due to need for DAMION STG Duration goal abandoned Plate Setter Goal (LTG) Patient will be able to walk for 30 minutes without an increase in pain and with minimal to no limp using least restrictive device LTG Duration goal abandoned. One Impairment activity tolerance Impairment lower extremity functional scale 46% Short Term Goal (STG) Improve LEFS score to at least 56% as measure of improved activity tolerance and function 03/09/24: patient didn't complete back side of form today. STG Duration 03/01/24 Custodial Goal (LTG) Improve LEFS score to at least 70% as measure of improved activity tolerance, function, and quality of life. LTG Duration 04/17/24 Assessment Summary Assessment Patient planning DAMION left after cleared via Echo. Unable to lay on left side. Painful symptoms easily irritated. Patient with significant limp, low tolerance for closed chain exercises. Continues to use ice and icy hot, Tylenol. Further discussion of aquatic exercise; highly recommended to pt. Physical Therapy Plan Frequency and Duration Frequency of Treatment 2x/Week Duration of treatment (weeks) 12 Plan of Care Start Date 01/16/24 Plan of Care End Date 04/17/24 Therapeutic Interventions Therapeutic Interventions Gait Training,Home Exercise Program,Manual Therapy, Neuromuscular Re-education, Patient/Caregiver Education, Self-Care/Home Management,Soft Tissue Mobilization,Taping, Therapeutic Activities, Therapeutic Exercises Modalities Cold Pack/Ice Massage,Electric Stimulation,Hot Packs, Infrared Therapy,Iontophoresis ,Ultrasound Next Visit Focus/Plan Next Note Type Treatment Note Next Visit Plan Continue strengthening, gait, and neuro re-ed in prep for patient DAMION surgery.
--- NOTE | 2024-03-19 14:21 | PT.OTN ---
Current Diagnoses Low back pain, unspecified (03/19/24) Pain in left leg (03/19/24) Difficulty in walking, not elsewhere classified (03/19/24) Weakness (03/19/24) Physical Therapy Treatment Note PT-OP-A Visit Information Start: 01/12/24 08:26 Freq: Status: Active Protocol: Document 03/19/24 10:33 SAK (Rec: 03/19/24 11:14 [facility] [id number]) Out-Patient Physical Therapy Visit Information Visit Information Visit Type Treatment Note Visit Start Time 10:33 Visit Stop Time 11:15 Visit Number 11 Evaluation Information Evaluation Date 01/16/24 Precautions Precautions history: arnie TKA with excess scarring and limited ROM, atrial fibrillation status post ablation procedure, cardiomyopathy, cerebrovascular accident, prostate cancer, aortic aneurysm. Fractured hip s/p ORIF. PT-OP-B Current Condition Start: 01/12/24 08:26 Freq: Status: Active Protocol: Document 03/19/24 10:33 SAK (Rec: 03/19/24 11:14 [facility] [id number]) Current Condition History of Current Condition Onset Date 1 year Current Complaints left hip pain History of Current Condition fell and broke neck of left femur, s/p ORIF with 3 screws. Had PT with some improvement , PT stopped due to prostate cancer. At this time has persistent pain low back and lateral left LE. Dr. 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 He states it has been hard to determine whether hip or nerve compression is the issue. has ALS; patient does all cooking but has caregivers 7 days per week. Not sleeping well due to pain. Uses quad cane but I know I still limp . Has Reformer exercise machine but hasn't been able to use for a long time. Pain increases with walking, pressure on hip with sitting, tends to sit with lean to the right, dec temporarily with Tylenol, Icy Hot. At times requires use of walker. N/T arnie feet. Has stair lift initially bought for and now he uses all the time. No pain supine with legs elevated. Hasn't used heat or ice recently. Also reports history of arnie TKA with poor outcome of ROM due to quick scarring. Prior Treatments and Tests cortisone injection lumbar spine 2 months ago. Future Testing and Treatments Planned Plans to go see Dr. Brar. PT-OP-C Subjective Start: 01/12/24 08:26 Freq: Status: Active Protocol: Document 03/19/24 10:33 SAK (Rec: 03/19/24 11:14 SAK [id number]) OP-PT Subjective Patient Comments Patient Comments Reports sore today, maybe slept wrong. PT-OP-D Balance Start: 01/12/24 08:26 Freq: Status: Active Protocol: Document 01/16/24 08:15 SAK (Rec: 01/16/24 16:39 [facility] [id number]) Balance Tests Other Other Balance Tests Performed unable to assess due to pain PT-OP-F Manual Assessment Start: 01/12/24 08:26 Freq: Status: Active Protocol: Document 01/16/24 08:15 SAK (Rec: 01/16/24 16:39 [facility] [id number]) Manual Assessments Joint Mobility Assessment Joint Mobility Assessment decreased joint mobility left hip with c/o pain PT-OP-G Mobility & Gait Start: 01/12/24 08:26 Freq: Status: Active Protocol: Document 01/16/24 08:15 SAK (Rec: 01/16/24 15:33 [facility] [id number]) OP Mobility Evaluation Bed Mobility Rolling painful but indep Supine to and from Sit painful but ind Transfers Sit to Stand requires use of UE's, dec use left LE OP Gait Assessment Gait Gait Assistance Required: Independent Distance (Feet) 50 Assistive Devices Assistive Device Small Based Quad Cane Orthotic/Prosthetic Devices or Brace: No Gait Deviations General Gait Pattern Antalgic,Decreased Stride Length,Decreased Feet Clearance Factors Limiting Gait Function Factors Limiting Gait Function Pain Comments Gait Comments patient reports wears heel lift left. PT-OP-J Posture/Palpation/Skin Start: 01/12/24 08:26 Freq: Status: Active Protocol: Document 01/16/24 08:15 SAK (Rec: 01/16/24 15:33 [facility] [id number]) Posture Evaluation Position Standing T-Spine Posture Increased Kyphosis L-Spine Posture Flattened Weight Distribution Weight Shifted Right Palpation Assessment Location l/s Palpation Location left L45 Palpation Findings Tenderness gr trochanter Palpation Findings Tenderness PT-OP-K Range of Motion Start: 01/12/24 08:26 Freq: Status: Active Protocol: Document 01/16/24 08:15 SAK (Rec: 01/16/24 15:33 [facility] [id number]) Lumbar Spine Range of Motion Lumbar Spine Active Comments mod decrease in all motions due to c/o pain, worst with left sidebending with radiation into left LE Hip Goniometric Range of Motion Hip Left Flexion w/Knee Flexed 90 Straight Leg Raise 55 Extension 0 Internal Rotation 10 External Rotation 15 Right Flexion w/Knee Flexed 90 Straight Leg Raise 65 Extension 0 Abduction 30 Internal Rotation 15 External Rotation 20 Knee Goniometric Range of Motion Knee arnie Knee ROM WFL No Flexion Active (degrees) 90 Extension Active (degrees) 0 Knee ROM Limitations Knee ROM Limitations Soft Tissue Tightness,Bony Restriction,Pain Ankle and Foot Goniometric Range of Motion Ankle and Foot ARNIE Dorsiflexion with Knee Flexed 5 Dorsiflexion with Knee Extended 0 Ankle and Foot ROM Limitations ROM Limitations Soft Tissue Tightness,Swelling PT-OP-L Special Tests Start: 01/12/24 08:26 Freq: Status: Active Protocol: Document 01/16/24 08:15 [facility] (Rec: 01/16/24 16:39 [facility] [id number]) Special Tests Lumbar Spine Special Tests Compression Test Results inc pain PT-OP-M Strength Start: 01/12/24 08:26 Freq: Status: Active Protocol: Document 01/16/24 08:15 SAK (Rec: 01/16/24 16:39 [facility] [id number]) Hip Strength Hip Manual Muscle Testing Left Flexion (L2) 3- Fair- Extension (S1) 3- Fair- Abduction 4- Good- Adduction 4- Good- External Rotation 3+ Fair+ Internal Rotation 3+ Fair+ Right Flexion (L2) 3+ Fair+ Extension (S1) 3- Fair- Abduction 4- Good- Adduction 4 Good External Rotation 3+ Fair+ Internal Rotation 4- Good- Knee Strength Knee Manual Muscle Testing Left Flexion (S2) 4 Good Extension (L3) 4 Good Right Flexion (S2) 5 Normal Extension (L3) 5 Normal Ankle/Foot Strength Ankle and Foot Manual Muscle Testing Left Dorsiflexion (L4) 4 Good Plantarflexion (S1) 4 Good Right Dorsiflexion (L4) 4+ Good+ Plantarflexion (S1) 4+ Good+ PT-OP-Q Treatments Start: 05/12/24 08:26 Freq: Status: Active Protocol: Document 03/19/24 10:33 SAK (Rec: 03/19/24 11:14 [facility] [id number]) Cardio Equipment Recumbent Stepper (Sci-Fit) Duration (Minutes) 8 Resistance 4.0 Seat Position 14 Other LEs Only Gym Equipment Shuttle Balance red Details bal and wt shift fwd,side Reps/Duration 10min Comments mod to min UE support Therapeutic Exercises Supine Exercises LTR Equipment Used 65 cm ball Reps/Minutes 10x SLR Equipment Used foam roller under opp knee Reps/Minutes 10x SAQ Reps/Minutes 10x5 bridge Equipment Used 65 cm ball under LE's Reps/Minutes x20 Comments good glut fac lift Standing Exercises hip flex Reps/Minutes 10x HC stretch Equipment Used JAMES Reps/Minutes 2x30 heel raise, toe raise Standing Exercise Name with eccentric lowering Reps/Minutes 10x ea mini squats Side bilateral Equipment Used contact rail Reps/Minutes x10 reps Comments cued hip hinge buttock back hover toilet hip ext Side left Resistance AROM> 2# leg wt Reps/Minutes 10x2 Comments cued tall /c knee straight hip ab Side left Resistance AROM>2# leg wt Reps/Minutes 10x 2 Comments cued tall /c knee straight step ups Side bilateral Resistance R HR Reps/Minutes 10 reps each LE Comments SBA- alternating, challenging L hip Neuro Re-Education Treatment Balance Activities foam stand Details EO, EC, head turns Equipment black foam Comments no to min UE support, transitioned to shuttle balance hurdles Details receiprocal stepping fwd, lateral Equipment 1-2 UE rail support Reps/Duration 10 ft x2 laps each Comments cued hip flex, KTC, challenge trail LE without hip circumduction due to lack knee flexion PT-OP-R Modalities Start: 01/12/24 08:26 Freq: Status: Active Protocol: Document 02/18/24 09:45 SAK (Rec: 02/18/24 17:12 [facility] [id number]) Hot Pack/Cold Pack Treatment Hot Pack Location left hip Patient Position Sidelying Patient Tolerance Good PT-OP-T Assessment and Plan Start: 01/12/24 08:26 Freq: Status: Active Protocol: Document 03/19/24 10:33 SAK (Rec: 03/19/24 11:14 [facility] [id number]) Physical Therapy Assessment Goals Three Impairment strength and ROM impairment Short Term Goal (STG) Patient to be instsructed in progressive individualized home exercise program to address ROM and strength impairments in core and left LE. 03/09/24: goal met, ongoing progression and modification STG Duration goal met Bender Machine Goal (LTG) Patient will be independent and compliant with HEP and demonstrate improvement in ROM to WFL and strength to at least 4+/5 all hip muscle groups to allow him to return to prior level of function LTG Duration 04/17/24 Two Impairment gait dysfunction Impairment antalgic gait, requires use of cane Short Term Goal (STG) Patient will be able to ambulate on level surfaces with least restrictive device with minimal to no limp 03/10/24: no change in limp, uses SPC. Don't anticipate change in this due to need for DAMION STG Duration goal abandoned Longterm Goal (LTG) Patient will be able to walk for 30 minutes without an increase in pain and with minimal to no limp using least restrictive device LTG Duration goal abandoned. One Impairment activity tolerance Impairment lower extremity functional scale 46% Short Term Goal (STG) Improve LEFS score to at least 56% as measure of improved activity tolerance and function 03/09/24: patient didn't complete back side of form today. STG Duration 03/01/24 Longterm Goal (LTG) Improve LEFS score to at least 70% as measure of improved activity tolerance, function, and quality of life. LTG Duration 04/17/24 Assessment Summary Assessment Added ball to bridge, inc challenge on shuttle balance. Patient more sore today but motivated to improve strength prior to DAMION. Physical Therapy Plan Frequency and Duration Frequency of Treatment 2x/Week Duration of treatment (weeks) 12 Plan of Care Start Date 01/16/24 Plan of Care End Date 04/17/24 Therapeutic Interventions Therapeutic Interventions Gait Training,Home Exercise Program,Manual Therapy, Neuromuscular Re-education, Patient/Caregiver Education, Self-Care/Home Management,Soft Tissue Mobilization,Taping, Therapeutic Activities, Therapeutic Exercises Modalities Cold Pack/Ice Massage,Electric Stimulation,Hot Packs, Infrared Therapy,Iontophoresis ,Ultrasound Next Visit Focus/Plan Next Note Type Treatment Note Next Visit Plan Continue strengthening, gait, and neuro re-ed in prep for patient DAMION surgery.
--- NOTE | 2024-03-25 10:32 | PT.OTN ---
Current Diagnoses Low back pain, unspecified (03/25/24) Pain in left leg (03/25/24) Difficulty in walking, not elsewhere classified (03/25/24) Weakness (03/25/24) Physical Therapy Treatment Note PT-OP-A Visit Information Start: 01/12/24 08:26 Freq: Status: Active Protocol: Document 03/25/24 09:46 SAK (Rec: 03/25/24 10:[address] [facility] [id number]) Out-Patient Physical Therapy Visit Information Visit Information Visit Type Treatment Note Visit Start Time 09:46 Visit Stop Time 10:30 Visit Number 12 Evaluation Information Evaluation Date 01/16/24 Precautions Precautions history: arnie TKA with excess scarring and limited ROM, atrial fibrillation status post ablation procedure, cardiomyopathy, cerebrovascular accident, prostate cancer, aortic aneurysm. Fractured hip s/p ORIF. PT-OP-B Current Condition Start: 01/12/24 08:26 Freq: Status: Active Protocol: Document 03/25/24 09:46 SAK (Rec: 03/25/24 10:[address] [facility] [id number]) Current Condition History of Current Condition Onset Date 1 year Current Complaints left hip pain History of Current Condition fell and broke neck of left femur, s/p ORIF with 3 screws. Had PT with some improvement , PT stopped due to prostate cancer. At this time has persistent pain low back and lateral left LE. Dr. 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 He states it has been hard to determine whether hip or nerve compression is the issue. has ALS; patient does all cooking but has caregivers 7 days per week. Not sleeping well due to pain. Uses quad cane but I know I still limp . Has Reformer exercise machine but hasn't been able to use for a long time. Pain increases with walking, pressure on hip with sitting, tends to sit with lean to the right, dec temporarily with Tylenol, Icy Hot. At times requires use of walker. N/T arnie feet. Has stair lift initially bought for and now he uses all the time. No pain supine with legs elevated. Hasn't used heat or ice recently. Also reports history of arnie TKA with poor outcome of ROM due to quick scarring. Prior Treatments and Tests cortisone injection lumbar spine 2 months ago. Future Testing and Treatments Planned Plans to go see Dr. Brar. PT-OP-C Subjective Start: 01/12/24 08:26 Freq: Status: Active Protocol: Document 03/25/24 09:46 SAK (Rec: 03/25/24 10:31 SAK [id number]) OP-PT Subjective Patient Comments Patient Comments Reports he can't tolerate much activity, feel it is just the progression of his hip dysfunction. PT-OP-D Balance Start: 01/12/24 08:26 Freq: Status: Active Protocol: Document 01/16/24 08:15 SAK (Rec: 01/16/24 16:39 SAK [id number]) Balance Tests Other Other Balance Tests Performed unable to assess due to pain PT-OP-F Manual Assessment Start: 01/12/24 08:26 Freq: Status: Active Protocol: Document 01/16/24 08:15 SAK (Rec: 01/16/24 16:[address] [facility] [id number]) Manual Assessments Joint Mobility Assessment Joint Mobility Assessment decreased joint mobility left hip with c/o pain PT-OP-G Mobility & Gait Start: 01/12/24 08:26 Freq: Status: Active Protocol: Document 01/16/24 08:15 SAK (Rec: 01/16/24 15:[address] [facility] [id number]) OP Mobility Evaluation Bed Mobility Rolling painful but indep Supine to and from Sit painful but ind Transfers Sit to Stand requires use of UE's, dec use left LE OP Gait Assessment Gait Gait Assistance Required: Independent Distance (Feet) 50 Assistive Devices Assistive Device Small Based Quad Cane Orthotic/Prosthetic Devices or Brace: No Gait Deviations General Gait Pattern Antalgic,Decreased Stride Length,Decreased Feet Clearance Factors Limiting Gait Function Factors Limiting Gait Function Pain Comments Gait Comments patient reports wears heel lift left. PT-OP-J Posture/Palpation/Skin Start: 01/12/24 08:26 Freq: Status: Active Protocol: Document 01/16/24 08:15 SAK (Rec: 01/16/24 15:[address] [facility] [id number]) Posture Evaluation Position Standing T-Spine Posture Increased Kyphosis L-Spine Posture Flattened Weight Distribution Weight Shifted Right Palpation Assessment Location l/s Palpation Location left L45 Palpation Findings Tenderness gr trochanter Palpation Findings Tenderness PT-OP-K Range of Motion Start: 01/12/24 08:26 Freq: Status: Active Protocol: Document 01/16/24 08:15 SAK (Rec: 01/16/24 15:[address] [facility] [id number]) Lumbar Spine Range of Motion Lumbar Spine Active Comments mod decrease in all motions due to c/o pain, worst with left sidebending with radiation into left LE Hip Goniometric Range of Motion Hip Left Flexion w/Knee Flexed 90 Straight Leg Raise 55 Extension 0 Internal Rotation 10 External Rotation 15 Right Flexion w/Knee Flexed 90 Straight Leg Raise 65 Extension 0 Abduction 30 Internal Rotation 15 External Rotation 20 Knee Goniometric Range of Motion Knee arnie Knee ROM WFL No Flexion Active (degrees) 90 Extension Active (degrees) 0 Knee ROM Limitations Knee ROM Limitations Soft Tissue Tightness,Bony Restriction,Pain Ankle and Foot Goniometric Range of Motion Ankle and Foot ARNIE Dorsiflexion with Knee Flexed 5 Dorsiflexion with Knee Extended 0 Ankle and Foot ROM Limitations ROM Limitations Soft Tissue Tightness,Swelling PT-OP-L Special Tests Start: 01/12/24 08:26 Freq: Status: Active Protocol: Document 01/16/24 08:[address] [facility] (Rec: 01/16/24 16:[address] [facility] [id number]) Special Tests Lumbar Spine Special Tests Compression Test Results inc pain PT-OP-M Strength Start: 01/12/24 08:26 Freq: Status: Active Protocol: Document 01/16/24 08:15 SAK (Rec: 01/16/24 16:[address] [facility] [id number]) Hip Strength Hip Manual Muscle Testing Left Flexion (L2) 3- Fair- Extension (S1) 3- Fair- Abduction 4- Good- Adduction 4- Good- External Rotation 3+ Fair+ Internal Rotation 3+ Fair+ Right Flexion (L2) 3+ Fair+ Extension (S1) 3- Fair- Abduction 4- Good- Adduction 4 Good External Rotation 3+ Fair+ Internal Rotation 4- Good- Knee Strength Knee Manual Muscle Testing Left Flexion (S2) 4 Good Extension (L3) 4 Good Right Flexion (S2) 5 Normal Extension (L3) 5 Normal Ankle/Foot Strength Ankle and Foot Manual Muscle Testing Left Dorsiflexion (L4) 4 Good Plantarflexion (S1) 4 Good Right Dorsiflexion (L4) 4+ Good+ Plantarflexion (S1) 4+ Good+ PT-OP-Q Treatments Start: 01/12/24 08:26 Freq: Status: Active Protocol: Document 03/25/24 09:[address] [facility] (Rec: 03/25/24 10:[address] [facility] [id number]) Cardio Equipment Recumbent Stepper (Sci-Fit) Duration (Minutes) 10 Resistance 4.0 Seat Position 13 Other LEs Only Gym Equipment Shuttle Balance red Details bal and wt shift fwd,side Reps/Duration 10min Comments mod to min UE support Therapeutic Exercises Supine Exercises DKTC Equipment Used LE's on 65 cm ball Reps/Minutes 10x Comments cues for core activation LTR Equipment Used 65 cm ball Reps/Minutes 10x bridge Equipment Used 65 cm ball under LE's Reps/Minutes x20 Comments good glut fac lift TA KFO Side bilateral Reps/Minutes 10 Comments pnfree range L post manual, cued TA draw in and level pelvis Sitting Exercises lean back Reps/Minutes 10x LAQ Resistance 2# Reps/Minutes 10x5 hamstring curl Reps/Minutes 10x5 PT-OP-R Modalities Start: 01/12/24 08:26 Freq: Status: Active Protocol: Document 02/18/24 09:[address] [facility] (Rec: 02/18/24 17:[address] [facility] [id number]) Hot Pack/Cold Pack Treatment Hot Pack Location left hip Patient Position Sidelying Patient Tolerance Good PT-OP-T Assessment and Plan Start: 01/12/24 08:26 Freq: Status: Active Protocol: Document 03/25/24 09:[address] [facility] (Rec: 03/25/24 10:[address] [facility] [id number]) Physical Therapy Assessment Goals Three Impairment strength and ROM impairment Short Term Goal (STG) Patient to be instsructed in progressive individualized home exercise program to address ROM and strength impairments in core and left LE. 03/09/24: goal met, ongoing progression and modification STG Duration goal met Lens Cementer Goal (LTG) Patient will be independent and compliant with HEP and demonstrate improvement in ROM to WFL and strength to at least 4+/5 all hip muscle groups to allow him to return to prior level of function LTG Duration 04/17/24 Two Impairment gait dysfunction Impairment antalgic gait, requires use of cane Short Term Goal (STG) Patient will be able to ambulate on level surfaces with least restrictive device with minimal to no limp 03/10/24: no change in limp, uses SPC. Don't anticipate change in this due to need for DAMION STG Duration goal abandoned Lens Cementer Goal (LTG) Patient will be able to walk for 30 minutes without an increase in pain and with minimal to no limp using least restrictive device LTG Duration goal abandoned. One Impairment activity tolerance Impairment lower extremity functional scale 46% Short Term Goal (STG) Improve LEFS score to at least 56% as measure of improved activity tolerance and function 03/09/24: patient didn't complete back side of form today. STG Duration 03/01/24 Assisted Goal (LTG) Improve LEFS score to at least 70% as measure of improved activity tolerance, function, and quality of life. LTG Duration 04/17/24 Assessment Summary Assessment Poor tolerance for standing exercises, added core and seated LE ex to continue pre- op strengthening with better tolerance. No scheduling of surgery yet. . Physical Therapy Plan Frequency and Duration Frequency of Treatment 2x/Week Duration of treatment (weeks) 12 Plan of Care Start Date 01/16/24 Plan of Care End Date 04/17/24 Therapeutic Interventions Therapeutic Interventions Gait Training,Home Exercise Program,Manual Therapy, Neuromuscular Re-education, Patient/Caregiver Education, Self-Care/Home Management,Soft Tissue Mobilization,Taping, Therapeutic Activities, Therapeutic Exercises Modalities Cold Pack/Ice Massage,Electric Stimulation,Hot Packs, Infrared Therapy,Iontophoresis ,Ultrasound Next Visit Focus/Plan Next Note Type Treatment Note Next Visit Plan Continue strengthening, gait, and neuro re-ed as tolerated in prep for patient DAMION surgery.
--- NOTE | 2024-03-25 16:00 | PT.OTN ---
Current Diagnoses Low back pain, unspecified (03/25/24) Pain in left leg (03/25/24) Difficulty in walking, not elsewhere classified (03/25/24) Weakness (03/25/24) Physical Therapy Treatment Note PT-OP-A Visit Information Start: 01/12/24 08:26 Freq: Status: Active Protocol: Document 03/25/24 09:46 SAK (Rec: 03/25/24 10:31 [facility] [id number]) Out-Patient Physical Therapy Visit Information Visit Information Visit Type Treatment Note Visit Start Time 09:46 Visit Stop Time 10:30 Visit Number 12 Evaluation Information Evaluation Date 01/16/24 Precautions Precautions history: arnie TKA with excess scarring and limited ROM, atrial fibrillation status post ablation procedure, cardiomyopathy, cerebrovascular accident, prostate cancer, aortic aneurysm. Fractured hip s/p ORIF. PT-OP-B Current Condition Start: 01/12/24 08:26 Freq: Status: Active Protocol: Document 03/25/24 09:46 SAK (Rec: 03/25/24 10:31 [facility] [id number]) Current Condition History of Current Condition Onset Date 1 year Current Complaints left hip pain History of Current Condition fell and broke neck of left femur, s/p ORIF with 3 screws. Had PT with some improvement , PT stopped due to prostate cancer. At this time has persistent pain low back and lateral left LE. Dr. 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 He states it has been hard to determine whether hip or nerve compression is the issue. has ALS; patient does all cooking but has caregivers 7 days per week. Not sleeping well due to pain. Uses quad cane but I know I still limp . Has Reformer exercise machine but hasn't been able to use for a long time. Pain increases with walking, pressure on hip with sitting, tends to sit with lean to the right, dec temporarily with Tylenol, Icy Hot. At times requires use of walker. N/T arnie feet. Has stair lift initially bought for and now he uses all the time. No pain supine with legs elevated. Hasn't used heat or ice recently. Also reports history of arnie TKA with poor outcome of ROM due to quick scarring. Prior Treatments and Tests cortisone injection lumbar spine 2 months ago. Future Testing and Treatments Planned Plans to go see Dr. Brar. PT-OP-C Subjective Start: 01/12/24 08:26 Freq: Status: Active Protocol: Document 03/25/24 09:46 SAK (Rec: 03/25/24 10:31 SAK [id number]) OP-PT Subjective Patient Comments Patient Comments Reports he can't tolerate much activity, feel it is just the progression of his hip dysfunction. PT-OP-D Balance Start: 01/12/24 08:26 Freq: Status: Active Protocol: Document 01/16/24 08:15 SAK (Rec: 01/16/24 16:39 SAK [id number]) Balance Tests Other Other Balance Tests Performed unable to assess due to pain PT-OP-F Manual Assessment Start: 01/12/24 08:26 Freq: Status: Active Protocol: Document 01/16/24 08:15 SAK (Rec: 01/16/24 16:39 [facility] [id number]) Manual Assessments Joint Mobility Assessment Joint Mobility Assessment decreased joint mobility left hip with c/o pain PT-OP-G Mobility & Gait Start: 01/12/24 08:26 Freq: Status: Active Protocol: Document 01/16/24 08:15 SAK (Rec: 01/16/24 15:33 [facility] [id number]) OP Mobility Evaluation Bed Mobility Rolling painful but indep Supine to and from Sit painful but ind Transfers Sit to Stand requires use of UE's, dec use left LE OP Gait Assessment Gait Gait Assistance Required: Independent Distance (Feet) 50 Assistive Devices Assistive Device Small Based Quad Cane Orthotic/Prosthetic Devices or Brace: No Gait Deviations General Gait Pattern Antalgic,Decreased Stride Length,Decreased Feet Clearance Factors Limiting Gait Function Factors Limiting Gait Function Pain Comments Gait Comments patient reports wears heel lift left. PT-OP-J Posture/Palpation/Skin Start: 01/12/24 08:26 Freq: Status: Active Protocol: Document 01/16/24 08:15 SAK (Rec: 01/16/24 15:33 [facility] [id number]) Posture Evaluation Position Standing T-Spine Posture Increased Kyphosis L-Spine Posture Flattened Weight Distribution Weight Shifted Right Palpation Assessment Location l/s Palpation Location left L45 Palpation Findings Tenderness gr trochanter Palpation Findings Tenderness PT-OP-K Range of Motion Start: 01/12/24 08:26 Freq: Status: Active Protocol: Document 01/16/24 08:15 SAK (Rec: 01/16/24 15:33 [facility] [id number]) Lumbar Spine Range of Motion Lumbar Spine Active Comments mod decrease in all motions due to c/o pain, worst with left sidebending with radiation into left LE Hip Goniometric Range of Motion Hip Left Flexion w/Knee Flexed 90 Straight Leg Raise 55 Extension 0 Internal Rotation 10 External Rotation 15 Right Flexion w/Knee Flexed 90 Straight Leg Raise 65 Extension 0 Abduction 30 Internal Rotation 15 External Rotation 20 Knee Goniometric Range of Motion Knee arnie Knee ROM WFL No Flexion Active (degrees) 90 Extension Active (degrees) 0 Knee ROM Limitations Knee ROM Limitations Soft Tissue Tightness,Bony Restriction,Pain Ankle and Foot Goniometric Range of Motion Ankle and Foot ARNIE Dorsiflexion with Knee Flexed 5 Dorsiflexion with Knee Extended 0 Ankle and Foot ROM Limitations ROM Limitations Soft Tissue Tightness,Swelling PT-OP-L Special Tests Start: 01/12/24 08:26 Freq: Status: Active Protocol: Document 01/16/24 08:15 [facility] (Rec: 01/16/24 16:39 [facility] [id number]) Special Tests Lumbar Spine Special Tests Compression Test Results inc pain PT-OP-M Strength Start: 01/12/24 08:26 Freq: Status: Active Protocol: Document 01/16/24 08:15 SAK (Rec: 01/16/24 16:39 [facility] [id number]) Hip Strength Hip Manual Muscle Testing Left Flexion (L2) 3- Fair- Extension (S1) 3- Fair- Abduction 4- Good- Adduction 4- Good- External Rotation 3+ Fair+ Internal Rotation 3+ Fair+ Right Flexion (L2) 3+ Fair+ Extension (S1) 3- Fair- Abduction 4- Good- Adduction 4 Good External Rotation 3+ Fair+ Internal Rotation 4- Good- Knee Strength Knee Manual Muscle Testing Left Flexion (S2) 4 Good Extension (L3) 4 Good Right Flexion (S2) 5 Normal Extension (L3) 5 Normal Ankle/Foot Strength Ankle and Foot Manual Muscle Testing Left Dorsiflexion (L4) 4 Good Plantarflexion (S1) 4 Good Right Dorsiflexion (L4) 4+ Good+ Plantarflexion (S1) 4+ Good+ PT-OP-Q Treatments Start: 01/12/24 08:26 Freq: Status: Active Protocol: Document 03/25/24 09:46 [facility] (Rec: 03/25/24 10:31 [facility] [id number]) Cardio Equipment Recumbent Stepper (Sci-Fit) Duration (Minutes) 10 Resistance 4.0 Seat Position 13 Other LEs Only Gym Equipment Shuttle Balance red Details bal and wt shift fwd,side Reps/Duration 10min Comments mod to min UE support Therapeutic Exercises Supine Exercises DKTC Equipment Used LE's on 65 cm ball Reps/Minutes 10x Comments cues for core activation LTR Equipment Used 65 cm ball Reps/Minutes 10x bridge Equipment Used 65 cm ball under LE's Reps/Minutes x20 Comments good glut fac lift TA KFO Side bilateral Reps/Minutes 10 Comments pnfree range L post manual, cued TA draw in and level pelvis Sitting Exercises lean back Reps/Minutes 10x LAQ Resistance 2# Reps/Minutes 10x5 hamstring curl Reps/Minutes 10x5 PT-OP-R Modalities Start: 01/12/24 08:26 Freq: Status: Active Protocol: Document 02/18/24 09:45 [facility] (Rec: 02/18/24 17:12 [facility] [id number]) Hot Pack/Cold Pack Treatment Hot Pack Location left hip Patient Position Sidelying Patient Tolerance Good PT-OP-T Assessment and Plan Start: 01/12/24 08:26 Freq: Status: Active Protocol: Document 03/25/24 09:46 [facility] (Rec: 03/25/24 10:31 [facility] [id number]) Physical Therapy Assessment Goals Three Impairment strength and ROM impairment Short Term Goal (STG) Patient to be instsructed in progressive individualized home exercise program to address ROM and strength impairments in core and left LE. 03/09/24: goal met, ongoing progression and modification STG Duration goal met Social Welfare Clerk Goal (LTG) Patient will be independent and compliant with HEP and demonstrate improvement in ROM to WFL and strength to at least 4+/5 all hip muscle groups to allow him to return to prior level of function LTG Duration 04/17/24 Two Impairment gait dysfunction Impairment antalgic gait, requires use of cane Short Term Goal (STG) Patient will be able to ambulate on level surfaces with least restrictive device with minimal to no limp 03/10/24: no change in limp, uses SPC. Don't anticipate change in this due to need for DAMION STG Duration goal abandoned Social Welfare Clerk Goal (LTG) Patient will be able to walk for 30 minutes without an increase in pain and with minimal to no limp using least restrictive device LTG Duration goal abandoned. One Impairment activity tolerance Impairment lower extremity functional scale 46% Short Term Goal (STG) Improve LEFS score to at least 56% as measure of improved activity tolerance and function 03/09/24: patient didn't complete back side of form today. STG Duration 03/01/24 Care Home Goal (LTG) Improve LEFS score to at least 70% as measure of improved activity tolerance, function, and quality of life. LTG Duration 04/17/24 Assessment Summary Assessment Poor tolerance for standing exercises, added core and seated LE ex to continue pre- op strengthening with better tolerance. No scheduling of surgery yet. . Physical Therapy Plan Frequency and Duration Frequency of Treatment 2x/Week Duration of treatment (weeks) 12 Plan of Care Start Date 01/16/24 Plan of Care End Date 04/17/24 Therapeutic Interventions Therapeutic Interventions Gait Training,Home Exercise Program,Manual Therapy, Neuromuscular Re-education, Patient/Caregiver Education, Self-Care/Home Management,Soft Tissue Mobilization,Taping, Therapeutic Activities, Therapeutic Exercises Modalities Cold Pack/Ice Massage,Electric Stimulation,Hot Packs, Infrared Therapy,Iontophoresis ,Ultrasound Next Visit Focus/Plan Next Note Type Treatment Note Next Visit Plan Continue strengthening, gait, and neuro re-ed as tolerated in prep for patient DAMION surgery.
--- NOTE | 2024-04-02 13:54 | PT.OTN ---
Current Diagnoses Low back pain, unspecified (04/02/24) Pain in left leg (04/02/24) Difficulty in walking, not elsewhere classified (04/02/24) Weakness (04/02/24) Physical Therapy Treatment Note PT-OP-A Visit Information Start: 01/12/24 08:26 Freq: Status: Active Protocol: Document 04/02/24 13:01 [facility] (Rec: 04/02/24 13:54 [facility] [id number]) Out-Patient Physical Therapy Visit Information Visit Information Visit Type Treatment Note Visit Start Time 13:04 Visit Stop Time 13:47 Visit Number 13 Evaluation Information Evaluation Date 01/16/24 Precautions Precautions history: arnie TKA with excess scarring and limited ROM, atrial fibrillation status post ablation procedure, cardiomyopathy, cerebrovascular accident, prostate cancer, aortic aneurysm. Fractured hip s/p ORIF. PT-OP-B Current Condition Start: 01/12/24 08:26 Freq: Status: Active Protocol: Document 04/02/24 13:01 [facility] (Rec: 04/02/24 13:54 [facility] [id number]) Current Condition History of Current Condition Onset Date 1 year Current Complaints left hip pain History of Current Condition fell and broke neck of left femur, s/p ORIF with 3 screws. Had PT with some improvement , PT stopped due to prostate cancer. At this time has persistent pain low back and lateral left LE. Dr. 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 He states it has been hard to determine whether hip or nerve compression is the issue. has ALS; patient does all cooking but has caregivers 7 days per week. Not sleeping well due to pain. Uses quad cane but I know I still limp . Has Reformer exercise machine but hasn't been able to use for a long time. Pain increases with walking, pressure on hip with sitting, tends to sit with lean to the right, dec temporarily with Tylenol, Icy Hot. At times requires use of walker. N/T arnie feet. Has stair lift initially bought for and now he uses all the time. No pain supine with legs elevated. Hasn't used heat or ice recently. Also reports history of arnie TKA with poor outcome of ROM due to quick scarring. Prior Treatments and Tests cortisone injection lumbar spine 2 months ago. Future Testing and Treatments Planned Plans to go see Dr. Brar. PT-OP-C Subjective Start: 01/12/24 08:26 Freq: Status: Active Protocol: Document 04/02/24 13:01 [facility] (Rec: 04/02/24 13:54 [facility] [id number]) OP-PT Subjective Patient Comments Patient Comments Has echo next week. States feeling his hip isn't going to last a lot longer. PT-OP-D Balance Start: 01/12/24 08:26 Freq: Status: Active Protocol: Document 01/16/24 08:15 [facility] (Rec: 01/16/24 16:39 [facility] [id number]) Balance Tests Other Other Balance Tests Performed unable to assess due to pain PT-OP-F Manual Assessment Start: 01/12/24 08:26 Freq: Status: Active Protocol: Document 01/16/24 08:15 [facility] (Rec: 01/16/24 16:39 [facility] [id number]) Manual Assessments Joint Mobility Assessment Joint Mobility Assessment decreased joint mobility left hip with c/o pain PT-OP-G Mobility & Gait Start: 01/12/24 08:26 Freq: Status: Active Protocol: Document 01/16/24 08:15 [facility] (Rec: 01/16/24 15:33 [facility] [id number]) OP Mobility Evaluation Bed Mobility Rolling painful but indep Supine to and from Sit painful but ind Transfers Sit to Stand requires use of UE's, dec use left LE OP Gait Assessment Gait Gait Assistance Required: Independent Distance (Feet) 50 Assistive Devices Assistive Device Small Based Quad Cane Orthotic/Prosthetic Devices or Brace: No Gait Deviations General Gait Pattern Antalgic,Decreased Stride Length,Decreased Feet Clearance Factors Limiting Gait Function Factors Limiting Gait Function Pain Comments Gait Comments patient reports wears heel lift left. PT-OP-J Posture/Palpation/Skin Start: 01/12/24 08:26 Freq: Status: Active Protocol: Document 01/16/24 08:15 [facility] (Rec: 01/16/24 15:33 [facility] [id number]) Posture Evaluation Position Standing T-Spine Posture Increased Kyphosis L-Spine Posture Flattened Weight Distribution Weight Shifted Right Palpation Assessment Location l/s Palpation Location left L45 Palpation Findings Tenderness gr trochanter Palpation Findings Tenderness PT-OP-K Range of Motion Start: 01/12/24 08:26 Freq: Status: Active Protocol: Document 01/16/24 08:15 [facility] (Rec: 01/16/24 15:33 [facility] [id number]) Lumbar Spine Range of Motion Lumbar Spine Active Comments mod decrease in all motions due to c/o pain, worst with left sidebending with radiation into left LE Hip Goniometric Range of Motion Hip Left Flexion w/Knee Flexed 90 Straight Leg Raise 55 Extension 0 Internal Rotation 10 External Rotation 15 Right Flexion w/Knee Flexed 90 Straight Leg Raise 65 Extension 0 Abduction 30 Internal Rotation 15 External Rotation 20 Knee Goniometric Range of Motion Knee arnie Knee ROM WFL No Flexion Active (degrees) 90 Extension Active (degrees) 0 Knee ROM Limitations Knee ROM Limitations Soft Tissue Tightness,Bony Restriction,Pain Ankle and Foot Goniometric Range of Motion Ankle and Foot ARNIE Dorsiflexion with Knee Flexed 5 Dorsiflexion with Knee Extended 0 Ankle and Foot ROM Limitations ROM Limitations Soft Tissue Tightness,Swelling PT-OP-L Special Tests Start: 01/12/24 08:26 Freq: Status: Active Protocol: Document 01/16/24 08:15 [facility] (Rec: 01/16/24 16:39 [facility] [id number]) Special Tests Lumbar Spine Special Tests Compression Test Results inc pain PT-OP-M Strength Start: 01/12/24 08:26 Freq: Status: Active Protocol: Document 01/16/24 08:15 [facility] (Rec: 01/16/24 16:39 [facility] [id number]) Hip Strength Hip Manual Muscle Testing Left Flexion (L2) 3- Fair- Extension (S1) 3- Fair- Abduction 4- Good- Adduction 4- Good- External Rotation 3+ Fair+ Internal Rotation 3+ Fair+ Right Flexion (L2) 3+ Fair+ Extension (S1) 3- Fair- Abduction 4- Good- Adduction 4 Good External Rotation 3+ Fair+ Internal Rotation 4- Good- Knee Strength Knee Manual Muscle Testing Left Flexion (S2) 4 Good Extension (L3) 4 Good Right Flexion (S2) 5 Normal Extension (L3) 5 Normal Ankle/Foot Strength Ankle and Foot Manual Muscle Testing Left Dorsiflexion (L4) 4 Good Plantarflexion (S1) 4 Good Right Dorsiflexion (L4) 4+ Good+ Plantarflexion (S1) 4+ Good+ PT-OP-Q Treatments Start: 01/12/24 08:26 Freq: Status: Active Protocol: Document 04/02/24 13:01 [facility] (Rec: 04/02/24 13:54 [facility] [id number]) Cardio Equipment Recumbent Stepper (Sci-Fit) Duration (Minutes) 10 Resistance 2-4 Seat Position 13 Other LEs Only Gym Equipment Cable Column (Body Solid) hamstring curl Resistance 40 Reps/Time 10x2 Shuttle Balance red Details bal and wt shift fwd,side Reps/Duration 10min Comments mod to min UE support Therapeutic Exercises Supine Exercises LTR Equipment Used 65 cm ball Reps/Minutes 10x bridge Equipment Used 65 cm ball under LE's Reps/Minutes x20 Comments good glut fac lift Sitting Exercises lean back Reps/Minutes 10x LAQ Resistance 3# Reps/Minutes 10x5 ball squeeze Resistance ball Reps/Minutes 10x5 PT-OP-R Modalities Start: 01/12/24 08:26 Freq: Status: Active Protocol: Document 02/18/24 09:45 [facility] (Rec: 02/18/24 17:12 [facility] [id number]) Hot Pack/Cold Pack Treatment Hot Pack Location left hip Patient Position Sidelying Patient Tolerance Good PT-OP-T Assessment and Plan Start: 01/12/24 08:26 Freq: Status: Active Protocol: Document 04/02/24 13:01 [facility] (Rec: 04/02/24 13:54 [facility] [id number]) Physical Therapy Assessment Goals Three Impairment strength and ROM impairment Short Term Goal (STG) Patient to be instsructed in progressive individualized home exercise program to address ROM and strength impairments in core and left LE. 03/09/24: goal met, ongoing progression and modification STG Duration goal met Shelter Goal (LTG) Patient will be independent and compliant with HEP and demonstrate improvement in ROM to WFL and strength to at least 4+/5 all hip muscle groups to allow him to return to prior level of function LTG Duration 04/17/24 Two Impairment gait dysfunction Impairment antalgic gait, requires use of cane Short Term Goal (STG) Patient will be able to ambulate on level surfaces with least restrictive device with minimal to no limp 03/10/24: no change in limp, uses SPC. Don't anticipate change in this due to need for DAMION STG Duration goal abandoned Shelter Goal (LTG) Patient will be able to walk for 30 minutes without an increase in pain and with minimal to no limp using least restrictive device LTG Duration goal abandoned. One Impairment activity tolerance Impairment lower extremity functional scale 46% Short Term Goal (STG) Improve LEFS score to at least 56% as measure of improved activity tolerance and function 03/09/24: patient didn't complete back side of form today. STG Duration 03/01/24 Flash Developer Goal (LTG) Improve LEFS score to at least 70% as measure of improved activity tolerance, function, and quality of life. LTG Duration 04/17/24 Assessment Summary Assessment added HS curl 40#, increased LAQ resistance to 3#. Noting improved balnce on shuttle balance machine. Patient getting echo next week, then anticipate DAMION. Physical Therapy Plan Frequency and Duration Frequency of Treatment 2x/Week Duration of treatment (weeks) 12 Plan of Care Start Date 01/16/24 Plan of Care End Date 04/17/24 Therapeutic Interventions Therapeutic Interventions Gait Training,Home Exercise Program,Manual Therapy, Neuromuscular Re-education, Patient/Caregiver Education, Self-Care/Home Management,Soft Tissue Mobilization,Taping, Therapeutic Activities, Therapeutic Exercises Modalities Cold Pack/Ice Massage,Electric Stimulation,Hot Packs, Infrared Therapy,Iontophoresis ,Ultrasound Next Visit Focus/Plan Next Note Type Treatment Note Next Visit Plan Anticipate 1 further PT visit for pre-op strengthening, asssure safety and independence with HEP
--- NOTE | 2024-04-08 10:25 | PT.OPDS ---
Current Diagnoses Low back pain, unspecified (04/08/24) Pain in left leg (04/08/24) Difficulty in walking, not elsewhere classified (04/08/24) Weakness (04/08/24) Visit Care Team Role Provider Type Hemant Tucker MD Attending Provider Physician Family Provider Primary Care Provider Referring Provider Specialty: Family Practice Address: [address] [place] [address], [facility] [place], [address] Email: [email or web address] Visit Number Visit Number 14 Discharge Summary PT-OP-B Current Condition Start: 01/12/24 08:26 Freq: Status: Active Protocol: Document 04/08/24 09:49 [facility] (Rec: 04/08/24 10:25 [facility] [id number]) Current Condition History of Current Condition Onset Date 1 year Current Complaints left hip pain History of Current Condition fell and broke neck of left femur, s/p ORIF with 3 screws. Had PT with some improvement , PT stopped due to prostate cancer. At this time has persistent pain low back and lateral left LE. Dr. 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 He states it has been hard to determine whether hip or nerve compression is the issue. has ALS; patient does all cooking but has caregivers 7 days per week. Not sleeping well due to pain. Uses quad cane but I know I still limp . Has Reformer exercise machine but hasn't been able to use for a long time. Pain increases with walking, pressure on hip with sitting, tends to sit with lean to the right, dec temporarily with Tylenol, Icy Hot. At times requires use of walker. N/T arnie feet. Has stair lift initially bought for and now he uses all the time. No pain supine with legs elevated. Hasn't used heat or ice recently. Also reports history of arnie TKA with poor outcome of ROM due to quick scarring. Prior Treatments and Tests cortisone injection lumbar spine 2 months ago. Future Testing and Treatments Planned Plans to go see Dr. Brar. PT-OP-C Subjective Start: 01/12/24 08:26 Freq: Status: Active Protocol: Document 04/08/24 09:49 [facility] (Rec: 04/08/24 10:25 [facility] [id number]) OP-PT Subjective Patient Comments Patient Comments Echo not until next week. JUst doing bed exercises, not using reformer. not doing well with ALS. PT-OP-D Balance Start: 01/12/24 08:26 Freq: Status: Active Protocol: Document 01/16/24 08:15 [facility] (Rec: 01/16/24 16:39 [facility] [id number]) Balance Tests Other Other Balance Tests Performed unable to assess due to pain PT-OP-F Manual Assessment Start: 01/12/24 08:26 Freq: Status: Active Protocol: Document 01/16/24 08:15 [facility] (Rec: 01/16/24 16:39 [facility] [id number]) Manual Assessments Joint Mobility Assessment Joint Mobility Assessment decreased joint mobility left hip with c/o pain PT-OP-G Mobility & Gait Start: 01/12/24 08:26 Freq: Status: Active Protocol: Document 01/16/24 08:15 [facility] (Rec: 01/16/24 15:33 [facility] [id number]) OP Mobility Evaluation Bed Mobility Rolling painful but indep Supine to and from Sit painful but ind Transfers Sit to Stand requires use of UE's, dec use left LE OP Gait Assessment Gait Gait Assistance Required: Independent Distance (Feet) 50 Assistive Devices Assistive Device Small Based Quad Cane Orthotic/Prosthetic Devices or Brace: No Gait Deviations General Gait Pattern Antalgic,Decreased Stride Length,Decreased Feet Clearance Factors Limiting Gait Function Factors Limiting Gait Function Pain Comments Gait Comments patient reports wears heel lift left. PT-OP-J Posture/Palpation/Skin Start: 01/12/24 08:26 Freq: Status: Active Protocol: Document 01/16/24 08:15 [facility] (Rec: 01/16/24 15:33 [facility] [id number]) Posture Evaluation Position Standing T-Spine Posture Increased Kyphosis L-Spine Posture Flattened Weight Distribution Weight Shifted Right Palpation Assessment Location l/s Palpation Location left L45 Palpation Findings Tenderness gr trochanter Palpation Findings Tenderness PT-OP-K Range of Motion Start: 01/12/24 08:26 Freq: Status: Active Protocol: Document 01/16/24 08:15 [facility] (Rec: 01/16/24 15:33 [facility] [id number]) Lumbar Spine Range of Motion Lumbar Spine Active Comments mod decrease in all motions due to c/o pain, worst with left sidebending with radiation into left LE Hip Goniometric Range of Motion Hip Left Flexion w/Knee Flexed 90 Straight Leg Raise 55 Extension 0 Internal Rotation 10 External Rotation 15 Right Flexion w/Knee Flexed 90 Straight Leg Raise 65 Extension 0 Abduction 30 Internal Rotation 15 External Rotation 20 Knee Goniometric Range of Motion Knee arnie Knee ROM WFL No Flexion Active (degrees) 90 Extension Active (degrees) 0 Knee ROM Limitations Knee ROM Limitations Soft Tissue Tightness,Bony Restriction,Pain Ankle and Foot Goniometric Range of Motion Ankle and Foot ARNIE Dorsiflexion with Knee Flexed 5 Dorsiflexion with Knee Extended 0 Ankle and Foot ROM Limitations ROM Limitations Soft Tissue Tightness,Swelling PT-OP-L Special Tests Start: 01/12/24 08:26 Freq: Status: Active Protocol: Document 01/16/24 08:15 [facility] (Rec: 01/16/24 16:39 [facility] [id number]) Special Tests Lumbar Spine Special Tests Compression Test Results inc pain PT-OP-M Strength Start: 01/12/24 08:26 Freq: Status: Active Protocol: Document 01/16/24 08:15 [facility] (Rec: 01/16/24 16:39 [facility] [id number]) Hip Strength Hip Manual Muscle Testing Left Flexion (L2) 3- Fair- Extension (S1) 3- Fair- Abduction 4- Good- Adduction 4- Good- External Rotation 3+ Fair+ Internal Rotation 3+ Fair+ Right Flexion (L2) 3+ Fair+ Extension (S1) 3- Fair- Abduction 4- Good- Adduction 4 Good External Rotation 3+ Fair+ Internal Rotation 4- Good- Knee Strength Knee Manual Muscle Testing Left Flexion (S2) 4 Good Extension (L3) 4 Good Right Flexion (S2) 5 Normal Extension (L3) 5 Normal Ankle/Foot Strength Ankle and Foot Manual Muscle Testing Left Dorsiflexion (L4) 4 Good Plantarflexion (S1) 4 Good Right Dorsiflexion (L4) 4+ Good+ Plantarflexion (S1) 4+ Good+ PT-OP-T Assessment and Plan Start: 01/12/24 08:26 Freq: Status: Active Protocol: Document 04/08/24 09:49 [facility] (Rec: 04/08/24 10:25 [facility] [id number]) Physical Therapy Assessment Goals Three Impairment strength and ROM impairment Short Term Goal (STG) Patient to be instsructed in progressive individualized home exercise program to address ROM and strength impairments in core and left LE. 03/09/24: goal met, ongoing progression and modification STG Duration goal met [facility]dc Goal (LTG) Patient will be independent and compliant with HEP and demonstrate improvement in ROM to WFL and strength to at least 4+/5 all hip muscle groups to allow him to return to prior level of function 04/08/24: not fully achieved due to pain LTG Duration 04/17/24 Two Impairment gait dysfunction Impairment antalgic gait, requires use of cane Short Term Goal (STG) Patient will be able to ambulate on level surfaces with least restrictive device with minimal to no limp 03/10/24: no change in limp, uses SPC. Don't anticipate change in this due to need for DAMION STG Duration goal abandoned Fdc Goal (LTG) Patient will be able to walk for 30 minutes without an increase in pain and with minimal to no limp using least restrictive device LTG Duration goal abandoned. One Impairment activity tolerance Impairment lower extremity functional scale 46% Short Term Goal (STG) Improve LEFS score to at least 56% as measure of improved activity tolerance and function 03/09/24: patient didn't complete back side of form today. STG Duration 03/01/24 Insulation Board Coater Operator Goal (LTG) Improve LEFS score to at least 70% as measure of improved activity tolerance, function, and quality of life. 04/08/24: not met due to persistent pain, planning for HEP. LTG Duration 04/17/24 Assessment Summary Assessment Patient has not met PT goals but is independent in HEP and plans to continue on his own until anticipated DAMION Physical Therapy Plan Frequency and Duration Frequency of Treatment 2x/Week Duration of treatment (weeks) 12 Plan of Care Start Date 01/16/24 Plan of Care End Date 04/17/24 Therapeutic Interventions Therapeutic Interventions Gait Training,Home Exercise Program,Manual Therapy, Neuromuscular Re-education, Patient/Caregiver Education, Self-Care/Home Management,Soft Tissue Mobilization,Taping, Therapeutic Activities, Therapeutic Exercises Modalities Cold Pack/Ice Massage,Electric Stimulation,Hot Packs, Infrared Therapy,Iontophoresis ,Ultrasound Discharge Physical Therapy Discharge Reasons Plateau in Progress Discharge Comments Plan is for DAMION. Patient to continue HEP at home in preparation
== END 2024-04-09 13:31 | disposition home or self-care (01) ==
LOC: PHYS 09:45
PROVIDERS: Family Provider Family Medicine; PCP Family Medicine; Referring Provider Family Medicine; Visit Provider Family Medicine
DX: M54.50 Low back pain, unspecified (principal); M79.605 Pain in left leg; R26.2 Difficulty in walking, not elsewhere classified; R53.1 Weakness
CPT/HCPCS: 97014; 97035; 97110; 97112; 97116; 97140; 97162; 97535; G0283

== ENCOUNTER → 2024-04-28 07:53 | Outpatient (CLI) | payer MEDICARE, SELFPAY ==
[2023-10-01 08:38] VITALS: BMI 204.0
--- NOTE | 2024-04-28 07:54 | DI.ECHO.S_ITS ---
[facility] : : [id number] : [facility] : : 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 2) The right ventricle is not well visualized. The right ventricle grossly appears normal in size with probable normal systolic function. 3) There is mild to moderate aortic stenosis (valve area 1.5cm2, mean gradient 12mmHg). There is trace aortic regurgitation. 4) The ascending aorta is mildly enlarged at 4.5cm. 5) Compared to the Echo done 04/10/2018, mild to moderate aortic stenosis is present on this study. Procedure: A two-dimensional transthoracic echocardiogram with color flow and Doppler was performed. The study quality was technically difficult. Comparison is made with the echocardiogram of 04/10/2018. The patient was in sinus rhythm with heart rates between 69-78 bpm during the exam. Left Ventricle: The left ventricle is normal in size. There is mild concentric left ventricular hypertrophy. Proximal septal thickening is noted. The ejection fraction is estimated to be 55-60%. Left ventricular systolic function appears normal without focal wall motion abnormalities. Diastolic parameters suggest a relaxation abnormality of the left ventricle, consistent with probable normal filling pressures. Right Ventricle: The right ventricle is not well visualized. The right ventricle grossly appears normal in size with probable normal systolic function. Atria: The left atrium is mildly dilated. Right atrium not well visualized. The interatrial septum grossly appears intact with no obvious evidence for an atrial septal defect. Mitral Valve: The mitral valve is not well visualized. The mitral valve leaflets are mildly calcified. MAC. There is no mitral valve stenosis. There is trace mitral regurgitation. Aortic Valve: The aortic valve is not well visualized. The aortic valve is mildly calcified. There is mild to moderate aortic stenosis. The peak aortic velocity is 2.31 m/sec. The aortic valve mean gradient is 12.4 mmHg. There is trace aortic regurgitation. Tricuspid Valve: The tricuspid valve is not well visualized. There is no tricuspid stenosis. No tricuspid regurgitation. Pulmonic Valve: The pulmonic valve is not well visualized. There is no pulmonic valvular stenosis. There is no pulmonic valvular regurgitation. Great Vessels: The aortic root is borderline dilated. The ascending aorta is mildly enlarged. The IVC is of normal diameter and collapses greater than 50% with a sniff. This suggests a low right atrial pressure of 3 mm Hg. Pericardium/ Pleura There is no pericardial effusion. There is no pleural effusion. MMode/2D Measurements & Calculations LVIDd: 4.9 cm LVOT diam: 2.1 cm LVIDs: 3.0 cm Ao root diam: 3.9 cm IVSd: 1.2 cm asc Aorta Diam: 4.5 cm LVPWd: 1.1 cm LV fernandes. diameter/BSA (cm/m^2): 2.2 LV sys. diameter/BSA (cm/m^2): 1.3 FS: 39.0 % LA A2 area: 17.5 cm2 LA A4 area: 29.3 cm2 LA length (vol): 7.3 cm LA vol: 59.7 ml LA vol index: 26.7 ml/m2 Doppler Measurements & Calculations Ao V2 max: 231.2 cm/sec LVOT Max Ector: 100.3 cm/sec Ao V2 mean: 165.3 cm/sec LV V1 max P.0 mmHg Ao V2 VTI: 57.9 cm LV V1 VTI: 25.9 cm Ao max P.4 mmHg Ao mean P.4 mmHg MYESHA(I,D): 1.5 cm2 MV E max ector: 81.2 cm/sec MYESHA(V,D): 1.5 cm2 MV A max ector: 99.4 cm/sec MYESHA indexed to BSA (cm^2/m^2): 0.67 MV E/A: 0.82 sev ratio: 0.45 Med Peak E' Ector: 5.7 cm/sec E/E' med: 14.3 Lat Peak E' Ector: 7.0 cm/sec E/E' lat: 11.6 E/e' average: 13.0 MV dec time: 0.27 sec PA V2 max: 81.6 cm/sec PA V2 mean: 52.8 cm/sec PA mean P.3 mmHg PA pr(Accel): 29.3 mmHg SV(LVOT): 87.3 ml Reading Physician:12:48 PM
== END ==
LOC: ECHO 07:54
PROVIDERS: Family Provider Family Medicine; PCP Family Medicine; Referring Provider Orthopaedic Surgery; Visit Provider Orthopaedic Surgery
DX: Z01.818 Encounter for other preprocedural examination (principal); M87.9 Osteonecrosis, unspecified; I35.0 Nonrheumatic aortic (valve) stenosis; I77.89 Other specified disorders of arteries and arterioles
CPT/HCPCS: 93306

== ENCOUNTER → 2024-04-28 07:55 | Outpatient (CLI) | payer MEDICARE, SELFPAY ==
[2023-10-01 08:38] VITALS: BMI 204.0
--- NOTE | 2024-04-28 07:56 | DI.MRI.S_ITS ---
PROCEDURE: MR LUMBAR SPINE WO CON INDICATIONS: RADICULOPATHY LUMBAR REGION TECHNIQUE: Noncontrast sagittal T1 spin echo and T2 fast echo, sagittal STIR, and T2 fast spin echo through the lumbar spine. In cases with scoliosis, additional coronal T2 fast spin echo may be performed. COMPARISON: [facility], MR, MR LUMBAR SPINE WO CON, 07/19/2023, 8:23. FINDINGS: Image quality: Excellent. Alignment and Curvature: There is normal bony alignment. Bone Marrow: There is no marrow edema. No acute vertebral body compression fractures. Spinal Cord: Conus medullaris terminates at the L1 level. Visualized cord demonstrates normal signal and size. Paraspinous Soft Tissues: No paravertebral masses. T12-L1: Loss of disc signal and disc height. Mild diffuse disc bulge and bilateral facet arthrosis. No significant central canal stenosis or neural foraminal narrowing. L1-L2: Loss of disc height and disc signal. Diffuse disc bulge and bilateral facet arthrosis causing mild central canal stenosis and moderate right worse than left bilateral neural foraminal narrowing. L2-L3: Modic type 2 degenerative endplate changes are seen. Loss of disc height and disc signal. Broad-based disc bulge and bilateral facet arthrosis with hypertrophy of ligamentum flavum causing moderate central canal stenosis and severe right worse than left bilateral neural foraminal narrowing. Bulging disc is seen contacting bilateral exiting L2 nerve roots. L3-L4: Loss of disc height and disc signal. Broad-based disc bulge and bilateral facet arthrosis with foki-yd-laaeyfhy central canal stenosis and moderate to severe right-sided neural foraminal narrowing. Moderate left-sided neural foraminal narrowing is also seen. Bulging disc is seen contacting bilateral exiting L3 nerve roots. L4-L5: Loss of disc signal and disc height. Diffuse disc bulge and bilateral facet arthrosis with moderate central canal stenosis, severe left-sided neural foraminal narrowing and moderate to severe right-sided neural foraminal narrowing. Bulging disc is seen contacting bilateral L4 and L5 nerve roots. L5-S1: Loss of disc height and disc signal. Diffuse disc bulge and bilateral facet arthrosis with mild central canal stenosis and bilateral neural foraminal narrowing. IMPRESSION: 1. Degenerative disc disease throughout lumbar spine causing various degrees of central canal stenosis and bilateral neural foraminal narrowing further progressed at L2-3 through L4-5 levels compared to 2022 study as described above. 2. No marrow edema. No acute compression fracture or significant spondylolisthesis. Dictated by: Eleno Wakefield M.D. on 04/28/2024 at 14:44 Approved by: Elneo Wakefield M.D. on 04/28/2024 at 14:49
== END ==
PROVIDERS: Family Provider Family Medicine; PCP Family Medicine; Referring Provider Family Medicine; Visit Provider Family Medicine
DX: Z01.818 Encounter for other preprocedural examination (principal); M51.16 Intervertebral disc disorders with radiculopathy, lumbar region; M51.17 Intervertebral disc disorders with radiculopathy, lumbosacral region; M48.061 Spinal stenosis, lumbar region without neurogenic claudication; M48.07 Spinal stenosis, lumbosacral region; M87.9 Osteonecrosis, unspecified; I35.0 Nonrheumatic aortic (valve) stenosis; I77.89 Other specified disorders of arteries and arterioles
CPT/HCPCS: 72148; 93306

== ENCOUNTER → 2024-05-25 10:18 | Outpatient (CLI) | payer MEDICARE, SELFPAY ==
[2023-10-01 08:38] VITALS: BMI 204.0
[2024-05-25 17:29] LABS: Prostate Specific Antigen 0.901 ng/mL (0.10-4.00)
== END ==
PROVIDERS: Family Provider Family Medicine; PCP Family Medicine; Referring Provider Urology; Visit Provider Urology
DX: C61 Malignant neoplasm of prostate (principal)
CPT/HCPCS: 36415; 84153

== ENCOUNTER → 2024-05-26 14:47 | Outpatient (CLI) | payer MEDICARE, SELFPAY ==
[2023-10-01 08:38] VITALS: BMI 204.0
== END ==
PROVIDERS: Family Provider Family Medicine; PCP Family Medicine; Visit Provider Urology
DX: N39.0 Urinary tract infection, site not specified (principal)
CPT/HCPCS: 87086

== ENCOUNTER 2024-06-03 11:16 | Emergency (ER) | payer MEDICARE, SELFPAY ==
[2023-10-01 08:38] VITALS: BMI 204.0
[2024-06-03] VITALS (39 sets, daily range): BP systolic 104–137; BP diastolic 55–86; PULSE 62–141; RESP 13–29; TEMP 36.7; O2SAT 92–98
--- NOTE | 2024-06-03 11:27 | EKG_ITS ---
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
--- NOTE | 2024-06-03 11:31 | DI.RAD.S_ITS ---
PROCEDURE: XR CHEST 1V INDICATIONS: chest pain TECHNIQUE: One view of the chest was acquired. COMPARISON: [facility], CR, XR CHEST 2V, 09/21/2019, 9:23. FINDINGS: Surgical changes and devices: None. Lungs and pleura: Lungs are clear. No pleural effusions or pneumothorax. Mediastinum: Mediastinal contours appear normal. Heart size is normal. Bones and chest wall: No suspicious bony lesions. Overlying soft tissues appear unremarkable. IMPRESSION: No acute cardiopulmonary abnormality is seen. Dictated by: Anupam Williamson M.D. on 06/03/2024 at 11:52 Approved by: Anupam Williamson M.D. on 06/03/2024 at 11:52
[2024-06-03 11:40] LABS: INR 1.2 (0.9-1.3)
[2024-06-03 11:42] LABS: PTT Partial Thromboplastin Tim 44 SECONDS (25.1-36.5)
[2024-06-03 11:44] LABS: Add Manual Diff / Slide Review NO; Basophils Absolute Auto 0 /uL (0-100); Basophils Percent Auto 0.8 % (0-2); Eosinophils Absolute Auto 200 /uL (0-450); Eosinophils Percent Auto 3.6 % (2-4); Hematocrit 33.6 % (41-53); Hemoglobin 11.5 g/dL (13.5-17.5); Lymphocytes Absolute Auto 1200 /uL (1100-4500); Lymphocytes Percent Auto 21.9 % (25-40); Mean Corpuscular HGB Conc 34.1 % (30-36); Mean Corpuscular Hemoglobin 30.9 PG (26-34); Mean Corpuscular Volume 90.7 fL (80-100); Monocytes Absolute Auto 800 /uL (0-900); Monocytes Percent Auto 13.6 % (3-14); Neutrophils Absolute Auto 3400 /uL (1500-7000); Neutrophils Percent Auto 60.1 % (50-75); Platelet Count 254 X10^3/uL (150-400); Red Blood Cell Count 3.71 X10^6/uL (4.5-5.9); Red Cell Distribution Width 16.4 % (11.6-14.8); White Blood Cell Count 5.6 X10^3/uL (4.5-11.0)
[2024-06-03 11:54] LABS: Alanine Aminotransferase 11 IU/L (<50); Albumin Globulin Ratio 1.3 (1.0-2.8); Alkaline Phosphatase 84 U/L (38-126); Aspartate Aminotransferase 18 IU/L (17-59); Bilirubin Total 0.5 mg/dL (0.2-1.3); Blood Urea Nitrogen 19 mg/dL (9-20); Calcium 9.9 mg/dL (8.4-10.2); Carbon Dioxide 28 mmol/L (22-32); Chloride 102 mmol/L (98-107); Creatine Kinase 47 U/L (55-170); Estimated Glomerular Filt Rate > 60 mL/min (>60); Globulin 3.2 g/dL (1.7-4.1); Glucose 101 mg/dL (80-110); HEMOLYSIS < 15 (0-50); Lipase 43 U/L (23-300); Magnesium 2.2 mg/dL (1.6-2.3); Potassium 4.3 mmol/L (3.4-5.1); Sodium 136 mmol/L (137-145); Total Protein 7.2 g/dL (6.3-8.2)
--- NOTE | 2024-06-03 11:59 | ED.ARRPALP ---
HPI - Arrhythmia/Palpitations General Chief Complaint: Arrhythmia/Palpitations Stated Complaint: UTI sepsis Time Seen by Provider: 06/03/24 11:58 Source: patient History of Present Illness HPI narrative: Patient is a 89-year-old male history of AFib on Eliquis, comes into the ED via EMS for evaluation of AFib. Patient was at his primary care doctor for follow up after treatment of urinary tract infection, has completed his course already, was found to be in rapid AFib stating that he was feeling some minor shortness of breath no actual chest pain. Patient has been compliant with his anticoagulation, he has not complaining of any other symptoms. Related Data Home Medications Medication Instructions Recorded Confirmed latanoprost 0.005 % eye drops 1 drp EYE-BOTH DAILY 11/16/20 05/26/24 Previous Rx's Medication Instructions Recorded acetaminophen 325 mg tablet 650 mg (2 x 325 mg) PO Q6H #120 10/30/22 tabs apixaban 5 mg tablet (Eliquis) 5 mg PO BID #30 tabs 10/30/22 sulfamethoxazole 800 1 tab PO BID #7 tabs 05/26/24 mg-trimethoprim 160 mg tablet (Bactrim DS) Allergies Allergy/AdvReac Type Severity Reaction Status Date / Time simvastatin [SIMVASTATIN] AdvReac Severe MUSCLE Verified 06/03/24 11:29 WEAKNESS Tkkwmhn-SHO-CoN Reductase AdvReac Severe Weakness Verified 06/03/24 11:29 Inhibitor Review of Systems Review of Systems Narrative: General: Denies fever, chills, weight loss HEENT: Denies headache, eye drainage, eye irritation, head trauma, sore throat, voice change Cardiovascular: Denies any chest pain, palpitations, shortness of breath, positive tachycardia Respiratory: Denies any shortness of breath, cough, wheeze, stridor GI/: Denies any abdominal pain, nausea, vomiting, diarrhea, bright red blood per rectum, melanotic stools, urinary frequency, urinary retention, dysuria, hematuria MSK: Denies any joint pain, muscle pains, swelling Skin: Denies any rashes, lesions, discoloration Neuro: Denies any headache, lightheadedness, dizziness, fainting, weakness Psych: Denies SI/HI Patient History Medical History (Updated 03/18/24 @ 08:51 by Kevin Brown MD) Difficulty managing urinary catheter Recurrent UTI Spondylolisthesis at L4-L5 level Lumbar radiculopathy Nocturnal enuresis History of kidney stones History of radiation therapy Androgen deprivation therapy CHF (congestive heart failure) Prostate cancer Enlarged prostate Ascending aortic aneurysm Hx of echocardiogram Atrial fibrillation Surgical History H/O prostate biopsy History of prostate surgery History of circumcision H/O hernia repair History of blepharoplasty History of tonsillectomy History of knee replacement H/O cardiac radiofrequency ablation Family History Father Heart disease Mother Breast cancer Social History marital status: number of children: 3 household members: spouse lives independently: Yes occupational status: employed and previously employed Smoking Status: Former smoker Tobacco: How many years used: 6 alcohol intake: current substance use type: does not use caffeine: Yes Type(s) of exercise: other Smoking Status: Former smoker alcohol intake frequency: a few times a month Substance Use Type: does not use Exam Initial Vital Signs Initial Vital Signs: Vital Signs Temperature 98.0 F 06/03/24 11:16 Pulse Rate 140 H 06/03/24 11:16 Respiratory Rate 20 06/03/24 11:16 Blood Pressure 128/78 06/03/24 11:16 Pulse Oximetry 97 06/03/24 11:16 Oxygen Delivery Method Room Air 06/03/24 11:16 Procedures Cardioversion Indication: AFib with RVR Stability: Stable Number of attempts (shocks): 1 Joules used: 150 Cardiac rhythm post-cardioversion: Normal sinus Course Orders Ordered: ED Orders 06/03/24 11:18 Complete Blood Count AUTO DIFF Stat Comprehensive Metabolic Panel Stat Lipase Stat Magnesium Stat NT-proBNP (BNP-Adult 18+) Stat PTT Partial Thromboplastin Titi Stat Prothrombin Time INR Stat Troponin & CK Cardiac Panel Stat 06/03/24 11:31 XR chest 1V Stat EKG-12 Lead Stat 06/03/24 12:17 Urine Culture Stat Urine Microscopic Stat Discontinued Medications Fentanyl (Fentanyl 100 Mcg/2 Ml Inj) 100 mcg IV NOW ONE Stop: 06/03/24 13:35 Last Admin: 06/03/24 14:28 Dose: Not Given Documented By: ESTHER Magnesium Sulfate (Magnesium Sulfate) 2 gm in 50 mls @ 150 mls/hr IV NOW ONE Stop: 06/03/24 12:19 Last Infusion: 06/03/24 13:05 Dose: Infused Documented By: ESTHER Co-signed By: ESTHER(2) Admin: 06/03/24 12:06 Dose: 150 mls/hr Documented By: ESTHER Co-signed By: SAMMY Midazolam HCl (Midazolam 2 Mg/2 Ml Vial) 4 mg IV NOW ONE Stop: 06/03/24 13:35 Last Admin: 06/03/24 14:28 Dose: 4 mg Documented By: ESTHER Vital Signs Vital signs: Vital Signs - 8 hr 06/03/24 11:16 06/03/24 11:23 06/03/24 11:30 Temperature 98.0 F Pulse Rate 140 H 141 H 140 H Respiratory Rate 20 20 18 Blood Pressure 128/78 Pulse Oximetry 97 97 96 Oxygen Delivery Method Room Air Room Air 06/03/24 11:30 06/03/24 12:00 06/03/24 12:00 Temperature Pulse Rate 140 H Respiratory Rate 25 H Blood Pressure 123/76 125/78 Pulse Oximetry 96 Oxygen Delivery Method 06/03/24 12:00 06/03/24 12:11 06/03/24 12:11 Temperature Pulse Rate 141 H Respiratory Rate 20 Blood Pressure 125/78 127/80 Pulse Oximetry 98 Oxygen Delivery Method 06/03/24 12:30 06/03/24 12:30 06/03/24 12:35 Temperature Pulse Rate 137 H 137 H Respiratory Rate 18 21 Blood Pressure 128/86 Pulse Oximetry 95 92 Oxygen Delivery Method 06/03/24 12:40 06/03/24 12:45 06/03/24 12:50 Temperature Pulse Rate 137 H 138 H 138 H Respiratory Rate 22 17 17 Blood Pressure Pulse Oximetry 93 93 92 Oxygen Delivery Method 06/03/24 12:55 06/03/24 13:00 06/03/24 13:00 Temperature Pulse Rate 138 H 139 H Respiratory Rate 18 18 Blood Pressure 130/84 Pulse Oximetry 92 92 Oxygen Delivery Method 06/03/24 13:05 06/03/24 13:10 06/03/24 13:15 Temperature Pulse Rate 141 H 141 H 141 H Respiratory Rate 24 23 29 H Blood Pressure Pulse Oximetry Oxygen Delivery Method 06/03/24 13:20 06/03/24 13:25 06/03/24 13:30 Temperature Pulse Rate 138 H 138 H 138 H Respiratory Rate 13 15 14 Blood Pressure Pulse Oximetry Oxygen Delivery Method 06/03/24 13:32 06/03/24 13:32 06/03/24 13:35 Temperature Pulse Rate 138 H 141 H Respiratory Rate 19 20 Blood Pressure 113/82 Pulse Oximetry Oxygen Delivery Method 06/03/24 13:40 06/03/24 13:45 06/03/24 13:50 Temperature Pulse Rate 141 H 140 H Respiratory Rate 29 H 26 H Blood Pressure 122/80 Pulse Oximetry 98 Oxygen Delivery Method 06/03/24 13:50 06/03/24 13:54 06/03/24 13:55 Temperature Pulse Rate 138 H 130 H 137 H Respiratory Rate 14 16 20 Blood Pressure 125/84 Pulse Oximetry 98 96 98 Oxygen Delivery Method 06/03/24 13:55 06/03/24 13:56 06/03/24 13:56 Temperature Pulse Rate 137 H Respiratory Rate 24 Blood Pressure 122/81 125/85 Pulse Oximetry 97 Oxygen Delivery Method 06/03/24 14:00 06/03/24 14:00 06/03/24 14:00 Temperature Pulse Rate 82 84 Respiratory Rate 20 23 Blood Pressure 137/84 137/84 Pulse Oximetry 94 94 Oxygen Delivery Method 06/03/24 14:05 06/03/24 14:05 06/03/24 14:05 Temperature Pulse Rate 82 82 Respiratory Rate 18 22 Blood Pressure 110/74 110/74 Pulse Oximetry 93 93 Oxygen Delivery Method 06/03/24 14:10 06/03/24 14:10 06/03/24 14:10 Temperature Pulse Rate 81 82 81 Respiratory Rate 17 20 22 Blood Pressure 112/62 Pulse Oximetry 95 95 Oxygen Delivery Method 06/03/24 14:10 06/03/24 14:15 06/03/24 14:15 Temperature Pulse Rate 79 81 Respiratory Rate 20 22 Blood Pressure 112/62 123/67 Pulse Oximetry 96 95 Oxygen Delivery Method 06/03/24 14:15 06/03/24 14:20 06/03/24 14:20 Temperature Pulse Rate 78 77 Respiratory Rate 19 22 Blood Pressure 123/67 115/56 L Pulse Oximetry 96 96 Oxygen Delivery Method 06/03/24 14:20 06/03/24 14:25 06/03/24 14:25 Temperature Pulse Rate 77 78 Respiratory Rate 18 21 Blood Pressure 115/56 L 120/64 Pulse Oximetry 95 95 Oxygen Delivery Method 06/03/24 14:25 06/03/24 14:30 06/03/24 14:30 Temperature Pulse Rate 77 Respiratory Rate 23 Blood Pressure 120/64 107/71 Pulse Oximetry 94 Oxygen Delivery Method MDM - Arrhythmia/Palpitations Differential Diagnosis Differential diagnosis: Likely artial fibrillation, artial flutter and other (Electrolyte abnormality, UTI) Medical Records Attestation: I reviewed the patient's medical records. Lab Data Attestation: I reviewed the patient's lab results. 06/03/24 11:18 06/03/24 11:18 Labs: Lab Results 06/03/24 06/03/24 Range/Units 11:18 12:17 WBC 5.6 (4.5-11.0) X10^3/uL RBC 3.71 L (4.5-5.9) X10^6/uL Hgb 11.5 L (13.5-17.5) g/dL Hct 33.6 L (41-53) % MCV 90.7 (80-100) fL MCH 30.9 (26-34) PG MCHC 34.1 (30-36) % RDW 16.4 H (11.6-14.8) % Plt Count 254 (150-400) X10^3/uL Neut % (Auto) 60.1 (50-75) % Lymph % (Auto) 21.9 L (25-40) % [place] % (Auto) 13.6 (3-14) % Eos % (Auto) 3.6 (2-4) % Baso % (Auto) 0.8 (0-2) % Neut # (Auto) 3400 (3452-8712) /uL Lymph # (Auto) 1200 (4344-9169) /uL [place] # (Auto) 800 (0-900) /uL Eos # (Auto) 200 (0-450) /uL Baso # (Auto) 0 (0-100) /uL PT 14.0 H (9.4-12.5) SECONDS INR 1.2 (0.9-1.3) APTT 44 H (25.1-36.5) SECONDS Sodium 136 L (137-145) mmol/L Potassium 4.3 (3.4-5.1) mmol/L Chloride 102 (98-107) mmol/L Carbon Dioxide 28 (22-32) mmol/L BUN 19 (9-20) mg/dL Creatinine 1.12 (0.66-1.25) mg/dL Estimated GFR > 60 (>60) mL/min BUN/Creatinine Ratio 17.0 (6-22) Glucose 101 (80-110) mg/dL Calcium 9.9 (8.4-10.2) mg/dL Magnesium 2.2 (1.6-2.3) mg/dL Total Bilirubin 0.5 (0.2-1.3) mg/dL AST 18 (17-59) IU/L ALT 11 (<50) IU/L Alkaline Phosphatase 84 (38-126) U/L Total Creatine Kinase 47 L (55-170) U/L Troponin I < 0.012 (0.01-0.034) ng/mL NT-Pro-B Natriuret Pep 1330 H (<450) pg/mL Total Protein 7.2 (6.3-8.2) g/dL Albumin 4.0 (3.5-5.0) g/dL Globulin 3.2 (1.7-4.1) g/dL Albumin/Globulin Ratio 1.3 (1.0-2.8) Lipase 43 (23-300) U/L Urine RBC 1-5/hpf (0-5/HPF) Urine WBC 10-30/hpf H (0-5/HPF) Ur Squamous Epith Cells 0-1 /hpf (0-5/HPF) Urine Bacteria Few (2-10) H (None) Ur Culture Indicated? Specimen cultured Vol Urine Centrifuged 10ml (spun) Urine Dip Bedside Urine Glucose Negative Bedside Urine Bilirubin - Negative Bedside Urine Ketone - Negative Urine Specific [place] 1.025 Bedside Urine Occult Blood +/- Bedside Urine pH 5.5 Bedside Urine Protein +/- 15 Bedside Urine Urobilinogen - Negative Bedside Urine Nitrite - Negative Bedside Urine Leukocytes + 70 Esterase Imaging Data Chest x-ray: Radiologist's Impresson: [address] [address] XRay Report Signed Patient: Hussein Sheets MR#: [id number] : 1935 Acct:[id number] Age/Sex: 89 / M Date of Service: 06/03/24 Loc: ED Accession Number: [id number] Procedure: XR chest 1V Ordering Provider: Carlos Hernandez D.O. PROCEDURE: XR CHEST 1V INDICATIONS: chest pain TECHNIQUE: One view of the chest was acquired. COMPARISON: [facility], CR, XR CHEST 2V, 09/21/2019, 9:23. FINDINGS: Surgical changes and devices: None. Lungs and pleura: Lungs are clear. No pleural effusions or pneumothorax. Mediastinum: Mediastinal contours appear normal. Heart size is normal. Bones and chest wall: No suspicious bony lesions. Overlying soft tissues appear unremarkable. IMPRESSION: No acute cardiopulmonary abnormality is seen. ECG Data Attestation: I personally reviewed and interpreted this ECG as follows: Interpretation: Initial EKG interpreted by ED physician, atrial fibrillation at 141 beats per minute QTC 533, normal axis, nonspecific ST changes, no STEMI Repeat EKG performed after cardioversion now showing sinus at 86 beats per minute QTC 457 occasional PVC noted, no STEMI MDM Narrative Medical decision making narrative: Patient is a 89-year-old male history of AFib on Eliquis status post 2 ablations comes into the ED via EMS from primary care doctor for AFib. Patient was presenting for follow-up of for a urinary tract infection had completed his course of antibiotics, while he was there was noted to be in AFib with RVR. He was complaining of some mild shortness of breath but no chest pain. At evaluation here patient hemodynamically stable atrial fibrillation at 140, 2 g of Mag was given and patient was consented for cardioversion. Urinalysis does show temp of 10-30 WBCs with few bacteria, however patient is still complaining of dysuria therefore will treat for acute urinary tract infection cultures were sent. Instructed to follow up with outpatient prescription benefit specialist and PCP patient verbalized understanding of this agrees with being discharged home with outpatient follow up 1400: Consent was obtained and placed in patient's chart for synchronized cardioversion review of records show patient has had this done previously, is currently anticoagulated with Eliquis. Patient was given 4 mg IV Versed, synchronized cardioversion was performed at 150 joules, after evaluation patient appears to be normal sinus, Discharge Plan Departure Prescriptions: No Action latanoprost 0.005 % drops 1 drp EYE-BOTH DAILY Eliquis 5 mg Tablet 5 mg PO BID Qty: 30 0RF acetaminophen 325 mg Tablet 650 mg PO Q6H Qty: 120 0RF sulfamethoxazole-trimethoprim [Bactrim DS] 800-160 mg tablet 1 tab PO BID Qty: 7 0RF Referrals: Hemant Tucker MD [Primary Care Provider] -
[2024-06-03 12:05] LABS: NT-proBNP (BNP-Adult 18+) 1330 pg/mL (<450); Troponin I < 0.012 ng/mL (0.01-0.034)
[2024-06-03] MEDS: MAGNESIUM SULFATE 2 GM/50 ML PIGGYBACK IV (12:06)
[2024-06-03 12:57] LABS: Urine Volume 10mL (spun)
[2024-06-03 13:02] LABS: Bacteria Urine Few (2-10); RBC Urine 1-5/HPF (0-5/HPF); Squamous Epithelial Cell Urine 0-1 /HPF (0-5/HPF); WBC Urine 10-30/HPF (0-5/HPF)
[2024-06-03 13:03] LABS: Culture Indicated Urine Specimen Cultured
--- NOTE | 2024-06-03 14:05 | EKG_ITS ---
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
[2024-06-03] MEDS: MIDAZOLAM 2 MG/2 ML VIAL 4 MG IV (14:28)
--- NOTE | 2024-06-03 14:34 | PC.NURSE ---
following cardioverios,pt in NSR.
[2024-06-03] MEDS: cephALEXin 250 MG CAPSULE 500 MG PO (15:04)
--- NOTE | 2024-06-19 15:38 | PC.NURSE ---
per RN_ procedural sedation had an END TIME of 6408
== END 2024-06-03 15:32 | disposition home or self-care (01) ==
PROVIDERS: Emergency Provider Student in an Organized Health Care Education/Training Program; Family Provider Family Medicine; PCP Family Medicine
DX: I48.20 Chronic atrial fibrillation, unspecified (principal); N39.0 Urinary tract infection, site not specified; R07.9 Chest pain, unspecified; R00.0 Tachycardia, unspecified; I44.0 Atrioventricular block, first degree; Z79.01 Long term (current) use of anticoagulants
CPT/HCPCS: 36415; 71045; 80053; 81003; 81015; 82550; 83690; 83735; 83880; 84484; 85025; 85610; 85730; 87077; 87086; 92960; 93005; 93010; 96360; 99152; 99153; 99285; J2250; J3475

== ENCOUNTER → 2024-06-24 13:26 | Outpatient (CLI) | payer MEDICARE, SELFPAY ==
[2023-10-01 08:38] VITALS: BMI 204.0
== END ==
PROVIDERS: Family Provider Family Medicine; PCP Family Medicine; Visit Provider Urology
DX: C61 Malignant neoplasm of prostate (principal); B37.49 Other urogenital candidiasis; Z98.890 Other specified postprocedural states; Z87.442 Personal history of urinary calculi; Z92.3 Personal history of irradiation; Z79.818 Long term (current) use of other agents affecting estrogen receptors and estrogen levels
CPT/HCPCS: 51798; 81002; 87077; 87086; 99214

== ENCOUNTER → 2024-07-03 11:42 | Outpatient (CLI) | payer MEDICARE, SELFPAY ==
[2023-10-01 08:38] VITALS: BMI 204.0
[2024-07-03 12:10] LABS: Appearance Urine UA CLEAR; Bilirubin Urine UA NEGATIVE (NEGATIVE); Color Urine UA YELLOW; Glucose Urine UA NEGATIVE (Negative); Ketones Urine UA NEGATIVE (NEGATIVE); Leukocyte Esterase Urine UA 2+ (NEGATIVE); Nitrite Urine UA NEGATIVE (Negative); Occult Blood Urine UA 3+ (Negative); Protein Urine UA NEGATIVE (Negative); Urobilinogen Urine UA 0.2 E.U./dL (0.2); pH Urine UA 5.5 (4.5-8.0)
[2024-07-03 12:12] LABS: Urine Volume 10mL (spun)
[2024-07-03 12:14] LABS: Bacteria Urine None Seen; Culture Indicated Urine Specimen Cultured; RBC Urine 10-30/HPF (0-5/HPF); Squamous Epithelial Cell Urine None Seen (0-5/HPF); WBC Urine 5-10/HPF (0-5/HPF)
[2024-07-03 13:08] LABS: Prostate Specific Antigen 1.12 ng/mL (0.10-4.00)
== END ==
PROVIDERS: Family Provider Family Medicine; PCP Family Medicine; Referring Provider Urology; Visit Provider Urology
DX: C61 Malignant neoplasm of prostate (principal); B37.49 Other urogenital candidiasis; N39.0 Urinary tract infection, site not specified
CPT/HCPCS: 36415; 81001; 84153; 87086

== ENCOUNTER → 2024-07-22 13:11 | Outpatient (CLI) | payer MEDICARE, SELFPAY ==
[2023-10-01 08:38] VITALS: BMI 204.0
== END ==
PROVIDERS: Family Provider Family Medicine; PCP Family Medicine; Visit Provider Urology
DX: B37.49 Other urogenital candidiasis (principal); N39.0 Urinary tract infection, site not specified; Z78.9 Other specified health status; N39.44 Nocturnal enuresis
CPT/HCPCS: 87086

== ENCOUNTER → 2024-08-14 08:51 | Outpatient (CLI) | payer MEDICARE, SELFPAY ==
[2023-10-01 08:38] VITALS: BMI 204.0
[2024-10-14 10:54] LABS: Misc. to WA State Lab SEE SCANNED REPORTS
== END ==
PROVIDERS: Family Provider Family Medicine; PCP Family Medicine; Visit Provider Urology
DX: N39.0 Urinary tract infection, site not specified (principal); N39.44 Nocturnal enuresis; N36.9 Urethral disorder, unspecified; N32.81 Overactive bladder; Z98.890 Other specified postprocedural states
CPT/HCPCS: 51798; 52000; 81002; 87077; 87086

== ENCOUNTER → 2024-08-24 15:11 | Outpatient (CLI) | payer MEDICARE, SELFPAY ==
[2023-10-01 08:38] VITALS: BMI 204.0
== END ==
PROVIDERS: Family Provider Family Medicine; PCP Family Medicine; Visit Provider Urology
DX: C61 Malignant neoplasm of prostate (principal); B37.49 Other urogenital candidiasis; R39.9 Unspecified symptoms and signs involving the genitourinary system; Z79.818 Long term (current) use of other agents affecting estrogen receptors and estrogen levels
CPT/HCPCS: 81002; 87086; 96402; 99214; J9217

== ENCOUNTER → 2024-09-28 13:18 | Outpatient (CLI) | payer MEDICARE, SELFPAY ==
[2023-10-01 08:38] VITALS: BMI 204.0
== END ==
PROVIDERS: Family Provider Family Medicine; PCP Family Medicine; Visit Provider Urology
DX: B37.49 Other urogenital candidiasis (principal); C61 Malignant neoplasm of prostate; R33.9 Retention of urine, unspecified; R39.9 Unspecified symptoms and signs involving the genitourinary system; Z79.818 Long term (current) use of other agents affecting estrogen receptors and estrogen levels; Z92.3 Personal history of irradiation; Z87.442 Personal history of urinary calculi
CPT/HCPCS: 51798; 87086; 99214

== ENCOUNTER → 2024-10-20 14:36 | Outpatient (CLI) | payer MEDICARE, SELFPAY ==
[2023-10-01 08:38] VITALS: BMI 204.0
[2024-10-20 16:34] LABS: Prostate Specific Antigen 3.56 ng/mL (0.10-4.00)
== END ==
LOC: LAB 14:37
PROVIDERS: Family Provider Family Medicine; PCP Family Medicine; Referring Provider Urology; Visit Provider Urology
DX: C61 Malignant neoplasm of prostate (principal)
CPT/HCPCS: 36415; 84153

== ENCOUNTER → 2024-11-30 15:05 | Outpatient (CLI) | payer MEDICARE, SELFPAY ==
[2023-10-01 08:38] VITALS: BMI 204.0
== END ==
PROVIDERS: Family Provider Family Medicine; PCP Family Medicine; Visit Provider Urology
DX: N39.0 Urinary tract infection, site not specified (principal)
CPT/HCPCS: 87086

== ENCOUNTER → 2024-12-08 10:48 | Outpatient (CLI) | payer MEDICARE, SELFPAY ==
[2023-10-01 08:38] VITALS: BMI 204.0
[2024-12-08 12:05] LABS: Appearance Urine UA CLEAR; Bilirubin Urine UA NEGATIVE (NEGATIVE); Color Urine UA YELLOW; Glucose Urine UA NEGATIVE (Negative); Ketones Urine UA NEGATIVE (NEGATIVE); Leukocyte Esterase Urine UA 2+ (NEGATIVE); Nitrite Urine UA NEGATIVE (Negative); Occult Blood Urine UA 1+ (Negative); Protein Urine UA TRACE (Negative); Urobilinogen Urine UA 0.2 E.U./dL (0.2)
[2024-12-08 12:22] LABS: Bacteria Urine None Seen; Culture Indicated Urine Specimen Cultured; RBC Urine 1-5/HPF (0-5/HPF); Squamous Epithelial Cell Urine None Seen (0-5/HPF); Urine Volume 10mL (spun); WBC Urine 30-100/HPF (0-5/HPF)
== END ==
PROVIDERS: Family Provider Family Medicine; PCP Family Medicine; Referring Provider Urology; Visit Provider Urology
DX: R39.9 Unspecified symptoms and signs involving the genitourinary system (principal)
CPT/HCPCS: 81001; 87077; 87086

== ENCOUNTER → 2024-12-14 14:11 | Outpatient (CLI) | payer MEDICARE, SELFPAY ==
[2024-12-14 10:10] VITALS: BMI 204.0
== END ==
PROVIDERS: Family Provider Family Medicine; PCP Family Medicine; Visit Provider Urology
DX: R39.9 Unspecified symptoms and signs involving the genitourinary system (principal); B37.49 Other urogenital candidiasis
CPT/HCPCS: 87086

== ENCOUNTER → 2024-12-23 11:23 | Outpatient (CLI) | payer MEDICARE, SELFPAY ==
[2024-12-14 10:10] VITALS: BMI 204.0
== END ==
PROVIDERS: Family Provider Family Medicine; PCP Family Medicine; Visit Provider Urology
DX: R33.9 Retention of urine, unspecified (principal); R39.9 Unspecified symptoms and signs involving the genitourinary system
CPT/HCPCS: 87086

== ENCOUNTER → 2025-01-13 09:02 | Outpatient (CLI) | payer MEDICARE, SELFPAY ==
[2024-12-14 10:10] VITALS: BMI 204.0
--- NOTE | 2025-01-13 09:05 | DI.CT.S_ITS ---
PROCEDURE: CT ABDOMEN PELVIS W CON INDICATIONS: right lower quadrant abdominal mass TECHNIQUE: After the administration of intravenous contrast, axial sections acquired from the lung bases to the pubic symphysis. Coronal and sagittal reformats were performed. For radiation dose reduction, the following was used: automated exposure control, adjustment of mA and/or kV according to patient size. COMPARISON: None. FINDINGS: Image quality: Diagnostic. Lower Chest: Valvular calcifications. ABDOMEN: Liver: No solid mass. Gallbladder: No radiopaque gallstones or wall thickening. Biliary ducts: No biliary dilation. Pancreas: No ductal dilation. Spleen: Size is within normal limits. Adrenal Glands: No adrenal nodules. Kidneys and Ureters: No hydronephrosis. No solid mass. No complex renal cystic lesion which requires follow up. Stomach and Bowel: Short segment of ascending colonic wall thickening (series 4, image 43). Colonic diverticulosis without evidence of diverticulitis. Peritoneum: Trace free fluid adjacent to the liver, nonspecific. Ventral Wall: No significant ventral hernia. Abdominal Nodes: No retroperitoneal or mesenteric adenopathy by size criteria. Vessels: Aorta and inferior vena cava are normal in size. PELVIS: Pelvic Organs: Brachytherapy clips. Bladder: Trabeculated bladder wall. Pelvic Nodes: No enlarged lymph nodes. Miscellaneous: No inguinal hernias are seen. Bones: No aggressive osseous abnormality. Degenerative disc disease of the lumbar spine. Prior left hip surgical pinning. IMPRESSION: Short segment of bowel wall thickening in the ascending colon. Differential includes artifact from underdistention or mass. Consider diagnostic colonoscopy. Trabecular bladder wall, consistent with chronic outlet obstruction. Prostate brachytherapy clips. No pelvic adenopathy. Dictated by: Evan Evangelista M.D. on 01/13/2025 at 12:33 Approved by: Evan Evangelista M.D. on 01/13/2025 at 12:41
== END ==
PROVIDERS: Family Provider Family Medicine; PCP Family Medicine; Referring Provider Family Medicine; Visit Provider Family Medicine
DX: K57.30 Diverticulosis of large intestine without perforation or abscess without bleeding (principal); N32.89 Other specified disorders of bladder; M51.369 Other intervertebral disc degeneration, lumbar region without mention of lumbar back pain or lower extremity pain; R19.03 Right lower quadrant abdominal swelling, mass and lump
CPT/HCPCS: 74177; Q9967

== ENCOUNTER → 2025-02-24 08:46 | Outpatient (CLI) | payer MEDICARE, SELFPAY ==
[2024-12-14 10:10] VITALS: BMI 204.0
[2025-02-24 11:13] LABS: Prostate Specific Antigen 12.2 ng/mL (0.10-4.00)
== END ==
PROVIDERS: Family Provider Family Medicine; PCP Family Medicine; Referring Provider Urology; Visit Provider Urology
DX: R97.21 Rising PSA following treatment for malignant neoplasm of prostate (principal); C61 Malignant neoplasm of prostate; Z79.818 Long term (current) use of other agents affecting estrogen receptors and estrogen levels
CPT/HCPCS: 36415; 84153

== ENCOUNTER → 2025-03-04 08:46 | Outpatient (CLI) | payer MEDICARE, SELFPAY ==
[2024-12-14 10:10] VITALS: BMI 204.0
== END ==
PROVIDERS: Family Provider Family Medicine; PCP Family Medicine; Visit Provider Urology
DX: R39.9 Unspecified symptoms and signs involving the genitourinary system (principal)
CPT/HCPCS: 87077; 87086

== ENCOUNTER → 2025-04-08 09:56 | Outpatient (CLI) | payer MEDICARE, SELFPAY ==
[2024-12-14 10:10] VITALS: BMI 204.0
[2025-04-08 12:19] LABS: Prostate Specific Antigen 20.0 ng/mL (0.10-4.00)
== END ==
PROVIDERS: Urology; Family Provider Family Medicine; PCP Family Medicine; Referring Provider Internal Medicine Hematology & Oncology; Visit Provider Internal Medicine Hematology & Oncology
DX: C61 Malignant neoplasm of prostate (principal); Z19.2 Hormone resistant malignancy status
CPT/HCPCS: 36415; 84153

== ENCOUNTER → 2025-05-17 10:52 | Outpatient (CLI) | payer MEDICARE, SELFPAY ==
[2024-12-14 10:10] VITALS: BMI 204.0
[2025-05-17 11:54] LABS: Hematocrit 33.2 % (41-53); Hemoglobin 11.5 g/dL (13.5-17.5); Lymphocytes Absolute Auto 1200 /uL (1100-4500); Mean Corpuscular HGB Conc 34.6 % (30-36); Mean Corpuscular Hemoglobin 29.6 PG (26-34); Mean Corpuscular Volume 85.6 fL (80-100); Platelet Count 187 X10^3/uL (150-400)
[2025-05-17 12:00] LABS: Add Manual Diff / Slide Review SLIDE REVIEW
[2025-05-17 12:11] LABS: HEMOLYSIS < 15 (0-50)
[2025-05-17 12:31] LABS: Alanine Aminotransferase 10 IU/L (<50); Albumin 4.0 g/dL (3.5-5.0); Albumin Globulin Ratio 1.6 (1.0-2.8); Alkaline Phosphatase 66 U/L (38-126); Blood Urea Nitrogen 20 mg/dL (9-20); Calcium 9.4 mg/dL (8.4-10.2); Carbon Dioxide 24 mmol/L (22-32); Chloride 102 mmol/L (98-107); Estimated Glomerular Filt Rate > 60 mL/min (>60); Globulin 2.5 g/dL (1.7-4.1); Glucose 90 mg/dL (70-99); Potassium 4.4 mmol/L (3.4-5.1); Sodium 135 mmol/L (137-145); Total Protein 6.5 g/dL (6.3-8.2)
[2025-05-17 12:44] LABS: Prostate Specific Antigen 21.4 ng/mL (0.10-4.00)
[2025-05-17 13:59] LABS: RBC Morphology Normal Morphology
== END ==
LOC: LAB 10:53
PROVIDERS: Internal Medicine Hematology & Oncology; Family Provider Family Medicine; PCP Family Medicine; Referring Provider Urology; Visit Provider Urology
DX: Z19.2 Hormone resistant malignancy status (principal)
CPT/HCPCS: 36415; 80053; 84153; 84403; 85025

== ENCOUNTER → 2025-05-31 10:44 | Outpatient (CLI) | payer MEDICARE, SELFPAY ==
[2024-12-14 10:10] VITALS: BMI 204.0
[2025-05-31 13:27] LABS: Prostate Specific Antigen 13.2 ng/mL (0.10-4.00)
== END ==
PROVIDERS: Family Provider Family Medicine; PCP Family Medicine; Referring Provider Urology; Visit Provider Urology
DX: R97.21 Rising PSA following treatment for malignant neoplasm of prostate (principal)
CPT/HCPCS: 36415; 84153

== ENCOUNTER → 2025-06-07 11:47 | Outpatient (CLI) | payer MEDICARE, SELFPAY ==
[2024-12-14 10:10] VITALS: BMI 204.0
== END ==
PROVIDERS: Family Provider Family Medicine; PCP Family Medicine; Visit Provider Urology
DX: R39.9 Unspecified symptoms and signs involving the genitourinary system (principal)
CPT/HCPCS: 87077; 87086

== ENCOUNTER → 2025-06-21 14:16 | Outpatient (CLI) | payer MEDICARE, SELFPAY ==
[2024-12-14 10:10] VITALS: BMI 204.0
[2025-06-21 15:39] LABS: Add Manual Diff / Slide Review NO; Hematocrit 31.1 % (41-53); Hemoglobin 10.7 g/dL (13.5-17.5); Lymphocytes Absolute Auto 1900 /uL (1100-4500); Mean Corpuscular HGB Conc 34.3 % (30-36); Mean Corpuscular Hemoglobin 29.6 PG (26-34); Mean Corpuscular Volume 86.3 fL (80-100); Platelet Count 199 X10^3/uL (150-400)
[2025-06-21 15:54] LABS: Alanine Aminotransferase 10 IU/L (<50); Albumin 4.2 g/dL (3.5-5.0); Albumin Globulin Ratio 1.6 (1.0-2.8); Alkaline Phosphatase 73 U/L (38-126); Blood Urea Nitrogen 21 mg/dL (9-20); Calcium 9.4 mg/dL (8.4-10.2); Carbon Dioxide 23 mmol/L (22-32); Chloride 104 mmol/L (98-107); Estimated Glomerular Filt Rate > 60 mL/min (>60); Globulin 2.6 g/dL (1.7-4.1); Glucose 97 mg/dL (70-99); HEMOLYSIS < 15 (0-50); Potassium 4.1 mmol/L (3.4-5.1); Sodium 138 mmol/L (137-145); Total Protein 6.8 g/dL (6.3-8.2)
[2025-06-21 16:24] LABS: Prostate Specific Antigen 7.05 ng/mL (0.10-4.00)
== END ==
PROVIDERS: Family Provider Family Medicine; PCP Family Medicine; Referring Provider Internal Medicine Hematology & Oncology; Visit Provider Urology
DX: C61 Malignant neoplasm of prostate (principal); Z19.2 Hormone resistant malignancy status
CPT/HCPCS: 36415; 80053; 84153; 84403; 85025

== ENCOUNTER 2025-06-24 06:44 | Day surgery (SDC) | payer MEDICARE, SELFPAY ==
[2024-12-14 10:10] VITALS: BMI 204.0
--- NOTE | 2025-06-24 | PATH_ITS ---
[facility] Accession Number: [id number] No. of containers..04 Tissue . 01 Material submitted: . PART A: gastrointestinal site - ANTRAL PART B: gastrointestinal site - GREATER CURVATURE PART C: colon - CECAL POLYP PART D: colon - COLON, DESCENDING POLYP . 01 Diagnosis: A: GASTRIC ANTRUM, BIOPSY: Gastric oxyntic mucosa with no significant diagnostic abnormality. Negative for helicobacter organisms on H/E sections. Negative for intestinal metaplasia, dysplasia, or malignancy. - B: STOMACH, GREATER CURVATURE, BIOPSY: Gastric antrum with mild chronic inactive gastritis. Negative for helicobacter organisms on H/E and immunostain sections, see comment. Negative for intestinal metaplasia, dysplasia, or malignancy. - C: CECUM, POLYPECTOMY: Tubular adenoma. - D: DESENDING COLON, POLYPECTOMY: Sessile serrated adenoma/polyp. [facility] 07/07/2025 [facility]4 Local . 01 Comment: Part B: An immunohistochemical stain was performed to evaluate for Helicobacter organisms and is NEGATIVE. The control stain was adequately reactive. Technical Note: The immunohistochemical stains reported were performed at [facility] [employer] [facility] ([address], [facility] [address]). They were developed and their performance characteristics determined by [employer] They have not been cleared or approved by the U.S. Food and Drug Administration, although such approval is not required for analyte-specific reagents of this type. . 01 Electronically signed: . Kimberly Diaz MD, Pathologist NPI- [id number] . 01 Gross description: . Received are four formalin-filled containers each labeled with the patient's name. . A. In a container labeled antral biopsies. The specimen consists of two fragments of vazquez, soft tissue which range in size from less than 0.1 cm to 0.5 x 0.2 x 0.1 cm. All fragments are totally submitted in cassette A1. B. In a container labeled greater curvature biopsy. The specimen consists of multiple fragments of vazquez, soft tissue which range in size from 0.1 x 0.1 x 0.1 cm to 0.4 x 0.2 x 0.2 cm. All fragments are totally submitted in cassette B1. C. In a container labeled cecal polyp. The specimen consists of one fragment of vazquez, soft tissue which measure 0.4 x 0.2 x 0.2 cm. The specimen is totally submitted in cassette C1. D. In a container labeled descending colon polyp. The specimen consists of one fragment of vazquez, soft tissue which measures 0.7 x 0.4 x 0.2 cm. The specimen is totally submitted in cassette D1. ([id number]) /REID 07/02/2025 [id number] Local . 01 Pathologist provided ICD-10: K62.5, R68.81 . 01 CPT . 237588, 054505, 133931, 118950 Specimen Comment: A courtesy copy of this report has been sent to [facility] Pathology Performed at: [address] [id number] MD Chip Pulido MD Phone: [phone]
--- NOTE | 2025-06-24 06:20 | PM.PREOP ---
Pre-operative Note Interval Note History & Physical reviewed/Exam performed by Physician: Yes Changes to H&P: No ASA Class (for procedural sedation): II
--- NOTE | 2025-06-24 07:15 | PM.OP.EC ---
Operative Date/Time/Diagnoses Date of procedure: 06/24/25 Time of procedure: 08:29 Pre-op diagnosis: Anemia Post-op diagnosis: other (Severe gastritis, , hiatal hernia, colon polyps, internal hemorrhoids) Procedure & Clinicians Study performed: EGD with biopsy, colonoscopy with polypectomy, banding internal hemorrhoid Same procedure(s) as scheduled: Yes Indications: 89yo M with anemia. Surgeon: Gerson Donovan Anesthesia Type: MAC +/- Procedure Notes SCOAP/Timeout: Performed Procedure in detail: EGD Informed consent was obtained. The procedure, its risks, benefits, and alternatives were discussed. Patient understood and agreed to proceed. The patient was placed in the left lateral decubitus position with head elevated. Sedation given per anesthesia. The video endoscope was inserted into the oropharynx and guided under direct vision into the esophagus, stomach, and duodenum which were carefully examined. The scope was retroflexed to examine the hiatus and gastroesophageal junction. Antral biopsies were obtained for Helicobacter pylori. The patient tolerated the procedure very well. There were no apparent complications. Significant EGD findings: Z-line noted at: 45cm 3cm hiatal hernia, no esophagitis, no esophageal varices Severe gastritis, mucosal cobblestoning along greater curve, appearance of portal gastropathy, multiple biopsies taken (recent CT scan December 2024 without evidence of portal HTN), old clots, stigmata of recent bleeding, most likely etiology of anemia Mild antral gastritis, biopsies taken for H pylori Duodenum normal No ulcers in gastric body, duodenum or esophagus No active bleeding Colonoscopy Patient placed in left lateral recumbent position. Time out was performed. Procedural sedation was administered by anesthesia. Examination began with a thorough inspection of the perianal area. There was no evidence of fissures, fistulae, external hemorrhoids or cutaneous malignancy. The colonoscope was then placed into the rectum and the lumen was insufflated with carbon dioxide. The scope was carefully advanced forward. Ultimately the cecum was intubated and confirmed by identification of the ileocecal valve, the appendiceal orifice and the confluence of the taenia. The scope was then slowly withdrawn examining the colon thoroughly in all directions. In the rectum, retroflexion of the scope was performed for inspection of the distal rectum and anal canal. ?Significant colonoscopy findings: ?1. Quality of the preparation-good, [place] 2-3, improved with irrigation/suction ?2. 3mm sessile polyps x 2, cecum and descending, benign appearing, removed with cold biopsy or cold snare and retrieved for pathology 3. Diverticulosis, concentrated in sigmoid colon and scattered throughout 4. Internal hemorrhoids - dilated hemorrhoidal columns banded at 3 and 7 o'clock positions 5. No active bleeding Scope withdrawal time: 19 minutes Findings: diverticulosis, gastritis, hiatal hernia, internal hemorrhoids and polyp Specimen(s): other (Biopsies of antrum, gastric body, colon polyps x 2) Estimated Blood Loss: 5 Complications: none Impression: Severe gastritis likely source of bleeding, biopsies pending Hiatal hernia without esophagitis Colon polyps x 2 Sigmoid diverticulosis Internal hemorrhoids (banded) Post-procedure Recommendations: Colonscopy in 10 years Plan for aftercare: PACU then home PPI, H pylori treatment Follow up: as needed Disposition: PACU
[2025-06-24 07:16] VITALS: BP 145/73; PULSE 81; RESP 15; TEMP 36.3; O2SAT 98
[2025-06-24] MEDS: LACTATED RINGERS 1,000 ML 42 ML IV (07:34)
[2025-06-24 08:30] VITALS: BP 119/60; PULSE 75; RESP 19; TEMP 36.2; O2SAT 96
[2025-06-24 08:36] VITALS: BP 117/61; PULSE 72; RESP 15; O2SAT 97
[2025-06-24 08:41] VITALS: BP 129/66; PULSE 73; RESP 9; TEMP 36.5; O2SAT 98
[2025-06-24 08:46] VITALS: BP 133/64; PULSE 71; RESP 14; O2SAT 98
== END 2025-06-24 09:22 | disposition home or self-care (01) ==
PROVIDERS: Family Provider Family Medicine; PCP Family Medicine; Referring Provider Surgery; Visit Provider Surgery
PROC: 0DJ08ZZ Inspection of Upper Intestinal Tract, Via Natural or Artificial Opening Endoscopic (ICD-10-PCS; CPT 45380; principal; 2025-06-24 07:45)
PROC: 0DJD8ZZ Inspection of Lower Intestinal Tract, Via Natural or Artificial Opening Endoscopic (ICD-10-PCS; CPT 45378; 2025-06-24 07:45)
DX: K29.50 Unspecified chronic gastritis without bleeding (principal); K44.9 Diaphragmatic hernia without obstruction or gangrene; K57.30 Diverticulosis of large intestine without perforation or abscess without bleeding; K64.8 Other hemorrhoids; D12.0 Benign neoplasm of cecum; D12.4 Benign neoplasm of descending colon
CPT/HCPCS: 45380; 45398; 43239; J2704; J7120

== ENCOUNTER → 2025-07-12 11:36 | Outpatient (CLI) | payer MEDICARE, SELFPAY ==
[2024-12-14 10:10] VITALS: BMI 204.0
--- NOTE | 2025-07-12 11:39 | DI.US.S_ITS ---
PROCEDURE: US ABDOMEN LIMITED
== END ==
PROVIDERS: Family Provider Family Medicine; PCP Family Medicine; Referring Provider Family Medicine; Visit Provider Surgery
DX: R18.8 Other ascites (principal); R11.0 Nausea
CPT/HCPCS: 76705; 93975

== ENCOUNTER → 2025-07-19 15:14 | Outpatient (CLI) | payer MEDICARE, SELFPAY ==
[2024-12-14 10:10] VITALS: BMI 204.0
[2025-07-19 18:15] LABS: Amylase 42 U/L (30-110); Lipase 63 U/L (23-300)
[2025-07-19 18:25] LABS: Hematocrit 31.0 % (41-53); Hemoglobin 10.7 g/dL (13.5-17.5); Lymphocytes Absolute Auto 1700 /uL (1100-4500); Mean Corpuscular HGB Conc 34.5 % (30-36); Mean Corpuscular Hemoglobin 29.4 PG (26-34); Mean Corpuscular Volume 85.2 fL (80-100); Platelet Count 213 X10^3/uL (150-400)
[2025-07-19 18:33] LABS: Add Manual Diff / Slide Review SLIDE REVIEW
[2025-07-19 19:13] LABS: Anisocytosis 2+; Schistocytes 1+
== END ==
PROVIDERS: Family Provider Family Medicine; PCP Family Medicine; Referring Provider Surgery; Visit Provider Surgery
DX: K62.5 Hemorrhage of anus and rectum (principal); R10.13 Epigastric pain
CPT/HCPCS: 36415; 82150; 83690; 85025

== ENCOUNTER → 2025-08-03 10:55 | Outpatient (CLI) | payer MEDICARE, SELFPAY ==
[2024-12-14 10:10] VITALS: BMI 204.0
[2025-08-03 12:02] LABS: Add Manual Diff / Slide Review NO; Hematocrit 30.0 % (41-53); Hemoglobin 10.2 g/dL (13.5-17.5); Lymphocytes Absolute Auto 1500 /uL (1100-4500); Mean Corpuscular HGB Conc 34.1 % (30-36); Mean Corpuscular Hemoglobin 29.4 PG (26-34); Mean Corpuscular Volume 86.4 fL (80-100); Platelet Count 204 X10^3/uL (150-400)
[2025-08-03 12:20] LABS: Alanine Aminotransferase 10 IU/L (<50); Albumin 4.2 g/dL (3.5-5.0); Albumin Globulin Ratio 1.7 (1.0-2.8); Alkaline Phosphatase 65 U/L (38-126); Blood Urea Nitrogen 26 mg/dL (9-20); Calcium 9.4 mg/dL (8.4-10.2); Carbon Dioxide 26 mmol/L (22-32); Chloride 103 mmol/L (98-107); Estimated Glomerular Filt Rate 55 mL/min (>60); Globulin 2.5 g/dL (1.7-4.1); Glucose 49 mg/dL (70-99); HEMOLYSIS < 15 (0-50); Potassium 3.8 mmol/L (3.4-5.1); Sodium 139 mmol/L (137-145); Total Protein 6.7 g/dL (6.3-8.2)
[2025-08-03 12:54] LABS: Prostate Specific Antigen 5.31 ng/mL (0.10-4.00)
== END ==
PROVIDERS: Family Provider Family Medicine; PCP Family Medicine; Referring Provider Internal Medicine Hematology & Oncology; Visit Provider Internal Medicine Hematology & Oncology
DX: C61 Malignant neoplasm of prostate (principal); Z19.2 Hormone resistant malignancy status
CPT/HCPCS: 36415; 80053; 84153; 84403; 85025